=== PATIENT | female | born 1960 | race Caucasian/White ===

== ENCOUNTER → 2017-04-24 | Outpatient (CLI) | payer BC, SELFPAY | PROVIDERS: Family Provider Emergency Medicine; Visit Provider Internal Medicine | DX: I25.10 Atherosclerotic heart disease of native coronary artery without angina pectoris (principal); I11.9 Hypertensive heart disease without heart failure; E78.5 Hyperlipidemia, unspecified | CPT/HCPCS: 93306 ==

== ENCOUNTER 2017-09-17 01:09 | Inpatient (IN) ==
[2017-09-17 01:48] LABS: Basophils % 0.5 % (0.1-2.0); Eosinophils # 0.2 K/mm3 (0.0-0.4); Eosinophils % 2.3 % (0.1-12.0); Hematocrit 37.6 % (37.0-47.0); Hemoglobin 12.6 g/dL (12.2-16.2); Lymphocytes % 22.3 K/mm3 (10-50); Mean Corpuscular HGB Conc 33.5 g/dL (31.8-35.4); Mean Corpuscular Hemoglobin 27.9 pg (27.0-31.2); Mean Corpuscular Volume 83.2 fl (81-99); Mean Platelet Volume 7.9 fl (7.4-10.4); Monocytes # 0.6 K/mm3 (0.1-1.0); Monocytes % 7.4 % (1.7-9.3); Neutrophils # 5.9 K/mm3 (1.8-7.8); Neutrophils % 67.5 % (37.0-80.0); Platelet Count 282 K/mm3 (142-424); Red Blood Count 4.52 M/mm3 (4.20-5.40); Red Cell Distribution Width 13.3 % (11.5-17.5); White Blood Count 8.7 K/mm3 (4.8-10.8)
[2017-09-17 01:59] LABS: Anion Gap 14.2 mEq/L (5-15); Potassium 4.2 mmoL/L (3.5-5.1)
[2017-09-17 02:17] LABS: Microscopic, Urine URINE MICROSCOPIC (MICROSCOPIC)
[2017-09-17 02:18] LABS: Appearance,Urine CLEAR (Clear); Bilirubin,Urine Negative (Negative); Blood, Urine 2+ (Negative); Color,Urine YELLOW (Yellow); Glucose,Urine (UA) Negative (Negative); Ketones,Urine Negative (Negative); Leukocyte Esterase,Urine 2+ (Negative); PH,Urine 5.5 (5.0-8.5); Protein,Urine TRACE (Negative); Specific Gravity, Urine <= 1.005 (1.005-1.030); Urobilinogen,Urine 0.2 EU/dl (0.2)
[2017-09-17 02:24] LABS: Bacteria,Urine 1+ /lpf; Mucus,Urine 1+ /lpf; Squamous Epithelial Cell,Urine TNTC #/hpf (0-5)
--- NOTE | 2017-09-17 02:30 | Emergency Department Note ---
ED Disposition Clinical Impression: Renal insufficiency, Elevated troponin Chest pain Qualifiers: Chest pain type: precordial pain Qualified Code(s): R07.2 - Precordial pain Atrial fibrillation Qualifiers: Atrial fibrillation type: paroxysmal Qualified Code(s): I48.0 - Paroxysmal atrial fibrillation Diabetes mellitus Qualifiers: Diabetes mellitus type: type 1 Diabetes mellitus complication status: with unspecified complications Qualified Code(s): E10.8 - Type 1 diabetes mellitus with unspecified complications Obesity Qualifiers: Obesity type: unspecified obesity type Obesity classification: adult class 2 ( BMI 35 - 39.9) Serious obesity comorbidity presence: unspecified whether serious comorbidity present Body mass index: BMI 36.0-36.9 Qualified Code(s): E66.9 - Obesity, unspecified; Z68.36 - Body mass index (BMI) 36.0-36.9, adult Disposition: Admitted as Observation Condition on Discharge: Good Referrals: Ness Ann APRN [Primary Care Provider] - - Critical Care Critical Care Time: No Attestation: On 09/17/17, the high probability of a clinically significant, sudden or life threatening deterioration of the following system(s) required my full and direct attention, intervention and personal management. The time I documented below is in addition to time spent performing reported procedures but includes the following listed in this critical care notation. Medical Decision Making - Medical Records Medical records reviewed: Yes: I reviewed the patient's medical records. - James Inquiry Pt receiving controlled substance: No Vital Signs: 09/17/17 01:10 09/17/17 01:57 09/17/17 02:09 Temperature 98.2 F Temperature Source Oral Pulse Rate [Orthostatic Lying Right Radial] 66 Pulse Rate [Orthostatic Sitting Right Radial] 67 Pulse Rate [Orthostatic Standing Right Radial] Pulse Rate [Right Brachial] 53 L 60 Respiratory Rate 16 16 Blood Pressure [Orthostatic Lying Right Arm] 144/76 Blood Pressure [Orthostatic Sitting Right Arm] 135/63 Blood Pressure [Orthostatic Standing Right Arm] Blood Pressure [Right Arm] 133/75 144/73 Blood Pressure Mean [Right Arm] 94 96 Blood Pressure Source [Right Arm] Automatic Cuff Automatic Cuff Blood Pressure Position [Right Arm] Sitting Sitting 02 Sat by Pulse Oximetry 97 100 Oxygen Delivery Method Room Air Room Air 09/17/17 02:10 Temperature Temperature Source Pulse Rate [Orthostatic Lying Right Radial] Pulse Rate [Orthostatic Sitting Right Radial] Pulse Rate [Orthostatic Standing Right Radial] 65 Pulse Rate [Right Brachial] Respiratory Rate Blood Pressure [Orthostatic Lying Right Arm] Blood Pressure [Orthostatic Sitting Right Arm] Blood Pressure [Orthostatic Standing Right Arm] 127/81 Blood Pressure [Right Arm] Blood Pressure Mean [Right Arm] Blood Pressure Source [Right Arm] Blood Pressure Position [Right Arm] 02 Sat by Pulse Oximetry Oxygen Delivery Method - Lab Data Lab results reviewed: Yes: I reviewed the patient's lab results. Lab Results 09/17/17 01:30: WBC 8.7, RBC 4.52, Hgb 12.6, Hct 37.6, MCV 83.2, MCH 27.9, MCHC 33.5, RDW 13.3, Plt Count 282, MPV 7.9, Neut % (Auto) 67.5, Lymph % (Auto) 22.3 , [place] % (Auto) 7.4, Eos % (Auto) 2.3, Baso % (Auto) 0.5, Neut # (Auto) 5.9, Lymph # (Auto) 2.0, [place] # (Auto) 0.6, Eos # (Auto) 0.2, Baso # (Auto) 0.0 09/17/17 01:30: Sodium 137, Potassium 4.2, Chloride 102, Carbon Dioxide 25, Anion Gap 14.2, BUN 30 H, Creatinine 1.53 H, Estimated Creat Clear 67, Estimated GFR 35 L, Est GFR ( Amer) 42 L, Glucose 100, Troponin I 0.15 H 09/17/17 01:30: B-Natriuretic Peptide 509 H 09/17/17 02:11: Urine Color Yellow, Urine Appearance Clear, Urine pH 5.5, Ur Specific [place] <= 1.005, Urine Protein Trace, Urine Glucose (UA) Negative, Urine Ketones Negative, Urine Blood 2+, Urine Nitrate Negative, Urine Bilirubin Negative, Urine Urobilinogen 0.2, Ur Leukocyte Esterase 2+ A, Urine RBC 10-20, Urine WBC 10-20, Ur Squamous Epith Cells Tntc, Urine Bacteria 1+, Urine Mucus 1+ Result diagrams: 09/17/17 01:30 09/17/17 01:30 Orders (Tests/Meds): ORDERS Category Date Time Status Chest XR 2 view (NOT portable) [XR chest 2V] Stat Exams 05/22/18 01:23 Taken Urine Culture Stat Micro 09/17/17 02:11 Received - Radiology Data #1 Image(s): Chest Image Reviewed: Yes I reviewed the patient's radiology image Preliminary Findings: Abnormal (cm) - ECG Data Tracing #1 I reviewed this ECG and interpreted as documented below: Arrhythmias present: afib, aflutter Ischemic changes: non-specific ST-T wave changes Dizzy HPI - General Chief Complaint: Arrhythmia/Palpitations Stated Complaint: dizzy, weakness Time Seen by Provider: 09/17/17 01:20 Mode of Arrival: Ambulatory Limitations: No Limitations Description of Symptoms (Recalled from ER Triage Doc. by RN): REPORTS SHE WAS AT WORK, STARTED HER SHIFT AT 2300 AND ABOUT AN HOUR AFTER BEING AT WORK, FELT DIZZY. HAS A HX OF ARRYTHMIA, EKG SHOWS AFLUTTER. REPORTS MILD SOA WITH IT AND A "FULLNESS" FEELING IN HER CHEST. - History of Present Illness HPI Narrative: pt with known cad with stents 2 yrs ago and has a fib /a flutter and she had episode of chest tightness and diaphoresis - MD complaint: dizziness Onset (ago): hour(s) Timing: sudden onset Description: lightheadedness History of similar episodes: Yes History of trauma: No Severity: moderate Relieving factors: remaining still Exacerbating factors: movement Associated symptoms: chest pain, diaphoresis - Related Data Home Medications Medication Instructions Recorded Confirmed insulin NPH isophane U-100 human 30 unit SUB-Q BID ml 05/03/17 09/17/17 100 unit/mL subcutaneous suspension metoprolol succinate ER 100 mg 100 mg PO DAILY 05/03/17 09/17/17 tablet,extended release 24 hr nitroglycerin 0.4 mg sublingual 0.4 mg SUBLINGUAL Q5M PRN 05/03/17 09/17/17 tablet rivaroxaban 20 mg tablet 20 mg PO DAILY 05/03/17 09/17/17 atorvastatin 80 mg tablet 10 mg PO DAILY tab 08/30/17 09/17/17 Clopidogrel Bisulfate [Plavix 75mg 75 mg PO DAILY 09/17/17 09/17/17 Tab] Furosemide [Furosemide 20mg Tab] 20 mg PO DAILY 09/17/17 09/17/17 Lisinopril [Prinivil 10mg Tablet] 10 mg PO DAILY 09/17/17 09/17/17 Omeprazole [Omeprazole 20mg 40 mg PO DAILY 09/17/17 09/17/17 Capsule] dilTIAZem HCl [Diltiazem ER] 240 mg PO DAILY 09/17/17 09/17/17 Allergies Allergy/AdvReac Type Severity Reaction Status Date / Time No Known Allergies Allergy Verified 08/22/17 10:12 [facility] History I have reviewed the patient's past medical history: Yes Medical History: Reports:: Atrial Fibrillation, Coronary Artery Disease, Diabetes Mellitus Type 2, Hyperlipidemia, Hypertension, Seizures Denies:: Cancer, MRSA Other Surgeries: Yes: Cholecystectomy Amputation: No Fractures: No - Social History Educational Level: Completed Grade School Smoking Status: Never smoker Alcohol Intake: never Substance Use Type: denies use Occupational Status: employed Housing: house Household Members: family - Psychiatric History Expresses thoughts of harming self/others: None Suicide Plan Description: No Plan Family Hx:: Diabetes, Heart Attack ROS Obtained: Yes All systems reviewed & no additional complaints - Constitutional Constitutional: Denies fever(s) - Eyes Eyes: Denies change in vision - ENT Ears, Nose, Mouth, and Throat: Denies sore throat - Cardiovascular Cardiovascular: Reports chest pain, Reports palpitations, Denies rapid heart rate, Denies slow heart rate - Respiratory Respiratory: No cough - Gastrointestinal Gastrointestingal: Denies: abdominal pain, black, tarry stools - Genitourinary Female Genitourinary: Denies hematuria - Musculoskeletal Musculoskeletal: Denies joint pain, Denies joint swelling - Integumentary/Breasts Skin/Breast: Denies rash - Neurologic Neurologic: Denies seizure-like activity Physical Exam - General General appearance: in no apparent distress - Head Head exam: normocephalic - Eye Eye exam: Present: PERRL, EOMI - ENT ENT exam: Present: mucous membranes dry - Neck Neck exam: Present: trachea midline - Respiratory Respiratory exam: Present: normal lung sounds bilaterally. Absent: respiratory distress - Cardiovascular Cardiovascular exam: Present: irregular rhythm, systolic murmur, +S4 - Abdominal Exam Abdominal exam: Present: soft - Neurological Exam Neurological exam: Present: oriented X3, CN II-XII intact - Psychiatric Psychiatric exam: Present: normal affect - Skin Skin exam: Absent: rash
[2017-09-17 02:55] LABS: T4 (Thyroxine) 7.7 ug/dl (4.7-13.3); Thyroid Stimulating Hormone 1.08 uIU/ml (0.358-3.740)
[2017-09-17 06:56] LABS: Basophils % 0.6 % (0.1-2.0); Eosinophils # 0.2 K/mm3 (0.0-0.4); Eosinophils % 2.4 % (0.1-12.0); Hematocrit 36.5 % (37.0-47.0); Hemoglobin 11.9 g/dL (12.2-16.2); Lymphocytes # 1.7 K/mm3 (0.7-4.5); Lymphocytes % 23.3 K/mm3 (10-50); Mean Corpuscular HGB Conc 32.7 g/dL (31.8-35.4); Mean Corpuscular Hemoglobin 27.7 pg (27.0-31.2); Mean Corpuscular Volume 84.8 fl (81-99); Mean Platelet Volume 7.5 fl (7.4-10.4); Monocytes # 0.5 K/mm3 (0.1-1.0); Monocytes % 7.1 % (1.7-9.3); Neutrophils # 4.9 K/mm3 (1.8-7.8); Neutrophils % 66.6 % (37.0-80.0); Platelet Count 252 K/mm3 (142-424); Red Cell Distribution Width 13.4 % (11.5-17.5); White Blood Count 7.3 K/mm3 (4.8-10.8)
[2017-09-17 07:01] LABS: INR 1.3 (0.9-1.1); Prothrombin Time 14.1 seconds (9.4-11.8)
[2017-09-17 07:02] LABS: Anion Gap 13.3 mEq/L (5-15); Potassium 4.3 mmoL/L (3.5-5.1)
--- NOTE | 2017-09-17 07:46 | Pharmacy Consult Notes ---
[facility] Pharmacy VTE Monitoring - Patient Demographics Admission date: 09/17/17 Report Date: 09/17/17 Time: 07:45 Allergies/Adverse Reactions: Patient Allergies No Known Allergies Allergy (Verified 08/22/17 10:12) Height: 1.7 m Weight: 101.406 kg Patient Problems: Current Active Problems Chest pain (Acute) Atrial fibrillation (Acute) Renal insufficiency (Acute) Elevated troponin (Acute) Obesity (Acute) Diabetes mellitus (Acute) - VTE Risk Labs: VTE Related Lab Results Hgb 11.9 g/dL (12.2-16.2) L 09/17/17 06:12 Hct 36.5 % (37.0-47.0) L 09/17/17 06:12 Plt Count 252 K/mm3 (142-424) 09/17/17 06:12 BUN 28 mg/dL (7-18) H 09/17/17 06:12 Creatinine 1.29 mg/dL (0.55-1.02) H 09/17/17 06:12 Estimated Creat Clear 77 mL/min (0-300) 09/17/17 06:12 Was VTE Risk Assessment Performed: Yes VTE Risk Level: Low Risk - Prophylaxis VTE Prophylaxis Ordered?: Yes Types of VTE Prophylaxis: TEDS Knee High Location of Applied Device: Bilateral Lower Extremeties - VTE Diagnosis Confirmed Treatment or plan recommended: Continue Current Treatment
--- NOTE | 2017-09-17 08:26 | Consult Report ---
History of Present Illness Consult date: 09/17/17 Requesting physician: Dipak Tai Consult reason: chest pain Chief complaint: Dizziness Additional Medical History:: 1. CAD A. MAXIMILIAN to diagonal, 08/30/2015. On DAPT. B. NSTEMI, 09/06/2015, due to A. Fib/flutter with RVR. C. NSTEMI, 02/2016, with LHC showing LAD FFR of 0.82, mildly elevated LVEDP 2. Chronic A. fib/flutter with history of intracardiac thrombus, 2010, transient coumadin therapy stopped due to hematuria A. Chronic Xarelto therapy B. Failed amiodarone therapy to maintain NSR 3. CKD, stage 3 4. HTN 5. Hyperlipidemia 6. 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 History of seizures 8. Diabetes, treated for 14 yrs. History of present illness: 57-year-old white female with known coronary artery disease presented to the emergency department for episode of dizziness and chest discomfort while at work. 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 Patient states she could rest with resolution of symptoms but with exertion symptoms would quickly return. She did feel as if she might pass out. Due to the symptoms being similar to her previous stent 2 years ago she decided to come to the emergency department for further evaluation. She relates a similar episode about 1 month ago but not as severe. Patient has chronic atrial flutter for which she takes Xarelto therapy. She is on Plavix therapy for history of coronary artery disease. Patient was admitted through the emergency department with mildly elevated troponins. She has had no further episodes of discomfort or dizziness since admission. Cardiology consulted for evaluation recommendations. [facility] History Medical History: Reports:: Atrial Fibrillation, Coronary Artery Disease, Deep Vein Thrombosis, Diabetes Mellitus Type 2, Hyperlipidemia, Hypertension, Seizures Denies:: Cancer, Diabetes Mellitus Type 1, MRSA Other Surgeries: Yes: Cholecystectomy Amputation: No Fractures: No - *Social History Educational Level: Completed Grade School Smoking Status: Never smoker Alcohol Intake: never Substance Use Type: denies use Occupational Status: employed Housing: house Household Members: family - Psychiatric History Expresses thoughts of harming self/others: None Suicide Plan Description: No Plan *Family Hx:: Diabetes, Heart Attack Meds Home Medications Medication Instructions Recorded Confirmed Type insulin NPH isophane U-100 human 30 unit SUB-Q BID ml 05/03/17 09/17/17 History 100 unit/mL subcutaneous suspension metoprolol succinate ER 100 mg 100 mg PO DAILY 05/03/17 09/17/17 History tablet,extended release 24 hr nitroglycerin 0.4 mg sublingual 0.4 mg SUBLINGUAL Q5MINP PRN 05/03/17 09/17/17 History tablet rivaroxaban 20 mg tablet 20 mg PO DAILY 05/03/17 09/17/17 History Atorvastatin Calcium [Atorvastatin 10 mg PO HS 09/17/17 09/17/17 History 10mg Tab] Clopidogrel Bisulfate [Plavix 75mg 75 mg PO DAILY 09/17/17 09/17/17 History Tab] Furosemide [Furosemide 20mg Tab] 20 mg PO DAILY 09/17/17 09/17/17 History Lisinopril [Prinivil 10mg Tablet] 10 mg PO DAILY 09/17/17 09/17/17 History Omeprazole [Omeprazole 20mg 40 mg PO DAILY 09/17/17 09/17/17 History Capsule] dilTIAZem HCl [Diltiazem ER] 240 mg PO DAILY 09/17/17 09/17/17 History Allergies Allergy/AdvReac Type Severity Reaction Status Date / Time No Known Allergies Allergy Verified 08/22/17 10:12 Review of Systems - *Cardiovascular Reports chest pain - *Respiratory Reports shortness of breath with activity, Denies wheezing - *Gastrointestinal Denies abdominal pain - *Musculoskeletal Denies joint pain - *Neurologic Denies seizure-like activity Exam Vital signs and Labs for Last 24 Hours: Temp Pulse Resp BP Pulse Ox 98.0 F 91 H 18 157/74 99 09/17/17 07:32 09/17/17 07:32 09/17/17 07:32 09/17/17 07:32 09/17/17 07:32 Laboratory Results - last 24 hr 09/17/17 01:30: WBC 8.7, RBC 4.52, Hgb 12.6, Hct 37.6, MCV 83.2, MCH 27.9, MCHC 33.5, RDW 13.3, Plt Count 282, MPV 7.9, Neut % (Auto) 67.5, Lymph % (Auto) 22.3 , [place] % (Auto) 7.4, Eos % (Auto) 2.3, Baso % (Auto) 0.5, Neut # (Auto) 5.9, Lymph # (Auto) 2.0, [place] # (Auto) 0.6, Eos # (Auto) 0.2, Baso # (Auto) 0.0 09/17/17 01:30: Sodium 137, Potassium 4.2, Chloride 102, Carbon Dioxide 25, Anion Gap 14.2, BUN 30 H, Creatinine 1.53 H, Estimated Creat Clear 67, Estimated GFR 35 L, Est GFR ( Amer) 42 L, Glucose 100, Troponin I 0.15 H 09/17/17 01:30: B-Natriuretic Peptide 509 H 09/17/17 01:30: TSH 1.08, Thyroxine (T4) 7.7 09/17/17 02:11: Urine Color Yellow, Urine Appearance Clear, Urine pH 5.5, Ur Specific [place] <= 1.005, Urine Protein Trace, Urine Glucose (UA) Negative, Urine Ketones Negative, Urine Blood 2+, Urine Nitrate Negative, Urine Bilirubin Negative, Urine Urobilinogen 0.2, Ur Leukocyte Esterase 2+ A, Urine RBC 10-20, Urine WBC 10-20, Ur Squamous Epith Cells Tntc, Urine Bacteria 1+, Urine Mucus 1+ 09/17/17 04:35: Troponin I 0.14 H 09/17/17 05:55: POC Glucose 130 H 09/17/17 06:10: PT 14.1 H, INR 1.30 H 09/17/17 06:12: WBC 7.3, RBC 4.30, Hgb 11.9 L, Hct 36.5 L, MCV 84.8, MCH 27.7, MCHC 32.7, RDW 13.4, Plt Count 252, MPV 7.5, Neut % (Auto) 66.6, Lymph % (Auto) 23.3, [place] % (Auto) 7.1, Eos % (Auto) 2.4, Baso % (Auto) 0.6, Neut # (Auto) 4.9 , Lymph # (Auto) 1.7, [place] # (Auto) 0.5, Eos # (Auto) 0.2, Baso # (Auto) 0.0 09/17/17 06:12: Sodium 140, Potassium 4.3, Chloride 105, Carbon Dioxide 26, Anion Gap 13.3, BUN 28 H, Creatinine 1.29 H, Estimated Creat Clear 77, Estimated GFR 43 L, Est GFR ( Amer) 52 L D, Glucose 123 H D 09/17/17 06:40: Troponin I 0.14 H I & O for Last 24 hours: Intake & Output 09/14/17 09/15/17 09/16/17 09/17/17 11:59 11:59 11:59 11:59 Intake Total Output Total 800 / 800 Balance -790 / -790 Weight 223 lb 9 oz - *Routine Neck Exam Absent: JVD, carotid bruit - *Routine Respiratory Exam Present: CTA bilaterally - *Routine Cardiovascular Exam Present: irregular rhythm - *Routine Extremities Exam Absent: edema - *Routine Neurological Exam Present: alert, oriented X3, moving all extremities Assessment and Plan (1) NSTEMI (non-ST elevated myocardial infarction) Current visit: Yes Status: Acute Category: Medical Code(s): I21.4 - Non- ST elevation (NSTEMI) myocardial infarction (2) Atrial flutter Current visit: Yes Status: Acute Category: Medical Code(s): I48.92 - Unspecified atrial flutter (3) Atrial fibrillation Current visit: Yes Status: Acute Qualifiers: Atrial fibrillation type: paroxysmal Qualified Code(s): I48.0 - Paroxysmal atrial fibrillation Category: Medical Code(s): I48.91 - Unspecified atrial fibrillation (4) Diabetes mellitus Current visit: Yes Status: Acute Qualifiers: Diabetes mellitus type: type 1 Diabetes mellitus complication status: with unspecified complications Qualified Code(s): E10.8 - Type 1 diabetes mellitus with unspecified complications Category: Medical Code(s): E11.9 - Type 2 diabetes mellitus without complications (5) HHD (hypertensive heart disease) Current visit: No Status: Acute Category: Medical Code(s): I11.9 - Hypertensive heart disease without heart failure (6) HLD (hyperlipidemia) Current visit: No Status: Acute Qualifiers: Hyperlipidemia type: other hyperlipidemia Qualified Code(s): E78.4 - Other hyperlipidemia Category: Medical Code(s): E78.5 - Hyperlipidemia, unspecified - Assessment and plan all Dx Assessment and Plan for all problems:: 1. With history of coronary artery disease and recurrent angina symptoms in a diabetic patient, recommend proceeding with left heart catheterization. Risks, benefits and procedure explained to the patient and she agrees to proceed. We will attempt radial approach due to Xarelto therapy. 2. Will obtain an echocardiogram to evaluate left ventricular ejection fraction in setting of a NSTEMI 3. Further recommendations to follow pending above results.
--- NOTE | 2017-09-17 08:46 | History & Physical Report ---
*Admission Date: 09/17/17 *Chief complaint: chest pain *History of present illness: 57-year-old white female with known coronary artery disease presented to the emergency department for episode of dizziness and chest discomfort while at work. 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 Patient states she could rest with resolution of symptoms but with exertion symptoms would quickly return. She did feel as if she might pass out. Due to the symptoms being similar to her previous stent 2 years ago she decided to come to the emergency department for further evaluation. She relates a similar episode about 1 month ago but not as severe. Patient has chronic atrial flutter for which she takes Xarelto therapy. She is on Plavix therapy for history of coronary artery disease. Patient was admitted through the emergency department with mildly elevated troponins. She has had no further episodes of discomfort or dizziness since admission. Cardiology consulted for evaluation recommendations. [facility] [place] History I have reviewed the patient's past medical history: Yes Medical History: Reports:: Atrial Fibrillation, Coronary Artery Disease, Deep Vein Thrombosis, Diabetes Mellitus Type 2, Hyperlipidemia, Hypertension, Seizures Denies:: Cancer, Diabetes Mellitus Type 1, MRSA Other Surgeries: Yes: Cholecystectomy Amputation: No Fractures: No - *Social History Educational Level: Completed Grade School Smoking Status: Never smoker Alcohol Intake: never Substance Use Type: denies use Occupational Status: employed Housing: house Household Members: family - Psychiatric History Expresses thoughts of harming self/others: None Suicide Plan Description: No Plan *Family Hx:: Diabetes, Heart Attack Review of Systems - Review of Systems Review of systems:: pertinent systems reviewed and negative unless documented below - Constitutional Denies body ache(s), Denies chills, Denies weakness - Eyes Denies change in vision - ENT Denies bleeding gums - *Cardiovascular Reports chest pain, Reports chest pain at rest, Reports chest pain with activity - *Respiratory Denies chest congestion, Denies cough, Denies shortness of breath - *Gastrointestinal Denies bloating - *Genitourinary Denies abnormal vaginal bleeding, Denies difficulty urinating - *Musculoskeletal Denies abnormal walking, Denies joint pain, Denies stiffness - Integumentary/Breasts Denies bleeding lesions - *Neurologic Denies abnormal movements, Denies seizure-like activity - Psychiatric Denies anxiety - Endocrine Denies flushing - Hematologic/Lymphatic Denies enlarged lymph nodes - Allergic/Immunologic Denies lip swelling Meds Home Medications Medication Instructions Recorded Confirmed Type insulin NPH isophane U-100 human 30 unit SUB-Q BID ml 05/03/17 09/17/17 History 100 unit/mL subcutaneous suspension metoprolol succinate ER 100 mg 100 mg PO DAILY 05/03/17 09/17/17 History tablet,extended release 24 hr nitroglycerin 0.4 mg sublingual 0.4 mg SUBLINGUAL Q5MINP PRN 05/03/17 09/17/17 History tablet rivaroxaban 20 mg tablet 20 mg PO DAILY 05/03/17 09/17/17 History Atorvastatin Calcium [Atorvastatin 10 mg PO HS 09/17/17 09/17/17 History 10mg Tab] Clopidogrel Bisulfate [Plavix 75mg 75 mg PO DAILY 09/17/17 09/17/17 History Tab] Furosemide [Furosemide 20mg Tab] 20 mg PO DAILY 09/17/17 09/17/17 History Lisinopril [Prinivil 10mg Tablet] 10 mg PO DAILY 09/17/17 09/17/17 History Omeprazole [Omeprazole 20mg 40 mg PO DAILY 09/17/17 09/17/17 History Capsule] dilTIAZem HCl [Diltiazem ER] 240 mg PO DAILY 09/17/17 09/17/17 History Allergies Allergy/AdvReac Type Severity Reaction Status Date / Time No Known Allergies Allergy Verified 08/22/17 10:12 Exam Vital signs and Labs for Last 24 Hours: Temp Pulse Resp BP Pulse Ox 98.0 F 91 H 18 157/74 99 09/17/17 07:32 09/17/17 07:32 09/17/17 07:32 09/17/17 07:32 09/17/17 07:32 Laboratory Results - last 24 hr 09/17/17 01:30: WBC 8.7, RBC 4.52, Hgb 12.6, Hct 37.6, MCV 83.2, MCH 27.9, MCHC 33.5, RDW 13.3, Plt Count 282, MPV 7.9, Neut % (Auto) 67.5, Lymph % (Auto) 22.3 , [place] % (Auto) 7.4, Eos % (Auto) 2.3, Baso % (Auto) 0.5, Neut # (Auto) 5.9, Lymph # (Auto) 2.0, [place] # (Auto) 0.6, Eos # (Auto) 0.2, Baso # (Auto) 0.0 09/17/17 01:30: Sodium 137, Potassium 4.2, Chloride 102, Carbon Dioxide 25, Anion Gap 14.2, BUN 30 H, Creatinine 1.53 H, Estimated Creat Clear 67, Estimated GFR 35 L, Est GFR ( Amer) 42 L, Glucose 100, Troponin I 0.15 H 09/17/17 01:30: B-Natriuretic Peptide 509 H 09/17/17 01:30: TSH 1.08, Thyroxine (T4) 7.7 09/17/17 02:11: Urine Color Yellow, Urine Appearance Clear, Urine pH 5.5, Ur Specific [place] <= 1.005, Urine Protein Trace, Urine Glucose (UA) Negative, Urine Ketones Negative, Urine Blood 2+, Urine Nitrate Negative, Urine Bilirubin Negative, Urine Urobilinogen 0.2, Ur Leukocyte Esterase 2+ A, Urine RBC 10-20, Urine WBC 10-20, Ur Squamous Epith Cells Tntc, Urine Bacteria 1+, Urine Mucus 1+ 09/17/17 04:35: Troponin I 0.14 H 09/17/17 05:55: POC Glucose 130 H 09/17/17 06:10: PT 14.1 H, INR 1.30 H 09/17/17 06:12: WBC 7.3, RBC 4.30, Hgb 11.9 L, Hct 36.5 L, MCV 84.8, MCH 27.7, MCHC 32.7, RDW 13.4, Plt Count 252, MPV 7.5, Neut % (Auto) 66.6, Lymph % (Auto) 23.3, [place] % (Auto) 7.1, Eos % (Auto) 2.4, Baso % (Auto) 0.6, Neut # (Auto) 4.9 , Lymph # (Auto) 1.7, [place] # (Auto) 0.5, Eos # (Auto) 0.2, Baso # (Auto) 0.0 09/17/17 06:12: Sodium 140, Potassium 4.3, Chloride 105, Carbon Dioxide 26, Anion Gap 13.3, BUN 28 H, Creatinine 1.29 H, Estimated Creat Clear 77, Estimated GFR 43 L, Est GFR ( Amer) 52 L D, Glucose 123 H D 09/17/17 06:40: Troponin I 0.14 H I & O for Last 24 hours: Intake & Output 09/14/17 09/15/17 09/16/17 09/17/17 11:59 11:59 11:59 11:59 Intake Total Output Total 800 / 800 Balance -790 / -790 Weight 223 lb 9 oz - Constitutional no acute distress - *Routine HEENT Exam Head: Present: normocephalic Eye: Present: PERRL ENT: Present: mucous membranes moist - *Routine Neck Exam Present: full ROM - *Routine Respiratory Exam Present: CTA bilaterally - *Routine Cardiovascular Exam Present: irregularly irregular - *Routine Abdominal Exam Present: soft, normoactive bowel sounds - *Routine Extremities Exam Present: full ROM - *Routine Skin Exam Present: intact - *Routine Neurological Exam Present: alert, oriented X3, CN II-XII intact - Routine Psychiatric Exam Present: normal affect, normal thought process H&P: Result - Labs Labs: Short CBC 09/17/17 09/17/17 Range/Units 01:30 06:12 WBC 8.7 7.3 (4.8-10.8) K/mm3 Hgb 12.6 11.9 L (12.2-16.2) g/dL Hct 37.6 36.5 L (37.0-47.0) % Plt Count 282 252 (142-424) K/mm3 BMP 09/17/17 09/17/17 01:30 06:12 Sodium 137 140 Potassium 4.2 4.3 Chloride 102 105 Carbon Dioxide 25 26 BUN 30 H 28 H Creatinine 1.53 H 1.29 H Glucose 100 123 H D Cardiac Enzymes 09/17/17 09/17/17 09/17/17 Range/Units 01:30 04:35 06:40 Troponin I 0.15 H 0.14 H 0.14 H (0.00-0.06) ng/ml Urine 09/17/17 Range/Units 02:11 Urine Color Yellow (Yellow) Urine Appearance Clear (Clear) Urine pH 5.5 (5.0-8.5) Ur Specific [place] <= 1.005 (1.005-1.030) Urine Protein Trace (Negative) Urine Glucose (UA) Negative (Negative) Assessment and Plan (1) NSTEMI (non-ST elevated myocardial infarction) Current visit: Yes Status: Acute Category: Medical Code(s): I21.4 - Non- ST elevation (NSTEMI) myocardial infarction (2) Atrial flutter Current visit: Yes Status: Acute Category: Medical Code(s): I48.92 - Unspecified atrial flutter (3) Atrial fibrillation Current visit: Yes Status: Acute Qualifiers: Atrial fibrillation type: paroxysmal Qualified Code(s): I48.0 - Paroxysmal atrial fibrillation Category: Medical Code(s): I48.91 - Unspecified atrial fibrillation (4) Diabetes mellitus Current visit: Yes Status: Acute Qualifiers: Diabetes mellitus type: type 1 Diabetes mellitus complication status: with unspecified complications Qualified Code(s): E10.8 - Type 1 diabetes mellitus with unspecified complications Category: Medical Code(s): E11.9 - Type 2 diabetes mellitus without complications (5) HHD (hypertensive heart disease) Current visit: No Status: Acute Category: Medical Code(s): I11.9 - Hypertensive heart disease without heart failure (6) HLD (hyperlipidemia) Current visit: No Status: Acute Qualifiers: Hyperlipidemia type: other hyperlipidemia Qualified Code(s): E78.4 - Other hyperlipidemia Category: Medical Code(s): E78.5 - Hyperlipidemia, unspecified - Assessment and plan all Dx Assessment and Plan for all problems:: Rounded with Dr. Tai all orders per Dr. Tai Cardiology consult with heart cath with possible stents today
[2017-09-18 06:00] LABS: Chol/HDL Ratio 6.2 (1-3.5)
--- NOTE | 2017-09-18 09:16 | Progress Note ---
Subjective Date: 09/18/17 Time: 09:13 Principal diagnosis: NSTEMI Interval history: 57-year-old white female sitting in bedside chair in no acute distress. States she is feeling much better. She underwent coronary artery stenting yesterday. Right wrist minimal discomfort. Patient is anxious to go home. Exam Vital signs and Labs for Last 24 Hours: Temp Pulse Resp BP Pulse Ox 98.0 F 74 18 128/88 99 09/17/17 21:15 09/18/17 07:57 09/18/17 07:57 09/18/17 07:57 09/18/17 07:57 Laboratory Results - last 24 hr 09/17/17 02:11: Urine Color Yellow, Urine Appearance Clear, Urine pH 5.5, Ur Specific [place] <= 1.005, Urine Protein Trace, Urine Glucose (UA) Negative, Urine Ketones Negative, Urine Blood 2+, Urine Nitrate Negative, Urine Bilirubin Negative, Urine Urobilinogen 0.2, Ur Leukocyte Esterase 2+ A, Urine RBC 10-20, Urine WBC 10-20, Ur Squamous Epith Cells Tntc, Urine Bacteria 1+, Urine Mucus 1+ 09/17/17 10:24: Troponin I 0.16 H 09/17/17 12:47: POC Glucose 126 H 09/17/17 13:45: Activated Clotting Time 389 H* 09/17/17 16:59: POC Glucose 208 H 09/17/17 20:50: POC Glucose 295 H 09/18/17 05:20: Triglycerides 181, Cholesterol 173, LDL Cholesterol 109, VLDL Cholesterol 36, HDL Cholesterol 28 L, Cholesterol/HDL Ratio 6.2 H 09/18/17 05:38: POC Glucose 210 H I & O for Last 24 hours: Intake & Output 09/15/17 09/16/17 09/17/17 09/18/17 11:59 11:59 11:59 11:59 Intake Total 490 / 490 Output Total 800 / 800 1600 / 1600 Balance -790 / -790 -1110 / -1110 Weight 223 lb 9 oz 221 lb 3 oz Microbiology Reports for the Last 24 Hours: Microbiology 09/17/17 02:11 Urine,Clean Catch Urine Culture - Preliminary Gram Negative Rods - *Routine Respiratory Exam Present: CTA bilaterally - *Routine Cardiovascular Exam Present: RRR, irregularly irregular Progress Note: A&P (1) NSTEMI (non-ST elevated myocardial infarction) Status: Acute Current Visit: Yes (2) Atrial flutter Status: Acute Current Visit: Yes (3) Atrial fibrillation Status: Acute Current Visit: Yes (4) Diabetes mellitus Status: Acute Current Visit: Yes (5) HHD (hypertensive heart disease) Status: Acute Current Visit: No (6) HLD (hyperlipidemia) Status: Acute Current Visit: No Assessment and Plan for All Diagnoses:: Okay from cardiology standpoint to discharge home. Medications: Aspirin 80 mg daily, Plavix 75 mg daily, Xarelto 20 mg daily, diltiazem CD 240 mg daily, metoprolol 100 mg daily, lisinopril 10 mg daily, atorvastatin 10 mg daily, Lasix 20 mg daily and insulin as directed. Continue proton pump inhibitor also. Patient is on triple anticoagulant therapy, would recommend continuing this for 30 days and then discontinue aspirin. We will see her back in 1 week.
--- NOTE | 2017-09-18 13:09 | Discharge Summary ---
General - General Admission date:: 09/17/17 Discharge date: 09/18/17 HPI HPI: 57-year-old white female with known coronary artery disease presented to the emergency department for episode of dizziness and chest discomfort while at work. 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 Patient states she could rest with resolution of symptoms but with exertion symptoms would quickly return. She did feel as if she might pass out. Due to the symptoms being similar to her previous stent 2 years ago she decided to come to the emergency department for further evaluation. She relates a similar episode about 1 month ago but not as severe. Patient has chronic atrial flutter for which she takes Xarelto therapy. She is on Plavix therapy for history of coronary artery disease. Patient was admitted through the emergency department with mildly elevated troponins. She has had no further episodes of discomfort or dizziness since admission. Cardiology consulted for evaluation recommendations. Hospital Course Hospital Course: pt did well in hospital with cath with stents - ANGIOGRAPHIC RESULTS: 1. The left main artery normal 2. The left anterior descending artery has very proximal 20% stenosis proximal to the first septal roofer applicator followed by a hazy 70% concentric stenosis after the first diagonal artery which represents in-stent restenosis. The remaining LAD has mild 10-20% stenoses. The stent in the proximal first diagonal artery is widely patent 3. The circumflex artery is nondominant and has mild 10% luminal irregularities 4. The right coronary artery is a dominant vessel and has mid vessel 20% stenoses 5. The KAMARA ventriculogram reveals normal 65% 6. The left ventricular end-diastolic pressure 20 mmHg IMPRESSION: 1. Severe in-stent restenosis within the proximal to mid LAD which likely accounting for the acute coronary syndrome with elevated troponins 2. Successful stenting of the proximal to mid LAD severe disease reduced to 0% with 1 drug-eluting stent 3. Normal ejection fraction 4. Mildly elevated LVEDP Objective Vital signs: Temp Pulse Resp BP Pulse Ox 98.0 F 130 H 18 128/88 99 09/17/17 21:15 09/18/17 12:00 09/18/17 07:57 09/18/17 07:57 09/18/17 08:00 no acute distress - *Routine HEENT Exam Head: Present: normocephalic Eye: Present: EOMI, PERRL ENT: Present: mucous membranes moist - *Routine Neck Exam Present: supple - *Routine Respiratory Exam Present: CTA bilaterally - *Routine Cardiovascular Exam Present: murmur, S4 - *Routine Abdominal Exam Present: soft - *Routine Extremities Exam Absent: edema - *Routine Skin Exam Present: intact - *Routine Neurological Exam Present: alert, oriented X3, CN II-XII intact - Routine Psychiatric Exam Present: normal affect Results Labs on day of discharge: Labs from last 24 hours 09/18/17 09/18/17 09/17/17 05:38 05:20 20:50 Activated Clotting Time POC Glucose 210 H 295 H Triglycerides 181 Cholesterol 173 LDL Cholesterol 109 VLDL Cholesterol 36 HDL Cholesterol 28 L Cholesterol/HDL Ratio 6.2 H Urine Color Urine Appearance Urine pH Ur Specific [place] Urine Protein Urine Glucose (UA) Urine Ketones Urine Blood Urine Nitrate Urine Bilirubin Urine Urobilinogen Ur Leukocyte Esterase Urine RBC Urine WBC Ur Squamous Epith Cells Urine Bacteria Urine Mucus 09/17/17 09/17/17 09/17/17 16:59 13:45 02:11 Activated Clotting Time 389 H* POC Glucose 208 H Triglycerides Cholesterol LDL Cholesterol VLDL Cholesterol HDL Cholesterol Cholesterol/HDL Ratio Urine Color Yellow Urine Appearance Clear Urine pH 5.5 Ur Specific [place] <= 1.005 Urine Protein Trace Urine Glucose (UA) Negative Urine Ketones Negative Urine Blood 2+ Urine Nitrate Negative Urine Bilirubin Negative Urine Urobilinogen 0.2 Ur Leukocyte Esterase 2+ A Urine RBC 10-20 Urine WBC 10-20 Ur Squamous Epith Cells Tntc Urine Bacteria 1+ Urine Mucus 1+ Preliminary micro results at discharge 09/17/17 02:11 Urine Culture - Preliminary Urine,Clean Catch Gram Negative Rods DS: Diagnosis - Discharge Diagnosis (1) NSTEMI (non-ST elevated myocardial infarction) Status: Acute (2) Atrial flutter Status: Acute (3) Atrial fibrillation Status: Acute (4) Diabetes mellitus Status: Acute (5) HHD (hypertensive heart disease) Status: Acute (6) HLD (hyperlipidemia) Status: Acute Discharge Plan - Patient Discharge Instructions ACTIVITY: Continue current activity DIET: continue same diet Additional Instructions: no heavy lifting followup with marcia monitor site for infection or bleeding monitor heart rate take meds as ordered Patient Instructions: DI for Cardiac Catheterization - Follow up Plan Disposition: Home, Self-Halfway Medications: Home Medications Medication Instructions Recorded Confirmed Type insulin NPH isophane U-100 human 30 unit SUB-Q BID ml 05/03/17 09/17/17 History 100 unit/mL subcutaneous suspension metoprolol succinate ER 100 mg 100 mg PO DAILY 05/03/17 09/17/17 History tablet,extended release 24 hr nitroglycerin 0.4 mg sublingual 0.4 mg SUBLINGUAL Q5MINP PRN 05/03/17 09/17/17 History tablet rivaroxaban 20 mg tablet 20 mg PO DAILY 05/03/17 09/17/17 History Atorvastatin Calcium [Atorvastatin 10 mg PO HS 09/17/17 09/17/17 History 10mg Tab] Clopidogrel Bisulfate [Plavix 75mg 75 mg PO DAILY 09/17/17 09/17/17 History Tab] Furosemide [Furosemide 20mg Tab] 20 mg PO DAILY 09/17/17 09/17/17 History Lisinopril [Prinivil 10mg Tablet] 10 mg PO DAILY 09/17/17 09/17/17 History Omeprazole [Omeprazole 20mg 40 mg PO DAILY 09/17/17 09/17/17 History Capsule] dilTIAZem HCl [Diltiazem ER] 240 mg PO DAILY 09/17/17 09/17/17 History Prescriptions/Medication Reconciliation: New Clopidogrel Bisulfate [Plavix 75mg Tab] 75 mg PO DAILY tablet Aspirin [Aspirin 81mg chewable tab] 81 mg PO DAILY tab.chew Atorvastatin Calcium [Lipitor 10mg Tablet] 10 mg PO HS tablet Continue nitroglycerin 0.4 mg sublingual tablet 0.4 mg SUBLINGUAL Q5MINP PRN PRN Reason: Chest Pain insulin NPH isophane U-100 human 100 unit/mL subcutaneous suspension 30 unit SUB-Q BID ml rivaroxaban 20 mg tablet 20 mg PO DAILY metoprolol succinate ER 100 mg tablet,extended release 24 hr 100 mg PO DAILY Omeprazole [Omeprazole 20mg Capsule] 40 mg PO DAILY Furosemide [Furosemide 20mg Tab] 20 mg PO DAILY dilTIAZem HCl [Diltiazem ER] 240 mg PO DAILY Clopidogrel Bisulfate [Plavix 75mg Tab] 75 mg PO DAILY Atorvastatin Calcium [Atorvastatin 10mg Tab] 10 mg PO HS Lisinopril [Prinivil 10mg Tablet] 10 mg PO DAILY
== END 2017-09-18 13:50 | disposition home or self-care (01) ==
LOC: ER 01:09 → 2ND 01:09 → OBSVTOIN 02:59 → 2ND 03:00
PROVIDERS: ADMIT Emergency Medicine; ATTEND Emergency Medicine

== ENCOUNTER → 2018-08-30 08:28 | Outpatient (CLI) | payer BC, SELFPAY | PROVIDERS: PCP Nurse Practitioner Family; Referring Provider Internal Medicine Cardiovascular Disease; Visit Provider Emergency Medicine | DX: I48.1 Persistent atrial fibrillation (principal) | CPT/HCPCS: 93005 ==

== ENCOUNTER 2018-09-01 16:40 | Observation (INO) ==
[2018-09-01 17:01] LABS: Basophils % 0.6 % (0.1-2.0); Eosinophils # 0.2 K/mm3 (0.0-0.4); Eosinophils % 2.5 % (0.1-12.0); Hematocrit 39.4 % (37.0-47.0); Hemoglobin 13.4 g/dL (12.2-16.2); Lymphocytes # 1.9 K/mm3 (0.7-4.5); Lymphocytes % 25.4 % (10-50); Mean Corpuscular HGB Conc 34.1 g/dL (31.8-35.4); Mean Corpuscular Hemoglobin 28.8 pg (27.0-31.2); Mean Corpuscular Volume 84.3 fl (81-99); Mean Platelet Volume 7.6 fl (7.4-10.4); Monocytes # 0.5 K/mm3 (0.1-1.0); Neutrophils # 4.9 K/mm3 (1.8-7.8); Neutrophils % 64.6 % (37.0-80.0); Platelet Count 279 K/mm3 (142-424); Red Blood Count 4.67 M/mm3 (4.20-5.40); Red Cell Distribution Width 12.8 % (11.5-17.5); White Blood Count 7.5 K/mm3 (4.8-10.8)
--- NOTE | 2018-09-01 17:03 | Emergency Department Note ---
ED Disposition Clinical Impression: Atrial flutter, Chest pain, Stented coronary artery, Hyperglycemia due to type 2 diabetes mellitus Disposition: Admitted as Observation Condition on Discharge: Good Referrals: Provider,Referral, [Referring] - Time of Disposition: 18:20 - Critical Care Critical Care Time: No Attestation: On 09/01/18, the high probability of a clinically significant, sudden or life threatening deterioration of the following system(s) required my full and direct attention, intervention and personal management. The time I documented below is in addition to time spent performing reported procedures but includes the following listed in this critical care notation. Medical Decision Making - Medical Records Medical records reviewed: Yes: I reviewed the patient's medical records. - James Inquiry Pt receiving controlled substance: No James was queried for this patient: No Vital Signs: 09/01/18 16:41 09/01/18 17:40 Temperature 97.9 F Temperature Source Oral Pulse Rate [Right Radial] 63 88 Respiratory Rate 20 18 Blood Pressure [Right Arm] 167/91 H 128/91 H Blood Pressure Mean [Right Arm] 116 103 Blood Pressure Source [Right Arm] Automatic Cuff Automatic Cuff Blood Pressure Position [Right Arm] Sitting Sitting 02 Sat by Pulse Oximetry 99 98 Oxygen Delivery Method Room Air Room Air - Lab Data Lab results reviewed: Yes: I reviewed the patient's lab results. Lab Results 09/01/18 16:48: WBC 7.5, RBC 4.67, Hgb 13.4, Hct 39.4, MCV 84.3, MCH 28.8, MCHC 34.1, RDW 12.8, Plt Count 279, MPV 7.6, Neut % (Auto) 64.6, Lymph % (Auto) 25.4, [place] % (Auto) 7.0, Eos % (Auto) 2.5, Baso % (Auto) 0.6, Neut # (Auto) 4.9, Lymph # (Auto) 1.9, [place] # (Auto) 0.5, Eos # (Auto) 0.2, Baso # (Auto) 0.0 09/01/18 16:48: Sodium 131 L, Potassium 5.0, Chloride 98, Carbon Dioxide 22, Anion Gap 16.0 H, BUN 32 H, Creatinine 1.50 H, Estimated Creat Clear 64, Estimated GFR 36 L, Est GFR ( Amer) 43 L, Glucose 355 H, Calcium 9.1, Troponin I 0.09 H 09/01/18 16:48: Magnesium 1.9 Result diagrams: 09/01/18 16:48 09/01/18 16:48 Orders (Tests/Meds): ED MEDICATIONS Generic Name Dose Route Start Last Admin Trade Name Mehran PRN Reason Stop Dose Admin Lisinopril 10 mg 09/02/18 09:00 09/01/18 18:00 Zestril 10mg Tablet PO 10/02/18 08:59 Not Given DAILY KENN - ECG Data Tracing #1 ECG initial impression date: 09/01/18 ECG initial impression time: 16:40 Arrhythmias present: v flutter - Physician Consults Physician Consulted: marcia Reason -: Pt condition Comment/Response: will see in hospital Additional Consult: xochlit Time: 18:29 Reason -: Admission, Cardiology Eval/Care - MICHAEL Score for Non-Stemi Age of Patient: 50-59 years old Heart Rate: 50-69 bpm Systolic Blood Pressure: 160-199 mmHg Serum Creatinine: 1.20-1.59 mg/dl CHF [place] Class: I-No CHF Other Risk Factors: None Non-Stemi Risk Score: 64 Risk Stratification: 1-108 = Low Risk Chest Pain HPI - General Chief Complaint: Chest Pain Stated Complaint: chest pain Time Seen by Provider: 09/01/18 17:02 Mode of Arrival: Ambulatory Source of Information: Patient Limitations: No Limitations Description of Symptoms (Recalled from ER Triage Doc. by RN): Pt c/o squeezing type chest pain on L side of chest, pt also reports chest tightness. Pt reports she feeling like she is having periods of her heart racing. Pt reports hx of Afib. - History of Present Illness HPI narrative: vague pressure in chest most of day intermittently. NO true pain. Near syncopal on couple of occasions. History of A flutter, cad, intervention on two occasions with stents to LAD or first diagonal. - Related Data Home Medications Medication Instructions Recorded Confirmed nitroglycerin 0.4 mg sublingual 0.4 mg SUBLINGUAL Q5MINP PRN 05/03/17 07/15/18 tablet omeprazole 20 mg capsule,delayed 20 mg PO BID cap 11/19/17 09/01/18 release Atorvastatin Calcium [Lipitor 80mg 80 mg PO DAILY 09/01/18 09/01/18 Tablet] Clopidogrel Bisulfate [Plavix 75mg 75 mg PO DAILY 09/01/18 09/01/18 Tab] Sotalol HCl [Betapace 80mg Tablet] 80 mg PO BID 09/01/18 09/01/18 Previous Rx's Medication Instructions Recorded Aspirin [Aspirin 81mg chewable 81 mg PO DAILY tab.chew 09/18/17 tab] spironolactone 25 mg tablet 25 mg PO DAILY #30 tab 03/18/18 insulin NPH isophane U-100 human 30 unit SUB-Q BID #10 ml 05/16/18 100 unit/mL subcutaneous suspension lisinopril 10 mg tablet 10 mg PO QHS #90 tab 06/17/18 furosemide 20 mg tablet 20 mg PO DAILY #90 tab 07/09/18 diltiazem ER (XR/XT) 240 mg 240 mg PO DAILY #90 cap 07/30/18 capsule,extended release 24 hr, controlled rivaroxaban 20 mg tablet 20 mg PO DAILY #30 tab 07/30/18 Allergies Allergy/AdvReac Type Severity Reaction Status Date / Time No Known Allergies Allergy Verified 07/15/18 12:37 [facility] History - Hepatitis A Screen Drug use history?: No High risk sexual behaviors?: No History of sexually transmitted infection?: No Currently employed?: No Childcare worker?: No Do you have indoor plumbing?: Yes Do you have electricity?: Yes Attestation statement:: This patient has been screened for Hepatitis A risk factors. I have reviewed the patient's past medical history: Yes Medical History: Reports:: Atrial Fibrillation, Coronary Artery Disease, Deep Vein Thrombosis, Diabetes Mellitus Type 2, Hyperlipidemia, Hypertension, Seizures Denies:: Cancer, Diabetes Mellitus Type 1, MRSA Other Surgeries: Yes: Cardiac Catheterization, Cholecystectomy, Coronary Stent Amputation: No Fractures: No - Social History Smoking Status: Never smoker Alcohol Intake: never Alcohol Intake Frequency:: other Substance Use Type: denies use Occupational Status: employed Housing: house Household Members: spouse - Psychiatric History Expresses thoughts of harming self/others: None Suicide Plan Description: No Plan Family Hx:: Diabetes, Heart Attack ROS Obtained: Yes All systems reviewed & no additional complaints - Constitutional Constitutional: Denies chills, Denies fever(s) - Eyes Eyes: Denies change in vision - Cardiovascular Cardiovascular: Reports chest pain, Reports chest pain at rest, Reports dyspnea on exertion - Respiratory Respiratory: No chest congestion, Yes cough, Yes non-productive cough, No pain on inspiration, No pain with cough - Gastrointestinal Gastrointestingal: Denies: abdominal pain - Musculoskeletal Musculoskeletal: Denies joint swelling - Integumentary/Breasts Skin/Breast: Denies rash, Denies skin pain - Neurologic Neurologic: Denies abnormal speech, Denies confusion, Denies syncope, Reports weakness - Hematologic/Lymphatic Henatologic/Lymphatic: Denies easy bleeding, Denies easy bruising Physical Exam - General General appearance: alert, in no apparent distress - Head Head exam: atraumatic, normocephalic, normal inspection - Eye Eye exam: Present: normal appearance, PERRL, EOMI - Respiratory Respiratory exam: Present: normal lung sounds bilaterally. Absent: respiratory distress - Cardiovascular Cardiovascular exam: Present: normal rhythm, irregular rhythm. Absent: JVD - Abdominal Exam Abdominal exam: Present: soft, normal bowel sounds. Absent: distention, tenderness, guarding - Extremities Exam Extremities exam: Present: normal inspection, full ROM, normal capillary refill. Absent: calf tenderness - Neurological Exam Neurological exam: Present: alert, oriented X3, CN II-XII intact. Absent: motor sensory deficit - Psychiatric Psychiatric exam: Present: normal affect - Skin Skin exam: Present: warm, dry, intact, normal color
[2018-09-01 17:13] LABS: Calcium 9.1 mg/dL (8.5-10.1)
[2018-09-02 06:35] LABS: Basophils # 0.1 K/mm3 (0-0.2); Basophils % 0.7 % (0.1-2.0); Eosinophils # 0.2 K/mm3 (0.0-0.4); Eosinophils % 2.4 % (0.1-12.0); Hematocrit 38.5 % (37.0-47.0); Lymphocytes # 1.7 K/mm3 (0.7-4.5); Lymphocytes % 21.4 % (10-50); Mean Corpuscular HGB Conc 33.8 g/dL (31.8-35.4); Mean Corpuscular Hemoglobin 28.7 pg (27.0-31.2); Mean Corpuscular Volume 84.9 fl (81-99); Mean Platelet Volume 7.8 fl (7.4-10.4); Monocytes # 0.6 K/mm3 (0.1-1.0); Monocytes % 7.2 % (1.7-9.3); Neutrophils # 5.5 K/mm3 (1.8-7.8); Neutrophils % 68.4 % (37.0-80.0); Platelet Count 260 K/mm3 (142-424); Red Blood Count 4.53 M/mm3 (4.20-5.40); Red Cell Distribution Width 12.9 % (11.5-17.5); White Blood Count 8.1 K/mm3 (4.8-10.8)
[2018-09-02 06:47] LABS: Anion Gap 12.7 mEq/L (5-15); Calcium 9.1 mg/dL (8.5-10.1); Potassium 4.7 mmoL/L (3.5-5.1)
--- NOTE | 2018-09-02 07:21 | Pharmacy Consult Notes ---
[facility] Pharmacy VTE Monitoring - Patient Demographics Admission date: 09/01/18 Report Date: 09/02/18 Time: 07:21 Allergies/Adverse Reactions: Patient Allergies No Known Allergies Allergy (Verified 07/15/18 12:37) Height: 1.63 m Weight: 100.471 kg Patient Problems: Current Active Problems (Updated 09/01/18 @ 18:20 by Dipak Redding MD) Hyperglycemia due to type 2 diabetes mellitus (Acute) Chest pain (Chronic) Atrial flutter (Chronic) Stented coronary artery (Chronic) - VTE Risk Labs: VTE Related Lab Results Hgb 13.0 g/dL (12.2-16.2) 09/02/18 05:38 Hct 38.5 % (37.0-47.0) 09/02/18 05:38 Plt Count 260 K/mm3 (142-424) 09/02/18 05:38 BUN 27 mg/dL (7-18) H 09/02/18 05:38 Creatinine 1.25 mg/dL (0.55-1.02) H 09/02/18 05:38 Estimated Creat Clear 78 mL/min (50-200) 09/02/18 05:38 Was VTE Risk Assessment Performed: Yes VTE Score: 5 VTE Risk Level: Low Risk Clinical Trial Participant: No - Prophylaxis VTE Prophylaxis Ordered?: Yes Types of VTE Prophylaxis: TEDS Knee High
--- NOTE | 2018-09-02 07:41 | Consult Report ---
History of Present Illness Consult date: 09/02/18 Requesting physician: Dipak Tai Consult reason: chest pain Chief complaint: chest pain, palpitations Additional Medical History:: 1. CAD A. MAXIMILIAN to large diagonal, 08/30/2015. On DAPT. B. NSTEMI, 09/06/2015, due to A. Fib/flutter with RVR. C. NSTEMI, 02/2016, with LHC showing LAD FFR of 0.82, mildly elevated LVEDP D. NSTEMI, type 2, during A. fib/flutter with RVR with subsequent LHC and MAXIMILIAN to LAD, 08/2017 2. Chronic A. fib/flutter with history of intracardiac thrombus, 2010, transient coumadin therapy stopped due to hematuria A. Chronic Xarelto therapy B. Failed amiodarone therapy to maintain NSR C. On Sotalol, 08/2018, per Dr. Nava with plans for ablation therapy in the future if this therapy fails 3. CKD, stage 3 4. HTN 5. Hyperlipidemia 6. 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 History of seizures 8. Diabetes, treated for 14 yrs. History of present illness: 58-year-old white female with history of coronary artery disease and atrial flutter for which she is currently on sotalol therapy presented to the emergency department after 4 hours of chest pain yesterday. Patient had been busy yesterday morning but upon returning home and eating lunch she developed chest discomfort with radiation to the left shoulder. This was preceded by brief episode of lightheadedness dizziness and "blacked out vision" without loss of consciousness or TIA CVA type symptoms. Patient thought that the symptoms might improve but after 4 hours decided to come to the ER for further evaluation. She was noted to be in atrial flutter with a rapid rate and was started on IV Cardizem. She did convert back to sinus rhythm overnight. Cardiac troponins have been mildly elevated with peak of 0.11. Patient states the chest pain has resolved but she has been left with a soreness. She denies any nausea, vomiting or diaphoresis. She relates seeing Dr. Nava in [place], [place] recently for atrial flutter and was placed on sotalol therapy last week at which time her beta mikal was stopped, with plans for ablation therapy if needed in 2 to 3 months. Cardiology consulted for evaluation recommendations. [facility] History Medical History: Reports:: Atrial Fibrillation, Coronary Artery Disease, Deep Vein Thrombosis, Diabetes Mellitus Type 2, Hyperlipidemia, Hypertension, Seizures Denies:: Cancer, Diabetes Mellitus Type 1, MRSA *Have you ever received a pneumonia vaccine?: No *Have you received a flu vaccine this season?: Yes Other Surgeries: Yes: Cardiac Catheterization, Cholecystectomy, Coronary Stent Amputation: No Fractures: No - *Social History Educational Level: Attended College Smoking Status: Never smoker Alcohol Intake: never Alcohol Intake Frequency:: other Substance Use Type: denies use *Occupational Status:: employed Housing: house Household Members: spouse *Travel in the last 8 weeks: None - Psychiatric History Expresses thoughts of harming self/others: None Suicide Plan Description: No Plan Family Hx:: Diabetes, Heart Attack Meds Home Medications Medication Instructions Recorded Confirmed Type nitroglycerin 0.4 mg sublingual 0.4 mg SUBLINGUAL Q5MINP PRN 05/03/17 09/01/18 History tablet omeprazole 20 mg capsule,delayed 20 mg PO BID cap 11/19/17 09/02/18 History release lisinopril 10 mg tablet 10 mg PO QHS #90 tab 06/17/18 09/02/18 Rx furosemide 20 mg tablet 20 mg PO DAILY #90 tab 07/09/18 09/02/18 Rx diltiazem ER (XR/XT) 240 mg 240 mg PO DAILY #90 cap 07/30/18 09/02/18 Rx capsule,extended release 24 hr, controlled Aspirin [Aspirin 81mg chewable 81 mg PO DAILY 09/01/18 09/02/18 History tab] Atorvastatin Calcium [Lipitor 80mg 80 mg PO DAILY 09/01/18 09/02/18 History Tablet] Clopidogrel Bisulfate [Plavix 75mg 75 mg PO DAILY 09/01/18 09/02/18 History Tab] Rivaroxaban [Xarelto 20mg Tablet] 20 mg PO DAILY 09/01/18 09/02/18 History Sotalol HCl [Betapace 80mg Tablet] 80 mg PO BID 09/01/18 09/02/18 History Insulin NPH Hum/Reg Insulin Hm 30 unit SQ BID 09/02/18 09/02/18 History [Novolin 70-30 100 Unit/ml Vial] Metoprolol Succinate 100 mg PO BID 09/02/18 09/02/18 History Spironolactone 25 mg PO DAILY 09/02/18 09/02/18 History Allergies Allergy/AdvReac Type Severity Reaction Status Date / Time No Known Allergies Allergy Verified 07/15/18 12:37 Review of Systems - *Cardiovascular Reports chest pain, Reports shortness of breath with activity - *Respiratory Reports shortness of breath with activity, Denies cough - *Gastrointestinal Denies abdominal pain, Denies loose stools - *Genitourinary Denies difficulty urinating, Denies blood in urine - *Musculoskeletal Reports joint pain, Denies back pain - *Neurologic Reports weakness, Denies abnormal speech, Denies confusion, Denies fainting Exam Vital signs and Labs for Last 24 Hours: Temp Pulse Resp BP Pulse Ox 98.2 F 80 18 119/81 97 09/02/18 04:00 09/02/18 04:00 09/02/18 04:00 09/02/18 04:00 09/02/18 04:00 Laboratory Results - last 24 hr 09/01/18 16:48: WBC 7.5, RBC 4.67, Hgb 13.4, Hct 39.4, MCV 84.3, MCH 28.8, MCHC 34.1, RDW 12.8, Plt Count 279, MPV 7.6, Neut % (Auto) 64.6, Lymph % (Auto) 25.4, [place] % (Auto) 7.0, Eos % (Auto) 2.5, Baso % (Auto) 0.6, Neut # (Auto) 4.9, Lymph # (Auto) 1.9, [place] # (Auto) 0.5, Eos # (Auto) 0.2, Baso # (Auto) 0.0 09/01/18 16:48: Sodium 131 L, Potassium 5.0, Chloride 98, Carbon Dioxide 22, Anion Gap 16.0 H, BUN 32 H, Creatinine 1.50 H, Estimated Creat Clear 64, Estimated GFR 36 L, Est GFR ( Amer) 43 L, Glucose 355 H, Calcium 9.1, Troponin I 0.09 H 09/01/18 16:48: Magnesium 1.9 09/01/18 20:50: Troponin I 0.11 H 09/01/18 21:11: POC Glucose 324 H* 09/02/18 00:35: Troponin I 0.10 H 09/02/18 05:38: WBC 8.1, RBC 4.53, Hgb 13.0, Hct 38.5, MCV 84.9, MCH 28.7, MCHC 33.8, RDW 12.9, Plt Count 260, MPV 7.8, Neut % (Auto) 68.4, Lymph % (Auto) 21.4, [place] % (Auto) 7.2, Eos % (Auto) 2.4, Baso % (Auto) 0.7, Neut # (Auto) 5.5, Lymph # (Auto) 1.7, [place] # (Auto) 0.6, Eos # (Auto) 0.2, Baso # (Auto) 0.1 09/02/18 05:38: Sodium 135 L, Potassium 4.7, Chloride 102, Carbon Dioxide 25, Anion Gap 12.7, BUN 27 H, Creatinine 1.25 H, Estimated Creat Clear 78, Estimated GFR 44 L, Est GFR ( Amer) 53 L D, Glucose 278 H D, Calcium 9.1 09/02/18 05:49: POC Glucose 279 H I & O for Last 24 hours: Intake & Output 08/30/18 08/31/18 09/01/18 09/02/18 11:59 11:59 11:59 11:59 Intake Total 454 / 454 Balance 454 / 454 Weight 221 lb 8.01 oz - *Routine HEENT Exam Head: Present: normocephalic Eye: Present: EOMI, PERRL ENT: Present: mucous membranes moist - *Routine Respiratory Exam Present: CTA bilaterally. Absent: accessory muscle use, rales, rhonchi, wheezes - *Routine Cardiovascular Exam Present: RRR. Absent: murmur, gallop, rubs - *Routine Skin Exam Present: warm. Absent: cyanosis - *Routine Neurological Exam Present: alert, oriented X3, moving all extremities Assessment and Plan (1) Atrial flutter Current visit: Yes Status: Chronic Qualifiers: Category: Medical Code(s): I48.92 - Unspecified atrial flutter (2) Chest pain Current visit: Yes Status: Chronic Category: Medical Code(s): R07.9 - Chest pain, unspecified (3) Stented coronary artery Current visit: Yes Status: Chronic Category: Surgical Code(s): Z95.5 - Presence of coronary angioplasty implant and graft (4) Dizziness Current visit: No Status: Acute Category: Medical Code(s): R42 - Dizziness and giddiness (5) CAD (coronary artery disease) Current visit: No Status: Chronic Qualifiers: Coronary Disease-Associated Artery/Lesion type: [place] artery [place] vs. transplanted heart: [place] heart Associated angina: without angina Qualified Code(s): I25.10 - Atherosclerotic heart disease of [place] coronary artery without angina pectoris Category: Medical Code(s): I25.10 - Atherosclerotic heart disease of [place] coronary artery without angina pectoris (6) Diabetes mellitus Current visit: No Status: Chronic Qualifiers: Diabetes mellitus type: type 1 Diabetes mellitus complication status: with unspecified complications Qualified Code(s): E10.8 - Type 1 diabetes mellitus with unspecified complications Category: Medical Code(s): E11.9 - Type 2 diabetes mellitus without complications (7) HHD (hypertensive heart disease) Current visit: No Status: Chronic Qualifiers: Heart failure presence: unspecified whether heart failure present Qualified Code(s): I11.9 - Hypertensive heart disease without heart failure Category: Medical Code(s): I11.9 - Hypertensive heart disease without heart failure (8) Renal insufficiency Current visit: No Status: Chronic Category: Medical Code(s): N28.9 - Disorder of kidney and ureter, unspecified - Assessment and plan all Dx Assessment and Plan for all problems:: 1. Will obtain echo and lexiscan stress test today to evaluate NSTEMI type 2. 2. Continue sotalol 80 mg BID and diltiazem XR 240 mg daily combo for now for maintenance of NSR. 3. Will hold Xarelto today for possible cath tomorrow pending results of stress test. 4. Continue ASA and plavix for CAD.
--- NOTE | 2018-09-02 20:49 | History & Physical Report ---
*Admission Date: 09/01/18 *Chief complaint: chest pain *History of present illness: this pt ue pressure in chest most of day intermittently. NO true pain. Near syncopal on couple of occasions. History of A flutter, cad, intervention on two occasions with stents to LAD or first diagonal. pt was admitted for eval and treatment and card consult [facility] History I have reviewed the patient's past medical history: Yes Medical History: Reports:: Atrial Fibrillation, Coronary Artery Disease, Deep Vein Thrombosis, Diabetes Mellitus Type 2, Hyperlipidemia, Hypertension, Seizures Denies:: Cancer, Diabetes Mellitus Type 1, MRSA *Have you ever received a pneumonia vaccine?: No *Have you received a flu vaccine this season?: Yes Other Surgeries: Yes: Cardiac Catheterization, Cholecystectomy, Coronary Stent Amputation: No Fractures: No - *Social History Educational Level: Attended College Smoking Status: Never smoker Alcohol Intake: never Alcohol Intake Frequency:: other Substance Use Type: denies use *Occupational Status:: employed Housing: house Household Members: spouse *Travel in the last 8 weeks: None - Psychiatric History Expresses thoughts of harming self/others: None Suicide Plan Description: No Plan Family Hx:: Diabetes, Heart Attack Review of Systems - Review of Systems Review of systems:: pertinent systems reviewed and negative unless documented below - Constitutional Denies fever(s) - Eyes Denies change in vision - ENT Denies sore throat - *Cardiovascular Reports chest pain - *Respiratory Denies cough - *Gastrointestinal Denies abdominal pain - *Genitourinary Denies blood in urine - *Musculoskeletal Denies joint pain - Integumentary/Breasts Denies rash - *Neurologic Reports weakness, Denies abnormal speech, Denies confusion, Denies fainting Meds Home Medications Medication Instructions Recorded Confirmed Type nitroglycerin 0.4 mg sublingual 0.4 mg SUBLINGUAL Q5MINP PRN 05/03/17 09/01/18 History tablet omeprazole 20 mg capsule,delayed 40 mg PO DAILY cap 11/19/17 09/02/18 History release lisinopril 10 mg tablet 10 mg PO QHS #90 tab 06/17/18 09/02/18 Rx furosemide 20 mg tablet 20 mg PO DAILY #90 tab 07/09/18 09/02/18 Rx diltiazem ER (XR/XT) 240 mg 240 mg PO DAILY #90 cap 07/30/18 09/02/18 Rx capsule,extended release 24 hr, controlled Aspirin [Aspirin 81mg chewable 81 mg PO DAILY 09/01/18 09/02/18 History tab] Atorvastatin Calcium [Lipitor 80mg 80 mg PO DAILY 09/01/18 09/02/18 History Tablet] Clopidogrel Bisulfate [Plavix 75mg 75 mg PO DAILY 09/01/18 09/02/18 History Tab] Rivaroxaban [Xarelto 20mg Tablet] 20 mg PO DAILY 09/01/18 09/02/18 History Sotalol HCl [Betapace 80mg Tablet] 80 mg PO BID 09/01/18 09/02/18 History Insulin NPH Hum/Reg Insulin Hm 30 unit SQ BID 09/02/18 09/02/18 History [Novolin 70-30 100 Unit/ml Vial] Metoprolol Succinate 100 mg PO BID 09/02/18 09/02/18 History Spironolactone 25 mg PO DAILY 09/02/18 09/02/18 History Allergies Allergy/AdvReac Type Severity Reaction Status Date / Time No Known Allergies Allergy Verified 07/15/18 12:37 Exam Vital signs and Labs for Last 24 Hours: Temp Pulse Resp BP Pulse Ox 97.9 F 78 18 154/62 H 98 09/02/18 16:00 09/02/18 16:00 09/02/18 16:00 09/02/18 16:00 09/02/18 16:00 Laboratory Results - last 24 hr 09/01/18 20:50: Troponin I 0.11 H 09/01/18 21:11: POC Glucose 324 H* 09/02/18 00:35: Troponin I 0.10 H 09/02/18 05:38: WBC 8.1, RBC 4.53, Hgb 13.0, Hct 38.5, MCV 84.9, MCH 28.7, MCHC 33.8, RDW 12.9, Plt Count 260, MPV 7.8, Neut % (Auto) 68.4, Lymph % (Auto) 21.4, [place] % (Auto) 7.2, Eos % (Auto) 2.4, Baso % (Auto) 0.7, Neut # (Auto) 5.5, Lymph # (Auto) 1.7, [place] # (Auto) 0.6, Eos # (Auto) 0.2, Baso # (Auto) 0.1 09/02/18 05:38: Sodium 135 L, Potassium 4.7, Chloride 102, Carbon Dioxide 25, Anion Gap 12.7, BUN 27 H, Creatinine 1.25 H, Estimated Creat Clear 78, Estimated GFR 44 L, Est GFR ( Amer) 53 L D, Glucose 278 H D, Calcium 9.1 09/02/18 05:49: POC Glucose 279 H 09/02/18 11:30: POC Glucose 202 H 09/02/18 16:58: POC Glucose 396 H* I & O for Last 24 hours: Intake & Output 08/31/18 09/01/18 09/02/18 09/03/18 11:59 11:59 11:59 11:59 Intake Total 454 / 454 Balance 454 / 454 Weight 221 lb 8.01 oz - Constitutional no acute distress, obese - *Routine HEENT Exam Head: Present: normocephalic Eye: Present: EOMI, PERRL ENT: Present: mucous membranes dry - *Routine Neck Exam Present: supple. Absent: JVD - *Routine Respiratory Exam Present: CTA bilaterally - *Routine Cardiovascular Exam Present: RRR, murmur - *Routine Abdominal Exam Present: soft - *Routine Extremities Exam Absent: calf tenderness - *Routine Skin Exam Present: intact - *Routine Neurological Exam Present: alert, CN II-XII intact - Routine Psychiatric Exam Present: normal affect Assessment and Plan (1) Atrial flutter Current visit: Yes Status: Chronic Qualifiers: Category: Medical Code(s): I48.92 - Unspecified atrial flutter (2) Chest pain Current visit: Yes Status: Chronic Category: Medical Code(s): R07.9 - Chest pain, unspecified (3) Stented coronary artery Current visit: Yes Status: Chronic Category: Surgical Code(s): Z95.5 - Presence of coronary angioplasty implant and graft (4) Dizziness Current visit: No Status: Acute Category: Medical Code(s): R42 - Dizziness and giddiness (5) CAD (coronary artery disease) Current visit: No Status: Chronic Qualifiers: Coronary Disease-Associated Artery/Lesion type: [place] artery [place] vs. transplanted heart: [place] heart Associated angina: without angina Qualified Code(s): I25.10 - Atherosclerotic heart disease of [place] coronary artery without angina pectoris Category: Medical Code(s): I25.10 - Atherosclerotic heart disease of [place] coronary artery without angina pectoris (6) Diabetes mellitus Current visit: No Status: Chronic Qualifiers: Diabetes mellitus type: type 1 Diabetes mellitus complication status: with unspecified complications Qualified Code(s): E10.8 - Type 1 diabetes mellitus with unspecified complications Category: Medical Code(s): E11.9 - Type 2 diabetes mellitus without complications (7) HHD (hypertensive heart disease) Current visit: No Status: Chronic Qualifiers: Heart failure presence: unspecified whether heart failure present Qualified Code(s): I11.9 - Hypertensive heart disease without heart failure Category: Medical Code(s): I11.9 - Hypertensive heart disease without heart failure (8) Renal insufficiency Current visit: No Status: Chronic Category: Medical Code(s): N28.9 - Disorder of kidney and ureter, unspecified (9) Obesity Current visit: Yes Status: Acute Qualifiers: Obesity type: due to excess calories Obesity classification: adult class 2 (BMI 35 - 39.9) Serious obesity comorbidity presence: with serious comorbidity Body mass index: BMI 38.0-38.9 Qualified Code(s): E66.01 - Morbid (severe) obesity due to excess calories; Z68.38 - Body mass index (BMI) 38.0-38.9, adult Category: Medical Code(s): E66.9 - Obesity, unspecified (10) Renal insufficiency Current visit: Yes Status: Acute Category: Medical Code(s): N28.9 - Disorder of kidney and ureter, unspecified (11) Elevated troponin Current visit: No Status: Chronic Category: Medical Code(s): R74.8 - Abnormal levels of other serum enzymes
--- NOTE | 2018-09-03 06:02 | Cardiology Report ---
PROCEDURE: 2-D M-mode and color Doppler study INDICATIONS FOR THE TEST: Chest pain+ COPD Heart Murmur Tobacco Smoking Palpitations Fatigue Syncope Edema Hypertension Diabetes Mellitus Rheumatic Fever SOB DELCID Obesity Hyperlipidemia Family History HD Additional History NSTEMI,AFLUTTER,STENTS PATIENT INFORMATION HEIGHT: 64 WEIGHT:221 GENDER: Female B/P:137/80 2-D/M-MODE INTERPRETATION: 2-D MEASUREMENTS OBSERVED VALUES IN CMS Right Ventricular Dimension (RVDd) 2.5 Interventricular Septum (Thickness)(IVsd) 1.1 Left Ventricular Internal Dimensions(LVIDd) 5.3 Left Ventricular Posterior Wall (Thickness)(LVPWd) 1.0 Aortic Root 2.3 Aortic Cusp Separation 1.7 Left Atrial Dimensions (LAD) 4.9 2D 1. Technically difficult study because of the patient's factor and poor acoustic windows 2. The left atrium is moderately enlarged, left ventricle is normal size, mild concentric left ventricular hypertrophy, visually estimated ejection fraction 45%, there is moderate hypokinesis involving the inferior and posterobasal wall. Endocardial surfaces are poorly visualized. 3. The right atrium and right ventricle are normal size and contractility. 4. The aortic valve is thickened and calcified leaflet continue to display mobility. 5. The pulmonic valve is poorly visualized. 6. The mitral and tricuspid valve leaflets are minimally thickened. 7. No significant pericardial effusion noted. DOPPLER INTERROGATION: Doppler interrogation of the aortic, mitral and tricuspid valvular presence of mild mitral and tricuspid regurgitation, tricuspid regurgitation jet velocity is inadequate for calculation of the right ventricular systolic pressure, grade 1 diastolic dysfunction seen with tissue Doppler evidence of raised left atrial pressure. CONCLUSION: 1. Moderately enlarged left atrium, normal left ventricular size, mild concentric left ventricular hypertrophy, visually estimated ejection fraction 45% with segmental wall motion abnormality described above, grade 1 diastolic dysfunction seen with tissue Doppler evidence of raised left atrial pressure. 2. Mild mitral and tricuspid regurgitation 3. No significant pericardial effusion noted.
--- NOTE | 2018-09-03 10:36 | Progress Note ---
Subjective Date: 09/03/18 Time: 10:34 Principal diagnosis: UAP Interval history: 58 yo WF in chair in NAD. No further chest pain overnight. Rested well overnight. Waiting for [facility]. Telemetry shows NSR. Exam Vital signs and Labs for Last 24 Hours: Temp Pulse Resp BP Pulse Ox 98.1 F 70 18 131/71 98 09/03/18 04:00 09/03/18 08:00 09/03/18 04:00 09/03/18 04:00 09/03/18 04:00 Laboratory Results - last 24 hr 09/02/18 11:30: POC Glucose 202 H 09/02/18 16:58: POC Glucose 396 H* 09/02/18 21:16: POC Glucose 262 H 09/03/18 05:54: POC Glucose 303 H* I & O for Last 24 hours: Intake & Output 08/31/18 09/01/18 09/02/18 09/03/18 11:59 11:59 11:59 11:59 Intake Total 454 / 454 694 / 694 Balance 454 / 454 694 / 694 Weight 221 lb 8.01 oz 221 lb 3 oz - *Routine HEENT Exam Head: Present: normocephalic Eye: Present: EOMI, PERRL ENT: Present: mucous membranes moist - *Routine Respiratory Exam Present: CTA bilaterally. Absent: accessory muscle use, rales, rhonchi, wheezes - *Routine Cardiovascular Exam Present: RRR. Absent: murmur, gallop, rubs - *Routine Neurological Exam Present: alert, oriented X3, moving all extremities Progress Note: A&P (1) Atrial flutter Status: Chronic Current Visit: Yes (2) Chest pain Status: Chronic Current Visit: Yes (3) Stented coronary artery Status: Chronic Current Visit: Yes (4) Dizziness Status: Acute Current Visit: No (5) CAD (coronary artery disease) Status: Chronic Current Visit: No (6) Diabetes mellitus Status: Chronic Current Visit: No (7) HHD (hypertensive heart disease) Status: Chronic Current Visit: No (8) Renal insufficiency Status: Chronic Current Visit: No (9) Obesity Status: Acute Current Visit: Yes (10) Renal insufficiency Status: Acute Current Visit: Yes (11) Elevated troponin Status: Chronic Current Visit: No Assessment and Plan for All Diagnoses:: [facility] today. Further recommendations to follow [facility] Resume Xarelto after cath. Continue sotalol for A. fib/flutter
--- NOTE | 2018-09-03 15:22 | Discharge Summary ---
General - General Admission date:: 09/01/18 Discharge date: 09/03/18 HPI HPI: this pt ue pressure in chest most of day intermittently. NO true pain. Near syncopal on couple of occasions. History of A flutter, cad, intervention on two occasions with stents to LAD or first diagonal. pt was admitted for eval and treatment and card consult Hospital Course Hospital Course: stress test IMPRESSION: 1. Normal ejection fraction of 59% 2. Partially reversible defect within the anteroseptal portion of the apex suggesting an area of infarction with celia-infarct ischemia 3. Reversed redistribution in the inferior wall of questionable clinical significance echo:CONCLUSION: 1. Moderately enlarged left atrium, normal left ventricular size, mild concentric left ventricular hypertrophy, visually estimated ejection fraction 45% with segmental wall motion abnormality described above, grade 1 diastolic dysfunction seen with tissue Doppler evidence of raised left atrial pressure. 2. Mild mitral and tricuspid regurgitation 3. No significant pericardial effusion noted. cath:IMPRESSION: 1. Coronary artery disease as described above with widely patent proximal LAD stent which extends into the mid segment 2. Widely patent first diagonal artery bifurcating stent with moderate nonflow limiting in-stent restenosis 3. Normal ejection fraction 4. Mild to moderately elevated LVEDP consistent with diastolic dysfunction 5. Type II demand ischemia myocardial infarction from atrial fibrillation with rapid ventricular response PLAN: 1. Medical management 2. Standard therapy for ischemic heart disease 3. Continue sotalol for atrial fibrillation suppression 4. Continue diltiazem 5. Avoidance of tobacco products 6. Patient is scheduled to see electrophysiology for A. fib a will dc home follow up in 1 week, medication changes per cardiology. cardiology work up see charts Objective Vital signs: Temp Pulse Resp BP Pulse Ox 98.1 F 71 18 145/81 H 95 09/03/18 04:00 09/03/18 12:20 09/03/18 12:20 09/03/18 12:20 09/03/18 12:20 no acute distress - *Routine HEENT Exam Head: Present: normocephalic Eye: Present: PERRL ENT: Present: mucous membranes moist - *Routine Respiratory Exam Present: CTA bilaterally - *Routine Cardiovascular Exam Present: RRR - *Routine Abdominal Exam Present: soft, normoactive bowel sounds - *Routine Extremities Exam Present: full ROM - *Routine Skin Exam Present: intact - *Routine Neurological Exam Present: alert, oriented X3 - Routine Psychiatric Exam Present: normal affect, normal thought process Results Labs on day of discharge: Labs from last 24 hours 09/03/18 09/03/18 09/02/18 13:05 05:54 21:16 POC Glucose 325 H* 303 H* 262 H 09/02/18 16:58 POC Glucose 396 H* DS: Diagnosis - Discharge Diagnosis (1) Atrial flutter Status: Chronic (2) Chest pain Status: Chronic (3) Stented coronary artery Status: Chronic (4) Dizziness Status: Acute (5) CAD (coronary artery disease) Status: Chronic (6) Diabetes mellitus Status: Chronic (7) HHD (hypertensive heart disease) Status: Chronic (8) Renal insufficiency Status: Chronic (9) Obesity Status: Acute (10) Renal insufficiency Status: Acute (11) Elevated troponin Status: Chronic Discharge Plan - Patient Discharge Instructions ACTIVITY: Continue current activity DIET: continue same diet Patient Instructions: DI for Atrial Flutter, DI for Hyperglycemia -- Adult, DI for Chest Pain - Follow up Plan Follow up with: Alex Engel MD [Staff Physician] - 1 week Dipak Tai MD [Staff Physician] - 09/09/18 Disposition: Home, Self-Snf Medications: Home Medications Medication Instructions Recorded Confirmed Type nitroglycerin 0.4 mg sublingual 0.4 mg SUBLINGUAL Q5MINP PRN 05/03/17 09/01/18 History tablet omeprazole 20 mg capsule,delayed 40 mg PO DAILY cap 11/19/17 09/02/18 History release lisinopril 10 mg tablet 10 mg PO QHS #90 tab 06/17/18 09/02/18 Rx furosemide 20 mg tablet 20 mg PO DAILY #90 tab 07/09/18 09/02/18 Rx Aspirin [Aspirin 81mg chewable 81 mg PO DAILY 09/01/18 09/02/18 History tab] Atorvastatin Calcium [Lipitor 80mg 80 mg PO DAILY 09/01/18 09/02/18 History Tablet] Clopidogrel Bisulfate [Plavix 75mg 75 mg PO DAILY 09/01/18 09/02/18 History Tab] Rivaroxaban [Xarelto 20mg Tablet] 20 mg PO DAILY 09/01/18 09/02/18 History Sotalol HCl [Betapace 80mg Tablet] 80 mg PO BID 09/01/18 09/02/18 History Insulin NPH Hum/Reg Insulin Hm 30 unit SQ BID 09/02/18 09/02/18 History [Novolin 70-30 100 Unit/ml Vial] Metoprolol Succinate 100 mg PO BID 09/02/18 09/02/18 History Spironolactone 25 mg PO DAILY 09/02/18 09/02/18 History Atorvastatin Calcium [Lipitor 40mg 40 mg PO HS 30 Days #30 tab 09/03/18 Rx Tablet] Rivaroxaban [Xarelto 10mg tablet] 20 mg PO QPMWM 30 Days #30 tab 09/03/18 Rx Sotalol HCl [Betapace 80mg Tablet] 80 mg PO BID 30 Days #60 tab 09/03/18 Rx dilTIAZem HCl [Diltiazem 24Hr ER 240 mg PO DAILY #90 cap 09/03/18 Rx (Xr)] Prescriptions/Medication Reconciliation: New Insulin NPH Human [place] [Humulin N] 30 unit SUB-Q BID Rivaroxaban [Xarelto 10mg tablet] 20 mg PO QPMWM 30 Days #30 tab Aspirin [Aspirin 81mg chewable tab] 81 mg PO DAILY tab.chew Sotalol HCl [Betapace 80mg Tablet] 80 mg PO BID 30 Days #60 tab Atorvastatin Calcium [Lipitor 40mg Tablet] 40 mg PO HS 30 Days #30 tab Continued nitroglycerin 0.4 mg sublingual tablet 0.4 mg SUBLINGUAL Q5MINP PRN PRN Reason: Chest Pain omeprazole 20 mg capsule,delayed release 40 mg PO DAILY cap lisinopril 10 mg tablet 10 mg PO QHS #90 tab Sotalol HCl [Betapace 80mg Tablet] 80 mg PO BID Clopidogrel Bisulfate [Plavix 75mg Tab] 75 mg PO DAILY Aspirin [Aspirin 81mg chewable tab] 81 mg PO DAILY Insulin NPH Hum/Reg Insulin Hm [Novolin 70-30 100 Unit/ml Vial] 30 unit SQ BID dilTIAZem HCl [Diltiazem 24Hr ER (Xr)] 240 mg PO DAILY #90 cap Rivaroxaban [Xarelto 20mg Tablet] 20 mg PO DAILY Spironolactone 25 mg PO DAILY Discontinued furosemide 20 mg tablet 20 mg PO DAILY #90 tab Atorvastatin Calcium [Lipitor 80mg Tablet] 80 mg PO DAILY Metoprolol Succinate 100 mg PO BID
== END 2018-09-03 16:45 | disposition home or self-care (01) ==
LOC: 2ND 16:40 → ER 16:40 → 2ND 20:07
PROVIDERS: ADMIT Internal Medicine Adolescent Medicine; ATTEND Emergency Medicine
CPT/HCPCS: 36415; 71020; 71046; 78452; 80048; 82962; 83735; 84484; 85025; 93005; 93017; 93306; 93458; 99152; 99284; A9502; C1725; C1769; G0378; J1644; J2785; Q9967

== ENCOUNTER → 2018-09-09 13:53 | Outpatient (CLI) | payer BC, SELFPAY | PROVIDERS: Visit Provider Emergency Medicine | DX: E11.9 Type 2 diabetes mellitus without complications (principal); Z79.4 Long term (current) use of insulin | CPT/HCPCS: 84681 ==

== ENCOUNTER → 2018-11-17 15:15 | Outpatient (CLI) | payer BC, SELFPAY ==
--- NOTE | 2018-11-17 15:19 | XR_ITS ---
XR knee RT 2V HISTORY: ITS.REASON: knee pain ORDERING PHYSICIAN: Dipak Tai MD PATIENT AGE: 58 years COMPARISON: None FINDINGS: There is a small medial tibial plateau spur and small posterior patellar spurs. Joint spaces are otherwise maintained. There is a small suprapatellar joint effusion. No definite acute fracture. There are posterior arterial calcified plaques. Impression: Mild arthritis. Small joint effusion. No acute fracture.
== END ==
PROVIDERS: PCP Emergency Medicine; Visit Provider Emergency Medicine
DX: M25.561 Pain in right knee (principal)
CPT/HCPCS: 73560

== ENCOUNTER 2018-12-05 10:19 | Observation (INO) ==
[2018-12-05 11:01] LABS: Basophils # 0.1 K/mm3 (0-0.2); Basophils % 0.5 % (0.1-2.0); Eosinophils # 0.2 K/mm3 (0.0-0.4); Eosinophils % 1.8 % (0.1-12.0); Hematocrit 35.5 % (37.0-47.0); Hemoglobin 11.6 g/dL (12.2-16.2); Lymphocytes # 0.9 K/mm3 (0.7-4.5); Lymphocytes % 7.6 % (10-50); Mean Corpuscular HGB Conc 32.7 g/dL (31.8-35.4); Mean Corpuscular Volume 86.1 fl (81-99); Monocytes # 0.8 K/mm3 (0.1-1.0); Monocytes % 6.6 % (1.7-9.3); Neutrophils # 9.5 K/mm3 (1.8-7.8); Neutrophils % 83.4 % (37.0-80.0); Platelet Count 330 K/mm3 (142-424); Red Blood Count 4.13 M/mm3 (4.20-5.40); Red Cell Distribution Width 13.5 % (11.5-17.5); White Blood Count 11.4 K/mm3 (4.8-10.8)
[2018-12-05 11:15] LABS: Albumin Level 3.1 gm/dL (3.4-5.0); Albumin/Globulin Ratio 0.7 (1.1-1.8); Anion Gap 14.4 mEq/L (5-15); Bilirubin,Total 0.4 mg/dL (0.2-1.0); Calcium 9.1 mg/dL (8.5-10.1); Globulin 4.6 gm/dl (1.3-3.2); Total Protein,Serum 7.7 gm/dL (6.4-8.2)
--- NOTE | 2018-12-05 11:15 | Emergency Department Note ---
ED Disposition Clinical Impression: Intractable nausea and vomiting, Obesity, Renal insufficiency, CAD (coronary artery disease) Disposition: Admitted as Observation Condition on Discharge: Fair Referrals: Dipak Tai MD [Primary Care Provider] - Time of Disposition: 14:59 - Critical Care Critical Care Time: No Attestation: On 12/05/18, the high probability of a clinically significant, sudden or life threatening deterioration of the following system(s) required my full and direct attention, intervention and personal management. The time I documented below is in addition to time spent performing reported procedures but includes the following listed in this critical care notation. Medical Decision Making - Medical Records Medical records reviewed: Yes: I reviewed the patient's medical records. - James Inquiry Pt receiving controlled substance: No James was queried for this patient: No Vital Signs: 12/05/18 10:19 12/05/18 10:36 12/05/18 11:19 Temperature 98.5 F 98.0 F Temperature Source Oral Temporal Artery Scan Pulse Rate [Left Brachial] 72 75 70 Respiratory Rate 20 18 22 Blood Pressure [Left Arm] 120/66 163/81 H 124/62 Blood Pressure Mean [Left Arm] 84 108 82 Blood Pressure Source [Left Arm] Automatic Cuff Automatic Cuff Automatic Cuff Blood Pressure Position [Left Arm] Sitting Supine 02 Sat by Pulse Oximetry 98 99 98 Oxygen Delivery Method Room Air Room Air Room Air 12/05/18 12:30 12/05/18 13:00 12/05/18 14:30 Temperature Temperature Source Pulse Rate [Left Brachial] 77 77 84 Respiratory Rate 22 20 22 Blood Pressure [Left Arm] 140/78 134/78 140/72 Blood Pressure Mean [Left Arm] 98 96 94 Blood Pressure Source [Left Arm] Automatic Cuff Automatic Cuff Automatic Cuff Blood Pressure Position [Left Arm] Supine Supine Supine 02 Sat by Pulse Oximetry 97 97 97 Oxygen Delivery Method Room Air Room Air Room Air - Lab Data Lab results reviewed: Yes: I reviewed the patient's lab results. Lab Results 12/05/18 10:45: WBC 11.4 H, RBC 4.13 L, Hgb 11.6 L, Hct 35.5 L, MCV 86.1, MCH 28.2, MCHC 32.7, RDW 13.5, Plt Count 330, MPV 7.0 L, Neut % (Auto) 83.4 H, Lymph % (Auto) 7.6 L, [place] % (Auto) 6.6, Eos % (Auto) 1.8, Baso % (Auto) 0.5, Neut # (Auto) 9.5 H, Lymph # (Auto) 0.9, [place] # (Auto) 0.8, Eos # (Auto) 0.2, Baso # (Auto) 0.1 12/05/18 10:45: Sodium 137, Potassium 4.4, Chloride 104, Carbon Dioxide 23, Anion Gap 14.4, BUN 24 H, Creatinine 1.38 H, Estimated Creat Clear 72, Estimated GFR 39 L, Est GFR ( Amer) 48 L, Glucose 155 H, Calcium 9.1, Total Bilirubin 0.4, AST 12 L, ALT 63, Alkaline Phosphatase 159 H, Total Protein 7.7, Albumin 3.1 L, Globulin 4.6 H, Albumin/Globulin Ratio 0.7 L, Lipase 87 12/05/18 13:31: Urine Color Yellow, Urine Appearance Cloudy, Urine pH 5.5, Ur Specific [place] 1.020, Urine Protein 2+, Urine Glucose (UA) Negative, Urine Ketones Negative, Urine Blood 3+, Urine Nitrate Negative, Urine Bilirubin Negative, Urine Urobilinogen 0.2, Ur Leukocyte Esterase Trace, Urine RBC 3-5, Urine WBC 5-10, Urine Bacteria 1+ Result diagrams: 12/05/18 10:45 12/05/18 10:45 Orders (Tests/Meds): ED MEDICATIONS Generic Name Dose Route Start Last Admin Trade Name Freq PRN Reason Stop Dose Admin Sodium Chloride 10 ml 12/05/18 13:26 Saline Flush 10ml Syringe IV 01/04/19 13:25 NEEDED PRN Maintain IV Site Discontinued Medications Generic Name Dose Route Start Last Admin Trade Name Freq PRN Reason Stop Dose Admin Ioversol 50 ml 12/05/18 12:12 12/05/18 12:13 Rad-Optiray 350 100ml Vial IV 12/05/18 12:13 50 ml ONCE ONE Administration Protocol Metoclopramide HCl 10 mg 12/05/18 13:23 12/05/18 13:32 Reglan 10mg/2ml Vial IVP 12/05/18 13:24 10 mg ONCE ONE Administration Ondansetron HCl 4 mg 12/05/18 13:23 12/05/18 13:32 Zofran 4mg/2ml Vial IV 12/05/18 13:24 4 mg ONCE ONE Administration Pantoprazole Sodium 40 mg 12/05/18 13:26 12/05/18 13:32 Protonix 40mg Vial IV 12/05/18 13:27 40 mg ONCE ONE Administration Promethazine HCl 25 mg 12/05/18 11:05 12/05/18 11:09 Phenergan 25mg/Ml 1ml Vial IV 12/05/18 11:06 25 mg ONCE ONE Administration Sodium Chloride 25 ml 12/05/18 11:05 12/05/18 11:09 Sod Chlor 0.9% 25ml Bag IV 12/05/18 11:06 25 ml ONCE ONE Administration Sodium Chloride 10 ml 12/05/18 12:12 12/05/18 12:13 Rad-Saline Flush 10ml Syringe IV 12/05/18 12:13 10 ml ONCE ONE Administration Sodium Chloride 8 ml 12/05/18 13:26 12/05/18 13:32 Saline Flush 10ml Syringe IV 12/05/18 13:27 8 ml ONCE ONE Administration - Physician Consults Physician Consulted: jim Reason -: Admission Nausea/Vomiting/Diarrhea HPI - General Chief complaint: Nausea/Vomiting/Diarrhea Stated complaint: low sugar, vomiting,nausea Time Seen by Provider: 12/05/18 11:07 Mode of Arrival: Family Vehicle Source of Information: Patient, Spouse Limitations: No Limitations Description of Symptoms (Recalled from ER Triage Doc. by RN): onset of left side abd cramping, nausea and vomiting this morning - History of Present Illness HPI Narrative: 13 hours of left sided abdominal pain, n/v. Remote kendall, no other surgical history GI ramirez. No history pancreatitis - Related Data Home Medications Medication Instructions Recorded Confirmed nitroglycerin 0.4 mg sublingual 0.4 mg SUBLINGUAL Q5MINP PRN 05/03/17 11/17/18 tablet Aspirin [Aspirin 81mg chewable 81 mg PO DAILY 09/01/18 11/17/18 tab] Rivaroxaban [Xarelto 20mg Tablet] 20 mg PO DAILY 09/01/18 11/17/18 Sotalol HCl [Betapace 80mg Tablet] 80 mg PO BID 09/01/18 11/17/18 Spironolactone [Spironolactone 25 mg PO DAILY 09/02/18 11/17/18 25mg Tablet] Previous Rx's Medication Instructions Recorded dilTIAZem HCl [Diltiazem 24Hr ER 240 mg PO DAILY #90 cap 09/03/18 (Xr)] lisinopril 10 mg tablet See Rx Instructions .ROUTE 09/09/18 .COMPLEX #90 tab atorvastatin 40 mg tablet See Rx Instructions .ROUTE 09/25/18 .COMPLEX #90 tab omeprazole 20 mg capsule,delayed 40 mg PO DAILY #60 cap 09/29/18 release insulin human U-100 NPH-regulr 30 unit SQ BID #20 ml 11/04/18 70-30 mix 100 unit/mL subcutaneous susp meloxicam 7.5 mg tablet 7.5 mg PO DAILY #10 tab 11/17/18 clopidogrel 75 mg tablet See Rx Instructions .ROUTE 11/28/18 .COMPLEX #90 tablet Allergies Allergy/AdvReac Type Severity Reaction Status Date / Time latex Allergy Verified 11/17/18 14:54 [facility] History - Hepatitis A Screen Drug use history?: No High risk sexual behaviors?: No History of sexually transmitted infection?: No Currently employed?: No Childcare worker?: No Do you have indoor plumbing?: Yes Do you have electricity?: Yes Attestation statement:: This patient has been screened for Hepatitis A risk factors. I have reviewed the patient's past medical history: Yes Medical History: Reports:: Atrial Fibrillation, Coronary Artery Disease, Deep Vein Thrombosis, Diabetes Mellitus Type 2, Hyperlipidemia, Hypertension, Seizures Denies:: Cancer, Diabetes Mellitus Type 1, MRSA Comment: Needs Mammogram and colonoscopy Other Surgeries: Yes: Cardiac Catheterization, Cholecystectomy, Coronary Stent. No: Colonoscopy Amputation: No Fractures: No - Social History Smoking Status: Never smoker Alcohol Intake: never Alcohol Intake Frequency:: other Substance Use Type: denies use Occupational Status: employed Housing: house Household Members: spouse Family Hx:: Diabetes, Heart Attack ROS Obtained: Yes All systems reviewed & no additional complaints - Constitutional Constitutional: Denies chills - Eyes Eyes: Denies blurry vision - Cardiovascular Cardiovascular: Denies chest pain, Denies chest pain at rest, Denies dyspnea - Respiratory Respiratory: No chest congestion, No cough, No dyspnea, No dyspnea on exertion - Gastrointestinal Gastrointestingal: Reports: abdominal pain, vomiting. Denies: diarrhea - Musculoskeletal Musculoskeletal: Denies back pain, Denies neck pain - Integumentary/Breasts Skin/Breast: Denies rash, Denies skin pain - Neurologic Neurologic: Denies abnormal gait, Denies abnormal movements, Denies abnormal speech, Denies seizure-like activity, Denies syncope, Denies vertigo - Hematologic/Lymphatic Henatologic/Lymphatic: Denies easy bleeding, Denies easy bruising Physical Exam - General General appearance: alert - Head Head exam: atraumatic, normocephalic, normal inspection - Eye Eye exam: Present: normal appearance, PERRL, EOMI - ENT ENT exam: Present: normal exam, normal oropharynx, mucous membranes moist, TM's normal bilaterally, normal external ear exam - Neck Neck exam: Present: normal inspection, full ROM, trachea midline. Absent: meningismus, lymphadenopathy - Respiratory Respiratory exam: Present: normal lung sounds bilaterally. Absent: respiratory distress - Cardiovascular Cardiovascular exam: Present: regular rate, normal rhythm. Absent: JVD - Abdominal Exam Abdominal exam: Present: soft, tenderness, hernia, other (nontender). Absent: distention, guarding, rebound, organomegaly Abdominal tenderness: Absent: LUQ, LLQ - Extremities Exam Extremities exam: Present: normal inspection, full ROM, normal capillary refill. Absent: calf tenderness - Back Exam Back exam: Present: normal inspection. Absent: tenderness - Neurological Exam Neurological exam: Present: alert, oriented X3, CN II-XII intact - Psychiatric Psychiatric exam: Present: normal affect, normal mood - Skin Skin exam: Present: warm, dry, intact, normal color
[2018-12-05 13:34] LABS: Microscopic, Urine URINE MICROSCOPIC (MICROSCOPIC)
[2018-12-05 13:37] LABS: Appearance,Urine CLOUDY (Clear); Bilirubin,Urine Negative (Negative); Blood, Urine 3+ (Negative); Color,Urine YELLOW (Yellow); Glucose,Urine (UA) Negative (Negative); Ketones,Urine Negative (Negative); Leukocyte Esterase,Urine TRACE (Negative); PH,Urine 5.5 (5.0-8.5); Protein,Urine 2+ (Negative); Urobilinogen,Urine 0.2 EU/dl (0.2)
[2018-12-05 13:49] LABS: Bacteria,Urine 1+ /lpf
[2018-12-05 22:21] LABS: Amphetamine/Metha Screen,Urine Negative ng/mL (<1000); Barbiturates Screen,Urine Negative ng/mL (<200); Benzodiazepines Screen,Urine Negative ng/mL (<200); Cannabinoid Screen,Urine Negative ng/mL (<50); Cocaine Screen,Urine Negative ng/mL (<300); Methadone Screen,Urine Negative ng/mL (<300); Opiate Screen,Urine Negative ng/mL (<300); Phencyclidine Screen,Urine Negative ng/mL (<25)
[2018-12-06 06:08] LABS: Basophils % 0.2 % (0.1-2.0); Eosinophils % 0.1 % (0.1-12.0); Hematocrit 32.4 % (37.0-47.0); Hemoglobin 10.6 g/dL (12.2-16.2); Lymphocytes # 0.7 K/mm3 (0.7-4.5); Lymphocytes % 6.5 % (10-50); Mean Corpuscular HGB Conc 32.5 g/dL (31.8-35.4); Mean Platelet Volume 7.2 fl (7.4-10.4); Monocytes # 0.7 K/mm3 (0.1-1.0); Monocytes % 7.2 % (1.7-9.3); Neutrophils # 8.6 K/mm3 (1.8-7.8); Neutrophils % 85.9 % (37.0-80.0); Platelet Count 283 K/mm3 (142-424); Red Blood Count 3.69 M/mm3 (4.20-5.40); Red Cell Distribution Width 13.4 % (11.5-17.5)
[2018-12-06 06:25] LABS: Anion Gap 17.3 mEq/L (5-15)
[2018-12-06 06:49] LABS: Lymphocytes % 6 % (10-50); Monocytes % 4 % (2-9); Neutrophils % 90 % (42-76); RBC Morphology Normal; Total Cells Counted 100
--- NOTE | 2018-12-06 09:24 | H&P/Discharge Summary ---
General - General Admission date:: 12/05/18 Discharge date: 12/06/18 *Admission Date: 12/05/18 *Chief complaint: vomiting *History of present illness: this wf presented to the ed with persistant vomiting set of left side abd cramping, nausea and vomiting this morning 13 hours of left sided abdominal pain, n/v. Remote kendall, no other surgical history GI ramirez. No history pancreatitis pt was given meds in the ed but failed to respond and was admitted for ivf and meds - she has known abd hematoma and ventral hernia [facility] History I have reviewed the patient's past medical history: Yes Medical History: Reports:: Atrial Fibrillation, Coronary Artery Disease, Deep Vein Thrombosis, Diabetes Mellitus Type 2, Hyperlipidemia, Hypertension, Seizures Denies:: Cancer, Diabetes Mellitus Type 1, MRSA *Have you ever received a pneumonia vaccine?: Yes *Have you received a flu vaccine this season?: Yes Other Surgeries: Yes: Cardiac Catheterization, Cholecystectomy, Coronary Stent. No: Colonoscopy Amputation: No Fractures: No - *Social History Educational Level: Completed High School Smoking Status: Never smoker Alcohol Intake: never Alcohol Intake Frequency:: other Substance Use Type: denies use *Occupational Status:: employed Housing: house Household Members: spouse *Travel in the last 8 weeks: None - Psychiatric History Expresses thoughts of harming self/others: None Suicide Plan Description: No Plan Family Hx:: Diabetes, Heart Attack Review of Systems - Review of Systems Review of systems:: pertinent systems reviewed and negative unless documented below - Constitutional Denies fever(s) - Eyes Denies change in vision - ENT Denies sore throat - *Cardiovascular Denies chest pain - *Respiratory Denies cough - *Gastrointestinal Reports abdominal pain, Reports nausea, Reports vomiting, Denies vomiting blood, Denies bright, red blood in stools, Denies black, tarry stools - *Genitourinary Denies blood in urine - *Musculoskeletal Denies joint pain - Integumentary/Breasts Denies rash - *Neurologic Denies abnormal walking, Denies abnormal movements, Denies abnormal speech, Denies seizure-like activity, Denies fainting, Denies dizziness - Psychiatric Denies anxiety Exam Vital signs and Labs for Last 24 Hours: Temp Pulse Resp BP Pulse Ox 99.2 F 107 H 18 150/79 H 97 12/06/18 04:00 12/06/18 04:00 12/06/18 04:00 12/06/18 04:00 12/06/18 04:00 Laboratory Results - last 24 hr 12/05/18 10:45: WBC 11.4 H, RBC 4.13 L, Hgb 11.6 L, Hct 35.5 L, MCV 86.1, MCH 28.2, MCHC 32.7, RDW 13.5, Plt Count 330, MPV 7.0 L, Neut % (Auto) 83.4 H, Lymph % (Auto) 7.6 L, [place] % (Auto) 6.6, Eos % (Auto) 1.8, Baso % (Auto) 0.5, Neut # (Auto) 9.5 H, Lymph # (Auto) 0.9, [place] # (Auto) 0.8, Eos # (Auto) 0.2, Baso # (Auto) 0.1 12/05/18 10:45: Sodium 137, Potassium 4.4, Chloride 104, Carbon Dioxide 23, Anion Gap 14.4, BUN 24 H, Creatinine 1.38 H, Estimated Creat Clear 72, Estimated GFR 39 L, Est GFR ( Amer) 48 L, Glucose 155 H, Calcium 9.1, Total Bilirubin 0.4, AST 12 L, ALT 63, Alkaline Phosphatase 159 H, Total Protein 7.7, Albumin 3.1 L, Globulin 4.6 H, Albumin/Globulin Ratio 0.7 L, Lipase 87 12/05/18 13:31: Urine Color Yellow, Urine Appearance Cloudy, Urine pH 5.5, Ur Specific [place] 1.020, Urine Protein 2+, Urine Glucose (UA) Negative, Urine Ketones Negative, Urine Blood 3+, Urine Nitrate Negative, Urine Bilirubin Negative, Urine Urobilinogen 0.2, Ur Leukocyte Esterase Trace, Urine RBC 3-5, Urine WBC 5-10, Urine Bacteria 1+ 12/05/18 13:31: Urine Opiates Screen Negative, Urine Methadone Screen Negative, Ur Barbituates Screen Negative, Ur Phencyclidine Scrn Negative, Ur Amphetamines Screen Negative, U Benzodiazepines Scrn Negative, Urine Cocaine Screen Negative, U Marijuana (THC) Screen Negative 12/05/18 17:25: POC Glucose 203 H 12/05/18 23:12: POC Glucose 255 H 12/06/18 04:49: POC Glucose 265 H 12/06/18 05:35: WBC 10.0, RBC 3.69 L, Hgb 10.6 L, Hct 32.4 L, MCV 88.0, MCH 28.6, MCHC 32.5, RDW 13.4, Plt Count 283, MPV 7.2 L, Neut % (Auto) 85.9 H, Lymph % (Auto) 6.5 L, [place] % (Auto) 7.2, Eos % (Auto) 0.1, Baso % (Auto) 0.2, Neut # (Auto) 8.6 H, Lymph # (Auto) 0.7, [place] # (Auto) 0.7, Eos # (Auto) 0.0, Baso # ( Auto) 0.0, Total Counted 100, Neutrophils % (Manual) 90 H, Lymphocytes % (Manual) 6 L, Monocytes % (Manual) 4, Platelet Estimate Normal, RBC Morphology Normal 12/06/18 05:35: Sodium 138, Potassium 4.3, Chloride 106, Carbon Dioxide 19 L, Anion Gap 17.3 H, BUN 19 H, Creatinine 1.10 H D, Estimated Creat Clear 90, Estimated GFR 51 L, Est GFR ( Amer) 62 D, Glucose 242 H D, Calcium 8.0 L D I & O for Last 24 hours: Intake & Output 12/03/18 12/04/18 12/05/18 12/06/18 11:59 11:59 11:59 11:59 Intake Total 3550 / 3550 Balance 3550 / 3550 Weight 225 lb 224 lb 9 oz - Constitutional no acute distress, obese - *Routine HEENT Exam Head: Present: normocephalic Eye: Present: EOMI, PERRL. Absent: conjunctival icterus ENT: Present: mucous membranes dry - *Routine Neck Exam Present: supple. Absent: JVD - *Routine Respiratory Exam Absent: respiratory distress - *Routine Cardiovascular Exam Present: RRR - *Routine Abdominal Exam Present: soft, hernia Comments: ventral hernia reducible - *Routine Extremities Exam Present: full ROM. Absent: calf tenderness - Routine Back/Spine/Pelvis Exam Back/Spine: Absent: CVA tenderness - *Routine Skin Exam Present: intact - *Routine Neurological Exam Present: alert, oriented X3, CN II-XII intact - Routine Psychiatric Exam Present: normal affect Hospital Course Hospital Course: pt has responded well to meds and is ambulatory and jane diet this am and labs are stable - pt will be d/c and will need gi and surg eval as op and will be followed in office next week - Results Labs on day of discharge: Labs from last 24 hours 12/06/18 12/06/18 12/06/18 05:35 05:35 04:49 WBC 10.0 RBC 3.69 L Hgb 10.6 L Hct 32.4 L MCV 88.0 MCH 28.6 MCHC 32.5 RDW 13.4 Plt Count 283 MPV 7.2 L Neut % (Auto) 85.9 H Lymph % (Auto) 6.5 L [place] % (Auto) 7.2 Eos % (Auto) 0.1 Baso % (Auto) 0.2 Neut # (Auto) 8.6 H Lymph # (Auto) 0.7 [place] # (Auto) 0.7 Eos # (Auto) 0.0 Baso # (Auto) 0.0 Total Counted 100 Neutrophils % (Manual) 90 H Lymphocytes % (Manual) 6 L Monocytes % (Manual) 4 Platelet Estimate Normal RBC Morphology Normal Sodium 138 Potassium 4.3 Chloride 106 Carbon Dioxide 19 L Anion Gap 17.3 H BUN 19 H Creatinine 1.10 H D Estimated Creat Clear 90 Estimated GFR 51 L Est GFR ( Amer) 62 D Glucose 242 H D POC Glucose 265 H Calcium 8.0 L D Total Bilirubin AST ALT Alkaline Phosphatase Total Protein Albumin Globulin Albumin/Globulin Ratio Lipase Urine Color Urine Appearance Urine pH Ur Specific [place] Urine Protein Urine Glucose (UA) Urine Ketones Urine Blood Urine Nitrate Urine Bilirubin Urine Urobilinogen Ur Leukocyte Esterase Urine RBC Urine WBC Urine Bacteria Urine Opiates Screen Urine Methadone Screen Ur Barbituates Screen Ur Phencyclidine Scrn Ur Amphetamines Screen U Benzodiazepines Scrn Urine Cocaine Screen U Marijuana (THC) Screen 12/05/18 12/05/18 12/05/18 23:12 17:25 13:31 WBC RBC Hgb Hct MCV MCH MCHC RDW Plt Count MPV Neut % (Auto) Lymph % (Auto) [place] % (Auto) Eos % (Auto) Baso % (Auto) Neut # (Auto) Lymph # (Auto) [place] # (Auto) Eos # (Auto) Baso # (Auto) Total Counted Neutrophils % (Manual) Lymphocytes % (Manual) Monocytes % (Manual) Platelet Estimate RBC Morphology Sodium Potassium Chloride Carbon Dioxide Anion Gap BUN Creatinine Estimated Creat Clear Estimated GFR Est GFR ( Amer) Glucose POC Glucose 255 H 203 H Calcium Total Bilirubin AST ALT Alkaline Phosphatase Total Protein Albumin Globulin Albumin/Globulin Ratio Lipase Urine Color Urine Appearance Urine pH Ur Specific [place] Urine Protein Urine Glucose (UA) Urine Ketones Urine Blood Urine Nitrate Urine Bilirubin Urine Urobilinogen Ur Leukocyte Esterase Urine RBC Urine WBC Urine Bacteria Urine Opiates Screen Negative Urine Methadone Screen Negative Ur Barbituates Screen Negative Ur Phencyclidine Scrn Negative Ur Amphetamines Screen Negative U Benzodiazepines Scrn Negative Urine Cocaine Screen Negative U Marijuana (THC) Screen Negative 12/05/18 12/05/18 12/05/18 13:31 10:45 10:45 WBC 11.4 H RBC 4.13 L Hgb 11.6 L Hct 35.5 L MCV 86.1 MCH 28.2 MCHC 32.7 RDW 13.5 Plt Count 330 MPV 7.0 L Neut % (Auto) 83.4 H Lymph % (Auto) 7.6 L [place] % (Auto) 6.6 Eos % (Auto) 1.8 Baso % (Auto) 0.5 Neut # (Auto) 9.5 H Lymph # (Auto) 0.9 [place] # (Auto) 0.8 Eos # (Auto) 0.2 Baso # (Auto) 0.1 Total Counted Neutrophils % (Manual) Lymphocytes % (Manual) Monocytes % (Manual) Platelet Estimate RBC Morphology Sodium 137 Potassium 4.4 Chloride 104 Carbon Dioxide 23 Anion Gap 14.4 BUN 24 H Creatinine 1.38 H Estimated Creat Clear 72 Estimated GFR 39 L Est GFR ( Amer) 48 L Glucose 155 H POC Glucose Calcium 9.1 Total Bilirubin 0.4 AST 12 L ALT 63 Alkaline Phosphatase 159 H Total Protein 7.7 Albumin 3.1 L Globulin 4.6 H Albumin/Globulin Ratio 0.7 L Lipase 87 Urine Color Yellow Urine Appearance Cloudy Urine pH 5.5 Ur Specific [place] 1.020 Urine Protein 2+ Urine Glucose (UA) Negative Urine Ketones Negative Urine Blood 3+ Urine Nitrate Negative Urine Bilirubin Negative Urine Urobilinogen 0.2 Ur Leukocyte Esterase Trace Urine RBC 3-5 Urine WBC 5-10 Urine Bacteria 1+ Urine Opiates Screen Urine Methadone Screen Ur Barbituates Screen Ur Phencyclidine Scrn Ur Amphetamines Screen U Benzodiazepines Scrn Urine Cocaine Screen U Marijuana (THC) Screen DS: Diagnosis - Discharge Diagnosis (1) Intractable nausea and vomiting Status: Acute (2) Obesity Status: Acute (3) Renal insufficiency Status: Acute (4) Anemia Status: Acute (5) Diabetes mellitus, insulin dependent (IDDM), controlled Status: Acute (6) UTI (urinary tract infection) Status: Acute (7) Hiatal hernia Status: Acute (8) Ventral hernia Status: Acute (9) Hematoma, non-traumatic Status: Acute Discharge Plan - Patient Discharge Instructions ACTIVITY: Continue current activity DIET: continue same diet Forms: Transfer Record - ED - Follow up Plan Disposition: Home, Self-Senior Care Medications: Home Medications Medication Instructions Recorded Confirmed Type nitroglycerin 0.4 mg sublingual 0.4 mg SUBLINGUAL Q5MINP PRN 05/03/17 12/05/18 History tablet Aspirin [Aspirin 81mg chewable 81 mg PO DAILY 09/01/18 12/05/18 History tab] Rivaroxaban [Xarelto 20mg Tablet] 20 mg PO DAILY 09/01/18 12/05/18 History Sotalol HCl [Betapace 80mg Tablet] 80 mg PO BID 09/01/18 12/05/18 History Spironolactone [Spironolactone 25 mg PO DAILY 09/02/18 12/05/18 History 25mg Tablet] dilTIAZem HCl [Diltiazem 24Hr ER 240 mg PO DAILY #90 cap 09/03/18 12/05/18 Rx (Xr)] omeprazole 20 mg capsule,delayed 40 mg PO DAILY #60 cap 09/29/18 12/05/18 Rx release insulin human U-100 NPH-regulr 30 unit SQ BID #20 ml 11/04/18 12/05/18 Rx 70-30 mix 100 unit/mL subcutaneous susp Atorvastatin Calcium [Lipitor 40mg 40 mg PO DAILY 12/05/18 12/05/18 History Tablet] Clopidogrel Bisulfate [Plavix 75mg 75 mg PO DAILY 12/05/18 12/05/18 History Tab] Lisinopril [Prinivil 10mg Tablet] 10 mg PO DAILY 12/05/18 12/05/18 History Meloxicam 7.5 mg PO DAILY 12/05/18 12/05/18 History cephALEXin [Keflex 500mg Cap] 500 mg PO TID #30 cap 12/06/18 Rx Prescriptions/Medication Reconciliation: New cephALEXin [Keflex 500mg Cap] 500 mg PO TID #30 cap Continued nitroglycerin 0.4 mg sublingual tablet 0.4 mg SUBLINGUAL Q5MINP PRN PRN Reason: Chest Pain insulin human U-100 NPH-regulr 70-30 mix 100 unit/mL subcutaneous susp 30 unit SQ BID #20 ml omeprazole 20 mg capsule,delayed release 40 mg PO DAILY #60 cap Sotalol HCl [Betapace 80mg Tablet] 80 mg PO BID Aspirin [Aspirin 81mg chewable tab] 81 mg PO DAILY dilTIAZem HCl [Diltiazem 24Hr ER (Xr)] 240 mg PO DAILY #90 cap Lisinopril [Prinivil 10mg Tablet] 10 mg PO DAILY Clopidogrel Bisulfate [Plavix 75mg Tab] 75 mg PO DAILY Atorvastatin Calcium [Lipitor 40mg Tablet] 40 mg PO DAILY Rivaroxaban [Xarelto 20mg Tablet] 20 mg PO DAILY Spironolactone [Spironolactone 25mg Tablet] 25 mg PO DAILY Discontinued Meloxicam 7.5 mg PO DAILY - Problem Reconciliation Problems Reviewed?: Yes
== END 2018-12-06 11:00 | disposition home or self-care (01) ==
LOC: 2ND 10:19 → ER 10:19 → 2ND 17:32
PROVIDERS: ADMIT Emergency Medicine; ATTEND Emergency Medicine
DX: I10 Essential (primary) hypertension; Z79.899 Other long term (current) drug therapy; N39.0 Urinary tract infection, site not specified; R56.9 Unspecified convulsions; Z86.718 Personal history of other venous thrombosis and embolism; R19.7 Diarrhea, unspecified; E78.5 Hyperlipidemia, unspecified; K43.9 Ventral hernia without obstruction or gangrene; K44.9 Diaphragmatic hernia without obstruction or gangrene; E11.9 Type 2 diabetes mellitus without complications; I25.10 Atherosclerotic heart disease of native coronary artery without angina pectoris; Z79.01 Long term (current) use of anticoagulants; Z79.4 Long term (current) use of insulin; I48.91 Unspecified atrial fibrillation; R11.2 Nausea with vomiting, unspecified; Z79.02 Long term (current) use of antithrombotics/antiplatelets; E66.9 Obesity, unspecified; N28.9 Disorder of kidney and ureter, unspecified; D64.9 Anemia, unspecified
CPT/HCPCS: 36415; 74177; 80048; 80053; 80305; 81001; 82962; 83690; 85007; 85025; 93005; 96365; 96375; 99284; G0378; J2405; Q9967

== ENCOUNTER 2018-12-07 09:07 | Observation (INO) ==
[2018-12-07 09:48] LABS: Albumin/Globulin Ratio 0.7 (1.1-1.8); Anion Gap 15.8 mEq/L (5-15); Basophils # 0.1 K/mm3 (0-0.2); Basophils % 0.6 % (0.1-2.0); Bilirubin,Total 0.5 mg/dL (0.2-1.0); Calcium 8.6 mg/dL (8.5-10.1); Eosinophils # 0.1 K/mm3 (0.0-0.4); Eosinophils % 1.1 % (0.1-12.0); Globulin 4.5 gm/dl (1.3-3.2); Hemoglobin 11.3 g/dL (12.2-16.2); Lymphocytes # 0.9 K/mm3 (0.7-4.5); Lymphocytes % 7.7 % (10-50); Mean Corpuscular HGB Conc 32.2 g/dL (31.8-35.4); Mean Platelet Volume 7.2 fl (7.4-10.4); Monocytes # 0.7 K/mm3 (0.1-1.0); Neutrophils % 84.7 % (37.0-80.0); Platelet Count 325 K/mm3 (142-424); Red Blood Count 4.02 M/mm3 (4.20-5.40); Red Cell Distribution Width 13.3 % (11.5-17.5); Total Protein,Serum 7.5 gm/dL (6.4-8.2); White Blood Count 11.8 K/mm3 (4.8-10.8)
--- NOTE | 2018-12-07 10:41 | Emergency Department Note ---
ED Disposition Clinical Impression: Intractable nausea and vomiting, Diabetes mellitus, insulin dependent (IDDM), controlled, CAD (coronary artery disease), Gastritis Disposition: Admitted As Inpatient Condition on Discharge: Good - Critical Care Critical Care Time: No Attestation: On 12/07/18, the high probability of a clinically significant, sudden or life threatening deterioration of the following system(s) required my full and direct attention, intervention and personal management. The time I documented below is in addition to time spent performing reported procedures but includes the following listed in this critical care notation. Medical Decision Making - Medical Records Medical records reviewed: Yes: I reviewed the patient's medical records. - James Inquiry Pt receiving controlled substance: No James was queried for this patient: No Reason not queried -: Emergent pt cond-no time Risks and benefits of using a controlled substance: were discussed with pt by me Vital Signs: 12/07/18 09:10 12/07/18 09:38 12/07/18 10:08 Temperature 98.1 F Temperature Source Temporal Artery Scan Pulse Rate Pulse Rate [Right Brachial] 114 H 94 H 109 H Respiratory Rate 16 21 Blood Pressure Blood Pressure [Right Arm] 149/67 H 162/98 H 166/84 H Blood Pressure Mean [Right Arm] 94 119 111 Blood Pressure Source Blood Pressure Source [Right Arm] Automatic Cuff Automatic Cuff Automatic Cuff Blood Pressure Position Blood Pressure Position [Right Arm] Sitting Sitting Sitting 02 Sat by Pulse Oximetry 100 100 98 Oxygen Delivery Method Room Air Room Air Room Air 12/07/18 10:32 12/07/18 11:28 12/07/18 12:00 Temperature Temperature Source Pulse Rate Pulse Rate [Right Brachial] 104 H 100 H 83 Respiratory Rate 20 18 Blood Pressure Blood Pressure [Right Arm] 147/88 H 167/103 H 153/100 H Blood Pressure Mean [Right Arm] 107 124 117 Blood Pressure Source Blood Pressure Source [Right Arm] Automatic Cuff Automatic Cuff Automatic Cuff Blood Pressure Position Blood Pressure Position [Right Arm] Sitting Sitting Sitting 02 Sat by Pulse Oximetry 97 97 95 Oxygen Delivery Method Room Air Room Air Room Air 12/07/18 12:30 12/07/18 13:30 12/07/18 14:00 Temperature Temperature Source Pulse Rate Pulse Rate [Right Brachial] 107 H Respiratory Rate 19 Blood Pressure Blood Pressure [Right Arm] 165/93 H 175/103 H 163/111 H Blood Pressure Mean [Right Arm] 117 127 128 Blood Pressure Source Blood Pressure Source [Right Arm] Automatic Cuff Automatic Cuff Automatic Cuff Blood Pressure Position Blood Pressure Position [Right Arm] Sitting Sitting Sitting 02 Sat by Pulse Oximetry 94 L 98 100 Oxygen Delivery Method Room Air Room Air Room Air 12/07/18 14:25 Temperature 98.1 F Temperature Source Oral Pulse Rate 80 Pulse Rate [Right Brachial] 79 Respiratory Rate 18 Blood Pressure 122/74 Blood Pressure [Right Arm] 143/104 H Blood Pressure Mean [Right Arm] 117 Blood Pressure Source Automatic Cuff Blood Pressure Source [Right Arm] Automatic Cuff Blood Pressure Position Sitting Blood Pressure Position [Right Arm] Sitting 02 Sat by Pulse Oximetry 98 Oxygen Delivery Method Room Air - Lab Data Lab Results 12/07/18 09:26: WBC 11.8 H, RBC 4.02 L, Hgb 11.3 L, Hct 35.0 L, MCV 87.0, MCH 28.0, MCHC 32.2, RDW 13.3, Plt Count 325, MPV 7.2 L, Neut % (Auto) 84.7 H, Lymph % (Auto) 7.7 L, [place] % (Auto) 6.0, Eos % (Auto) 1.1, Baso % (Auto) 0.6, Neut # (Auto) 10.0 H, Lymph # (Auto) 0.9, [place] # (Auto) 0.7, Eos # (Auto) 0.1, Baso # (Auto) 0.1 12/07/18 09:26: Sodium 132 L, Potassium 4.8, Chloride 100, Carbon Dioxide 21, Anion Gap 15.8 H, BUN 24 H D, Creatinine 1.28 H, Estimated Creat Clear 69, Estimated GFR 43 L, Est GFR ( Amer) 52 L, Glucose 283 H, Calcium 8.6, Total Bilirubin 0.5, AST 34 D, ALT 48, Alkaline Phosphatase 129 H, Total Protein 7.5, Albumin 3.0 L, Globulin 4.5 H, Albumin/Globulin Ratio 0.7 L, Amylase 77, Lipase 81 Result diagrams: 12/10/18 05:45 12/10/18 05:45 Orders (Tests/Meds): ED MEDICATIONS Discontinued Medications Generic Name Dose Route Start Last Admin Trade Name Freq PRN Reason Stop Dose Admin Acetaminophen 500 mg 12/08/18 14:14 12/08/18 14:41 Tylenol 500mg Tablet PO 01/07/19 14:13 500 mg Q6HP PRN Administration Mild to Moderate Pain Aspirin 81 mg 12/08/18 09:00 Aspirin 81mg Chewable Tablet PO 01/07/19 08:59 DAILY KENN Aspirin 81 mg 12/08/18 09:00 12/09/18 08:53 Aspirin 81mg Chewable Tablet PO 01/07/19 08:59 81 mg DAILY KENN Administration Atorvastatin Calcium 40 mg 12/08/18 09:00 Lipitor 40mg Tablet PO 01/07/19 08:59 DAILY KENN Atorvastatin Calcium 40 mg 12/07/18 21:00 12/10/18 21:05 Lipitor 40mg Tablet PO 01/06/19 20:59 40 mg HS KENN Administration Barium Sulfate 355 ml 12/09/18 10:10 12/09/18 10:11 Rad-Barium Sulf(Liquid E-Z-Paque);355ml Bot PO 12/09/18 10:11 355 ml ONCE ONE Administration Barium Sulfate 135 ml 12/09/18 10:10 12/09/18 10:11 Rad-Barium Sulfate(E-Z-Hd 340gm);135ml PO 12/09/18 10:11 135 ml ONCE ONE Administration Clopidogrel Bisulfate 75 mg 12/08/18 09:00 Plavix 75mg Tablet PO 01/07/19 08:59 DAILY KENN Clopidogrel Bisulfate 75 mg 12/08/18 09:00 12/09/18 11:32 Plavix 75mg Tablet PO 01/07/19 08:59 Not Given DAILY KENN Diltiazem HCl 240 mg 12/08/18 09:00 12/11/18 08:05 Cardizem Er 240mg Capsule PO 01/07/19 08:59 240 mg DAILY KENN Administration Enoxaparin Sodium 100 mg 12/10/18 09:00 12/11/18 08:06 Lovenox 100mg/Ml Syringe SQ 01/09/19 08:59 100 mg Q12H KENN Administration Famotidine 20 mg 12/07/18 11:10 12/07/18 11:13 Pepcid 20mg/2ml Vial IV 12/07/18 11:11 20 mg ONCE ONE Administration Sodium Chloride 1,000 mls @ 999 mls/hr 12/07/18 09:30 12/07/18 09:43 Sod Chlor 0.9% 1000ml Bag IV 12/07/18 10:30 999 mls/hr .Q1H1M KENN Administration Sodium Chloride 1,000 mls @ 125 mls/hr 12/07/18 13:50 12/07/18 22:23 Sod Chlor 0.9% 1000ml Bag IV 01/06/19 13:49 Not Given .Q8H KENN Sodium Chloride 1,000 mls @ 125 mls/hr 12/07/18 13:58 12/08/18 06:20 Sod Chlor 0.9% 1000ml Bag IV 01/06/19 13:49 125 mls/hr .Q8H KENN Administration Sodium Chloride 1,000 mls @ 75 mls/hr 12/08/18 08:45 12/11/18 01:09 Sod Chlor 0.9% 1000ml Bag IV 01/07/19 08:44 75 mls/hr .[id number] KENN Administration Insulin Human Lispro 0 unit 12/07/18 16:30 Humalog 100 Units/Ml 3ml Vial (Ssi) SQ 01/06/19 16:29 [facility] Protocol Insulin Human Lispro 0 unit 12/07/18 16:30 12/11/18 11:54 Humalog 100 Units/Ml 3ml Vial (Ssi) SQ 01/06/19 16:29 Not Given [facility] Protocol Insulin Lispro Protam/Lispro Human 30 unit 12/07/18 21:00 12/11/18 08:06 Humalog Mix 75/25 3ml Flexpen SQ 01/06/19 20:59 30 units BID KENN Administration Lisinopril 10 mg 12/08/18 09:00 Zestril 10mg Tablet PO 01/07/19 08:59 DAILY KENN Lisinopril 10 mg 12/08/18 09:00 12/08/18 08:29 Zestril 10mg Tablet PO 01/07/19 08:59 10 mg DAILY KENN Administration Lisinopril 10 mg 12/09/18 21:00 12/10/18 21:08 Zestril 10mg Tablet PO 01/08/19 20:59 10 mg HS KENN Administration Metoclopramide HCl 10 mg 12/07/18 11:10 12/07/18 11:14 Reglan 10mg/2ml Vial IVP 12/07/18 11:11 10 mg ONCE ONE Administration Metoclopramide HCl 10 mg 12/08/18 11:00 12/11/18 11:56 Reglan 10mg/2ml Vial IVP 01/07/19 10:59 Not Given ACHS KENN Morphine Sulfate 2 mg 12/07/18 13:50 Morphine 2mg/Ml Syringe IV 01/06/19 13:49 Q2HP PRN Severe Pain Morphine Sulfate 2 mg 12/07/18 13:58 Morphine 2mg/Ml Syringe IV 01/06/19 13:49 Q2HP PRN Severe Pain Nitroglycerin 0.4 mg 12/07/18 13:50 Nitrostat 0.4mg Sl Tablet SL 01/06/19 13:49 Q5MINP PRN Chest Pain Nitroglycerin 0.4 mg 12/07/18 13:58 Nitrostat 0.4mg Sl Tablet SL 01/06/19 13:49 Q5MINP PRN Chest Pain Non-Formulary Medication 240 mg 12/08/18 09:00 Diltiazem Hcl [Diltiazem 24hr Er (Xr)] PO 01/07/19 08:59 DAILY KENN Non-Formulary Medication 30 unit 12/07/18 21:00 Insulin Nph Hum/Reg Insulin Hm [Novolin 70-30 100 Unit/Ml Vial] SQ 01/06/19 20:59 BID KENN Non-Formulary Medication 40 mg 12/08/18 09:00 Omeprazole [Omeprazole 20mg Capsule] PO 01/07/19 08:59 DAILY KENN Non-Formulary Medication 20 mg 12/08/18 09:00 Rivaroxaban [Xarelto 20mg Tablet] PO 01/07/19 08:59 DAILY [facility] Ondansetron HCl 4 mg 12/07/18 09:43 12/07/18 09:44 Zofran 4mg/2ml Vial IV 12/07/18 09:44 4 mg ONCE ONE Administration Ondansetron HCl 4 mg 12/07/18 13:50 Zofran 4mg/2ml Vial IV 01/06/19 13:49 Q8HP PRN Nausea Ondansetron HCl 4 mg 12/07/18 13:58 12/10/18 06:27 Zofran 4mg/2ml Vial IV 01/06/19 13:49 4 mg Q8HP PRN Administration Nausea Pantoprazole Sodium 40 mg 12/07/18 21:00 12/10/18 21:08 Protonix 40mg Tablet PO 01/06/19 20:59 40 mg HS KENN Administration Potassium Chloride 20 meq 12/11/18 09:00 12/11/18 08:10 Klor-Con 20meq Tablet PO 12/11/18 21:01 20 meq TID KENN Administration Promethazine HCl 12.5 mg 12/07/18 11:08 12/07/18 11:12 Phenergan 25mg/Ml 1ml Vial IV 12/07/18 11:09 12.5 mg ONCE ONE Administration Rivaroxaban 20 mg 12/07/18 17:30 12/08/18 16:43 Xarelto 10mg Tablet PO 01/06/19 17:29 Not Given QPMWM KENN Simethicone/Sodium Bicarb/Citric Ac 1 each 12/09/18 10:10 12/09/18 10:11 Rad-E-Z-Gas Ii Effervescent Granules;1pk PO 12/09/18 10:11 1 each ONCE ONE Administration Sodium Chloride 25 ml 12/07/18 11:08 12/07/18 11:13 Sod Chlor 0.9% 25ml Bag IV 12/07/18 11:09 25 ml ONCE ONE Administration Sodium Chloride 8 ml 12/07/18 11:10 12/07/18 11:13 Saline Flush 10ml Syringe IV 12/07/18 11:11 8 ml ONCE ONE Administration Sodium Chloride 10 ml 12/07/18 11:10 Saline Flush 10ml Syringe IV 01/06/19 11:09 NEEDED PRN Maintain IV Site Sodium Chloride 10 ml 12/07/18 13:50 Saline Flush 10ml Syringe IV 01/06/19 11:09 NEEDED PRN Maintain IV Site Sodium Chloride 10 ml 12/07/18 13:58 Saline Flush 10ml Syringe IV 01/06/19 11:09 NEEDED PRN Maintain IV Site Sodium Chloride 10 ml 12/08/18 08:40 12/11/18 06:13 Saline Flush 10ml Syringe IV 01/07/19 08:39 10 ml NEEDED PRN Administration Maintain IV Site Sotalol HCl 80 mg 12/07/18 21:00 Betapace 80mg Tablet PO 01/06/19 20:59 BID KENN Sotalol HCl 80 mg 12/07/18 21:00 12/11/18 08:07 Betapace 80mg Tablet PO 01/06/19 20:59 80 mg BID KENN Administration Spironolactone 25 mg 12/08/18 09:00 Aldactone 25mg Tablet PO 01/07/19 08:59 DAILY KENN Spironolactone 25 mg 12/08/18 09:00 12/11/18 08:07 Aldactone 25mg Tablet PO 01/07/19 08:59 25 mg DAILY KENN Administration General Adult HPI - General Chief complaint: Nausea/Vomiting/Diarrhea Stated complaint: vomiting, possible dehydration Time Seen by Provider: 12/07/18 09:30 Mode of Arrival: Wheelchair Limitations: No Limitations Description of Symptoms (Recalled from ER Triage Doc. by RN): nausea and vomiting continued - History of Present Illness HPI narrative: The patient is a 58-year-old female slightly obese who began Saturday with abdominal pain the patient has never vomited but has had no vomiting. the pt has had c/f today Onset (ago): day(s) Location: abdomen Radiation: non-radiation Severity: severe Severity scale (1-10): 10 Quality: aching Consistency: constant, colicky Relieving factors: none Exacerbating factors: eating Associated symptoms: fever/chills, nausea/vomiting, weakness Treatments prior to arrival: none - Related Data Home Medications Medication Instructions Recorded Confirmed nitroglycerin 0.4 mg sublingual 0.4 mg SUBLINGUAL Q5MINP PRN 05/03/17 12/07/18 tablet Rivaroxaban [Xarelto 20mg Tablet] 20 mg PO DAILY 09/01/18 12/07/18 Sotalol HCl [Betapace 80mg Tablet] 80 mg PO BID 09/01/18 12/07/18 Spironolactone [Spironolactone 25 mg PO DAILY 09/02/18 12/07/18 25mg Tablet] Atorvastatin Calcium [Lipitor 40mg 40 mg PO DAILY 12/05/18 12/07/18 Tablet] Clopidogrel Bisulfate [Plavix 75mg 75 mg PO DAILY 12/05/18 12/07/18 Tab] Lisinopril [Prinivil 10mg Tablet] 10 mg PO DAILY 12/05/18 12/07/18 Amoxicillin [Amoxicillin 500mg 500 mg PO Q8H 08/12/19 08/12/19 Cap] Previous Rx's Medication Instructions Recorded dilTIAZem HCl [Diltiazem 24Hr ER 240 mg PO DAILY #90 cap 09/03/18 (Xr)] omeprazole 20 mg capsule,delayed 40 mg PO DAILY #60 cap 09/29/18 release insulin human U-100 NPH-regulr 30 unit SQ BID #20 ml 11/04/18 70-30 mix 100 unit/mL subcutaneous susp Metoclopramide HCl [Metoclopramide 10 mg PO ACHS 30 Days #120 tab 12/11/18 10mg Tablet] Allergies Allergy/AdvReac Type Severity Reaction Status Date / Time latex Allergy Verified 11/17/18 14:54 [facility] History - Hepatitis A Screen Drug use history?: No High risk sexual behaviors?: No History of sexually transmitted infection?: No Currently employed?: No Childcare worker?: No Do you have indoor plumbing?: Yes Do you have electricity?: Yes Attestation statement:: This patient has been screened for Hepatitis A risk factors. I have reviewed the patient's past medical history: Yes Medical History: Reports:: Atrial Fibrillation, Coronary Artery Disease, Deep Vein Thrombosis, Diabetes Mellitus Type 2, Hyperlipidemia, Hypertension, Seizures Denies:: Cancer, Diabetes Mellitus Type 1, MRSA Comment: Needs Mammogram and colonoscopy Other Surgeries: Yes: Cardiac Catheterization, Cholecystectomy, Coronary Stent. No: Colonoscopy Amputation: No Fractures: No - Social History Smoking Status: Never smoker Alcohol Intake: never Alcohol Intake Frequency:: other Substance Use Type: denies use Occupational Status: employed Housing: house Household Members: spouse Family Hx:: Diabetes, Heart Attack ROS Obtained: Yes All systems reviewed & no additional complaints - Constitutional Constitutional: Reports chills - Eyes Eyes: Reports system reviewed and no additional complaints, except as docu - ENT Ears, Nose, Mouth, and Throat: Reports system reviewed and no additional complaints, except as docu - Cardiovascular Cardiovascular: Reports system reviewed and no additional complaints, except as docu - Respiratory Respiratory: Yes system reviewed and no additional complaints, except as docu - Gastrointestinal Gastrointestingal: Reports: abdominal pain, belching, bloating - Genitourinary Female Genitourinary: Reports system reviewed and no additional complaints, except as docu - Musculoskeletal Musculoskeletal: Reports system reviewed and no additional complaints, except as docu - Integumentary/Breasts Skin/Breast: Reports system reviewed and no additional complaints, except as docu - Neurologic Neurologic: Reports system reviewed and no additional complaints, except as docu - Endocrine Endocrine: Reports system reviewed and no additional complaints, except as docu - Hematologic/Lymphatic Henatologic/Lymphatic: Reports system reviewed and no additional complaints, except as docu - Allergic/Immunologic Allergic/Immunologic: Reports system reviewed and no additional complaints, except as docu Physical Exam - General General appearance: alert, anxious, in distress Comment: n/v - Head Head exam: normocephalic, normal inspection - Eye Eye exam: Present: normal appearance, PERRL, EOMI - ENT ENT exam: Present: normal exam, normal oropharynx, mucous membranes moist, TM's normal bilaterally, normal external ear exam - Neck Neck exam: Present: normal inspection, full ROM, trachea midline. Absent: meningismus, lymphadenopathy - Chest Chest inspection: Present: normal inspection, symmetric chest wall rise. Absent: tenderness - Respiratory Respiratory exam: Present: normal lung sounds bilaterally. Absent: respiratory distress - Cardiovascular Cardiovascular exam: Present: regular rate, normal rhythm. Absent: JVD - Abdominal Exam Abdominal exam: Present: distention, tenderness, diminished bowel sounds, hernia Abdominal tenderness: Present: LUQ, LLQ, epigastrium - External exam: Present: normal external exam - Extremities Exam Extremities exam: Present: normal inspection - Back Exam Back exam: Present: normal inspection - Neurological Exam Neurological exam: Present: alert, oriented X3, CN II-XII intact - Psychiatric Psychiatric exam: Present: normal affect, normal mood - Skin Skin exam: Present: warm, dry, intact, normal color - Lymphatic Lymphatic Findings: no adenopathy Procedures - Risk/Benefits of Procedure(s) Were Explained: Yes
--- NOTE | 2018-12-08 07:27 | Pharmacy Consult Notes ---
[facility] Pharmacy VTE Monitoring - Patient Demographics Admission date: 12/07/18 Report Date: 12/08/18 Time: 07:26 Allergies/Adverse Reactions: Patient Allergies latex Allergy (Verified 11/17/18 14:54) Height: 1.63 m Weight: 103.022 kg Patient Problems: Current Active Problems Intractable nausea and vomiting (Acute) Diabetes mellitus, insulin dependent (IDDM), controlled (Acute) CAD (coronary artery disease) (Chronic) - VTE Risk Labs: VTE Related Lab Results Hgb 11.3 g/dL (12.2-16.2) L 12/07/18 09:26 Hct 35.0 % (37.0-47.0) L 12/07/18 09:26 Plt Count 325 K/mm3 (142-424) 12/07/18 09:26 BUN 24 mg/dL (7-18) H D 12/07/18 09:26 Creatinine 1.28 mg/dL (0.55-1.02) H 12/07/18 09:26 Estimated Creat Clear 69 mL/min (50-200) 12/07/18 09:26 VTE Risk Level: Low Risk - Prophylaxis VTE Prophylaxis Ordered?: Yes Types of VTE Prophylaxis: Pharmacological Pharmacologic Type: Other (XARELTO) - VTE Diagnosis Confirmed Treatment or plan recommended: Continue Current Treatment
--- NOTE | 2018-12-08 08:34 | History & Physical Report ---
*Admission Date: 12/07/18 *Chief complaint: vomiting *History of present illness: this wf who was recently admitted for vomiting and improved after ivf and meds returned to the ed with upper abd pain and vomiting w/o melena -pt was seen in the ed and failed treatment and was readmitted for ivf and meds [facility] History I have reviewed the patient's past medical history: Yes Medical History: Reports:: Atrial Fibrillation, Coronary Artery Disease, Deep Vein Thrombosis, Diabetes Mellitus Type 2, Hyperlipidemia, Hypertension, Seizures Denies:: Cancer, Diabetes Mellitus Type 1, MRSA *Have you ever received a pneumonia vaccine?: No *Have you received a flu vaccine this season?: No Other Surgeries: Yes: Cardiac Catheterization, Cholecystectomy, Coronary Stent. No: Colonoscopy Amputation: No Fractures: No - *Social History Educational Level: Attended High School Smoking Status: Never smoker Alcohol Intake: never Alcohol Intake Frequency:: other Substance Use Type: denies use *Occupational Status:: employed Housing: house Household Members: spouse *Travel in the last 8 weeks: None - Psychiatric History Expresses thoughts of harming self/others: None Suicide Plan Description: No Plan Family Hx:: Diabetes, Heart Attack Review of Systems - Review of Systems Review of systems:: pertinent systems reviewed and negative unless documented below - Constitutional Denies fever(s) - Eyes Denies change in vision - ENT Denies sore throat - *Cardiovascular Denies chest pain at rest - *Respiratory Denies cough - *Gastrointestinal Reports abdominal pain, Reports heartburn, Reports nausea, Reports vomiting, Denies black, tarry stools - *Genitourinary Denies pelvic pain - *Musculoskeletal Denies joint pain - Integumentary/Breasts Denies rash - *Neurologic Denies seizure-like activity - Psychiatric Denies anxiety Meds Home Medications Medication Instructions Recorded Confirmed Type nitroglycerin 0.4 mg sublingual 0.4 mg SUBLINGUAL Q5MINP PRN 05/03/17 12/07/18 History tablet Aspirin [Aspirin 81mg chewable 81 mg PO DAILY 09/01/18 12/07/18 History tab] Rivaroxaban [Xarelto 20mg Tablet] 20 mg PO DAILY 09/01/18 12/07/18 History Sotalol HCl [Betapace 80mg Tablet] 80 mg PO BID 09/01/18 12/07/18 History Spironolactone [Spironolactone 25 mg PO DAILY 09/02/18 12/07/18 History 25mg Tablet] dilTIAZem HCl [Diltiazem 24Hr ER 240 mg PO DAILY #90 cap 09/03/18 12/07/18 Rx (Xr)] omeprazole 20 mg capsule,delayed 40 mg PO DAILY #60 cap 09/29/18 12/07/18 Rx release insulin human U-100 NPH-regulr 30 unit SQ BID #20 ml 11/04/18 12/07/18 Rx 70-30 mix 100 unit/mL subcutaneous susp Atorvastatin Calcium [Lipitor 40mg 40 mg PO DAILY 12/05/18 12/07/18 History Tablet] Clopidogrel Bisulfate [Plavix 75mg 75 mg PO DAILY 12/05/18 12/07/18 History Tab] Lisinopril [Prinivil 10mg Tablet] 10 mg PO DAILY 12/05/18 12/07/18 History cephALEXin [Keflex 500mg Cap] 500 mg PO TID 12/07/18 12/07/18 History Allergies Allergy/AdvReac Type Severity Reaction Status Date / Time latex Allergy Verified 11/17/18 14:54 Exam Vital signs and Labs for Last 24 Hours: Temp Pulse Resp BP Pulse Ox 98.9 F 89 18 151/87 H 98 12/08/18 07:48 12/08/18 07:48 12/08/18 07:48 12/08/18 07:48 12/08/18 07:48 Laboratory Results - last 24 hr 12/07/18 09:26: WBC 11.8 H, RBC 4.02 L, Hgb 11.3 L, Hct 35.0 L, MCV 87.0, MCH 28.0, MCHC 32.2, RDW 13.3, Plt Count 325, MPV 7.2 L, Neut % (Auto) 84.7 H, Lymph % (Auto) 7.7 L, [place] % (Auto) 6.0, Eos % (Auto) 1.1, Baso % (Auto) 0.6, Neut # (Auto) 10.0 H, Lymph # (Auto) 0.9, [place] # (Auto) 0.7, Eos # (Auto) 0.1, Baso # (Auto) 0.1 12/07/18 09:26: Sodium 132 L, Potassium 4.8, Chloride 100, Carbon Dioxide 21, Anion Gap 15.8 H, BUN 24 H D, Creatinine 1.28 H, Estimated Creat Clear 69, Estimated GFR 43 L, Est GFR ( Amer) 52 L, Glucose 283 H, Calcium 8.6, Total Bilirubin 0.5, AST 34 D, ALT 48, Alkaline Phosphatase 129 H, Total Protein 7.5, Albumin 3.0 L, Globulin 4.5 H, Albumin/Globulin Ratio 0.7 L, Margaret lase 77, Lipase 81 12/07/18 16:13: POC Glucose 276 H 12/07/18 22:11: POC Glucose 228 H 12/08/18 07:15: POC Glucose 229 H I & O for Last 24 hours: Intake & Output 12/05/18 12/06/18 12/07/18 12/08/18 11:59 11:59 11:59 11:59 Intake Total 3726 / 3726 Balance 3726 / 3726 Weight 200 lb 227 lb 2 oz - Constitutional no acute distress, obese - *Routine HEENT Exam Head: Present: normocephalic Eye: Present: EOMI, PERRL. Absent: conjunctival icterus ENT: Present: mucous membranes dry - *Routine Neck Exam Present: supple - *Routine Respiratory Exam Absent: respiratory distress - *Routine Cardiovascular Exam Present: RRR, murmur - *Routine Abdominal Exam Present: soft, tenderness - *Routine Extremities Exam Present: full ROM - *Routine Skin Exam Present: intact - *Routine Neurological Exam Present: alert, oriented X3, CN II-XII intact - Routine Psychiatric Exam Present: normal affect Assessment and Plan (1) Obesity (BMI 30-39.9) Current visit: Yes Status: Acute Category: Medical Code(s): E66.9 - Obesity, unspecified (2) Diabetes mellitus, insulin dependent (IDDM), controlled Current visit: Yes Status: Acute Category: Medical Code(s): E11.9 - Type 2 diabetes mellitus without complications; Z79.4 - terminal carman (current) use of insulin (3) Intractable nausea and vomiting Current visit: Yes Status: Acute Category: Medical Code(s): R11.2 - Nausea with vomiting, unspecified (4) Renal insufficiency Current visit: Yes Status: Acute Category: Medical Code(s): N28.9 - Disorder of kidney and ureter, unspecified
[2018-12-08 09:39] LABS: Anion Gap 12.1 mEq/L (5-15); Calcium 8.4 mg/dL (8.5-10.1)
[2018-12-08 10:06] LABS: Basophils % 0.3 % (0.1-2.0); Eosinophils % 0.4 % (0.1-12.0); Hemoglobin 10.7 g/dL (12.2-16.2); Mean Corpuscular HGB Conc 33.4 g/dL (31.8-35.4); Mean Corpuscular Volume 86.2 fl (81-99); Monocytes # 0.9 K/mm3 (0.1-1.0); Monocytes % 8.7 % (1.7-9.3); Neutrophils # 8.1 K/mm3 (1.8-7.8); Neutrophils % 80.7 % (37.0-80.0); Platelet Count 305 K/mm3 (142-424); Red Blood Count 3.71 M/mm3 (4.20-5.40); Red Cell Distribution Width 13.3 % (11.5-17.5); White Blood Count 10.1 K/mm3 (4.8-10.8)
--- NOTE | 2018-12-08 14:41 | Consult Report ---
*Admission Date: 12/07/18 *Reason for consult:: Vomiting *History of present illness: Patient is a 58-year-old female whom I am asked to see in surgical consultation for upper endoscopy for intractable vomiting. Patient is on Xarelto and Plavix for history of atrial fibrillation and coronary artery disease with stenting. She had presented on Saturday with vomiting. At that time she underwent CT scan without oral contrast. There revealed some possible thickening of the distal esophagus. Apparently the patient had improvement in her symptoms and was tolerating a diet was discharged home. However, she then developed recurrent symptoms and presented back to the emergency department where she was admitted for inpatient management. Surgical consultation was obtained for upper endoscopy. Patient states that she has dry heaves and nausea even without eating. Review of Systems - Review of Systems Review of systems:: pertinent systems reviewed and negative unless documented below - *Neurologic Denies seizure-like activity [facility] History Medical History: Reports:: Atrial Fibrillation, Coronary Artery Disease, Deep Vein Thrombosis, Diabetes Mellitus Type 2, Hyperlipidemia, Hypertension, Seizures Denies:: Cancer, Diabetes Mellitus Type 1, MRSA *Have you ever received a pneumonia vaccine?: No *Have you received a flu vaccine this season?: No Other Surgeries: Yes: Cardiac Catheterization, Cholecystectomy, Coronary Stent. No: Colonoscopy Amputation: No Fractures: No - *Social History Educational Level: Attended High School Smoking Status: Never smoker Alcohol Intake: never Alcohol Intake Frequency:: other Substance Use Type: denies use *Occupational Status:: employed Housing: house Household Members: spouse *Travel in the last 8 weeks: None - Psychiatric History Expresses thoughts of harming self/others: None Suicide Plan Description: No Plan Family Hx:: Diabetes, Heart Attack Meds Home Medications Medication Instructions Recorded Confirmed Type nitroglycerin 0.4 mg sublingual 0.4 mg SUBLINGUAL Q5MINP PRN 05/03/17 12/07/18 History tablet Aspirin [Aspirin 81mg chewable 81 mg PO DAILY 09/01/18 12/07/18 History tab] Rivaroxaban [Xarelto 20mg Tablet] 20 mg PO DAILY 09/01/18 12/07/18 History Sotalol HCl [Betapace 80mg Tablet] 80 mg PO BID 09/01/18 12/07/18 History Spironolactone [Spironolactone 25 mg PO DAILY 09/02/18 12/07/18 History 25mg Tablet] dilTIAZem HCl [Diltiazem 24Hr ER 240 mg PO DAILY #90 cap 09/03/18 12/07/18 Rx (Xr)] omeprazole 20 mg capsule,delayed 40 mg PO DAILY #60 cap 09/29/18 12/07/18 Rx release insulin human U-100 NPH-regulr 30 unit SQ BID #20 ml 11/04/18 12/07/18 Rx 70-30 mix 100 unit/mL subcutaneous susp Atorvastatin Calcium [Lipitor 40mg 40 mg PO DAILY 12/05/18 12/07/18 History Tablet] Clopidogrel Bisulfate [Plavix 75mg 75 mg PO DAILY 12/05/18 12/07/18 History Tab] Lisinopril [Prinivil 10mg Tablet] 10 mg PO DAILY 12/05/18 12/07/18 History cephALEXin [Keflex 500mg Cap] 500 mg PO TID 12/07/18 12/07/18 History Amoxicillin [Amoxicillin 500mg 500 mg PO Q8H 12/08/18 12/08/18 History Cap] Allergies Allergy/AdvReac Type Severity Reaction Status Date / Time latex Allergy Verified 11/17/18 14:54 Exam Vital signs and Labs for Last 24 Hours: Temp Pulse Resp BP Pulse Ox 98.9 F 89 18 151/87 H 98 12/08/18 07:48 12/08/18 07:48 12/08/18 07:48 12/08/18 07:48 12/08/18 07:48 Laboratory Results - last 24 hr 12/07/18 16:13: POC Glucose 276 H 12/07/18 22:11: POC Glucose 228 H 12/08/18 07:15: POC Glucose 229 H 12/08/18 09:25: WBC 10.1, RBC 3.71 L, Hgb 10.7 L, Hct 32.0 L, MCV 86.2, MCH 28.8, MCHC 33.4, RDW 13.3, Plt Count 305, MPV 7.0 L, Neut % (Auto) 80.7 H, Lymph % (Auto) 10.0, [place] % (Auto) 8.7, Eos % (Auto) 0.4, Baso % (Auto) 0.3, Neut # (Auto) 8.1 H, Lymph # (Auto) 1.0, [place] # (Auto) 0.9, Eos # (Auto) 0.0, Baso # (Auto) 0.0 12/08/18 09:25: Sodium 132 L, Potassium 4.1, Chloride 99, Carbon Dioxide 25, Anion Gap 12.1, BUN 17 D, Creatinine 1.11 H, Estimated Creat Clear 90, Estimated GFR 50 L, Est GFR ( Amer) 61, Glucose 252 H, Calcium 8.4 L 12/08/18 11:44: POC Glucose 194 H I & O for Last 24 hours: Intake & Output 12/06/18 12/07/18 12/08/18 12/09/18 11:59 11:59 11:59 11:59 Intake Total 3726 / 3726 Balance 3726 / 3726 Weight 200 lb 227 lb 2 oz - *Routine HEENT Exam Head: Present: normocephalic Eye: Present: EOMI, PERRL ENT: Present: mucous membranes moist - *Routine Neck Exam Present: supple. Absent: lymphadenopathy - *Routine Respiratory Exam Present: CTA bilaterally - *Routine Abdominal Exam Present: soft, normoactive bowel sounds. Absent: tenderness Comments: She has a large upper abdominal incisional hernia. - *Routine Extremities Exam Absent: cyanosis, clubbing, edema - *Routine Skin Exam Present: warm. Absent: rash - *Routine Neurological Exam Present: alert, oriented X3 - Detailed Eye Exam Eyelids: Left normal inspection Results - Labs 12/08/18 09:25 12/08/18 09:25 Laboratory Results - last 24 hr 12/07/18 16:13: POC Glucose 276 H 12/07/18 22:11: POC Glucose 228 H 12/08/18 07:15: POC Glucose 229 H 12/08/18 09:25: WBC 10.1, RBC 3.71 L, Hgb 10.7 L, Hct 32.0 L, MCV 86.2, MCH 28.8, MCHC 33.4, RDW 13.3, Plt Count 305, MPV 7.0 L, Neut % (Auto) 80.7 H, Lymph % (Auto) 10.0, [place] % (Auto) 8.7, Eos % (Auto) 0.4, Baso % (Auto) 0.3, Neut # (Auto) 8.1 H, Lymph # (Auto) 1.0, [place] # (Auto) 0.9, Eos # (Auto) 0.0, Baso # (Auto) 0.0 12/08/18 09:25: Sodium 132 L, Potassium 4.1, Chloride 99, Carbon Dioxide 25, Anion Gap 12.1, BUN 17 D, Creatinine 1.11 H, Estimated Creat Clear 90, Sherry mated GFR 50 L, Est GFR ( Amer) 61, Glucose 252 H, Calcium 8.4 L 12/08/18 11:44: POC Glucose 194 H Assessment and Plan (1) Obesity (BMI 30-39.9) Current visit: Yes Status: Acute Category: Medical Code(s): E66.9 - Obesity, unspecified (2) Diabetes mellitus, insulin dependent (IDDM), controlled Current visit: Yes Status: Acute Category: Medical Code(s): E11.9 - Type 2 diabetes mellitus without complications; Z79.4 - penitentiary (current) use of insulin (3) Intractable nausea and vomiting Current visit: Yes Status: Acute Category: Medical Code(s): R11.2 - Nausea with vomiting, unspecified (4) Renal insufficiency Current visit: Yes Status: Acute Category: Medical Code(s): N28.9 - Disorder of kidney and ureter, unspecified - Assessment and plan all Dx Assessment and Plan for all problems:: Unclear as to the etiology of the patient's dry heaves and vomiting. I informed the patient that upper endoscopy would not be a therapeutic procedure but more diagnostic. Given this fact and due to the fact that she is on Xarelto and Plavix I would not proceed with this immediately. Plan for upper GI contrast study tomorrow to evaluate the overall anatomy and to rule out possible gastric outlet obstruction. May consider upper endoscopy later this week if she is able to hold her anticoagulation.
[2018-12-09 08:47] LABS: Basophils % 0.2 % (0.1-2.0); Eosinophils # 0.1 K/mm3 (0.0-0.4); Eosinophils % 0.8 % (0.1-12.0); Hematocrit 35.9 % (37.0-47.0); Lymphocytes # 1.3 K/mm3 (0.7-4.5); Lymphocytes % 11.8 % (10-50); Mean Corpuscular HGB Conc 32.8 g/dL (31.8-35.4); Mean Corpuscular Volume 84.8 fl (81-99); Mean Platelet Volume 6.9 fl (7.4-10.4); Monocytes % 9.2 % (1.7-9.3); Neutrophils # 8.7 K/mm3 (1.8-7.8); Platelet Count 381 K/mm3 (142-424); Red Blood Count 4.24 M/mm3 (4.20-5.40); Red Cell Distribution Width 13.4 % (11.5-17.5); White Blood Count 11.1 K/mm3 (4.8-10.8)
--- NOTE | 2018-12-09 08:50 | Progress Note ---
Internal Medicine - PN: Subj *Date: 12/09/18 *Time: 08:47 Interval history: Today patient states she feels very nauseous, still having trouble eating and drinking and just weak all over. Exam Vital signs and Labs for Last 24 Hours: Temp Pulse Resp BP Pulse Ox 98.1 F 105 H 18 154/79 H 95 12/09/18 08:00 12/09/18 08:00 12/09/18 08:00 12/09/18 08:00 12/09/18 08:00 Laboratory Results - last 24 hr 12/08/18 09:25: WBC 10.1, RBC 3.71 L, Hgb 10.7 L, Hct 32.0 L, MCV 86.2, MCH 28.8, MCHC 33.4, RDW 13.3, Plt Count 305, MPV 7.0 L, Neut % (Auto) 80.7 H, Lymph % (Auto) 10.0, [place] % (Auto) 8.7, Eos % (Auto) 0.4, Baso % (Auto) 0.3, Neut # (Auto) 8.1 H, Lymph # (Auto) 1.0, [place] # (Auto) 0.9, Eos # (Auto) 0.0, Baso # (Auto) 0.0 12/08/18 09:25: Sodium 132 L, Potassium 4.1, Chloride 99, Carbon Dioxide 25, Anion Gap 12.1, BUN 17 D, Creatinine 1.11 H, Estimated Creat Clear 90, Estimated GFR 50 L, Est GFR ( Amer) 61, Glucose 252 H, Calcium 8.4 L 12/08/18 11:44: POC Glucose 194 H 12/08/18 16:12: POC Glucose 163 H 12/08/18 20:27: POC Glucose 149 H 12/09/18 06:27: POC Glucose 173 H I & O for Last 24 hours: Intake & Output 12/06/18 12/07/18 12/08/18 12/09/18 11:59 11:59 11:59 11:59 Intake Total 3526 / 7076 2538 / 2538 Balance 3726 / 3726 2538 / 2538 Weight 200 lb 227 lb 2 oz 225 lb 9 oz - Constitutional no acute distress - *Routine HEENT Exam Head: Present: normocephalic Eye: Present: PERRL ENT: Present: mucous membranes moist - *Routine Neck Exam Present: supple. Absent: lymphadenopathy - *Routine Respiratory Exam Present: CTA bilaterally - *Routine Cardiovascular Exam Present: tachycardia, irregular rhythm - *Routine Abdominal Exam Present: soft, normoactive bowel sounds. Absent: tenderness - *Routine Extremities Exam Present: full ROM. Absent: cyanosis, clubbing, edema - *Routine Skin Exam Present: warm. Absent: rash - *Routine Neurological Exam Present: alert, oriented X3 - Routine Psychiatric Exam Present: normal affect Assessment and Plan (1) Obesity (BMI 30-39.9) Current visit: Yes Status: Acute Category: Medical Code(s): E66.9 - Obesity, unspecified (2) Diabetes mellitus, insulin dependent (IDDM), controlled Current visit: Yes Status: Acute Category: Medical Code(s): E11.9 - Type 2 diabetes mellitus without complications; Z79.4 - solution engineer (current) use of insulin (3) Intractable nausea and vomiting Current visit: Yes Status: Acute Category: Medical Code(s): R11.2 - Nausea with vomiting, unspecified (4) Renal insufficiency Current visit: Yes Status: Acute Category: Medical Code(s): N28.9 - Disorder of kidney and ureter, unspecified - Assessment and plan all Dx Assessment and Plan for all problems:: Rounded with Dr. Tai all orders per Abida We will have cardiology consult for A. fib fast rate and possibly stopping coagulation for procedure
[2018-12-09 09:02] LABS: Anion Gap 10.4 mEq/L (5-15); Calcium 8.5 mg/dL (8.5-10.1)
[2018-12-09 09:03] LABS: Hemoglobin 11.8 g/dL (12.2-16.2)
--- NOTE | 2018-12-09 09:21 | Consult Report ---
History of Present Illness Consult date: 12/09/18 Requesting physician: Dipak Tai Consult reason: pre-op evaluation Chief complaint: Nausea, vomiting Additional Medical History:: 1. CAD A. MAXIMILIAN to large diagonal, 08/30/2015. On DAPT. B. NSTEMI, 09/06/2015, due to A. Fib/flutter with RVR. C. NSTEMI, 02/2016, with LHC showing LAD FFR of 0.82, mildly elevated LVEDP D. NSTEMI, type 2, during A. fib/flutter with RVR with subsequent LHC and MAXIMILIAN to LAD, 08/2017 E. NSTEMI, type 2, during A. fib/flutter with RVR, 08/2018. LHC results: ANGIOGRAPHIC RESULTS: 1. The left main artery normal 2. The left anterior descending artery has proximal smooth 30% stenosis immediately proximal to a widely patent stent which extends in the proximal segment into the mid segment. The very proximal portion of the stent has mild concentric 30% in-stent restenosis while distally the stent has excellent transitioning into the LAD which then has an additional eccentric 30% stenosis. The first diagonal artery has a stent which originates off the proximal LAD stent and is widely patent with 30-40% in-stent restenosis 3. The circumflex artery is a nondominant vessel with mild 10-20% luminal irregularities 4. The right coronary artery is a dominant vessel and has mid vessel 20-30% stenoses distal tendon 20% stenoses 5. The KAMARA ventriculogram reveals normal 65% 6. The left ventricular end-diastolic pressure elevated at 20 25 mmHg IMPRESSION: 1. Coronary artery disease as described above with widely patent proximal LAD stent which extends into the mid segment 2. Widely patent first diagonal artery bifurcating stent with moderate nonflow limiting in-stent restenosis 3. Normal ejection fraction 4. Mild to moderately elevated LVEDP consistent with diastolic dysfunction 5. Type II demand ischemia myocardial infarction from atrial fibrillation with rapid ventricular response 2. Chronic A. fib/flutter with history of intracardiac thrombus, 2010, transient coumadin therapy stopped due to hematuria A. Chronic Xarelto therapy B. Failed amiodarone therapy to maintain NSR C. On Sotalol, 08/2018, per Dr. Nava with plans for ablation therapy in the future if this therapy fails 3. CKD, stage 3 4. HTN A. Echo, 08/2018, 1. Moderately enlarged left atrium, normal left ventricular size, mild concentric left ventricular hypertrophy, visually estimated ejection fraction 45% with segmental wall motion abnormality of moderate hypokinesis involving the inferior and posterobasal wall. Endocardial surfaces are poorly visualized, grade 1 diastolic dysfunction seen with tissue Doppler evidence of raised left atrial pressure. 2. Mild mitral and tricuspid regurgitation 3. No significant pericardial effusion noted. 5. Hyperlipidemia 6. 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 History of seizures 8. Diabetes, treated for 14 yrs. 9. Nausea and vomiting, 11/2018 History of present illness: 58-year-old white female with known history of coronary artery disease and atrial fibrillation admitted to the hospital for intractable nausea and vomiting. Patient is undergoing work-up with plans for possible diagnostic endoscopy in the near future with further recommendations thereafter. Cardiology consulted for evaluation and for recommendations on holding anticoagulation in preparation for procedures. Patient recently underwent cardiac catheterization 3 months ago for type II non- ST elevation MS related to atrial fibrillation with a rapid ventricular response. She is seeing Dr. Nava in [place] and is on sotalol therapy. She denies any cardiac symptoms recently. The only symptoms of shortness of breath began after the nausea and vomiting started several days ago. [facility] History Medical History: Reports:: Atrial Fibrillation, Coronary Artery Disease, Deep Vein Thrombosis, Diabetes Mellitus Type 2, Hyperlipidemia, Hypertension, Seizures Denies:: Cancer, Diabetes Mellitus Type 1, MRSA *Have you ever received a pneumonia vaccine?: No *Have you received a flu vaccine this season?: No Other Surgeries: Yes: Cardiac Catheterization, Cholecystectomy, Coronary Stent. No: Colonoscopy Amputation: No Fractures: No - *Social History Educational Level: Attended High School Smoking Status: Never smoker Alcohol Intake: never Alcohol Intake Frequency:: other Substance Use Type: denies use *Occupational Status:: employed Housing: house Household Members: spouse *Travel in the last 8 weeks: None - Psychiatric History Expresses thoughts of harming self/others: None Suicide Plan Description: No Plan Family Hx:: Diabetes, Heart Attack Meds Home Medications Medication Instructions Recorded Confirmed Type nitroglycerin 0.4 mg sublingual 0.4 mg SUBLINGUAL Q5MINP PRN 05/03/17 12/07/18 History tablet Aspirin [Aspirin 81mg chewable 81 mg PO DAILY 09/01/18 12/07/18 History tab] Rivaroxaban [Xarelto 20mg Tablet] 20 mg PO DAILY 09/01/18 12/07/18 History Sotalol HCl [Betapace 80mg Tablet] 80 mg PO BID 09/01/18 12/07/18 History Spironolactone [Spironolactone 25 mg PO DAILY 09/02/18 12/07/18 History 25mg Tablet] dilTIAZem HCl [Diltiazem 24Hr ER 240 mg PO DAILY #90 cap 09/03/18 12/07/18 Rx (Xr)] omeprazole 20 mg capsule,delayed 40 mg PO DAILY #60 cap 09/29/18 12/07/18 Rx release insulin human U-100 NPH-regulr 30 unit SQ BID #20 ml 11/04/18 12/07/18 Rx 70-30 mix 100 unit/mL subcutaneous susp Atorvastatin Calcium [Lipitor 40mg 40 mg PO DAILY 12/05/18 12/07/18 History Tablet] Clopidogrel Bisulfate [Plavix 75mg 75 mg PO DAILY 12/05/18 12/07/18 History Tab] Lisinopril [Prinivil 10mg Tablet] 10 mg PO DAILY 12/05/18 12/07/18 History cephALEXin [Keflex 500mg Cap] 500 mg PO TID 12/07/18 12/07/18 History Amoxicillin [Amoxicillin 500mg 500 mg PO Q8H 12/08/18 12/08/18 History Cap] Allergies Allergy/AdvReac Type Severity Reaction Status Date / Time latex Allergy Verified 11/17/18 14:54 Review of Systems - Constitutional Reports weakness - *Cardiovascular Reports shortness of breath, Denies chest pain - *Respiratory Reports shortness of breath - *Gastrointestinal Reports abdominal pain, Reports nausea, Reports vomiting - *Genitourinary Denies blood in urine - *Musculoskeletal Reports joint pain, Reports back pain - *Neurologic Reports weakness, Denies seizure-like activity, Denies fainting Exam Vital signs and Labs for Last 24 Hours: Temp Pulse Resp BP Pulse Ox 98.1 F 105 H 18 154/79 H 95 12/09/18 08:00 12/09/18 08:00 12/09/18 08:00 12/09/18 08:00 12/09/18 08:00 Laboratory Results - last 24 hr 12/08/18 09:25: WBC 10.1, RBC 3.71 L, Hgb 10.7 L, Hct 32.0 L, MCV 86.2, MCH 28.8, MCHC 33.4, RDW 13.3, Plt Count 305, MPV 7.0 L, Neut % (Auto) 80.7 H, Lymph % (Auto) 10.0, [place] % (Auto) 8.7, Eos % (Auto) 0.4, Baso % (Auto) 0.3, Neut # (Auto) 8.1 H, Lymph # (Auto) 1.0, [place] # (Auto) 0.9, Eos # (Auto) 0.0, Baso # (Auto) 0.0 12/08/18 09:25: Sodium 132 L, Potassium 4.1, Chloride 99, Carbon Dioxide 25, Anion Gap 12.1, BUN 17 D, Creatinine 1.11 H, Estimated Creat Clear 90, Estimated GFR 50 L, Est GFR ( Amer) 61, Glucose 252 H, Calcium 8.4 L 12/08/18 11:44: POC Glucose 194 H 12/08/18 16:12: POC Glucose 163 H 12/08/18 20:27: POC Glucose 149 H 12/09/18 06:27: POC Glucose 173 H 12/09/18 08:39: WBC 11.1 H, RBC 4.24, Hgb 11.8 L D, Hct 35.9 L, MCV 84.8, MCH 27.8, MCHC 32.8, RDW 13.4, Plt Count 381, MPV 6.9 L, Neut % (Auto) 78.0, Lymph % (Auto) 11.8, [place] % (Auto) 9.2, Eos % (Auto) 0.8, Baso % (Auto) 0.2, Neut # (Auto) 8.7 H, Lymph # (Auto) 1.3, [place] # (Auto) 1.0, Eos # (Auto) 0.1, Baso # (Auto) 0.0 I & O for Last 24 hours: Intake & Output 12/06/18 12/07/18 12/08/18 12/09/18 11:59 11:59 11:59 11:59 Intake Total 9454 / 3726 8528 / 2538 Balance 3726 / 3726 2538 / 2538 Weight 200 lb 227 lb 2 oz 225 lb 9 oz - *Routine HEENT Exam Head: Present: normocephalic Eye: Present: EOMI, PERRL ENT: Present: mucous membranes moist - *Routine Neck Exam Present: supple. Absent: JVD, carotid bruit - *Routine Respiratory Exam Present: CTA bilaterally. Absent: accessory muscle use, rales, rhonchi, wheezes - *Routine Cardiovascular Exam Present: irregularly irregular. Absent: murmur, gallop, rubs - *Routine Abdominal Exam Present: soft. Absent: tenderness, distended, guarding - *Routine Extremities Exam Present: edema. Absent: calf tenderness - *Routine Neurological Exam Present: alert, oriented X3, moving all extremities Assessment and Plan (1) Obesity (BMI 30-39.9) Current visit: Yes Status: Acute Category: Medical Code(s): E66.9 - Obesity, unspecified (2) Diabetes mellitus, insulin dependent (IDDM), controlled Current visit: Yes Status: Acute Category: Medical Code(s): E11.9 - Type 2 diabetes mellitus without complications; Z79.4 - manager long term care (current) use of insulin (3) Intractable nausea and vomiting Current visit: Yes Status: Acute Category: Medical Code(s): R11.2 - Nausea with vomiting, unspecified (4) Renal insufficiency Current visit: Yes Status: Acute Category: Medical Code(s): N28.9 - Disorder of kidney and ureter, unspecified (5) CAD (coronary artery disease) Current visit: Yes Status: Chronic Qualifiers: Category: Medical Code(s): I25.10 - Atherosclerotic heart disease of [place] coronary artery without angina pectoris (6) Atrial fibrillation Current visit: No Status: Chronic Qualifiers: Atrial fibrillation type: paroxysmal Qualified Code(s): I48.0 - Paroxysmal atrial fibrillation Category: Medical Code(s): I48.91 - Unspecified atrial fibrillation (7) Diabetes mellitus Current visit: No Status: Chronic Qualifiers: Diabetes mellitus type: type 1 Diabetes mellitus complication status: with unspecified complications Category: Medical Code(s): E11.9 - Type 2 diabetes mellitus without complications (8) HHD (hypertensive heart disease) Current visit: No Status: Chronic Qualifiers: Heart failure presence: without heart failure Qualified Code(s): I11.9 - Hypertensive heart disease without heart failure Category: Medical Code(s): I11.9 - Hypertensive heart disease without heart failure (9) PAF (paroxysmal atrial fibrillation) Current visit: No Status: Chronic Category: Medical Code(s): I48.0 - Paroxysmal atrial fibrillation (10) Stented coronary artery Current visit: No Status: Chronic Category: Surgical Code(s): Z95.5 - Presence of coronary angioplasty implant and graft - Assessment and plan all Dx Assessment and Plan for all problems:: 1. Okay to hold Xarelto therapy with Lovenox bridge in preparation for endoscopy and/or surgery if needed. Will start lovenox in AM. 2. Coronary artery disease, stable by cardiac cath 08/2018 and clinically now. Okay to hold aspirin and Plavix if needed for diagnostic and/or therapeutic procedure. Patient's sotalol and diltiazem should be continued for rate control. 3. Pt is a low and acceptable risk from a cardiac standpoint to proceed with endoscopy or surgery if needed.
--- NOTE | 2018-12-09 13:08 | Progress Note ---
Subjective Narrative: Patient states that she feels a bit better. She does state that she has developed some diarrhea since drinking the contrast for the upper GI. Results are still pending on this. She has seen cardiology who recommends continuation of Lovenox as a bridge. Exam Vital signs and Labs for Last 24 Hours: Temp Pulse Resp BP Pulse Ox 98.1 F 105 H 18 154/79 H 95 12/09/18 08:00 12/09/18 08:00 12/09/18 08:00 12/09/18 08:00 12/09/18 08:00 Laboratory Results - last 24 hr 12/08/18 16:12: POC Glucose 163 H 12/08/18 20:27: POC Glucose 149 H 12/09/18 06:27: POC Glucose 173 H 12/09/18 08:39: WBC 11.1 H, RBC 4.24, Hgb 11.8 L D, Hct 35.9 L, MCV 84.8, MCH 27.8, MCHC 32.8, RDW 13.4, Plt Count 381, MPV 6.9 L, Neut % (Auto) 78.0, Lymph % (Auto) 11.8, [place] % (Auto) 9.2, Eos % (Auto) 0.8, Baso % (Auto) 0.2, Neut # (Auto) 8.7 H, Lymph # (Auto) 1.3, [place] # (Auto) 1.0, Eos # (Auto) 0.1, Baso # (Auto) 0.0 12/09/18 08:39: Sodium 130 L, Potassium 3.4 L, Chloride 100, Carbon Dioxide 23, Anion Gap 10.4, BUN 14, Creatinine 1.02, Estimated Creat Clear 97, Estimated GFR 56 L, Est GFR ( Amer) 67, Glucose 167 H D, Calcium 8.5 12/09/18 11:32: POC Glucose 131 H I & O for Last 24 hours: Intake & Output 12/07/18 12/08/18 12/09/18 12/10/18 11:59 11:59 11:59 11:59 Intake Total 7466 / 3726 2538 / 2538 Balance 3726 / 3726 2538 / 2538 Weight 200 lb 227 lb 2 oz 225 lb 9 oz - *Routine Abdominal Exam Present: soft Progress Note: A&P (1) Obesity (BMI 30-39.9) Status: Acute Current Visit: Yes (2) Diabetes mellitus, insulin dependent (IDDM), controlled Status: Acute Current Visit: Yes (3) Intractable nausea and vomiting Status: Acute Current Visit: Yes (4) Renal insufficiency Status: Acute Current Visit: Yes (5) CAD (coronary artery disease) Status: Chronic Current Visit: Yes (6) Atrial fibrillation Status: Chronic Current Visit: No (7) Diabetes mellitus Status: Chronic Current Visit: No (8) HHD (hypertensive heart disease) Status: Chronic Current Visit: No (9) PAF (paroxysmal atrial fibrillation) Status: Chronic Current Visit: No (10) Stented coronary artery Status: Chronic Current Visit: No Assessment and Plan for All Diagnoses:: Follow-up on upper GI series. Tentatively plan for upper endoscopy tomorrow morning.
[2018-12-10 06:35] LABS: Basophils % 0.4 % (0.1-2.0); Eosinophils # 0.2 K/mm3 (0.0-0.4); Eosinophils % 2.2 % (0.1-12.0); Hematocrit 33.5 % (37.0-47.0); Lymphocytes # 1.7 K/mm3 (0.7-4.5); Lymphocytes % 15.8 % (10-50); Mean Corpuscular HGB Conc 32.7 g/dL (31.8-35.4); Mean Corpuscular Volume 85.6 fl (81-99); Mean Platelet Volume 6.9 fl (7.4-10.4); Monocytes % 9.5 % (1.7-9.3); Neutrophils # 7.6 K/mm3 (1.8-7.8); Neutrophils % 72.1 % (37.0-80.0); Platelet Count 357 K/mm3 (142-424); Red Blood Count 3.91 M/mm3 (4.20-5.40); Red Cell Distribution Width 13.8 % (11.5-17.5); White Blood Count 10.5 K/mm3 (4.8-10.8)
[2018-12-10 06:39] LABS: Anion Gap 10.3 mEq/L (5-15); Calcium 8.2 mg/dL (8.5-10.1)
--- NOTE | 2018-12-10 08:24 | Progress Note ---
[facility] Anesthesia Checklist - Patient Identification Patient Identification: Arm Band, Verbal (Name & ) - Structural Data Admitted From: Home Planned Operative Procedure/s: EGD Consent for Planned Operative Procedure(s) Verified: Yes Verified Documents: Surgical Consent, History and Physical - NPO Status Verified Time NPO: 00:00 - Chart Verification Results Verified: CBC, BMP - Additional verifications Anesthesia Reactions: No - Airway Assessment C-Spine Mobility Assessed: Yes TMJ Mobility Assessed: Yes Dentition: Good Dentition - Neurological Assessment Level of Consciousness: Awake, Alert, Appropriate, Follows Commands Hx Seizures: Yes (as a child) Numbness or tingling in extremities: No - Anesthesia Plan Anesthesia Risk discussed: Yes Anesthesia Plan: Verified ASA Class: III Anesthesia Type: MAC [facility] History I have reviewed the patient's past medical history: Yes Medical History: Reports:: Arrhythmia, Coronary Artery Disease, Deep Vein Thrombosis, Diabetes Mellitus Type 2, Gastroesophageal Reflux Disease(GERD), Hyperlipidemia, Hypertension, Seizures Denies:: Cancer, Diabetes Mellitus Type 1, MRSA *Have you ever received a pneumonia vaccine?: No *Have you received a flu vaccine this season?: No Comment:: morbid obesity Other Surgeries: Yes: Cardiac Catheterization (x2), Cholecystectomy, Coronary Stent. No: Colonoscopy Amputation: No Fractures: No - *Social History Educational Level: Attended High School Smoking Status: Never smoker Alcohol Intake: never Alcohol Intake Frequency:: other Substance Use Type: denies use *Occupational Status:: employed Housing: house Household Members: spouse *Travel in the last 8 weeks: None - Psychiatric History Expresses thoughts of harming self/others: None Suicide Plan Description: No Plan Family Hx:: Diabetes, Heart Attack
--- NOTE | 2018-12-10 09:02 | Procedure Note ---
- Procedure: Date: 12/10/18 Procedure Performed:: Esophagogastroduodenoscopy with biopsy Indications:: Patient is a 58-year-old female whom I am asked to see in surgical consultation for upper endoscopy for intractable vomiting. Patient is on Xarelto and Plavix for history of atrial fibrillation and coronary artery disease with stenting. She has had numerous non-STEMI's over the past 3 years. She had presented on Saturday with vomiting. At that time she underwent CT scan without oral contrast. This revealed some possible thickening of the distal esophagus. Apparently the patient had improvement in her symptoms and was tolerating a diet was discharged home. However, she then developed recurrent symptoms and presented back to the emergency department where she was admitted again for inpatient management. Surgical consultation was obtained for upper endoscopy. Patient states that she has dry heaves and nausea even without eating. I have ordered an upper GI with small bowel follow-through which was done yesterday. This was normal. Plan was made to proceed with upper endoscopy. Performing Provider:: Aditya Elizabeth MD Referring Provider:: Lai Tai MD Sedation:: Propofol Procedure:: Patient was taken to endoscopy procedure room. She was positioned in a lateral decubitus position. Adequate intravenous sedation was achieved with anesthesia titration of propofol. Olympus endoscope was inserted via the oropharynx and advanced through the esophagus. Overall esophagus appeared grossly normal. Stomach was cannulated and insufflated. Retroflexion revealed no evidence of any significant hiatal hernia. There were a couple of very small polyps consistent with fundic gland polyps. Pylorus was widely patent. Endoscope was advanced postpyloric in the duodenal bulb and duodenal sweep appeared unremarkable. Endoscope was withdrawn into the gastric lumen once again. Gastric antral mucosal biopsy was obtained to evaluate H. pylori status. Endoscope was withdrawn as the stomach was desufflated. Findings:: Normal-appearing upper endoscopy Recommendations:: No findings on upper endoscopy or upper GI with small bowel follow-through which would reveal an mechanical etiology for her intractable vomiting Complications:: None Estimated blood obtained (mL): 1
--- NOTE | 2018-12-10 09:45 | Progress Note ---
Internal Medicine - PN: Subj *Date: 12/11/18 *Time: 07:47 Interval history: pt with egd today with persistant vomiting and nausea - neg ugi and possible egd Exam Vital signs and Labs for Last 24 Hours: Temp Pulse Resp BP Pulse Ox 98.7 F 105 H 18 168/86 H 98 12/10/18 08:00 12/10/18 08:00 12/10/18 08:00 12/10/18 08:00 12/10/18 08:00 Laboratory Results - last 24 hr 12/09/18 08:39: Sodium 130 L, Potassium 3.4 L, Chloride 100, Carbon Dioxide 23, Anion Gap 10.4, BUN 14, Creatinine 1.02, Estimated Creat Clear 97, Estimated GFR 56 L, Est GFR ( Amer) 67, Glucose 167 H D, Calcium 8.5 12/09/18 11:32: POC Glucose 131 H 12/09/18 16:43: POC Glucose 92 12/09/18 21:29: POC Glucose 112 H 12/10/18 05:33: POC Glucose 154 H 12/10/18 05:45: WBC 10.5, RBC 3.91 L, Hgb 11.0 L, Hct 33.5 L, MCV 85.6, MCH 28.0 , MCHC 32.7, RDW 13.8, Plt Count 357, MPV 6.9 L, Neut % (Auto) 72.1, Lymph % (Auto) 15.8, [place] % (Auto) 9.5 H, Eos % (Auto) 2.2, Baso % (Auto) 0.4, Neut # (Auto) 7.6, Lymph # (Auto) 1.7, [place] # (Auto) 1.0, Eos # (Auto) 0.2, Baso # (Auto) 0.0 12/10/18 05:45: Sodium 136, Potassium 3.3 L, Chloride 103, Carbon Dioxide 26, Anion Gap 10.3, BUN 13, Creatinine 1.13 H, Estimated Creat Clear 87, Estimated GFR 49 L, Est GFR ( Amer) 60, Glucose 154 H, Calcium 8.2 L I & O for Last 24 hours: Intake & Output 12/07/18 12/08/18 12/09/18 12/10/18 11:59 11:59 11:59 11:59 Intake Total 3726 / 3726 2538 / 2538 2546 / 2546 Balance 3726 / 3726 2538 / 2538 2546 / 2546 Weight 200 lb 227 lb 2 oz 225 lb 9 oz 224 lb 1 oz - Constitutional no acute distress - *Routine HEENT Exam Head: Present: normocephalic Eye: Present: EOMI, PERRL ENT: Present: mucous membranes dry - *Routine Neck Exam Absent: JVD - *Routine Respiratory Exam Absent: respiratory distress - *Routine Cardiovascular Exam Present: RRR, murmur - *Routine Extremities Exam Absent: calf tenderness - *Routine Skin Exam Present: intact - *Routine Neurological Exam Present: alert, CN II-XII intact - Routine Psychiatric Exam Present: normal affect Assessment and Plan (1) Obesity (BMI 30-39.9) Current visit: Yes Status: Acute Category: Medical Code(s): E66.9 - Obesity, unspecified (2) Diabetes mellitus, insulin dependent (IDDM), controlled Current visit: Yes Status: Acute Category: Medical Code(s): E11.9 - Type 2 diabetes mellitus without complications; Z79.4 - detention (current) use of insulin (3) Intractable nausea and vomiting Current visit: Yes Status: Acute Category: Medical Code(s): R11.2 - Nausea with vomiting, unspecified (4) Renal insufficiency Current visit: Yes Status: Acute Category: Medical Code(s): N28.9 - Disorder of kidney and ureter, unspecified (5) CAD (coronary artery disease) Current visit: Yes Status: Chronic Qualifiers: Category: Medical Code(s): I25.10 - Atherosclerotic heart disease of [place] coronary artery without angina pectoris (6) Atrial fibrillation Current visit: No Status: Chronic Qualifiers: Atrial fibrillation type: paroxysmal Qualified Code(s): I48.0 - Paroxysmal atrial fibrillation Category: Medical Code(s): I48.91 - Unspecified atrial fibrillation (7) Diabetes mellitus Current visit: No Status: Chronic Qualifiers: Diabetes mellitus type: type 1 Diabetes mellitus complication status: with unspecified complications Category: Medical Code(s): E11.9 - Type 2 diabetes mellitus without complications (8) HHD (hypertensive heart disease) Current visit: No Status: Chronic Qualifiers: Heart failure presence: without heart failure Qualified Code(s): I11.9 - Hypertensive heart disease without heart failure Category: Medical Code(s): I11.9 - Hypertensive heart disease without heart failure (9) PAF (paroxysmal atrial fibrillation) Current visit: No Status: Chronic Category: Medical Code(s): I48.0 - Paroxysmal atrial fibrillation (10) Stented coronary artery Current visit: No Status: Chronic Category: Surgical Code(s): Z95.5 - Presence of coronary angioplasty implant and graft
--- NOTE | 2018-12-10 10:16 | Progress Note ---
Subjective Date: 12/10/18 Time: 10:11 Principal diagnosis: nausea and vomiting Interval history: This is a 58-year-old white female who presented to the emergency department with nausea and vomiting. The patient states that this began several days ago and was just relentless. She states that she felt terrible because of the profuse nausea and vomiting. The patient was cleared from a cardiac standpoint to undergo EGD this morning which was normal. She does have a history of coronary artery disease and atrial fibrillation. She does had a heart cath 3 months ago which showed no percutaneous intervention. The patient Xarelto and dual antiplatelet therapy has been stopped for the EGD. She is currently on a Lovenox bridge while off of her Xarelto. This morning she states that the nausea and vomiting is still persistent. She states the Reglan is helping to improve her symptoms. She denies any chest pain or pressure. She denies any shortness of breath or edema. She denies any fever, chills, diarrhea, PND or orthopnea. Exam Vital signs and Labs for Last 24 Hours: Temp Pulse Resp BP Pulse Ox 98.7 F 105 H 18 168/86 H 98 12/10/18 08:00 12/10/18 08:00 12/10/18 08:00 12/10/18 08:00 12/10/18 08:00 Laboratory Results - last 24 hr 12/09/18 11:32: POC Glucose 131 H 12/09/18 16:43: POC Glucose 92 12/09/18 21:29: POC Glucose 112 H 12/10/18 05:33: POC Glucose 154 H 12/10/18 05:45: WBC 10.5, RBC 3.91 L, Hgb 11.0 L, Hct 33.5 L, MCV 85.6, MCH 28.0, MCHC 32.7, RDW 13.8, Plt Count 357, MPV 6.9 L, Neut % (Auto) 72.1, Lymph % (Auto) 15.8, [place] % (Auto) 9.5 H, Eos % (Auto) 2.2, Baso % (Auto) 0.4, Neut # (Auto) 7.6, Lymph # (Auto) 1.7, [place] # (Auto) 1.0, Eos # (Auto) 0.2, Baso # (Auto) 0.0 12/10/18 05:45: Sodium 136, Potassium 3.3 L, Chloride 103, Carbon Dioxide 26, Anion Gap 10.3, BUN 13, Creatinine 1.13 H, Estimated Creat Clear 87, Estimated GFR 49 L, Est GFR ( Amer) 60, Glucose 154 H, Calcium 8.2 L I & O for Last 24 hours: Intake & Output 12/07/18 12/08/18 12/09/18 12/10/18 23:59 23:59 23:59 23:59 Intake Total 1644 / 1644 3701 / 3701 2451 / 2691 1014 / 1014 Balance 1644 / 1644 3701 / 3701 2451 / 2691 1014 / 1014 Weight 227 lb 2 oz 225 lb 9 oz 225 lb 9 oz 224 lb 1 oz Narrative: Telemetry strip is atrial fibrillation. - *Routine HEENT Exam Head: Present: normocephalic, atraumatic Eye: Present: EOMI, PERRL ENT: Present: mucous membranes moist - *Routine Neck Exam Present: supple, full ROM, normal carotid upstroke. Absent: JVD, carotid bruit, lymphadenopathy - *Routine Respiratory Exam Present: CTA bilaterally - *Routine Cardiovascular Exam Present: Normal S1, Normal S2, irregularly irregular. Absent: murmur - *Routine Abdominal Exam Present: soft, normoactive bowel sounds. Absent: tenderness, distended - *Routine Extremities Exam Present: full ROM, pulses intact, normal capillary refill. Absent: cyanosis, clubbing, edema - *Routine Skin Exam Present: intact, warm. Absent: erythema, rash - *Routine Neurological Exam Present: alert, oriented X3, CN II-XII intact. Absent: sensory deficit, motor deficit - Detailed Eye Exam Eyelids: Left normal inspection Progress Note: A&P (1) Intractable nausea and vomiting Status: Acute Current Visit: Yes (2) CAD (coronary artery disease) Status: Chronic Current Visit: Yes (3) Atrial fibrillation Status: Chronic Current Visit: No (4) Diabetes mellitus Status: Chronic Current Visit: No (5) HHD (hypertensive heart disease) Status: Chronic Current Visit: No (6) Stented coronary artery Status: Chronic Current Visit: No (7) Renal insufficiency Status: Acute Current Visit: Yes (8) Obesity (BMI 30-39.9) Status: Acute Current Visit: Yes Assessment and Plan for All Diagnoses:: Plan: 1. The patient was admitted for persistent nausea and vomiting. She did undergo upper GI this morning which was normal. The patient states that Reglan is helping to improve her symptoms. Will defer management of her nausea and vomiting to her primary care provider. 2. Patient does have history of coronary artery disease. She did have a cath in August which showed no percutaneous intervention. Her coronary artery disease is likely stable. 3. The patient EGD has been completed. We would recommend she restart dual antiplatelet therapy and Xarelto as soon as reasonably safe. She is currently on a Lovenox bridge. 4. Her blood pressure is elevated at this time. She had none of her medications this morning due to being n.p.o. for her upper GI. She has received all of her blood pressure medicines at this time. We will recheck her blood pressure and make changes if needed. 5. Her LDL goal is less than 55. 6. The patient is diabetic and needs aggressive control of her diabetes. 7. No further recommendations at this time from a cardiac standpoint. As mentioned before we do recommend that she restart her Xarelto and dual antiplatelet therapy as soon as reasonably safe following her upper GI. Thank you for the opportunity to help participate in the care of this patient.
--- NOTE | 2018-12-11 08:05 | Progress Note ---
Subjective Date: 12/11/18 Time: 08:02 Principal diagnosis: nausea and vomiting Interval history: 58-year-old white female sitting in bedside chair eating breakfast in no acute distress. She denies chest pain, pressure or tightness. Her nausea is resolved and she states "I am hungry". Patient is asking about going home today. Exam Vital signs and Labs for Last 24 Hours: Temp Pulse Resp BP Pulse Ox 97.8 F 69 17 117/57 L 96 12/11/18 03:52 12/11/18 03:52 12/11/18 03:52 12/11/18 03:52 12/11/18 03:52 Laboratory Results - last 24 hr 12/10/18 10:14: POC Glucose 223 H 12/10/18 11:36: POC Glucose 223 H 12/10/18 16:31: POC Glucose 110 12/10/18 19:53: POC Glucose 123 H 12/11/18 06:02: POC Glucose 89 I & O for Last 24 hours: Intake & Output 12/08/18 12/09/18 12/10/18 12/11/18 11:59 11:59 11:59 11:59 Intake Total 3726 / 3726 2538 / 2538 2546 / 2546 1299 / 1299 Balance 3726 / 3726 2538 / 2538 2546 / 2546 1299 / 1299 Weight 227 lb 2 oz 225 lb 9 oz 224 lb 1 oz 224 lb 3 oz - *Routine HEENT Exam Head: Present: normocephalic Eye: Present: EOMI, PERRL ENT: Present: mucous membranes moist - *Routine Respiratory Exam Present: CTA bilaterally. Absent: accessory muscle use, rales, rhonchi, wheezes - *Routine Cardiovascular Exam Present: irregularly irregular. Absent: murmur, gallop, rubs - *Routine Abdominal Exam Present: soft. Absent: tenderness, distended, guarding - *Routine Extremities Exam Present: edema. Absent: calf tenderness - *Routine Neurological Exam Present: alert, oriented X3, moving all extremities Progress Note: A&P (1) Obesity (BMI 30-39.9) Status: Acute Current Visit: Yes (2) Diabetes mellitus, insulin dependent (IDDM), controlled Status: Acute Current Visit: Yes (3) Intractable nausea and vomiting Status: Acute Current Visit: Yes (4) Renal insufficiency Status: Acute Current Visit: Yes (5) CAD (coronary artery disease) Status: Chronic Current Visit: Yes (6) Atrial fibrillation Status: Chronic Current Visit: No (7) Diabetes mellitus Status: Chronic Current Visit: No (8) HHD (hypertensive heart disease) Status: Chronic Current Visit: No (9) PAF (paroxysmal atrial fibrillation) Status: Chronic Current Visit: No (10) Stented coronary artery Status: Chronic Current Visit: No Assessment and Plan for All Diagnoses:: 1. If no further plans for endoscopy and/or surgery, then would restart Xarelto 20 mg daily and Plavix 75 mg daily for her combination of atrial fibrillation and coronary artery disease. Will not restart aspirin due to possible exacerbation of nausea and GI irritation. 2. Patient could be discharged home from a cardiac standpoint with follow-up in 3 months. 3. Continue diltiazem extended release 240 mg daily, sotalol 80 mg twice daily, lisinopril 10 mg daily and Lipitor 40 mg daily.
--- NOTE | 2018-12-11 09:44 | Discharge Summary ---
General - General Admission date:: 12/07/18 Discharge date: 12/11/18 HPI HPI: 58-year-old female patient sitting up in bed resting quietly. Reports she is feeling better, reports that she tolerated a solid breakfast this morning with no nausea or vomiting afterwards. Discussed discharge today, she is agreeable to that. this wf who was recently admitted for vomiting and improved after ivf and meds returned to the ed with upper abd pain and vomiting w/o melena -pt was seen in the ed and failed treatment and was readmitted for ivf and meds Hospital Course Hospital Course: 58-year-old female admitted for intractable vomiting. Patient is on Xarelto and Plavix for history of atrial fibrillation and coronary artery disease with stenting. She had presented on Saturday with vomiting. At that time she un derwent CT scan without oral contrast. There revealed some possible thickening of the distal esophagus. Apparently the patient had improvement in her symptoms and was tolerating a diet was discharged home. However, she then developed recurrent symptoms and presented back to the emergency department where she was admitted for inpatient management. Surgical consultation was obtained for upper endoscopy. Patient states that she has dry heaves and nausea even without eating. Upper GI and Smaqll Bowel 12/09/2018: IMPRESSION: Negative upper GI with unremarkable small-bowel follow-through. Dictated by: Major Seymour MD 12/10/2018 07:03 EGD on 12/10/2018 revealed Retroflexion revealed no evidence of any significant hiatal hernia. There were a couple of very small polyps consistent with fundic gland polyps. Pylorus was widely patent. Endoscope was advanced postpyloric in the duodenal bulb and duodenal sweep appeared unremarkable. Endoscope was withdrawn into the gastric lumen once again. Gastric antral mucosal biopsy was obtained to evaluate H. pylori status. Endoscope was withdrawn as the stomach was desufflated. Findings:: Normal-appearing upper endoscopy (per Dr. Elizabeth) Objective Vital signs: Temp Pulse Resp BP Pulse Ox 98.3 F 97 H 21 152/88 H 100 12/11/18 08:00 12/11/18 08:00 12/11/18 08:00 12/11/18 08:00 12/11/18 08:00 no acute distress, morbidly obese - *Routine HEENT Exam Head: Present: normocephalic, atraumatic. Absent: tenderness of temporal artery Eye: Present: EOMI, normal accommodation. Absent: periorbital swelling ENT: Present: mucous membranes moist - *Routine Neck Exam Present: supple, full ROM. Absent: JVD - *Routine Respiratory Exam Present: CTA bilaterally. Absent: accessory muscle use - *Routine Cardiovascular Exam Present: RRR - *Routine Abdominal Exam Present: soft, normoactive bowel sounds - *Routine Extremities Exam Present: edema, full ROM. Absent: calf tenderness - Routine Back/Spine/Pelvis Exam Back/Spine: Present: full ROM. Absent: CVA tenderness - *Routine Skin Exam Present: intact. Absent: cyanosis, wounds - *Routine Neurological Exam Present: alert, oriented X3, CN II-XII intact. Absent: altered mental status - Routine Psychiatric Exam Present: normal affect, normal thought process. Absent: homicidal ideation, auditory hallucinations Results Labs on day of discharge: Labs from last 24 hours 12/11/18 12/10/18 12/10/18 06:02 19:53 16:31 POC Glucose 89 123 H 110 12/10/18 12/10/18 11:36 10:14 POC Glucose 223 H 223 H - Additional Comments Rounded with Dr. Tai, all orders per Dr. Tai Will discharge home today with follow-up in primary care office 1 week 1. We will start Reglan 10 mg p.o. AC/HS 2 Gastric emptying test as outpatient Cardiology has seen and recommends: 1. If no further plans for endoscopy and/or surgery, then would restart Xarelto 20 mg daily and Plavix 75 mg daily for her combination of atrial fibrillation and coronary artery disease. Will not restart aspirin due to possible exacerbation of nausea and GI irritation. 2. Patient could be discharged home from a cardiac standpoint with follow-up in 3 months. 3. Continue diltiazem extended release 240 mg daily, sotalol 80 mg twice daily, lisinopril 10 mg daily and Lipitor 40 mg daily. DS: Diagnosis - Discharge Diagnosis (1) Obesity (BMI 30-39.9) Status: Acute (2) Diabetes mellitus, insulin dependent (IDDM), controlled Status: Acute (3) Intractable nausea and vomiting Status: Acute (4) Renal insufficiency Status: Acute (5) CAD (coronary artery disease) Status: Chronic (6) Atrial fibrillation Status: Chronic (7) Diabetes mellitus Status: Chronic (8) HHD (hypertensive heart disease) Status: Chronic (9) PAF (paroxysmal atrial fibrillation) Status: Chronic (10) Stented coronary artery Status: Chronic Discharge Plan - Patient Discharge Instructions ACTIVITY: Continue current activity DIET: continue same diet Patient Instructions: DI for Nausea -- Adult, DI for Vomiting -- Adult - Follow up Plan Follow up with: Ness Ann APRN [Advanced Practice Nurse] - 1 week Disposition: Home, Self-[facility] Medications: Home Medications Medication Instructions Recorded Confirmed Type nitroglycerin 0.4 mg sublingual 0.4 mg SUBLINGUAL Q5MINP PRN 05/03/17 12/07/18 History tablet Aspirin [Aspirin 81mg chewable 81 mg PO DAILY 09/01/18 12/07/18 History tab] Rivaroxaban [Xarelto 20mg Tablet] 20 mg PO DAILY 09/01/18 12/07/18 History Sotalol HCl [Betapace 80mg Tablet] 80 mg PO BID 09/01/18 12/07/18 History Spironolactone [Spironolactone 25 mg PO DAILY 09/02/18 12/07/18 History 25mg Tablet] dilTIAZem HCl [Diltiazem 24Hr ER 240 mg PO DAILY #90 cap 09/03/18 12/07/18 Rx (Xr)] omeprazole 20 mg capsule,delayed 40 mg PO DAILY #60 cap 09/29/18 12/07/18 Rx release insulin human U-100 NPH-regulr 30 unit SQ BID #20 ml 11/04/18 12/07/18 Rx 70-30 mix 100 unit/mL subcutaneous susp Atorvastatin Calcium [Lipitor 40mg 40 mg PO DAILY 12/05/18 12/07/18 History Tablet] Clopidogrel Bisulfate [Plavix 75mg 75 mg PO DAILY 12/05/18 12/07/18 History Tab] Lisinopril [Prinivil 10mg Tablet] 10 mg PO DAILY 12/05/18 12/07/18 History cephALEXin [Keflex 500mg Cap] 500 mg PO TID 12/07/18 12/07/18 History Amoxicillin [Amoxicillin 500mg 500 mg PO Q8H 12/08/18 12/08/18 History Cap] Metoclopramide HCl [Reglan 10mg 10 mg PO AC 30 Days #90 tab 12/11/18 Rx Tab] Metoclopramide HCl [Reglan 10mg 10 mg PO HS 30 Days #30 tab 12/11/18 Rx Tab] Prescriptions/Medication Reconciliation: New Metoclopramide HCl [Reglan 10mg Tab] 10 mg PO AC 30 Days #90 tab Metoclopramide HCl [Reglan 10mg Tab] 10 mg PO HS 30 Days #30 tab Continued nitroglycerin 0.4 mg sublingual tablet 0.4 mg SUBLINGUAL Q5MINP PRN PRN Reason: Chest Pain insulin human U-100 NPH-regulr 70-30 mix 100 unit/mL subcutaneous susp 30 u nit SQ BID #20 ml omeprazole 20 mg capsule,delayed release 40 mg PO DAILY #60 cap Sotalol HCl [Betapace 80mg Tablet] 80 mg PO BID dilTIAZem HCl [Diltiazem 24Hr ER (Xr)] 240 mg PO DAILY #90 cap Lisinopril [Prinivil 10mg Tablet] 10 mg PO DAILY Clopidogrel Bisulfate [Plavix 75mg Tab] 75 mg PO DAILY Atorvastatin Calcium [Lipitor 40mg Tablet] 40 mg PO DAILY Amoxicillin [Amoxicillin 500mg Cap] 500 mg PO Q8H Rivaroxaban [Xarelto 20mg Tablet] 20 mg PO DAILY Spironolactone [Spironolactone 25mg Tablet] 25 mg PO DAILY Discontinued Aspirin [Aspirin 81mg chewable tab] 81 mg PO DAILY cephALEXin [Keflex 500mg Cap] 500 mg PO TID - Problem Reconciliation Problems Reviewed?: Yes
== END 2018-12-11 13:05 | disposition home or self-care (01) ==
LOC: ER 09:07 → 2ND 09:07
PROVIDERS: ADMIT Internal Medicine Adolescent Medicine; ATTEND Emergency Medicine
CPT/HCPCS: 36415; 74245; 80048; 80053; 82150; 82962; 83690; 85025; 88305; 96365; 96375; 96376; 99284; G0378; J2405

== ENCOUNTER → 2018-12-23 08:37 | Outpatient (CLI) | payer BC, SELFPAY ==
--- NOTE | 2018-12-23 08:40 | MM_ITS ---
PROCEDURE: MM DIG SCREENING MAMM BI W/CAD CLINICAL INDICATION: screening There is no personal or family history of breast cancer COMPARISON: DMSB DIG MAMM-SCREEN ALEC from 07/19/2014 TECHNIQUE: Standard CC and MLO images were obtained. R2 CAD reviewed. FINDINGS: Moderate diffuse fibroglandular densities seen throughout both breasts. The findings are bilateral symmetrical. There is moderate arterial calcification in each breast. There is no suspicious lesion and no suspicious microcalcifications. IMPRESSION: Moderate breast density with no suspicious lesion seen BI-RAD Category: 2 Benign Finding(s) FOLLOW-UP: 1YR 1 Year Follow-up (A letter has been sent to the patient regarding results of the study.) Dictated by: Dr. Myles Gil MD 12/23/2018 14:27 Signed by: <Electronically signed by Dr. Myles Gil MD in [place]> 12/23/2018 14:27
== END ==
PROVIDERS: PCP Emergency Medicine; Visit Provider Emergency Medicine
DX: Z12.31 Encounter for screening mammogram for malignant neoplasm of breast (principal)
CPT/HCPCS: 77067

== ENCOUNTER → 2019-06-01 10:31 | Outpatient (CLI) | payer BC, SELFPAY ==
[2019-06-01 11:22] LABS: Basophils # 0.1 K/mm3 (0-0.2); Basophils % 0.7 % (0.1-2.0); Eosinophils # 0.3 K/mm3 (0.0-0.4); Hematocrit 38.5 % (37.0-47.0); Hemoglobin 12.3 g/dL (12.2-16.2); Lymphocytes # 1.3 K/mm3 (0.7-4.5); Lymphocytes % 15.2 % (10-50); Mean Corpuscular HGB Conc 31.9 g/dL (31.8-35.4); Mean Corpuscular Volume 84.7 fl (81-99); Mean Platelet Volume 7.8 fl (7.4-10.4); Monocytes # 0.5 K/mm3 (0.1-1.0); Monocytes % 5.4 % (1.7-9.3); Neutrophils # 6.5 K/mm3 (1.8-7.8); Neutrophils % 75.8 % (37.0-80.0); Platelet Count 292 K/mm3 (142-424); Red Blood Count 4.54 M/mm3 (4.20-5.40); Red Cell Distribution Width 14.3 % (11.5-17.5); White Blood Count 8.6 K/mm3 (4.8-10.8)
[2019-06-01 11:53] LABS: Alanine Aminotransferase 35 U/L (12-78); Albumin Level 3.3 gm/dL (3.4-5.0); Albumin/Globulin Ratio 0.9 (1.1-1.8); Alkaline Phosphatase 114 U/L (46-116); Anion Gap 13.1 mEq/L (5-15); Aspartate Amino Transferase 15 U/L (15-37); Bilirubin,Total 0.3 mg/dL (0.2-1.0); Blood Urea Nitrogen 21 mg/dL (7-18); Calcium 8.9 mg/dL (8.5-10.1); Carbon Dioxide 26 mmol/L (21.0-32.0); Chloride 101 mmol/L (98-107); Chol/HDL Ratio 4.6 (1-3.5); Cholesterol 167 mg/dL (140-200); Creatinine,Serum 1.26 mg/dL (0.55-1.02); Estimated Glomerular Filt Rate 44 ml/min (>60); GFR (African American) 53 ML/MIN (>60); Globulin 3.7 gm/dl (1.3-3.2); Glucose 265 mg/dL (74-106); HDL Cholesterol 36 mg/dL (29-89); LDL Cholesterol 111 mg/dL (0-130); Potassium 4.1 mmoL/L (3.5-5.1); Sodium 136 mmol/L (136-145); Thyroid Stimulating Hormone 0.81 uIU/ml (0.358-3.740); Triglycerides 101 mg/dL (30-200); VLDL Cholesterol 20 mg/dL (0-40)
[2019-06-01 12:53] LABS: Hemoglobin A1C 10.4 % (0.0-7.0)
[2019-06-02 14:01] LABS: Vitamin D 25 Hydroxy 19.8 ng/mL (30.0-100.0)
== END ==
PROVIDERS: Visit Provider Nurse Practitioner Family
DX: E11.9 Type 2 diabetes mellitus without complications (principal); I25.10 Atherosclerotic heart disease of native coronary artery without angina pectoris; I11.9 Hypertensive heart disease without heart failure; E78.2 Mixed hyperlipidemia; Z95.5 Presence of coronary angioplasty implant and graft; Z79.4 Long term (current) use of insulin
CPT/HCPCS: 36415; 80053; 80061; 82652; 83036; 84436; 84443; 85025

== ENCOUNTER → 2019-06-12 17:14 | Outpatient (CLI) | payer BC, SELFPAY ==
[2019-06-14 07:25] LABS: Creatinine, Urine 46.4 mg/dL (Not Estab.); Microalbumin, Urine 217.5 ug/mL (Not Estab.)
== END ==
PROVIDERS: Visit Provider Nurse Practitioner Family
DX: E11.65 Type 2 diabetes mellitus with hyperglycemia (principal); Z79.4 Long term (current) use of insulin
CPT/HCPCS: 82043; 82570

== ENCOUNTER 2020-04-13 19:21 | Observation (INO) | payer BC, SELFPAY ==
--- NOTE | 2020-04-13 19:13 | ECG_ITS ---
APPROVED REPORT Exam: Resting ECG HR:98 bpm ECG Measurements Heart Rate 98 AXES NJ 180 P 24 QRSd 78 QRS 24 QT 358 T 43 QTc 457 Conclusion Normal sinus rhythm Normal ECG Electronically signed by : Faisal Coleman, 04/15/2020 07:12:08
[2020-04-13 19:22] VITALS: BP 176/86; PULSE 99; RESP 18; TEMP 36.8; O2SAT 97; BMI 39.4
--- NOTE | 2020-04-13 19:23 | XR_ITS ---
PROCEDURE: XR CHEST PORTABLE CLINICAL HISTORY: soa Shortness of air COMPARISON: CR CXR2V XR chest 2V from 09/01/2018 CR CXR1VP XR chest portable from 11/15/2018 CR XR CHEST 2V from 12/26/2018 FINDINGS: The cardiomediastinal silhouette and pulmonary vascularity are within normal limits. The lungs are clear without infiltrates, suspicious nodules, or pleural effusions. No acute bony abnormalities. IMPRESSION: No acute findings. Dictated by: Major Seymour MD 04/14/2020 05:29 Major Seymour MD in [place] 04/14/2020 05:29
--- NOTE | 2020-04-13 19:24 | HMH.EDCP ---
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 The time I documented below is in addition to time spent performing reported procedures but includes the following listed in this critical care notation. Medical Decision Making - Medical Records Medical records reviewed: Yes: I reviewed the patient's medical records. - James Inquiry Pt receiving controlled substance: No <Kwaku Mcgovern - Last Filed: 04/13/20 19:31> - Lab Data Lab results reviewed: Yes: I reviewed the patient's lab results. Result diagrams: 04/13/20 19:20 04/13/20 19:20 - Radiology Data #1 Image(s): Chest Image Reviewed: Yes I reviewed the patient's radiology image Preliminary Findings: Abnormal (cm) - ECG Data Tracing #1 Normal Sinus Rhythm: Yes Ischemic changes: non-specific ST-T wave changes <Dipak Tai - Last Filed: 04/13/20 20:54> Vital Signs: 04/13/20 19:22 04/13/20 20:00 Temperature 98.3 F Temperature Source Oral Pulse Rate [Right Radial] 99 H 89 Respiratory Rate 18 16 Blood Pressure [Right Arm] 176/86 H 166/86 H Blood Pressure Mean [Right Arm] 116 112 Blood Pressure Source [Right Arm] Automatic Cuff Automatic Cuff Blood Pressure Position [Right Arm] Supine Supine 02 Sat by Pulse Oximetry 97 98 Oxygen Delivery Method Room Air Room Air - Lab Data Lab Results 04/13/20 19:20: WBC 8.6, RBC 4.54, Hgb 13.2, Hct 39.8, MCV 87.6, MCH 29.1, MCHC 33.2, RDW 13.1, Plt Count 288, MPV 8.0, Neut % (Auto) 65.9, Lymph % (Auto) 23.9, [place] % (Auto) 6.4, Eos % (Auto) 3.1, Baso % (Auto) 0.8, Neut # (Auto) 5.7, Lymph # (Auto) 2.0, [place] # (Auto) 0.6, Eos # (Auto) 0.3, Baso # (Auto) 0.1 04/13/20 19:20: D-Dimer 0.68 04/13/20 19:20: Sodium 134 L, Potassium 4.3, Chloride 101, Carbon Dioxide 22, Anion Gap 15.3 H, BUN 33 H, Creatinine 1.40 H, Estimated Creat Clear 71, Estimated GFR 38 L, Est GFR ( Amer) 47 L, Glucose 408 H*, Calcium 10.0, Troponin I < 0.01 Orders (Tests/Meds): ED MEDICATIONS Generic Name Dose Route Start Last Admin Trade Name Freq PRN Reason Stop Dose Admin Sodium Chloride 1,000 mls @ 999 mls/hr 04/13/20 20:45 04/13/20 20:46 Sod Chlor 0.9% 1000ml Bag IV 04/13/20 21:45 999 mls/hr .Q1H1M KENN Administration Discontinued Medications Generic Name Dose Route Start Last Admin Trade Name Freq PRN Reason Stop Dose Admin Ondansetron HCl 4 mg 04/13/20 20:43 04/13/20 20:45 Ondansetron 4mg/2ml Vial IV 04/13/20 20:44 4 mg ONCE ONE Administration ORDERS Category Date Time Status XR chest portable Stat Exams 04/13/20 19:23 Taken Covid-19 IgG/IgM ([facility]) Stat Lab 04/13/20 20:43 Ordered Hemoglobin A1C Stat Lab 04/13/20 19:20 Received Liver Panel Stat Lab 04/13/20 20:45 Ordered T4 (Thyroxine) Stat Lab 04/13/20 20:45 Ordered TSH [Thyroid Stimulating Hormone] Stat Lab 04/13/20 20:45 Ordered Troponin I Q3H Lab 04/13/20 22:30 Ordered Troponin I Q3H Lab 04/14/20 01:30 Ordered Medical Decision Narrative: 59-year-old female with history of cardiac disease presents with chest pain. She is in no acute distress nontoxic-appearing co
[2020-04-13 19:31] LABS: Basophils # 0.1 K/mm3 (0-0.2); Basophils % 0.8 % (0.1-2.0); Eosinophils # 0.3 K/mm3 (0.0-0.4); Eosinophils % 3.1 % (0.1-12.0); Hematocrit 39.8 % (37.0-47.0); Hemoglobin 13.2 g/dL (12.2-16.2); Lymphocytes % 23.9 % (10-50); Mean Corpuscular HGB Conc 33.2 g/dL (31.8-35.4); Mean Corpuscular Hemoglobin 29.1 pg (27.0-31.2); Mean Corpuscular Volume 87.6 fl (81-99); Monocytes # 0.6 K/mm3 (0.1-1.0); Monocytes % 6.4 % (1.7-9.3); Neutrophils # 5.7 K/mm3 (1.8-7.8); Neutrophils % 65.9 % (37.0-80.0); Platelet Count 288 K/mm3 (142-424); Red Blood Count 4.54 M/mm3 (4.20-5.40); Red Cell Distribution Width 13.1 % (11.5-17.5); White Blood Count 8.6 K/mm3 (4.8-10.8)
[2020-04-13 19:35] LABS: Chloride 101 mmol/L (98-107); Potassium 4.3 mmoL/L (3.5-5.1); Sodium 134 mmol/L (136-145)
[2020-04-13 19:38] LABS: Anion Gap 15.3 mEq/L (5-15); Blood Urea Nitrogen 33 mg/dl (7-17); Carbon Dioxide 22 mmol/L (22.0-30.0); Creatinine Clearance Estimated 71 mL/min (50-200); Estimated Glomerular Filt Rate 38 ml/min (>60); GFR (African American) 47 ML/MIN (>60)
[2020-04-13 19:44] LABS: D-Dimer 0.68 ug/mL (0.15-8.0)
[2020-04-13 20:00] VITALS: BP 166/86; PULSE 89; RESP 16; O2SAT 98
[2020-04-13 20:14] LABS: Troponin I < 0.01 ng/ml (0.00-0.034)
[2020-04-13 20:15] LABS: Glucose 408 mg/dl (74-100)
[2020-04-13 20:57] LABS: Alanine Aminotransferase 39 U/L (12-78); Albumin Level 4.5 g/dl (3.5-5.0); Alkaline Phosphatase 151 U/L (38-126); Aspartate Amino Transferase 42 U/L (14-36); Bilirubin,Direct 0.2 mg/dl (0.0-0.4); Bilirubin,Indirect 0.3 mg/dL (0.0-0.9); Bilirubin,Total 0.5 mg/dl (0.2-1.3); Bilirubin,Unconjugated 0.3 mg/dL (0.0-1.1); Total Protein,Serum 8.8 g/dl (6.3-8.2)
[2020-04-13 21:11] LABS: Coronavirus 19 IgG Antibody Negative (Negative)
[2020-04-13 21:12] LABS: Coronavirus 19 IgM Antibody Negative (Negative)
[2020-04-13 21:15] LABS: T4 (Thyroxine) 7.7 ug/dl (5.53-11.0)
[2020-04-13 21:27] VITALS: BP 164/79; PULSE 84; RESP 16; TEMP 36.8; O2SAT 97
[2020-04-13 21:43] LABS: Hemoglobin A1C 11.9 % (4.0-6.0)
[2020-04-13 21:50] VITALS: BP 142/78; PULSE 97; RESP 18; TEMP 36.6; O2SAT 99; BMI 35.6
--- NOTE | 2020-04-13 21:50 | PC.NURSE ---
patient up to floor via wheelchair @ 21:37.
[2020-04-13 22:10] VITALS: PULSE 90
[2020-04-13 23:52] LABS: Troponin I < 0.01 ng/ml (0.00-0.034)
[2020-04-13 23:53] VITALS: BP 149/77; PULSE 92; RESP 18; TEMP 36.6; O2SAT 98
[2020-04-14] VITALS: PULSE 90
--- NOTE | 2020-04-14 | CA_ITS ---
APPROVED REPORT Exam: Pharmacologic Technologist: Ladi José, Ht: 5 ft 4 in Wt: 210 lbs BSA: 2.00 m2 HR: 90 bpm BP: 154/81 mmHg Rhythm: NSR,LOW VOLTAGE QRS Medical History Medical History: Hyperlipidemia, Diabetic ??? Insulin Medications: Lisinopril,,,,, Atorvastatin,,,,, XaRELTO,,,,, INSULIN,,,,, SpirOLACTONE,,,,, Protonix,,,,, Albuterol MDI,,,,, Cardiac Risk Factors: Hyperlipidemia, Diabetes (insulin) Stress Test Details Test: LEXISCAN HR Resting HR: 92 bpm Max Heart Rate (APMHR): 161 bpm Max HR Achieved: 108 bpm Target HR (85% APMHR): 136 bpm % of APMHR: 67 Recovery HR: 103 bpm BP Resting BP: 154/81 mmHg Max BP: 154/81 mmHg ECG Resting ECG: NSR,LOW VOLTAGE QRS Clinical Exercise duration: 04:02 min Highest Stage Achieved: Stress ECG Conclusion DURING INFUSION PATIENT HAD MALAISE,STOMACH CRAMPS. NO CP. NO ARRHYTHMIAS/ECTOPY. NO SIGNIFICANT ST-T CHANGES. UNREMARKABLE LEXISCAN STRESS. MYOVIEW IMAGES REPORTED SEPARATELY Electronically signed by : Virgilio Paula, 04/14/2020 14:01:36
[2020-04-14 02:23] LABS: Troponin I < 0.01 ng/ml (0.00-0.034)
[2020-04-14 03:35] VITALS: BP 152/83; PULSE 90; RESP 16; TEMP 36.8; O2SAT 99
[2020-04-14 04:00] VITALS: PULSE 90
--- NOTE | 2020-04-14 04:20 | PC.NURSE ---
Pt. has not c/o cp, diarrhea or soa. While receiving report from ED, pt. became nauseous and was vomiting, phenergan administered and effectiveness noted. Pt. has not had any n/v since.
[2020-04-14 05:04] VITALS: BMI 35.9
[2020-04-14 06:14] LABS: POC Glucose,Bedside 243 (70-110)
[2020-04-14 07:21] LABS: Basophils % 0.4 % (0.1-2.0); Eosinophils # 0.2 K/mm3 (0.0-0.4); Eosinophils % 2.1 % (0.1-12.0); Lymphocytes # 1.7 K/mm3 (0.7-4.5); Lymphocytes % 18.3 % (10-50); Mean Corpuscular HGB Conc 32.8 g/dL (31.8-35.4); Mean Corpuscular Hemoglobin 28.8 pg (27.0-31.2); Mean Corpuscular Volume 87.8 fl (81-99); Mean Platelet Volume 7.8 fl (7.4-10.4); Monocytes # 0.5 K/mm3 (0.1-1.0); Monocytes % 5.4 % (1.7-9.3); Neutrophils # 6.9 K/mm3 (1.8-7.8); Neutrophils % 73.8 % (37.0-80.0); Platelet Count 278 K/mm3 (142-424); Red Cell Distribution Width 13.2 % (11.5-17.5); White Blood Count 9.3 K/mm3 (4.8-10.8)
[2020-04-14 07:26] LABS: Chloride 107 mmol/L (98-107); Potassium 4.5 mmoL/L (3.5-5.1); Sodium 138 mmol/L (136-145)
--- NOTE | 2020-04-14 07:27 | NM_ITS ---
APPROVED REPORT Exam: Nuclear Stress Test Indication: chest pain..soa..palpitations..syncope Stress Tech: Cecilia ALBERTS Tech:RUPA Wade RT(R)(N) Ht: 5 ft 4 in Wt: 209 lbs Bra Size: d HR: 90 bpm BP: 154/81 mmHg BSA: 1.99 m2 BMI: 35.8 History: chest pain..soa..palpitations..syncope Procedure: Patient received a 0.4 mg of intravenous Lexiscan, resting heart rate 90 bpm, resting blood pressure 154/81 mmHg, with Lexiscan maximum heart rate achived was 103 bpm which is Less than 85 % of the maximum predicted heart rate and blood pressure was 133/68 mmHg. With Lexiscan, patient denied any complaint of chest pain. Electrocardiogram Resting electrocardiogram showed sinus rhythm, with Lexiscan there is less than 1.[address] segment depression noted from the baseline EKG. The EKG portion of the Lexiscan is nondiagnostic. Cardiac Stress and Resting SPECT Images: Cardiac Stress and Resting SPECT images were obtained using technetium 99m Myoview 32.1 mCi stress and 10.87 mCi at rest. Gated SPECT for analysis of segmental wall motion and calculation of the ejection fraction also done. Prone images were also obtained. Cardiac stress and resting SPECT images show uniform myocardial activity without segmental perfusion abnormality, computer derived ejection fraction is 61% with no regional wall motion abnormality, right ventricle is normal size and contractility. Conclusion: 1. The EKG portion of the Lexiscan is nondiagnostic. 2. No scintigraphic evidence of reversible ischemia seen, computer derived ejection fraction is 61% with no regional wall motion abnormality, right ventricle is normal size and contractility. 3. Normal Lexiscan Myoview study. Electronically signed by : Virgilio Paula, 04/14/2020 14:11:58
[2020-04-14 07:28] LABS: Hemoglobin 11.8 g/dL (12.2-16.2)
--- NOTE | 2020-04-14 07:28 | HMH.CNCARD ---
History of Present Illness Consult date: 04/14/20 Requesting physician: Dipak Tai Consult reason: chest pain Chief complaint: Chest pain Additional Medical History:: 1. CAD A. MAXIMILIAN to large diagonal, 08/30/2015. On DAPT. B. NSTEMI, 09/06/2015, due to A. Fib/flutter with RVR. C. NSTEMI, 02/2016, with LHC showing LAD FFR of 0.82, mildly elevated LVEDP D. NSTEMI, type 2, during A. fib/flutter with RVR with subsequent LHC and MAXIMILIAN to LAD, 08/2017 E. NSTEMI, type 2, during A. fib/flutter with RVR, 08/2018. LHC results:ANGIOGRAPHIC RESULTS: 1. The left main artery normal 2. The left anterior descending artery has proximal smooth 30% stenosis immediately proximal to a widely patent stent which extends in the proximal segment into the mid segment. The very proximal portion of the stent has mild concentric 30% in-stent restenosis while distally the stent has excellent transitioning into the LAD which then has an additional eccentric 30% stenosis. The first diagonal artery has a stent which originates off the proximal LAD stent and is widely patent with 30-40% in-stent restenosis 3. The circumflex artery is a nondominant vessel with mild 10-20% luminal irregularities 4. The right coronary artery is a dominant vessel and has mid vessel 20-30% stenoses distal tendon 20% stenoses 5. The KAMARA ventriculogram reveals normal 65% 6. The left ventricular end-diastolic pressure elevated at 20-25 mmHg IMPRESSION: 1. Coronary artery disease as described above with widely patent proximal LAD stent which extends into the mid segment 2. Widely patent first diagonal artery bifurcating stent with moderate nonflow limiting in-stent restenosis 3. Normal ejection fraction 4. Mild to moderately elevated LVEDP consistent with diastolic dysfunction 5. Type II demand ischemia myocardial infarction from atrial fibrillation with rapid ventricular response 2. Chronic A. fib/flutter with history of intracardiac thrombus, 2010, transient coumadin therapy stopped due to hematuria A. Chronic Xarelto therapy B. Failed amiodarone therapy to maintain NSR C. Ablation therapy, Dr. Nava, 04/2019. 3. CKD, stage 3 4. HTN A. Echo, 08/2018, 1. Moderately enlarged left atrium, normal left ventricular size, mild concentric left ventricular hypertrophy, visually estimated ejection fraction 45% with segmental wall motion abnormality of moderate hypokinesis involving the inferior and posterobasal wall. Endocardial surfaces are poorly visualized, grade 1 diastolic dysfunction seen with tissue Doppler evidence of raised left atrial pressure. 2. Mild mitral and tricuspid regurgitation 3. No significant pericardial effusion noted. 5. Hyperlipidemia 6. 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 History of seizures 8. Diabetes, treated for 14 yrs. A. Hgb A1C 11.9, 03/2020 9. History of Cholecystectomy History of present illness: 59-year-old white female with history of coronary artery disease and prior ablation therapy for atrial fibrillation was admitted through the ER yesterday for onset of right upper abdominal discomfort and left-sided chest discomfort preceded by an episode of diarrhea and then followed by nausea, vomiting and near fainting feeling. Symptoms last for about 30 minutes. After the patient came to the hospital she did have an episode of vomiting and states symptoms resolved thereafter. Due to the patient's cardiac history she was kept overnight for observation. Troponins were normal x2. EKG is sinus rhythm with no acute ST segment changes. Echocardiogram is being performed this morning with preliminary results showing ejection fraction about 45% consistent with prior echocardiogram from last year. Patient had a cardiac catheterization last year showing widely patent stents with mild coronary artery disease noted. She states she has been doing well until this episode yesterday. Cardiology consulted for further ness
[2020-04-14 07:29] LABS: Anion Gap 10.5 mEq/L (5-15); Blood Urea Nitrogen 26 mg/dl (7-17); Calcium 9.4 mg/dl (8.4-10.2); Carbon Dioxide 25 mmol/L (22.0-30.0); Creatinine Clearance Estimated 76 mL/min (50-200); Estimated Glomerular Filt Rate 46 ml/min (>60); GFR (African American) 56 ML/MIN (>60); Glucose 250 mg/dl (74-100)
[2020-04-14 07:30] LABS: Magnesium 1.9 mg/dl (1.6-2.3)
--- NOTE | 2020-04-14 07:47 | HMH.PHAVTE ---
[facility] Pharmacy VTE Monitoring - Patient Demographics Admission date: 04/13/20 Report Date: 04/14/20 Time: 07:47 Allergies/Adverse Reactions: Patient Allergies latex Allergy (Verified 09/01/19 11:11) Height: 1.63 m Weight: 95.368 kg Patient Problems: Current Active Problems Near syncope (Acute) BERNABE (acute kidney injury) (Acute) Hyperglycemia due to type 2 diabetes mellitus (Acute) Obesity (Acute) Diabetes mellitus, insulin dependent (IDDM), controlled (Acute) Obesity (BMI 30-39.9) (Acute) Chest pain (Chronic) Stented coronary artery (Chronic) HLD (hyperlipidemia) (Chronic) HHD (hypertensive heart disease) (Chronic) CAD (coronary artery disease) (Chronic) PAF (paroxysmal atrial fibrillation) (Chronic) - VTE Risk Labs: VTE Related Lab Results Hgb 11.8 g/dL (12.2-16.2) L D 04/14/20 06:50 Hct 36.0 % (37.0-47.0) L 04/14/20 06:50 Plt Count 278 K/mm3 (142-424) 04/14/20 06:50 BUN 26 mg/dl (7-17) H 04/14/20 06:50 Creatinine 1.20 mg/dl (0.52-1.04) H 04/14/20 06:50 Estimated Creat Clear 76 mL/min (50-200) 04/14/20 06:50 Was VTE Risk Assessment Performed: Yes VTE Score: 4 VTE Risk Level: Low Risk - Prophylaxis VTE Prophylaxis Ordered?: Yes Types of VTE Prophylaxis: TEDS Knee High Location of Applied Device: Bilateral Lower Extremeties Pharmacologic Type: Other
--- NOTE | 2020-04-14 07:56 | HMH.PHAINT ---
Medication reconciliation completed using pharmacy claims data and patient interview.
[2020-04-14 08:00] VITALS: BP 143/75; PULSE 90; PULSE 91; RESP 19; TEMP 36.8; O2SAT 98
--- NOTE | 2020-04-14 08:00 | CA_ITS ---
APPROVED REPORT EXAM: Comprehensive 2D, Doppler, and color-flow Echocardiogram Client Liaison: Leeann Mcadams CRT Ht: 5 ft 4 in Wt: 230lbs BSA: 2.08 BP: 166/86 mmHg Indications: CP,NER SYNCOPE,HTN,DM,HLD,A-FIB,STENTS,GERD,HX ABLATION,NSTEMI 2D Dimensions LVOT 1.22 cm (M/F) 1.5-2.5 M-Mode Dimensions RVDd 2.45 cm (0.9-2.6) LA Diam 4.20 cm (1.9-4.0) LVDd 5.49 cm (3.5-5.7) Ao Diam 2.19 cm (2.0-3.7) LVDs 4.26 cm (3.5-5.7) IVSd 0.89 cm (0.6-1.1) PWd 0.45 cm (0.6-1.1) EF (Teich) 44.60% FS 22.40% EDV (Teich) 146.80 mL ESV (Teich) 81.30 mL LV Diastology E Decel Time 183.00 (160-240 msec) E/A Ratio 1.1 MED E' 7.00 (< 7 cm/sec) E'/MED E' Ratio 15.84 (>14) LAT E' 8.00 (<10 cm/sec) E/LAT E' Ratio 13.86 (>14) Mitral Valve MV E Max Duong. 111.00 (40-130 cm/s) MV A Velocity 104.00 (40-130 cm/s) E/A Ratio 1.06 MV Decel. Time 183.00 (160-240 ms) MV PHT 54.00 ms Pulmonary Valve PV Peak Velocity 102.00 (50-150 cm/s) Left Ventricle Technically difficult study because of the patient fact in poor acoustic windows. Left atrium is mildly enlarged, left ventricle is normal size, mild concentric left ventricular hypertrophy, visually estimated ejection fraction 45%, there is moderate hypokinesis involving the inferior basal and inferior wall. Diastolic parameters are inconclusive. Right Ventricle Right atrium and right ventricle are normal size and contractility. Aortic Valve Aortic valve is minimally thickened and fibrosed, there is no aortic stenosis or aortic insufficiency. Mitral Valve Mitral valve leaflets are minimally thickened and calcified, there is no mitral stenosis, there is mild mitral regurgitation. Tricuspid Valve Tricuspid valve is grossly normal, there is mild tricuspid regurgitation, tricuspid regurgitation jet velocity is inadequate for calculation of the right ventricular systolic pressure. Pulmonic Valve Pulmonic valve is poorly visualized. Great Vessels Aortic root is normal size. Pericardium No significant pericardial effusion noted. Conclusion 1. Technically difficult study because of the patient factors and poor acoustic windows 2. Mildly enlarged left atrium, normal left ventricular size, mild concentric left ventricular hypertrophy visually estimated ejection fraction 45% with segmental wall motion abnormality described above, diastolic parameters are inconclusive. 3. Mild mitral and tricuspid regurgitation. 4. No significant pericardial effusion noted. Electronically signed by : Virgilio Paula, 04/14/2020 13:09:22
--- NOTE | 2020-04-14 15:10 | HMH.HPDC ---
General - General Admission date:: 04/13/20 Discharge date: 04/14/20 *Admission Date: 04/13/20 *Chief complaint: Chest Pain *History of present illness: 59-year-old female patient mid to the emergency department after reports of left-sided chest discomfort radiating over into right upper quadrant. She reports she had an episode of diarrhea which was followed by nausea and vomiting and becoming dizzy lightheaded and nearly fainting. After this episode approximately 30 minutes later she had another episode of nausea and vomiting came to the hospital and symptoms resolved she does have a extensive cardiac history with coronary artery disease, multiple stents, and cardiac ablation for atrial fibrillation troponins were negative x2 EKG was normal sinus rhythm with no acute ST changes. She was admitted to the hospital and cardiology department was consulted Cardiology reports she had a cardiac catheterization last year showing widely patent stents with mild coronary artery disease noted. Chest x-ray revealed no acute findings CBC unremarkable. Sodium 134, potassium 4.3, BUN 33, creatinine 1.4 and GFR 38 [facility] History Medical History: Reports:: Arrhythmia, Atrial Fibrillation, Coronary Artery Disease, Deep Vein Thrombosis, Diabetes Mellitus Type 2, Gastroesophageal Reflux Disease(GERD), Hyperlipidemia, Hypertension, Seizures Denies:: Cancer, Diabetes Mellitus Type 1, Internal Pacemaker, MRSA *Have you ever received a pneumonia vaccine?: Yes *Have you received a flu vaccine this season?: No Other Surgeries: Yes: Cardiac Catheterization, Cardiac Surgery, Cholecystectomy, Coronary Stent, . No: Colonoscopy, Pacemaker Amputation: No Fractures: No - *Social History Smoking Status: Never smoker Alcohol Intake: current Alcohol Intake Frequency:: holidays/special occasions only Substance Use Type: denies use *Occupational Status:: employed Housing: house Household Members: spouse, family *Travel in the last 8 weeks: None Family Hx:: Diabetes, Heart Attack Review of Systems - Constitutional Denies anorexia, Denies chills - Eyes Denies blind spots, Denies blurry vision - ENT Denies abnormal hearing, Denies pain with swallowing - *Cardiovascular Reports chest pain, Reports shortness of breath - *Respiratory Reports shortness of breath - *Gastrointestinal Reports loose stools, Reports nausea, Reports vomiting, Denies abdominal pain, Denies bright, red blood in stools - *Musculoskeletal Denies joint pain, Denies joint swelling - Integumentary/Breasts Denies change in hair, Denies new lesions - *Neurologic Denies abnormal walking, Denies abnormal speech, Denies numbness - Psychiatric Denies lack of enjoyment, Denies anxiety, Denies depression - Endocrine Denies cold intolerance, Denies heat intolerance - Hematologic/Lymphatic Denies easy bleeding, Denies easy bruising - Allergic/Immunologic Denies GI upset with certain foods, Denies tongue swelling Exam Vital signs and Labs for Last 24 Hours: Temp Pulse Resp BP Pulse Ox 98.3 F 91 H 19 143/75 H 98 04/14/20 08:00 04/14/20 08:00 04/14/20 08:00 04/14/20 08:00 04/14/20 08:00 Laboratory Results - last 24 hr 04/13/20 19:20: WBC 8.6, RBC 4.54, Hgb 13.2, Hct 39.8, MCV 87.6, MCH 29.1, MCHC 33.2, RDW 13.1, Plt Count 288, MPV 8.0, Neut % (Auto) 65.9, Lymph % (Auto) 23.9, [place] % (Auto) 6.4, Eos % (Auto) 3.1, Baso % (Auto) 0.8, Neut # (Auto) 5.7, Lymph # (Auto) 2.0, [place] # (Auto) 0.6, Eos # (Auto) 0.3, Baso # (Auto) 0.1 04/13/20 19:20: D-Dimer 0.68 04/13/20 19:20: Sodium 134 L, Potassium 4.3, Chloride 101, Carbon Dioxide 22, Anion Gap 15.3 H, BUN 33 H, Creatinine 1.40 H, Estimated Creat Clear 71, Estimated GFR 38 L, Est GFR ( Amer) 47 L, Glucose 408 H*, Calcium 10.0, Troponin I < 0.01 04/13/20 19:20: Hemoglobin A1c 11.9 H 04/13/20 19:20: SARS-CoV-2 IgG Ab (Rapid) Negative, SARS-CoV-2 IgM Ab (Rapid) Negative 04/13/20 19:20: TSH 1.70, Thyroxine (T
[2020-04-14 16:26] LABS: POC Glucose,Bedside 211 (70-110)
== END 2020-04-14 16:47 | disposition home or self-care (01) ==
LOC: ER 19:50 → 2ND 20:54
PROVIDERS: Admitting Provider Emergency Medicine; Emergency Provider Emergency Medicine; PCP Emergency Medicine; Visit Provider Emergency Medicine
DX: R07.9 Chest pain, unspecified (principal); R55 Syncope and collapse; I25.10 Atherosclerotic heart disease of native coronary artery without angina pectoris; Z95.5 Presence of coronary angioplasty implant and graft; I48.0 Paroxysmal atrial fibrillation; E78.5 Hyperlipidemia, unspecified; I10 Essential (primary) hypertension; Z79.4 Long term (current) use of insulin; Z79.01 Long term (current) use of anticoagulants; Z79.02 Long term (current) use of antithrombotics/antiplatelets; Z86.718 Personal history of other venous thrombosis and embolism; Z79.899 Other long term (current) drug therapy
CPT/HCPCS: 36415; 71045; 78452; 80048; 80076; 82962; 83036; 83735; 84436; 84443; 84484; 85025; 85378; 86328; 93005; 93017; 93306; 96365; 96375; 99284; A9502; G0378; J2405; J2785

== ENCOUNTER → 2020-06-02 12:35 | Outpatient (CLI) | payer BC, SELFPAY ==
--- NOTE | 2020-06-02 12:42 | MM_ITS ---
PROCEDURE: MM DIG SCREENING MAMM BI W/CAD Referring Doctor: Ness Ann Patient Age:59Y CLINICAL INDICATION: screening for breast cancer COMPARISON: MG DMSB DIG MAMM-SCREEN ALEC from 07/19/[address] Abdomen Pelvis WO from 11/01/2014 CT ABDPELW/O CT ABD PELVIS W/O CONTRAST from 12/06/2014 CT ABDPELW/O CT ABD PELVIS W/O CONTRAST from 12/08/[address] ABDOMEN PELVIS W CON from 12/05/2018 MG MM DIG SCREENING MAMM BI W/CAD from 12/23/2018 TECHNIQUE: Standard CC and MLO images were obtained. R2 CAD reviewed. Bilateral digital breast tomosynthesis included. additional right breast axillary view CC, nipple profile view, and MLO view right breast FINDINGS: . [id number] residual fibroglandular elements most evident central breast towards upper-outer quadrant. Mild fatty replacement bilaterally. Vascular calcifications again noted bilaterally; similar overall architecture Right breast Minimal nodularity towards the lateral right breast is slightly more evident than previous studies this is likely due to technique and overlapping shadows but does warrant additional spot views and ultrasound right breast; as I question subtle stellate margin at the area labeled B at the deeper right breast on tomosynthesis MLO image 29. The area labeled A is most likely a stable asymmetric area of minor nodularity and has been has been seen previously and I believe stable, but but will benefit ultrasound and spot views as well. Recommend MLO and cc spot views a and B along with ultrasound entire right breast On further reviews of the patient's file either small density likely stable labeled A Can also be seen on prior CT abdomen exams November 2018 and October 2014 Left breast-no new areas of significant concern The a follow-up 1 year on the left recommended IMPRESSION: Right breast-2 small areas of nodularity at the lateral right breast labeled A and B noted. Most likely stable areas of nodularity, but since they are slightly more evident today and with question of slight irregular margins at B, would suggest additional spot views and ultrasound to right breast further evaluate. Left breast is stable. Follow-up mammogram 1 year on left BI-RAD Category: 0 Need Additional Imaging Evaluation FOLLOW-UP: IMM Immediate Follow-up Recommended (A letter has been sent to the patient regarding results of the study.) Dictated by: Cheo Patino MD 06/09/2020 10:31 Cheo Patino MD in [place] 06/09/2020 10:31
== END ==
PROVIDERS: PCP Nurse Practitioner Family; Visit Provider Nurse Practitioner Family
DX: Z12.31 Encounter for screening mammogram for malignant neoplasm of breast (principal)
CPT/HCPCS: 77063; 77067

== ENCOUNTER → 2020-11-10 18:25 | Outpatient (CLI) | payer BC, SELFPAY ==
[2020-11-10 19:29] LABS: Basophils # 0.1 K/mm3 (0-0.2); Basophils % 0.8 % (0.1-2.0); Eosinophils # 0.2 K/mm3 (0.0-0.4); Eosinophils % 2.3 % (0.1-12.0); Hematocrit 33.1 % (37.0-47.0); Hemoglobin 11.3 g/dL (12.2-16.2); Lymphocytes # 1.6 K/mm3 (0.7-4.5); Lymphocytes % 19.5 % (10-50); Mean Corpuscular HGB Conc 34.2 g/dL (31.8-35.4); Mean Corpuscular Hemoglobin 28.5 pg (27.0-31.2); Mean Corpuscular Volume 83.2 fl (81-99); Mean Platelet Volume 8.2 fl (7.4-10.4); Monocytes # 0.5 K/mm3 (0.1-1.0); Monocytes % 5.7 % (1.7-9.3); Neutrophils % 71.8 % (37.0-80.0); Platelet Count 282 K/mm3 (142-424); Red Blood Count 3.98 M/mm3 (4.20-5.40); Red Cell Distribution Width 13.3 % (11.5-17.5); White Blood Count 8.3 K/mm3 (4.8-10.8)
[2020-11-10 19:49] LABS: Alanine Aminotransferase 31 U/L (12-78); Albumin Level 3.9 g/dl (3.5-5.0); Albumin/Globulin Ratio 1.3 (1.1-1.8); Alkaline Phosphatase 100 U/L (38-126); Anion Gap 14.5 mEq/L (5-15); Aspartate Amino Transferase 28 U/L (14-36); Bilirubin,Total 0.5 mg/dl (0.2-1.3); Blood Urea Nitrogen 35 mg/dl (7-17); Calcium 9.1 mg/dl (8.4-10.2); Carbon Dioxide 21 mmol/L (22.0-30.0); Chloride 102 mmol/L (98-107); Chol/HDL Ratio 5.7 (1-3.5); Cholesterol 176 mg/dl (140-200); Estimated Glomerular Filt Rate 42 ml/min (>60); GFR (African American) 51 ML/MIN (>60); Globulin 3.1 g/dL (1.3-3.2); Glucose 248 mg/dl (74-100); HDL Cholesterol 31 mg/dl (40-60); Potassium 5.5 mmoL/L (3.5-5.1); Sodium 132 mmol/L (136-145); Triglycerides 153 mg/dl (30-150); VLDL Cholesterol 31 mg/dL (0-40)
[2020-11-10 20:00] LABS: Direct LDL Cholesterol 102.05 mg/dL (100-129)
[2020-11-10 20:02] LABS: 25-OH Vitamin D, Total 28.3 ng/mL (30-100)
[2020-11-10 20:03] LABS: Hemoglobin A1C 9.3 % (4.0-6.0)
[2020-11-10 20:06] LABS: T4 (Thyroxine) 8.2 ug/dl (5.53-11.0)
[2020-11-10 20:19] LABS: Thyroid Stimulating Hormone 0.72 uIU/mL (0.465-4.68)
== END ==
PROVIDERS: Visit Provider Nurse Practitioner Family
DX: E11.65 Type 2 diabetes mellitus with hyperglycemia (principal); E55.9 Vitamin D deficiency, unspecified; E66.9 Obesity, unspecified; E78.5 Hyperlipidemia, unspecified; I11.9 Hypertensive heart disease without heart failure; Z79.4 Long term (current) use of insulin
CPT/HCPCS: 80053; 80061; 82306; 83036; 84436; 84443; 85025

== ENCOUNTER → 2020-11-14 17:30 | Outpatient (CLI) | payer BC, SELFPAY ==
[2020-11-14 18:38] LABS: Anion Gap 15.1 mEq/L (5-15); Blood Urea Nitrogen 31 mg/dl (7-17); Calcium 9.4 mg/dl (8.4-10.2); Carbon Dioxide 23 mmol/L (22.0-30.0); Chloride 100 mmol/L (98-107); Estimated Glomerular Filt Rate 46 ml/min (>60); GFR (African American) 55 ML/MIN (>60); Glucose 226 mg/dl (74-100); Potassium 5.1 mmoL/L (3.5-5.1); Sodium 133 mmol/L (136-145)
[2020-11-14 18:43] LABS: Creatinine,Urine Random 55 mg/dL (Not Estab.)
[2020-11-14 18:56] LABS: Microalbumin/Creatinine Ratio 475.8
== END ==
PROVIDERS: Visit Provider Nurse Practitioner Family
DX: E11.65 Type 2 diabetes mellitus with hyperglycemia (principal); E55.9 Vitamin D deficiency, unspecified; E66.9 Obesity, unspecified; E78.5 Hyperlipidemia, unspecified; I11.9 Hypertensive heart disease without heart failure; R74.8 Abnormal levels of other serum enzymes; Z79.4 Long term (current) use of insulin; Z68.35 Body mass index [BMI] 35.0-35.9, adult
CPT/HCPCS: 80048; 82043; 82570

== ENCOUNTER → 2020-11-23 09:41 | Outpatient (CLI) | payer BC, SELFPAY ==
[2020-11-23 11:31] LABS: Anion Gap 13.4 mEq/L (5-15); Blood Urea Nitrogen 29 mg/dl (7-17); Calcium 9.7 mg/dl (8.4-10.2); Carbon Dioxide 26 mmol/L (22.0-30.0); Chloride 101 mmol/L (98-107); Estimated Glomerular Filt Rate 46 ml/min (>60); GFR (African American) 55 ML/MIN (>60); Glucose 240 mg/dl (74-100); Potassium 5.4 mmoL/L (3.5-5.1); Sodium 135 mmol/L (136-145)
== END ==
PROVIDERS: Visit Provider Physician Assistant
DX: I25.10 Atherosclerotic heart disease of native coronary artery without angina pectoris (principal); I11.9 Hypertensive heart disease without heart failure; E78.5 Hyperlipidemia, unspecified; E11.65 Type 2 diabetes mellitus with hyperglycemia; E66.9 Obesity, unspecified; Z68.35 Body mass index [BMI] 35.0-35.9, adult; Z79.4 Long term (current) use of insulin
CPT/HCPCS: 36415; 80048

== ENCOUNTER → 2020-12-20 20:21 | Outpatient (CLI) | payer BC, SELFPAY | PROVIDERS: Visit Provider Nurse Practitioner Family | DX: Z20.822 Contact with and (suspected) exposure to COVID-19 (principal) | CPT/HCPCS: U0003 ==

== ENCOUNTER → 2020-12-27 21:49 | Outpatient (CLI) | payer BC, SELFPAY | PROVIDERS: Visit Provider Nurse Practitioner Family | DX: Z11.52 Encounter for screening for COVID-19 (principal) | CPT/HCPCS: U0003 ==

== ENCOUNTER → 2021-05-24 10:32 | Outpatient (CLI) | payer BC, SELFPAY ==
[2021-05-24 11:57] LABS: Chloride 103 mmol/L (98-107)
[2021-05-24 11:58] LABS: Potassium 4.7 mmoL/L (3.5-5.1); Sodium 137 mmol/L (136-145)
[2021-05-24 12:00] LABS: Alanine Aminotransferase 27 U/L (12-78); Aspartate Amino Transferase 29 U/L (14-36); Bilirubin,Unconjugated 0.2 mg/dL (0.0-1.1); Blood Urea Nitrogen 19 mg/dl (7-17); Estimated Glomerular Filt Rate 57 ml/min (>60); GFR (African American) 68 ML/MIN (>60)
[2021-05-24 12:01] LABS: Albumin Level 4.1 g/dl (3.5-5.0); Alkaline Phosphatase 106 U/L (38-126); Anion Gap 12.7 mEq/L (5-15); Bilirubin,Direct 0.3 mg/dl (0.0-0.4); Bilirubin,Indirect 0.1 mg/dL (0.0-0.9); Bilirubin,Total 0.4 mg/dl (0.2-1.3); Calcium 9.7 mg/dl (8.4-10.2); Carbon Dioxide 26 mmol/L (22.0-30.0); Chol/HDL Ratio 5.1 (1-3.5); Cholesterol 188 mg/dl (140-200); Glucose 192 mg/dl (74-100); HDL Cholesterol 37 mg/dl (40-60); Total Protein,Serum 7.4 g/dl (6.3-8.2); Triglycerides 107 mg/dl (30-150); VLDL Cholesterol 21 mg/dL (0-40)
[2021-05-24 12:12] LABS: Direct LDL Cholesterol 115.62 mg/dL (100-129)
== END ==
PROVIDERS: PCP Nurse Practitioner Family; Visit Provider Urology
DX: I25.118 Atherosclerotic heart disease of native coronary artery with other forms of angina pectoris (principal); I11.9 Hypertensive heart disease without heart failure; I48.0 Paroxysmal atrial fibrillation; E78.2 Mixed hyperlipidemia; R06.83 Snoring; R40.0 Somnolence; R53.83 Other fatigue; Z95.5 Presence of coronary angioplasty implant and graft
CPT/HCPCS: 36415; 80048; 80061; 80076

== ENCOUNTER 2021-08-22 10:41 | Emergency (ER) | payer BC, SELFPAY ==
[2021-08-22 11:08] VITALS: BP 131/62; PULSE 86; RESP 20; TEMP 37.2; O2SAT 99; BMI 34.0
[2021-08-22 11:57] LABS: UTC Influenza A Antigen Negative (Negative); UTC Influenza B Antigen Negative (Negative)
--- NOTE | 2021-08-22 11:57 | HMH.EDUTC ---
[facility] [place] Disposition Clinical Impression: Viral syndrome Disposition: Home, Self-Care Condition on Discharge: Good Instructions: DI for Viral Syndrome, DI for Nausea -- Adult, Nausea and Vomiting-Adult Additional Instructions: *Monitor Temp, Over the counter Motrin or Tylenol as directed/as needed Tylenol every 4 hours and Motrin every 6 hours (as long as your family doctor has told you that you can take it) for fever or pain. and straight to ER if unable to lower temp less than 101.0 after medication given *Warm salt water gargles may help to soothe the throat *Throat Lozenges *Warm fluids like tea with honey may help to soothe the throat *Sleep elevated Drink extra fluids with and between meals. If you have difficulty drinking, try very small amounts of water or suck on ice chips. ? Avoid fruit juices, as these do not replace minerals and can actually increase diarrhea. ? Children and adults can use sports drinks to replenish electrolytes. Younger children and infants should use products formulated for children, like oral rehydration solutions. ? Eat food in small amounts and let your stomach recover. ? Get lots of rest. You may feel tired or weak. ? No greasy or fried foods for the next 24-48 hours BRAT diet Bananas Rice Apples and [place] ? Make sure to drink plenty of liquids ? Return if needed ? Straight to ER if any life threatening symptoms ? Zofran as prescribed ? Follow up with family doctor in the next 48-72 hours if no improvement or any worsening of symptoms Follow up IMMEDIATELY for new or worsening symptoms or no Noticeable improvement over the next 48-72 hours. 911 for difficulty breathing or swallowing Prescriptions: Ondansetron [Zofran 4mg ODT] 4 mg PO TIDP PRN #10 tab PRN Reason: Vomiting Transmission Status: Pending to [facility] Referrals: Ness Ann APRN [Primary Care Provider] - As needed Forms: Work/School Release Time of Disposition: 12:16 Medical Decision Making - James Inquiry Pt receiving controlled substance: No James was queried for this patient: No Vital Signs: 08/22/21 11:08 Temperature 99.0 F Temperature Source Oral Pulse Rate [Left] 86 Respiratory Rate 20 Blood Pressure [Right Arm] 131/62 Blood Pressure Mean [Right Arm] 85 02 Sat by Pulse Oximetry 99 - Lab Data Lab results reviewed: Yes: I reviewed the patient's lab results. [facility] [place] HPI - General Stated complaint: nausea, dizziness Time Seen by Provider: 08/22/21 11:57 Mode of Arrival: Ambulatory Limitations: No Limitations Description of Symptoms (Recalled from Triage Doc. by RN): pt c/o vomitting, last time was last night. pt states her dizziness yesterday morning. HEENT Symptoms (Recalled from RN notes): Yes Resp Symptoms (Recalled from RN notes): Yes Skin Symptoms (Recalled from RN notes): No MS Symptoms (Recalled from RN notes): No Functional Status (Recalled from RN notes): wnl - History of Present Illness Provider Complaint: Patient state that she feels like she may have the flu State that last night she had some vomiting and had some dizziness yesterday morning States that today she is feeling achy all over and feels like she may have the flu or eat something bad - Related Data Home Medications Medication Instructions Recorded Confirmed Nitroglycerin 0.4 mg SL Q5MINP PRN 04/14/20 05/24/21 Previous Rx's Medication Instructions Recorded Albuterol Sulfate [Ventolin HFA 1 - 2 puffs IH Q4-6H PRN #1 inh 12/26/18 Inhaler] blood-glucose meter,continuous See Rx Instructions .MEDSUPPLY #1 05/12/20 each pantoprazole 40 mg tablet,delayed See Rx Instructions .ROUTE 11/30/20 release .COMPLEX #90 tablet spironolactone 25 mg tablet See Rx Instructions .ROUTE 03/01/21 .COMPLEX #90 tab blood-glucose sensor See Rx Instructions .ROUTE 03/25/21 .COMPLEX #3 each insulin human U-100 NPH-regulr See Rx Instructions .ROUTE 03/25/21 70-30 mix 100 unit/mL subcutaneous .COMPLEX #20 ml s
[2021-08-22 12:11] LABS: Adenovirus,PCR Not Detected (NotDetected); Bordetella Pertussis Not Detected (NotDetected); Chlamydophila Pneumoniae, PCR Not Detected (NotDetected); Coronavirus 19, PCR Not Detected (NotDetected); Coronavirus 229E Not Detected (NotDetected); Coronavirus NL63 Not Detected (NotDetected); Coronavirus OC43 Not Detected (NotDetected); Coronovirus HKU1,PCR Not Detected (NotDetected); Human Metapneumovirus Not Detected (NotDetected); Influenza A, PCR Not Detected (NotDetected); Influenza AH1, 2009 Not Detected (NotDetected); Influenza AH1, PCR Not Detected (NotDetected); Influenza AH3,PCR Not Detected (NotDetected); Influenza B, PCR Not Detected (NotDetected); Mycoplasma Pneumoniae, PCR Not Detected (NotDetected); Parainfluenza 1, PCR Not Detected (NotDetected); Parainfluenza 2, PCR Not Detected (NotDetected); Parainfluenza 3, PCR Not Detected (NotDetected); Parainfluenza 4, PCR Not Detected (NotDetected); Respiratory Syncytial Virus Not Detected (NotDetected); Rhinovirus/Enterovirus Not Detected (NotDetected)
[2021-08-22 12:22] VITALS: BP 131/62; PULSE 86; RESP 20; TEMP 37.2
== END 2021-08-22 12:24 | disposition home or self-care (01) ==
PROVIDERS: Emergency Provider Nurse Practitioner; PCP Nurse Practitioner Family
DX: B34.9 Viral infection, unspecified (principal); R53.82 Chronic fatigue, unspecified; Z20.822 Contact with and (suspected) exposure to COVID-19; I10 Essential (primary) hypertension; I25.10 Atherosclerotic heart disease of native coronary artery without angina pectoris; I48.91 Unspecified atrial fibrillation; K21.9 Gastro-esophageal reflux disease without esophagitis; E78.5 Hyperlipidemia, unspecified; G40.909 Epilepsy, unspecified, not intractable, without status epilepticus; Z79.02 Long term (current) use of antithrombotics/antiplatelets; Z79.4 Long term (current) use of insulin; Z79.51 Long term (current) use of inhaled steroids; Z79.899 Other long term (current) drug therapy; Z82.49 Family history of ischemic heart disease and other diseases of the circulatory system; Z83.3 Family history of diabetes mellitus
CPT/HCPCS: 87581; 87632; 87798; 87804; 99213; C9803; G0463; U0003; U0005

== ENCOUNTER → 2021-11-22 10:16 | Outpatient (CLI) | payer BC, SELFPAY ==
[2021-11-22 13:45] LABS: Alanine Aminotransferase 41 U/L (12-78); Albumin Level 3.7 g/dl (3.5-5.0); Alkaline Phosphatase 164 U/L (38-126); Aspartate Amino Transferase 33 U/L (14-36); Chol/HDL Ratio 5.9 (1-3.5); Cholesterol 189 mg/dl (140-200); HDL Cholesterol 32 mg/dl (40-60); Total Protein,Serum 6.9 g/dl (6.3-8.2); Triglycerides 197 mg/dl (30-150); VLDL Cholesterol 39 mg/dL (0-40)
[2021-11-22 13:47] LABS: Bilirubin,Total < 0.1 mg/dl (0.2-1.3)
[2021-11-22 13:56] LABS: Direct LDL Cholesterol 96.12 mg/dL (100-129)
[2021-11-22 14:31] LABS: Bilirubin,Direct 0.4 mg/dl (0.0-0.4)
== END ==
PROVIDERS: PCP Physician Assistant; Visit Provider Nurse Practitioner
DX: R06.00 Dyspnea, unspecified (principal); I25.10 Atherosclerotic heart disease of native coronary artery without angina pectoris; I48.0 Paroxysmal atrial fibrillation; I11.9 Hypertensive heart disease without heart failure; E78.5 Hyperlipidemia, unspecified; E11.9 Type 2 diabetes mellitus without complications; Z95.5 Presence of coronary angioplasty implant and graft
CPT/HCPCS: 36415; 80061; 80076

== ENCOUNTER → 2021-11-28 14:38 | Outpatient (CLI) | payer BC, SELFPAY ==
--- NOTE | 2021-11-28 14:44 | CA_ITS ---
APPROVED REPORT EXAM: Comprehensive 2D, Doppler, and color-flow Echocardiogram Workforce Manager: Leeann Mcadams CRT Ht: 5 ft 4 in Wt: 207lbs BSA: 1.99 BP: 140/68 mmHg Indications: Shortness of Breath, Diabetes, Obesity, Peripheral Edema, CAD, Hyperlipidemia, Hypertension/HDD, hx nstemi 2D Dimensions LVOT 1.94 cm (M/F) 1.5-2.5 LA Volume 72.50 mL LA Volume Index 36.60 mL/m2 (M/F) 16-34 M-Mode Dimensions RVDd 2.74 cm (0.9-2.6) LA Diam 4.59 cm (1.9-4.0) LVDd 5.14 cm (3.5-5.7) Ao Diam 3.25 cm (2.0-3.7) LVDs 4.05 cm (3.5-5.7) IVSd 1.38 cm (0.6-1.1) PWd 0.81 cm (0.6-1.1) EF (Teich) 42.80% FS 21.20% EDV (Teich) 126.10 mL TAPSE 2.04 (<1.7) ESV (Teich) 72.10 mL LV Diastology E Decel Time 183.00 (160-240 msec) E/A Ratio 2.21 MED E' 4.10 (< 7 cm/sec) MED A' 5.70 cm/s E'/MED E' Ratio 30.00 (>14) LAT E' 8.10 (<10 cm/sec) LAT A' 3.30 cm/s E/LAT E' Ratio 15.19 (>14) Aortic Valve LVOT Max 133.00 (70-110 cm/s) LVOT VTI 32.39 cm AoV Peak Dunog. 172.00 (50-130 cm/s) AO Peak GR. 11.80 mmHg AO Mean GR. 6.90 (<5 mmHg) AO VTI 35.57 (18-25 cm) MINNA (VTI) 2.69 (2.5-4.5 cm2) Mitral Valve MV A Velocity 56.00 (40-130 cm/s) E/A Ratio 2.21 MV Decel. Time 183.00 (160-240 ms) Pulmonary Valve PV Peak Velocity 132.00 (50-150 cm/s) Tricuspid Valve TR P. Velocity 182.00 cm/s RAP Estimate 10.00 mmHg RVSP 23.20 mmHg Left Ventricle Left atrium is moderately enlarged, left ventricle is normal size, estimated ejection fraction 55% with no regional wall motion abnormality, diastolic parameters are inconclusive. Right Ventricle Right atrium and right ventricle are normal size and contractility. Aortic Valve Aortic valve is thickened and calcified without aortic stenosis or aortic insufficiency. Mitral Valve Mitral valve has mitral annular calcification, leaflets are minimally thickened, there is no mitral stenosis, there is mild mitral regurgitation. Tricuspid Valve Tricuspid valve is grossly normal, there is mild tricuspid regurgitation, tricuspid regurgitation jet velocity is inadequate for calculation of the right ventricular systolic pressure. Pulmonic Valve Pulmonic valve is poorly visualized. Great Vessels Aortic root is normal size. Inferior vena cava normal with normal inspiratory collapse. Pericardium No significant pericardial effusion noted. Conclusion 1. Moderately enlarged left atrium, normal left ventricular size, estimated ejection fraction 55% with no regional wall motion abnormality, diastolic parameters are inconclusive. 2. Thickened and calcified aortic valve without aortic stenosis aortic insufficiency. 3. Mild mitral and tricuspid regurgitation. 4. No significant pericardial effusion 5. Inferior vena cava normal size with normal inspiratory collapse. Electronically signed by : Virgilio Paual MD 11/28/2021 19:29:52
== END ==
PROVIDERS: PCP Physician Assistant; Visit Provider Nurse Practitioner
DX: R06.00 Dyspnea, unspecified (principal); I48.0 Paroxysmal atrial fibrillation; I25.10 Atherosclerotic heart disease of native coronary artery without angina pectoris; I11.9 Hypertensive heart disease without heart failure; E78.5 Hyperlipidemia, unspecified; R06.83 Snoring; R40.0 Somnolence; R53.83 Other fatigue; Z95.5 Presence of coronary angioplasty implant and graft
CPT/HCPCS: 93306

== ENCOUNTER 2022-09-25 11:14 | Emergency (ER) | payer BC, SELFPAY ==
[2022-09-25 11:14] VITALS: BP 176/97; PULSE 103; RESP 18; TEMP 36.8; O2SAT 97; BMI 39.4
--- NOTE | 2022-09-25 11:25 | EXP.UTC ---
Discharge Plan Disposition Patient Disposition: Home, Self-Care Condition: Good Prescriptions Prescriptions: New sulfamethoxazole-trimethoprim [Bactrim DS] 800-160 mg Tablet 1 tab PO BID Qty: 20 0RF cephalexin 500 mg capsule 500 mg PO QID Qty: 40 0RF mupirocin 2 % ointment 1 applic topical TID 7 Days Qty: 15 0RF No Action (DME) Dexcom Network Analyst Misc See Rx Instructions .MEDSUPPLY Qty: 1 0RF Rx Instructions: As directed cholecalciferol (vitamin D3) 25 mcg (1,000 unit) tablet See Rx Instructions .ROUTE .COMPLEX Qty: 30 1RF Dose Instruction: TAKE ONE TABLET BY MOUTH EVERY DAY Rx Instructions: TAKE ONE TABLET BY MOUTH EVERY DAY spironolactone 25 mg tablet See Rx Instructions .ROUTE .COMPLEX Qty: 90 5RF Dose Instruction: TAKE ONE TABLET BY MOUTH EVERY DAY Rx Instructions: TAKE ONE TABLET BY MOUTH EVERY DAY pantoprazole 40 mg tablet,delayed release (DR/EC) See Rx Instructions .ROUTE .COMPLEX Qty: 90 5RF Dose Instruction: TAKE ONE TABLET BY MOUTH EVERY DAY Rx Instructions: TAKE ONE TABLET BY MOUTH EVERY DAY atorvastatin 80 mg tablet 80 mg PO DAILY Qty: 90 3RF clopidogrel 75 mg tablet See Rx Instructions .ROUTE .COMPLEX Qty: 90 1RF Dose Instruction: TAKE ONE TABLET BY MOUTH EVERY DAY Rx Instructions: TAKE ONE TABLET BY MOUTH EVERY DAY Xarelto 20 mg tablet See Rx Instructions .ROUTE .COMPLEX Qty: 90 1RF Dose Instruction: TAKE ONE TABLET BY MOUTH EVERY DAY FOR blood thinner Rx Instructions: TAKE ONE TABLET BY MOUTH EVERY DAY FOR blood thinner (DME) Dexcom G6 Transmitter Device See Rx Instructions .ROUTE .COMPLEX Qty: 1 1RF Dose Instruction: USE DIRECTED TO TEST BLOOD GLUCOSE LEVEL Rx Instructions: USE DIRECTED TO TEST BLOOD GLUCOSE LEVEL diltiazem HCl 240 mg capsule,extended release 24hr See Rx Instructions .ROUTE .COMPLEX Qty: 90 1RF Dose Instruction: TAKE ONE CAPSULE BY MOUTH EVERY DAY Rx Instructions: TAKE ONE CAPSULE BY MOUTH EVERY DAY (DME) Dexcom G6 Sensor Device See Rx Instructions .ROUTE .COMPLEX Qty: 3 5RF Dose Instruction: USE DIRECTED TO TEST BLOOD GLUCOSE LEVEL Rx Instructions: USE DIRECTED TO TEST BLOOD GLUCOSE LEVEL (DME) insulin syringe-needle U-100 [BD Insulin Syringe Ultra-Fine] 1 mL 31 gauge x 5/16 syringe See Rx Instructions .ROUTE .COMPLEX Qty: 100 1RF Dose Instruction: USE DIRECTED with insulin injections TWICE DAILY Rx Instructions: USE DIRECTED with insulin injections TWICE DAILY Humulin 70/30 U-100 Insulin 100 unit/mL (70-30) suspension See Rx Instructions .ROUTE .COMPLEX Qty: 20 0RF Dose Instruction: INJECT 30 UNITS SUBCUTANEOUSLY TWICE DAILY FOR DIABETES Rx Instructions: INJECT 30 UNITS SUBCUTANEOUSLY TWICE DAILY FOR DIABETES NEEDS APPT. FOR NEXT REFILL nitroglycerin 0.4 MG tablet, sublingual 0.4 mg SL Q5MINP PRN (Reason: Chest Pain) ondansetron 4 MG tablet,disintegrating 4 mg PO TIDP PRN (Reason: Vomiting) Qty: 10 0RF albuterol sulfate 18 GM HFA aerosol inhaler 1 - 2 puffs IH Q4-6H PRN (Reason: Shortness Of Breath Or Wheezing) Qty: 1 0RF Referrals Follow up/Referrals: Anyi Raymundo PA [Primary Care Provider] - See instructions Activity Restrictions/Add. Instructions Additional Instructions/Restrictions: Keep the affected area clean and dry. Follow up with your regular doctor. Take the antibiotics as directed and apply the topical antibiotics as directed. Apply warm wet compresses to the affected area three or four times per day. GO TO THE ER FOR ANY WORSENING SYMPTOMS Clinical Impressions Clinical Impression: Cutaneous abscess of right lower limb Discharge ED Provider: Govind Barker [facility] [place] HPI General Stated complaint: Possible boil inside of RT leg Time Seen by Provider: 09/25/22 11:25 History of
[2022-09-25 11:47] VITALS: BP 134/82; PULSE 95; RESP 18; TEMP 36.8; O2SAT 95
== END 2022-09-25 11:48 | disposition home or self-care (01) ==
PROVIDERS: Emergency Provider Nurse Practitioner Family; PCP Physician Assistant
DX: L02.415 Cutaneous abscess of right lower limb (principal); E11.9 Type 2 diabetes mellitus without complications; Z79.4 Long term (current) use of insulin
CPT/HCPCS: 99212; 99214; G0463

== ENCOUNTER 2022-09-29 10:46 | Observation (INO) | payer BC, SELFPAY ==
[2022-09-29] VITALS (13 sets, daily range): BP systolic 155–194; BP diastolic 80–103; PULSE 108–117; RESP 18–22; TEMP 36.1–36.8; O2SAT 94–99; BMI 36.0; BMI 35.8
--- NOTE | 2022-09-29 10:48 | ECG_ITS ---
APPROVED REPORT Exam: Resting ECG HR:113 bpm ECG Measurements Heart Rate 113 AXES CO 174 P 75 QRSd 85 QRS 77 QT 339 T 42 QTc 406 Conclusion SINUS TACHYCARDIA Angelie first degree AV block INTERPRETATION BASED ON A DEFAULT AGE OF 40 YEARS UNCONFIRMED REPORT Electronically signed by : Faisal Coleman MD 09/30/2022 11:35:31
--- NOTE | 2022-09-29 10:59 | XR_ITS ---
PROCEDURE INFORMATION: Exam: XR Chest Exam date and time: 09/29/2022 11:15 AM Age: 62 years old Clinical indication: Pain; Right-sided; Additional info: Chest pain TECHNIQUE: Imaging protocol: Radiologic exam of the chest. Views: 1 view. COMPARISON: CR XR CHEST PORTABLE 04/13/2020 7:48 PM FINDINGS: Lungs: No focal airspace disease. Pleural spaces: Unremarkable. No pleural effusion. No pneumothorax. Heart/Mediastinum: Cardiomediastinal silhouette is within normal limits. Bones/joints: Unremarkable. IMPRESSION: No acute cardiopulmonary abnormality.
[2022-09-29 11:05] LABS: Basophils # 0.1 K/mm3 (0-0.2); Basophils % 0.5 % (0.1-2.0); Eosinophils # 0.1 K/mm3 (0.0-0.4); Eosinophils % 0.4 % (0.1-12.0); Hematocrit 41.2 % (37.0-47.0); Hemoglobin 13.3 g/dL (12.2-16.2); Lymphocytes # 0.8 K/mm3 (0.7-4.5); Lymphocytes % 6.7 % (10-50); Mean Corpuscular HGB Conc 32.4 g/dL (31.8-35.4); Mean Corpuscular Hemoglobin 27.5 pg (27.0-31.2); Mean Corpuscular Volume 84.9 fl (81-99); Mean Platelet Volume 7.9 fl (7.4-10.4); Monocytes # 0.3 K/mm3 (0.1-1.0); Monocytes % 2.3 % (1.7-9.3); Neutrophils # 10.5 K/mm3 (1.8-7.8); Platelet Count 348 K/mm3 (142-424); Red Blood Count 4.85 M/mm3 (4.20-5.40); Red Cell Distribution Width 13.4 % (11.5-17.5); White Blood Count 11.6 K/mm3 (4.8-10.8)
[2022-09-29 11:06] LABS: Chloride 97 mmol/L (98-107); Sodium 133 mmol/L (136-145)
[2022-09-29 11:07] LABS: Potassium 4.4 mmoL/L (3.5-5.1)
[2022-09-29 11:08] LABS: MANUAL DIFFERENTIAL MANUAL DIFFERENTIAL (MANUAL DIFF)
[2022-09-29 11:09] LABS: Alanine Aminotransferase 39 U/L (12-78); Albumin Level 3.8 g/dl (3.5-5.0); Albumin/Globulin Ratio 0.9 (1.1-1.8); Alkaline Phosphatase 147 U/L (38-126); Anion Gap 19.4 mEq/L (5-15); Aspartate Amino Transferase 43 U/L (14-36); Bilirubin,Total 0.5 mg/dl (0.2-1.3); Blood Urea Nitrogen 22 mg/dl (7-17); Carbon Dioxide 21 mmol/L (22.0-30.0); Creatinine Clearance Estimated 55 mL/min (50-200); Estimated Glomerular Filt Rate 33 ml/min (>60); GFR (African American) 40 ML/MIN (>60); Globulin 4.2 g/dL (1.3-3.2)
[2022-09-29 11:10] LABS: Calcium 9.5 mg/dl (8.4-10.2)
[2022-09-29 11:13] LABS: Glucose 406 mg/dl (74-100)
--- NOTE | 2022-09-29 11:13 | PC.NURSE ---
Critical lab glucose of 406; notified
--- NOTE | 2022-09-29 11:19 | PC.NURSE ---
XR AT BEDSIDE
[2022-09-29 11:20] LABS: Lymphocytes % 9 % (10-50); Monocytes % 2 % (2-9); Neutrophils % 89 % (42-76); Platelet Estimate Normal; RBC Morphology Normal; Total Cells Counted 100
[2022-09-29 11:22] LABS: Troponin I 0.02 ng/ml (0.00-0.034)
--- NOTE | 2022-09-29 11:22 | HMH.EDGENADL ---
Discharge Plan Disposition Patient Disposition: Admitted Prescriptions Prescriptions: No Action (DME) Dexcom Compacting Machine Operator/Tender Misc See Rx Instructions .MEDSUPPLY Qty: 1 0RF Rx Instructions: As directed cholecalciferol (vitamin D3) 25 mcg (1,000 unit) tablet See Rx Instructions .ROUTE .COMPLEX Qty: 30 1RF Dose Instruction: TAKE ONE TABLET BY MOUTH EVERY DAY Rx Instructions: TAKE ONE TABLET BY MOUTH EVERY DAY spironolactone 25 mg tablet See Rx Instructions .ROUTE .COMPLEX Qty: 90 5RF Dose Instruction: TAKE ONE TABLET BY MOUTH EVERY DAY Rx Instructions: TAKE ONE TABLET BY MOUTH EVERY DAY pantoprazole 40 mg tablet,delayed release (DR/EC) See Rx Instructions .ROUTE .COMPLEX Qty: 90 5RF Dose Instruction: TAKE ONE TABLET BY MOUTH EVERY DAY Rx Instructions: TAKE ONE TABLET BY MOUTH EVERY DAY atorvastatin 80 mg tablet 80 mg PO DAILY Qty: 90 3RF clopidogrel 75 mg tablet See Rx Instructions .ROUTE .COMPLEX Qty: 90 1RF Dose Instruction: TAKE ONE TABLET BY MOUTH EVERY DAY Rx Instructions: TAKE ONE TABLET BY MOUTH EVERY DAY Xarelto 20 mg tablet See Rx Instructions .ROUTE .COMPLEX Qty: 90 1RF Dose Instruction: TAKE ONE TABLET BY MOUTH EVERY DAY FOR blood thinner Rx Instructions: TAKE ONE TABLET BY MOUTH EVERY DAY FOR blood thinner (DME) Dexcom G6 Transmitter Device See Rx Instructions .ROUTE .COMPLEX Qty: 1 1RF Dose Instruction: USE DIRECTED TO TEST BLOOD GLUCOSE LEVEL Rx Instructions: USE DIRECTED TO TEST BLOOD GLUCOSE LEVEL diltiazem HCl 240 mg capsule,extended release 24hr See Rx Instructions .ROUTE .COMPLEX Qty: 90 1RF Dose Instruction: TAKE ONE CAPSULE BY MOUTH EVERY DAY Rx Instructions: TAKE ONE CAPSULE BY MOUTH EVERY DAY (DME) Dexcom G6 Sensor Device See Rx Instructions .ROUTE .COMPLEX Qty: 3 5RF Dose Instruction: USE DIRECTED TO TEST BLOOD GLUCOSE LEVEL Rx Instructions: USE DIRECTED TO TEST BLOOD GLUCOSE LEVEL (DME) insulin syringe-needle U-100 [BD Insulin Syringe Ultra-Fine] 1 mL 31 gauge x 5/16 syringe See Rx Instructions .ROUTE .COMPLEX Qty: 100 1RF Dose Instruction: USE DIRECTED with insulin injections TWICE DAILY Rx Instructions: USE DIRECTED with insulin injections TWICE DAILY Humulin 70/30 U-100 Insulin 100 unit/mL (70-30) suspension See Rx Instructions .ROUTE .COMPLEX Qty: 20 0RF Dose Instruction: INJECT 30 UNITS SUBCUTANEOUSLY TWICE DAILY FOR DIABETES Rx Instructions: INJECT 30 UNITS SUBCUTANEOUSLY TWICE DAILY FOR DIABETES NEEDS APPT. FOR NEXT REFILL nitroglycerin 0.4 MG tablet, sublingual 0.4 mg SL Q5MINP PRN (Reason: Chest Pain) ondansetron 4 MG tablet,disintegrating 4 mg PO TIDP PRN (Reason: Vomiting) Qty: 10 0RF albuterol sulfate 18 GM HFA aerosol inhaler 1 - 2 puffs IH Q4-6H PRN (Reason: Shortness Of Breath Or Wheezing) Qty: 1 0RF sulfamethoxazole-trimethoprim [Bactrim DS] 800-160 mg Tablet 1 tab PO BID Qty: 20 0RF cephalexin 500 mg capsule 500 mg PO QID Qty: 40 0RF mupirocin 2 % ointment 1 applic topical TID 7 Days Qty: 15 0RF Referrals Follow up/Referrals: Anyi Raymundo PA [Primary Care Provider] - See instructions Clinical Impressions Clinical Impression: Intractable nausea and vomiting, Nausea vomiting and diarrhea, Acute dehydration, Poorly controlled diabetes mellitus, BERNABE (acute kidney injury) Instructions Patient Instructions: DI for Diarrhea and Traveler's Diarrhea -- Adult, DI for Diarrhea and Traveler's Diarrhea -- Child, DI for Nausea -- Adult, DI for Nausea -- Child Discharge ED Provider: Estrada Moore General Adult HPI General Chief complaint: Nausea/Vomiting/Diarrhea Stated complaint: vomiting Time Seen by Provider: 09/29/22 11:22 Mode of Arrival: Ambulatory Limitations: No Limitations Description of Symptoms (Recalled
--- NOTE | 2022-09-29 11:23 | PC.NURSE ---
DR MURO AT BEDSIDE
[2022-09-29 11:36] LABS: Lipase 60 U/L (23-300)
--- NOTE | 2022-09-29 11:41 | PC.NURSE ---
[facility] DRAWN, RESPIRATORY NOTIFIED
[2022-09-29 11:54] LABS: VBG Base Excess -6.1 mmol/L (-2.4-2.3); VBG HCO3 18.7 mmol/L (23-30); VBG Oxygen Saturation 90.3 % (50-70); VBG PCO2 31.1 mmol/L (35-51); VBG PO2 57.5 mmol/L (28-40); VBG Total CO2 19.7 mmol/L (23-27)
[2022-09-29 13:08] LABS: Coronavirus 19, PCR Not Detected (NotDetected); Influenza A, PCR Not Detected (NotDetected); Influenza B, PCR Not Detected (NotDetected)
--- NOTE | 2022-09-29 13:22 | PC.NURSE ---
PT SLEEPING SOUNDLY, SNORING. AWAKENS EASILY. NO NEEDS AT THIS TIME
--- NOTE | 2022-09-29 13:52 | PC.NURSE ---
pt trying to eat ice chips, per ER MD request for PO challenge. Pt began vomitting again soon after eating ice chips
--- NOTE | 2022-09-29 13:54 | PC.NURSE ---
DR MURO AT BEDSIDE TO REEVALUATE PT
--- NOTE | 2022-09-29 13:58 | PC.NURSE ---
waiting pharmacy innovation assistant back from hospitalist
--- NOTE | 2022-09-29 14:08 | PC.NURSE ---
notified house calls nurse of admission
--- NOTE | 2022-09-29 14:08 | EXP.HP ---
History of Present Illness *Admission Date: 09/29/22 *Reason for visit:: nausea and vomiting *History of present illness: Ms. Williamson is a 62-year-old female with uncontrolled diabetes, paroxysmal A-fib, hypertension, CAD, and obesity who presented to the ER with complaint of vomiting for the past 24 hours. No jada fever. No blood in vomit or stool. Of note she was started on antibiotics earlier this week by the [facility] for an infection on her leg. States the lesion is gotten a little bit better but she began vomiting after starting medication. Has not taken her diabetes medication in the past 36 hours. Complaining of abdominal cramping and pain. No shortness of breath. On evaluation in the ER, patient found to have an BERNABE and hyperglycemia. Treated with multiple antiemetics and IV fluids. No significant improvement unable to tolerate p.o. intake. Medicine consulted for admission and further management. On arrival to the floor, patient is fatigued but will wake to answer questions. Has had another episode of emesis after arriving to the floor. Reviewed patient's previous cardiac notes and history. Problems as follows: Cardiac history: from note 10/2021 NO RAYMOND-I due to Hyperkalemia. HLD-LDL goal is < 55. LDL 115 in 04/2021, on statin. Managed by PCP. Afib is SR.s/p ablation. a/c on xarelto. Denies bleeding issues. DM is well controlled. Managed by PCP. EKG is NSR, rightward axis, rate is 90 bpm. ECHO to look at LV function due to dyspnea. Liver and Lipid needed. Of note, has not seen her primary care in almost a year or had an A1c checked in about a year. Did not follow-up with cardiology at 6-month oli as instructed. [facility] Disclaimer: The information contained in this section may have been updated after the patient was seen, as this information can be updated by other users. Medical History Diabetes mellitus, insulin dependent (IDDM), controlled Dyspnea Fatigue Social History Smoking Status: Never smoker second hand exposure: No alcohol intake: never substance use type: denies use current occupational status: employed Travel in the last 8 weeks: Inside the [place] household members: spouse and family housing: house current occupational exposures/hazards: No caffeine: Yes Review of Systems Review of Systems Review of systems (narrative): 14 point review of systems performed, pertinent positives and negatives as per HPI Meds Home Medications and Allergies Home Medications Medication Instructions Recorded Confirmed Type albuterol sulfate 90 mcg/actuation 1 - 2 puffs inhalation Q4-6H PRN 12/26/18 11/22/21 Rx aerosol inhaler Shortness Of Breath Or Wheezing #1 inh nitroglycerin 0.4 mg sublingual 0.4 mg sublingual Q5MINP PRN Chest 04/14/20 11/22/21 History tablet Pain blood-glucose meter,continuous #1 ea 05/12/20 11/22/21 Rx (Dexcom Hand Router Operator) cholecalciferol (vitamin D3) 25 See Rx Instructions .Route 08/04/21 11/22/21 Rx mcg (1,000 unit) tablet .COMPLEX #30 tabs ondansetron 4 mg disintegrating 4 mg PO TIDP PRN Vomiting #10 tabs 08/22/21 11/22/21 Rx tablet atorvastatin 80 mg tablet 80 mg PO DAILY #90 tabs 05/03/22 Rx clopidogrel 75 mg tablet See Rx Instructions .Route 05/30/22 Rx .COMPLEX #90 tabs blood-glucose transmitter (Dexcom #1 ea 07/16/22 Rx G6 Transmitter device) blood-glucose sensor (Dexcom G6 #3 ea 08/20/22 Rx Sensor device) insulin syringe-needle U-100 1 mL #100 ea 08/27/22 Rx 31 gauge x 5/16 (BD Insulin Syringe Ultra-Fine) insulin human U-100 NPH-regulr See Rx Instructions .Route 09/21/22 Rx 70-30 mix 100 unit/mL subcutaneous .COMPLEX #20 mL susp (Humulin 70/30 U-100 Insulin) cephalexin 500 mg capsule 500 mg PO QID #40 caps 09/25/22 Rx mupirocin 2 % topical ointment 1 applic topical TID 7 days #15 09/25/22 Rx grams
--- NOTE | 2022-09-29 14:09 | PC.NURSE ---
PT UNABLE TO PROVIDE MEDICATION LIST AT THIS TIME
--- NOTE | 2022-09-29 14:34 | PC.NURSE ---
REPORT GIVEN TO Stevie ESPINO RN
[2022-09-29 14:38] LABS: Hemoglobin A1C 12.7 % (4.0-6.0)
[2022-09-29 15:07] LABS: Thyroid Stimulating Hormone 0.49 uIU/mL (0.465-4.68)
[2022-09-29 15:36] LABS: POC Glucose,Bedside 379 (70-110)
[2022-09-29 17:01] LABS: POC Glucose,Bedside 405 (70-110)
--- NOTE | 2022-09-29 17:07 | PC.NURSE ---
[address] PATIENT SLEEPING AT THIS TIME WITH CALL LIGHT WITHIN REACH . TRASH EMPTIED AND ICE WATER REFILLED .
--- NOTE | 2022-09-29 17:25 | PC.NURSE ---
Dr. Guillaume notified of glucose 405. Sliding scale insulin given.
[2022-09-29 19:11] LABS: Chloride 97 mmol/L (98-107); Potassium 4.3 mmoL/L (3.5-5.1); Sodium 134 mmol/L (136-145)
[2022-09-29 19:14] LABS: Blood Urea Nitrogen 21 mg/dl (7-17); Creatinine Clearance Estimated 62 mL/min (50-200); Estimated Glomerular Filt Rate 38 ml/min (>60); GFR (African American) 46 ML/MIN (>60)
[2022-09-29 19:15] LABS: Anion Gap 19.3 mEq/L (5-15); Calcium 9.2 mg/dl (8.4-10.2); Carbon Dioxide 22 mmol/L (22.0-30.0); Glucose 375 mg/dl (74-100)
[2022-09-29 20:22] LABS: POC Glucose,Bedside 284 (70-110)
[2022-09-30 04:00] VITALS: BP 135/86; PULSE 97; RESP 18; TEMP 36.7; O2SAT 92; BMI 35.5
[2022-09-30 06:39] LABS: POC Glucose,Bedside 230 (70-110)
[2022-09-30 07:22] VITALS: BP 136/89; PULSE 94; RESP 18; TEMP 37.2; O2SAT 96
[2022-09-30 07:42] LABS: Eosinophils # 0.1 K/mm3 (0.0-0.4); Lymphocytes # 1.5 K/mm3 (0.7-4.5); Mean Corpuscular Volume 84.6 fl (81-99); Red Cell Distribution Width 13.5 % (11.5-17.5)
[2022-09-30 07:51] LABS: Basophils # 0.1 K/mm3 (0-0.2); Basophils % 0.4 % (0.1-2.0); Eosinophils % 0.7 % (0.1-12.0); Hematocrit 33.3 % (37.0-47.0); Lymphocytes % 11.4 % (10-50); Mean Corpuscular HGB Conc 32.8 g/dL (31.8-35.4); Mean Corpuscular Hemoglobin 27.8 pg (27.0-31.2); Monocytes # 0.7 K/mm3 (0.1-1.0); Monocytes % 5.8 % (1.7-9.3); Neutrophils # 10.6 K/mm3 (1.8-7.8); Neutrophils % 81.8 % (37.0-80.0); Platelet Count 306 K/mm3 (142-424); Red Blood Count 3.94 M/mm3 (4.20-5.40); White Blood Count 12.9 K/mm3 (4.8-10.8)
[2022-09-30 07:52] LABS: Hemoglobin 10.9 g/dL (12.2-16.2)
[2022-09-30 07:56] LABS: Chloride 101 mmol/L (98-107)
[2022-09-30 07:57] LABS: Potassium 3.7 mmoL/L (3.5-5.1); Sodium 135 mmol/L (136-145)
[2022-09-30 07:59] LABS: Alanine Aminotransferase 34 U/L (12-78); Aspartate Amino Transferase 50 U/L (14-36); Blood Urea Nitrogen 26 mg/dl (7-17); Creatinine Clearance Estimated 62 mL/min (50-200); Estimated Glomerular Filt Rate 38 ml/min (>60); GFR (African American) 46 ML/MIN (>60)
[2022-09-30 08:00] LABS: Albumin Level 2.7 g/dl (3.5-5.0); Albumin/Globulin Ratio 0.8 (1.1-1.8); Alkaline Phosphatase 85 U/L (38-126); Anion Gap 11.7 mEq/L (5-15); Bilirubin,Total 0.2 mg/dl (0.2-1.3); Calcium 8.4 mg/dl (8.4-10.2); Carbon Dioxide 26 mmol/L (22.0-30.0); Globulin 3.2 g/dL (1.3-3.2); Glucose 204 mg/dl (74-100); Magnesium 1.8 mg/dl (1.6-2.3); Total Protein,Serum 5.9 g/dl (6.3-8.2)
--- NOTE | 2022-09-30 08:37 | EXP.PHA.CONS ---
Pharmacy Consult Date: 09/30/22 Time: 08:38 Referring provider: DR BOSE Reason for Consult:: VANCOMYCIN DOSING CONSULT Allergies Allergy/AdvReac Type Severity Reaction Status Date / Time latex Allergy Verified 11/22/21 09:51 Home Medications Medication Instructions Recorded Confirmed Type albuterol sulfate 90 mcg/actuation 1 - 2 puffs inhalation Q4-6H PRN 12/26/18 11/22/21 Rx aerosol inhaler Shortness Of Breath Or Wheezing #1 inh nitroglycerin 0.4 mg sublingual 0.4 mg sublingual Q5MINP PRN Chest 04/14/20 11/22/21 History tablet Pain blood-glucose meter,continuous #1 ea 05/12/20 11/22/21 Rx (Dexcom Tube Inspector) cholecalciferol (vitamin D3) 25 See Rx Instructions .Route 08/04/21 11/22/21 Rx mcg (1,000 unit) tablet .COMPLEX #30 tabs ondansetron 4 mg disintegrating 4 mg PO TIDP PRN Vomiting #10 tabs 08/22/21 11/22/21 Rx tablet atorvastatin 80 mg tablet 80 mg PO DAILY #90 tabs 05/03/22 Rx clopidogrel 75 mg tablet See Rx Instructions .Route 05/30/22 Rx .COMPLEX #90 tabs blood-glucose transmitter (Dexcom #1 ea 07/16/22 Rx G6 Transmitter device) blood-glucose sensor (Dexcom G6 #3 ea 08/20/22 Rx Sensor device) insulin syringe-needle U-100 1 mL #100 ea 08/27/22 Rx 31 gauge x 5/16 (BD Insulin Syringe Ultra-Fine) insulin human U-100 NPH-regulr See Rx Instructions .Route 09/21/22 Rx 70-30 mix 100 unit/mL subcutaneous .COMPLEX #20 mL susp (Humulin 70/30 U-100 Insulin) cephalexin 500 mg capsule 500 mg PO QID #40 caps 09/25/22 Rx mupirocin 2 % topical ointment 1 applic topical TID 7 days #15 09/25/22 Rx grams sulfamethoxazole 800 1 tab PO BID #20 tabs 09/25/22 Rx mg-trimethoprim 160 mg tablet (Bactrim DS) diltiazem HCl 240 mg See Rx Instructions .Route 09/29/22 09/29/22 History capsule,extended release 24 hr .COMPLEX Heart rhythm pantoprazole 40 mg tablet,delayed See Rx Instructions .Route 09/29/22 09/29/22 History release .COMPLEX Acid reflux spironolactone 25 mg tablet See Rx Instructions .Route 09/29/22 09/29/22 History .COMPLEX Fluid rivaroxaban 20 mg tablet (Xarelto) 20 mg PO QPMWITHMEAL Blood thinner 09/30/22 09/30/22 History New Prescriptions to Start Prescriptions: Height: 1.63 m Weight: 94.404 kg Laboratory Results:: Laboratory Results - last 24 hr 09/29/22 10:53: WBC 11.6 H, RBC 4.85, Hgb 13.3, Hct 41.2, MCV 84.9, MCH 27.5, MCHC 32.4, RDW 13.4, Plt Count 348, MPV 7.9, Neut % (Auto) 90.0 H, Lymph % (Auto) 6.7 L, [place] % (Auto) 2.3, Eos % (Auto) 0.4, Baso % (Auto) 0.5, Neut # (Auto) 10.5 H, Lymph # (Auto) 0.8, [place] # (Auto) 0.3, Eos # (Auto) 0.1, Baso # (Auto) 0.1, Total Counted 100, Neutrophils % (Manual) 89 H, Lymphocytes % (Manual) 9 L, Monocytes % (Manual) 2, Platelet Estimate Normal, RBC Morphology Normal 09/29/22 10:53: Sodium 133 L, Potassium 4.4, Chloride 97 L, Carbon Dioxide 21 L, Anion Gap 19.4 H, BUN 22 H, Creatinine 1.60 H, Estimated Creat Clear 55, Estimated GFR 33 L, Est GFR ( Amer) 40 L, Glucose 406 H*, Calcium 9.5, Total Bilirubin 0.5, AST 43 H, ALT 39, Alkaline Phosphatase 147 H, Troponin I 0.02, Total Protein 8.0, Albumin 3.8, Globulin 4.2 H, Albumin/Globulin Ratio 0.9 L 09/29/22 10:53: Lipase 60 09/29/22 10:53: Hemoglobin A1c 12.7 H 09/29/22 10:53: TSH 0.49 09/29/22 11:35: VBG pH 7.40, VBG pCO2 31.1 L, VBG pO2 57.5 H, VBG HCO3 18.7 L, VBG Total CO2 19.7 L, VBG O2 Saturation 90.3 H, VBG Base Excess -6.1 L 09/29/22 13:00: SARS-CoV-2 (PCR) Not detected, Influenza A Untype (PCR) Not detected, Influenza Type B (PCR) Not detected 09/29/22 15:28: POC Glucose 379 H* 09/29/22 16:54: POC Glucose 405 H* 09/29/22 18:05: Sodium 134 L, Potassium 4.3, Chloride 97 L, Carbon Dioxide 22, Anion Gap 19.3 H, BUN 21 H, Creatinine 1.40 H, Estimated Creat Clear 62, Estimated GFR 38 L, Est GFR ( Amer) 46 L, Glucose 375 H, Calcium 9.2 09/29/22 20:15: POC Glucose 284 H 09/30/22 06:02: POC Glucose 230 H 09/30/22 07:05: WBC 12.9 H, RBC 3.94 L, Hgb 10.9 L D
--- NOTE | 2022-09-30 09:02 | PC.NURSE ---
COURTESY ROUND PATIENT ASLEEP. TRASH AND LINENS EMPTIED . ICE WATER REFILLED . CALL LIGHT WITH IN REACH.
--- NOTE | 2022-09-30 10:16 | HMH.PHAINT1 ---
Pharmacy Intervention Comments: MEDICATION RECONCILIATION COMPLETE USING EXTERNAL PHARMACY FILL HISTORY.
[2022-09-30 10:56] LABS: POC Glucose,Bedside 164 (70-110)
--- NOTE | 2022-09-30 14:01 | EXP.ACUTE.PN ---
Subjective *Date: 09/30/22 *Time: 14:01 Interval history: Patient states she is feeling better this morning. Denies significant nausea. Tolerating p.o. intake. No chest pain or shortness of breath. Blood sugar better controlled. Glucose 204 on morning labs. Tolerating change in regimen. We will stop IV fluids as she is tolerating p.o. fluid intake Medical Exam Vital signs and Labs for Last 24 Hours: Vital Signs Temp Pulse Pulse Resp BP BP Pulse Ox 09/30/22 07:22 98.9 F 94 H 18 136/89 96 09/30/22 04:00 98.1 F 97 H 18 135/86 92 L 09/29/22 23:52 97.0 F L 117 H 18 161/84 H 97 09/29/22 19:43 98.2 F 114 H 18 155/80 H 96 09/29/22 17:30 156/82 H 09/29/22 14:50 97.8 F 114 H 18 162/91 H 09/29/22 14:52 97.8 F 114 H 18 162/91 H 95 09/29/22 14:30 110 H 18 191/96 H 94 L Intake and Output 09/29/22 09/30/22 09/30/22 23:59 07:59 15:59 Intake Total 50 / 50 1901 Output Total 300 / 300 0 / 0 0 / 0 Balance -250 / -250 1901 Intake: Intake, Oral Amount 240 / 360 120 / 360 Intake, Total IV Amount 50 / 50 1662 / 1662 Ceftriaxone Sodium 1 gm In 0.9 50 / 50 % Sodium Chloride 50 ml @ 100 mls/hr IV Q24H [facility] Rx#:[id number] Lactated Ringers 1000ML 1,000 1662 / 1662 ml @ 150 mls/hr IV .Q6H40M [facility] Rx#:[id number] Output: Output, Urine Amount 300 / 300 0 / 0 0 / 0 Other: Number of Unmeasured Voids 1 1 1 Weight 94.404 kg 94.404 kg Patient Weight 09/30/22 23:59 Weight 94.404 kg Laboratory Results - last 24 hr 09/29/22 10:53: Hemoglobin A1c 12.7 H 09/29/22 10:53: TSH 0.49 09/29/22 15:28: POC Glucose 379 H* 09/29/22 16:54: POC Glucose 405 H* 09/29/22 18:05: Sodium 134 L, Potassium 4.3, Chloride 97 L, Carbon Dioxide 22, Anion Gap 19.3 H, BUN 21 H, Creatinine 1.40 H, Estimated Creat Clear 62, Estimated GFR 38 L, Est GFR ( Amer) 46 L, Glucose 375 H, Calcium 9.2 09/29/22 20:15: POC Glucose 284 H 09/30/22 06:02: POC Glucose 230 H 09/30/22 07:05: WBC 12.9 H, RBC 3.94 L, Hgb 10.9 L D, Hct 33.3 L, MCV 84.6, MCH 27.8, MCHC 32.8, RDW 13.5, Plt Count 306, MPV 8.0, Neut % (Auto) 81.8 H, Lymph % (Auto) 11.4, [place] % (Auto) 5.8, Eos % (Auto) 0.7, Baso % (Auto) 0.4, Neut # (Auto) 10.6 H, Lymph # (Auto) 1.5, [place] # (Auto) 0.7, Eos # (Auto) 0.1, Baso # (Auto) 0.1 09/30/22 07:05: Sodium 135 L, Potassium 3.7, Chloride 101, Carbon Dioxide 26, Anion Gap 11.7, BUN 26 H, Creatinine 1.40 H, Estimated Creat Clear 62, Estimated GFR 38 L, Est GFR ( Amer) 46 L, Glucose 204 H D, Calcium 8.4, Magnesium 1.8, Total Bilirubin 0.2, AST 50 H, ALT 34, Alkaline Phosphatase 85, Total Protein 5.9 L D, Albumin 2.7 L D, Globulin 3.2, Albumin/Globulin Ratio 0.8 L 09/30/22 10:44: POC Glucose 164 H I & O for Labs for Last 24 Hours: Intake & Output 09/27/22 09/28/22 09/29/22 09/30/22 23:59 23:59 23:59 23:59 Intake Total 50 / 50 2021 Output Total 300 / 300 0 / 0 Balance -250 / -250 2021 Weight 94.574 kg 94.404 kg Constitutional: Present no acute distress, obese and chronically ill appearing Head: Present atraumatic and normocephalic ENT: Present normal exam Neck: Present normal inspection Respiratory: Present normal respiratory effort; Absent rhonchi, stridor, wheezes or crackles Cardiac: Present Reg Rate and Rhythm GI: Present soft and normal bowel sounds; Absent distention or tenderness Rectal (female): Present deferred Extremities: Present normal inspection and full ROM Skin: Present intact; Absent erythema Neuro: Present Grossly Intact, alert, awake, oriented x 3 and moves all extremities Assessment and Plan *Assessment and plan (1) BERNABE (acute kidney injury): Status: Acute Category: Medical Code(s): N17.9 - Acute kidney failure, unspecified (2) Boil, thigh: Status: Acute Category: Medical Code(s): L02.429 - Furuncle of limb, unspecified (3) Hyper
[2022-09-30 15:09] VITALS: BP 126/62; PULSE 85; RESP 18; TEMP 36.9; O2SAT 98
[2022-09-30 15:53] LABS: POC Glucose,Bedside 183 (70-110)
--- NOTE | 2022-09-30 17:35 | PC.NURSE ---
no ACUTE CHANGES THIS SHIFT. PT HAS BEEN AMBULATING IN ROOM. HAS DENIED N/V AND ABD PAIN THIS SHIFT.
[2022-09-30 20:00] VITALS: BP 129/59; PULSE 85; RESP 18; TEMP 36.7
[2022-09-30 20:14] LABS: POC Glucose,Bedside 234 (70-110)
[2022-10-01 04:00] VITALS: BP 124/63; PULSE 86; RESP 18; TEMP 36.5; O2SAT 98; BMI 35.4
[2022-10-01 05:44] LABS: POC Glucose,Bedside 175 (70-110)
[2022-10-01 06:23] LABS: MANUAL DIFFERENTIAL MANUAL DIFFERENTIAL (MANUAL DIFF)
[2022-10-01 06:29] LABS: Basophils # 0.1 K/mm3 (0-0.2); Basophils % 0.7 % (0.1-2.0); Eosinophils # 0.3 K/mm3 (0.0-0.4); Eosinophils % 2.9 % (0.1-12.0); Hematocrit 35.3 % (37.0-47.0); Hemoglobin 11.4 g/dL (12.2-16.2); Lymphocytes # 1.5 K/mm3 (0.7-4.5); Lymphocytes % 16.6 % (10-50); Mean Corpuscular HGB Conc 32.3 g/dL (31.8-35.4); Mean Corpuscular Hemoglobin 27.6 pg (27.0-31.2); Mean Corpuscular Volume 85.4 fl (81-99); Mean Platelet Volume 8.1 fl (7.4-10.4); Monocytes # 0.6 K/mm3 (0.1-1.0); Neutrophils # 6.4 K/mm3 (1.8-7.8); Neutrophils % 72.8 % (37.0-80.0); Platelet Count 305 K/mm3 (142-424); Red Blood Count 4.14 M/mm3 (4.20-5.40); Red Cell Distribution Width 13.5 % (11.5-17.5); White Blood Count 8.8 K/mm3 (4.8-10.8)
[2022-10-01 06:34] LABS: Chloride 102 mmol/L (98-107)
[2022-10-01 06:35] LABS: Potassium 4.1 mmoL/L (3.5-5.1); Sodium 134 mmol/L (136-145)
[2022-10-01 06:37] LABS: Blood Urea Nitrogen 26 mg/dl (7-17); Creatinine Clearance Estimated 67 mL/min (50-200); Estimated Glomerular Filt Rate 42 ml/min (>60); GFR (African American) 50 ML/MIN (>60)
[2022-10-01 06:38] LABS: Anion Gap 12.1 mEq/L (5-15); Calcium 8.6 mg/dl (8.4-10.2); Carbon Dioxide 24 mmol/L (22.0-30.0); Glucose 180 mg/dl (74-100)
[2022-10-01 07:26] VITALS: BP 143/60; PULSE 74; RESP 18; TEMP 36.6; O2SAT 96
[2022-10-01 07:32] LABS: Lymphocytes % 13 % (10-50); Monocytes % 6 % (2-9); Neutrophils % 81 % (42-76); Platelet Estimate Normal; RBC Morphology Normal; Total Cells Counted 100
--- NOTE | 2022-10-01 11:14 | EXP.DC.SUM ---
General Admission date:: 09/29/22 Discharge date: 10/01/22 HPI HPI HPI: Ms. Williamson is a 62-year-old female with uncontrolled diabetes, paroxysmal A-fib, hypertension, CAD, and obesity who presented to the ER with complaint of vomiting for the past 24 hours. No jada fever. No blood in vomit or stool. Of note she was started on antibiotics earlier this week by [facility] for an infection on her leg. States the lesion is gotten a little bit better but she began vomiting after starting medication. Has not taken her diabetes medication in the past 36 hours. Complaining of abdominal cramping and pain. No shortness of breath. On evaluation in the ER, patient found to have an BERNABE and hyperglycemia. Treated with multiple antiemetic and IV fluids. No significant improvement unable to tolerate p.o. intake. Medicine consulted for admission and further management. On arrival to the floor, patient is fatigued but will wake to answer questions. Has had another episode of emesis after arriving to the floor. Has not seen her primary care in almost a year or had an A1c checked in about a year. Did not follow-up with cardiology at 6-month oli as instructed. Will continue oral Bactrim at home for treatment of boil on right leg. Will follow up with her PCP in one week. Will be sent home with oral Reglan for nausea treatment. Instructed to keep close monitoring of blood glucose. Hospital Course Hospital Course Hospital Course: Ms. Williamson is a 62-year-old female with uncontrolled diabetes, paroxysmal A-fib, hypertension, CAD, and obesity who presented to the ER with complaint of vomiting for the past 24 hours. No jada fever. No blood in vomit or stool. Of note she was started on antibiotics earlier this week by the [facility] for an infection on her leg. States the lesion is gotten a little bit better but she began vomiting after starting medication. Has not taken her diabetes medication 36 hrs prior to admission. Treated with multiple antiemetic and IV fluids. No significant improvement unable to tolerate p.o. intake. Medicine consulted for admission and further management of BERNABE, Hyperglycemia, intractable N/V. On arrival to the floor, patient is fatigued but will wake to answer questions. Nausea improved after initiating Reglan and addressing her hyperglycemia. Adjusted her diabetes regimen with a transition to basal bolus including Lantus nightly and mealtime 3 times a day. See med rec for full details of dosing. Patient will need further adjustment by her PCP in the outpatient setting with close follow-up. Of note she states she has not seen her PCP or had monitoring of her diabetes in over a year. Stressed the importance of medical compliance and adjustments for improved glucose control. Patient states understanding. She was previously on Bactrim and Keflex prior to admission, will continue oral Bactrim for three days at home for treatment of boil on right leg. Will follow up with her PCP in one week. Will be sent home with oral Reglan for nausea treatment. Instructed to keep close monitoring of blood glucose. Rounded on patient with nurse practitioner. Personally examined and interviewed patient. Agree with exam findings and care plan as documented. Exam Data for Last 24 hours Vital signs and Labs for Last 24 Hours: Temp Pulse Resp BP Pulse Ox 97.8 F 74 18 143/60 H 96 10/01/22 07:26 10/01/22 07:26 10/01/22 07:26 10/01/22 07:26 10/01/22 07:26 Laboratory Results - last 24 hr 09/30/22 15:41: POC Glucose 183 H 09/30/22 20:08: POC Glucose 234 H 10/01/22 05:16: POC Glucose 175 H 10/01/22 05:56: WBC 8.8 D, RBC 4.14 L, Hgb 11.4 L, Hct 35.3 L, MCV 85.4, MCH 27.6, MCHC 32.3, RDW 13.5, Plt Count 305, MPV 8.1, Neut % (Auto) 72.8, Lymph % (Auto) 16.6, [place] % (Auto) 7.0, Eos % (Auto) 2.9, Baso % (Auto) 0.7, Neut # (Auto) 6.4, Lymph # (Auto) 1.5, [place] # (Auto) 0.6, Eos # (Auto) 0.3, Baso # (Auto) 0.1, Total Counted 100, Neutrophils % (Manual
[2022-10-01 11:21] LABS: POC Glucose,Bedside 263 (70-110)
[2022-10-01 11:59] VITALS: BMI 35.4
--- NOTE | 2022-10-01 12:30 | HMH.PHAINT1 ---
Pharmacy Intervention Comments: Discharge medication counseling completed. Patient was starting the following meds: -insulin glargine: 40 units at bedtime -insulin lispro: 8 units TID. Told patient it was best to inject around 15 minutes before eating -metoclopramide: 5 mg TID. Said to take ~30 minutes before eating to help with nausea and that the most likely side effect was drowsiness. Atorvastatin, pantoprazole, and clopidogrel were listed under new meds for the patient, but she was already taking those at home. Only difference was atorvastatin 40 mg tabs with the instructions to take 2 tabs daily were sent in rather than the 80mg tabs the patient had been getting and the pantoprazole said to take before bedtime rather than simply once daily. The patient was told to stop the following meds: -cephalexin: clarified that she was to stop this, but to continue taking the Bactrim -humulin insulin Patient verbalized understanding and had no further questions.
--- NOTE | 2022-10-03 14:57 | CARE MANAGER ---
Attempted post-discharge phone interview, no answer and no voicemail available.
--- NOTE | 2022-10-04 13:37 | CARE MANAGER ---
Unable to reach patient via telephone to discuss recent discharge.
== END 2022-10-01 12:55 | disposition home or self-care (01) ==
LOC: ER 13:58 → 2ND 14:21
PROVIDERS: Admitting Provider Internal Medicine Adolescent Medicine; Emergency Provider Student in an Organized Health Care Education/Training Program; PCP Physician Assistant; Visit Provider Internal Medicine Adolescent Medicine
DX: N17.9 Acute kidney failure, unspecified (principal); I25.118 Atherosclerotic heart disease of native coronary artery with other forms of angina pectoris; I48.0 Paroxysmal atrial fibrillation; Z79.899 Other long term (current) drug therapy; Z79.01 Long term (current) use of anticoagulants; I11.9 Hypertensive heart disease without heart failure; E11.65 Type 2 diabetes mellitus with hyperglycemia; E86.0 Dehydration; L02.425 Furuncle of right lower limb
CPT/HCPCS: 36415; 71045; 80048; 80053; 82803; 82962; 83036; 83690; 83735; 84443; 84484; 85007; 85014; 85018; 85025; 85048; 85049; 87636; 93005; 99285; C9803; G0378; J0696; J2405; U0003; U0005

== ENCOUNTER → 2023-02-19 16:54 | Outpatient (CLI) | payer BC, SELFPAY ==
[2023-02-19 18:56] LABS: Thyroid Stimulating Hormone 0.83 uIU/mL (0.465-4.68)
== END ==
PROVIDERS: PCP Emergency Medicine; Visit Provider Internal Medicine
DX: E11.65 Type 2 diabetes mellitus with hyperglycemia (principal); Z79.4 Long term (current) use of insulin
CPT/HCPCS: 84443

== ENCOUNTER → 2023-03-25 10:12 | Outpatient (CLI) | payer BC, SELFPAY ==
[2023-03-25 18:04] LABS: Influenza A, PCR Not Detected (NotDetected); Influenza B, PCR Not Detected (NotDetected)
[2023-03-25 19:31] LABS: Coronavirus 19, PCR Detected (NotDetected)
== END ==
PROVIDERS: PCP Internal Medicine; Visit Provider Internal Medicine
DX: U07.1 COVID-19 (principal); R05.9 Cough, unspecified
CPT/HCPCS: 87636

== ENCOUNTER 2023-03-30 12:28 | Observation (INO) | payer BC, SELFPAY ==
[2023-03-30] VITALS (9 sets, daily range): BP systolic 105–182; BP diastolic 78–148; PULSE 91–110; RESP 17–18; TEMP 36.8–37.2; O2SAT 85–97; BMI 32.9
--- NOTE | 2023-03-30 12:36 | XR_ITS ---
PROCEDURE INFORMATION: Exam: XR Chest Exam date and time: 03/30/2023 12:39 PM Age: 62 years old Clinical indication: Shortness of breath; Additional info: SOA, productive cough TECHNIQUE: Imaging protocol: Radiologic exam of the chest. Views: 1 view. Total images: 1 COMPARISON: CR XR CHEST PORTABLE 09/29/2022 11:15 AM FINDINGS: Lungs: Atelectatic and/or early infiltrative changes noted within both lung bases. Patchy airspace opacity noted within the right upper lobe. Pleural spaces: Small left pleural effusion. Heart/Mediastinum: Heart demonstrates mild diffuse enlargement. Bones/joints: Unremarkable. IMPRESSION: 1. Atelectatic and/or early infiltrative changes noted within both lung bases. 2. Mild cardiomegaly. 3. Patchy airspace opacity noted within the right upper lobe. 4. Small left pleural effusion.
--- NOTE | 2023-03-30 12:37 | HMH.EDGENADL ---
Discharge Plan Disposition Patient Disposition: Admitted Prescriptions Prescriptions: No Action spironolactone 25 mg tablet 25 mg PO DAILY Qty: 90 1RF diltiazem HCl 240 mg capsule,extended release 24hr 240 mg PO DAILY Qty: 90 0RF (DME) Dexcom G6 Sensor Device See Rx Instructions .ROUTE .COMPLEX Qty: 3 5RF Dose Instruction: USE DIRECTED TO TEST BLOOD GLUCOSE LEVEL Rx Instructions: USE DIRECTED TO TEST BLOOD GLUCOSE LEVEL atorvastatin 80 mg tablet 80 mg PO DAILY clopidogrel 75 mg tablet 75 mg PO DAILY pantoprazole 40 mg tablet,delayed release (DR/EC) 40 mg PO DAILY insulin lispro [Humalog KwikPen Insulin] 100 unit/mL insulin pen 8 unit SQ TID insulin glargine 100 unit/mL (3 mL) insulin pen 40 unit SQ HS Xarelto 20 mg tablet 20 mg PO QPMWITHMEAL Referrals Follow up/Referrals: Osmin Zepeda DO [Primary Care Provider] - See instructions Clinical Impressions Clinical Impression: Pneumonia, Pleural effusion, bilateral Respiratory failure Qualifiers: Chronicity: acute Respiratory failure complication: hypoxia Qualified Code(s): J96.01 - Acute respiratory failure with hypoxia Discharge ED Provider: Satnam Salvador General Adult HPI General Chief complaint: Shortness of Breath/Dyspnea Stated complaint: SOA, weakness, covid X3 weeks Time Seen by Provider: 03/30/23 12:32 History of Present Illness HPI narrative: 62-year-old female, history of coronary artery disease, paroxysmal A-fib, diabetes, chronic kidney disease presents with worsening shortness of breath. She reports that it is intermittent in nature, but has been persistent daily for the last 3 weeks or so. She reports she was diagnosed with COVID about 3 weeks ago and initially felt little better but is now feeling worse. She denies fever but does report productive cough. She reports history of prior blood clots. She is on a blood thinner. Related Data Home Medications Medication Instructions Recorded Confirmed atorvastatin 80 mg tablet 80 mg PO DAILY Cholesterol 09/30/22 03/30/23 clopidogrel 75 mg tablet 75 mg PO DAILY Platelet Inhibitor 03/30/23 03/30/23 insulin glargine 100 unit/mL (3 40 unit SQ HS Diabetes 03/30/23 03/30/23 mL) subcutaneous pen insulin lispro 100 unit/mL 8 unit SQ TID Diabetes 03/30/23 03/30/23 subcutaneous pen (Humalog KwikPen (U-100) Insulin) pantoprazole 40 mg tablet,delayed 40 mg PO DAILY Acid Reflux 03/30/23 03/30/23 release rivaroxaban 20 mg tablet (Xarelto) 20 mg PO QPMWITHMEAL Blood 03/30/23 03/30/23 thinner/Afib Previous Rx's Medication Instructions Recorded spironolactone 25 mg tablet 25 mg PO DAILY Fluid #90 tabs 11/27/22 diltiazem HCl 240 mg 240 mg PO DAILY Heart rhythm #90 02/11/23 capsule,extended release 24 hr caps blood-glucose sensor (Dexcom G6 #3 ea 02/15/23 Sensor device) Allergies Allergy/AdvReac Type Severity Reaction Status Date / Time latex Allergy Verified 03/30/23 12:51 [facility] Disclaimer: The information contained in this section may have been updated after the patient was seen, as this information can be updated by other users. Medical History Atrial fibrillation Atrial flutter Bronchitis Chest pain Diabetes mellitus Diabetes mellitus, insulin dependent (IDDM), controlled Dizziness Dyspnea Elevated troponin Fatigue Gastritis Hematoma, non-traumatic Hiatal hernia Left against medical advice NSTEMI (non-ST elevated myocardial infarction) Obesity Obesity (BMI 30-39.9) Renal insufficiency Renal insufficiency Tachycardia Ventral hernia Surgical History Stented coronary artery Social History Smoking Status: Never smoker second hand exposure: No alcohol intake: never substance use type: denies use currluke
--- NOTE | 2023-03-30 12:42 | ECG_ITS ---
APPROVED REPORT Exam: Resting ECG HR:97 bpm ECG Measurements Heart Rate 97 AXES WI 182 P 65 QRSd 89 QRS 106 QT 382 T 43 QTc 437 Conclusion SINUS RHYTHM WITH OCCASIONAL SUPRAVENTRICULAR PREMATURE COMPLEXES RIGHT AXIS DEVIATION [QRS AXIS > 100] NONSPECIFIC T-WAVE ABNORMALITY ABNORMAL ECG UNCONFIRMED REPORT Electronically signed by : Faisal Coleman MD 04/01/2023 17:42:04
--- NOTE | 2023-03-30 12:42 | PC.NURSE ---
PORTABLE XRAY AT BEDSIDE
[2023-03-30 13:06] LABS: Coronavirus 19, PCR Not Detected (NotDetected); Influenza A, PCR Not Detected (NotDetected); Influenza B, PCR Not Detected (NotDetected)
[2023-03-30 13:13] LABS: Basophils % 0.4 % (0.1-2.0); Eosinophils # 0.2 K/mm3 (0.0-0.4); Eosinophils % 1.8 % (0.1-12.0); Hematocrit 35.9 % (37.0-47.0); Hemoglobin 11.8 g/dL (12.2-16.2); Lymphocytes # 1.1 K/mm3 (0.7-4.5); Lymphocytes % 11.8 % (10-50); Mean Corpuscular HGB Conc 32.9 g/dL (31.8-35.4); Mean Corpuscular Hemoglobin 28.2 pg (27.0-31.2); Mean Corpuscular Volume 85.5 fl (81-99); Monocytes # 0.6 K/mm3 (0.1-1.0); Monocytes % 6.6 % (1.7-9.3); Neutrophils # 7.1 K/mm3 (1.8-7.8); Neutrophils % 79.3 % (37.0-80.0); Platelet Count 403 K/mm3 (142-424); Red Cell Distribution Width 14.4 % (11.5-17.5); White Blood Count 8.9 K/mm3 (4.8-10.8)
--- NOTE | 2023-03-30 13:15 | PC.NURSE ---
Second set of cultures drawn and sent to LAB. No needs voiced at this time. Call light within reach.
[2023-03-30 13:21] LABS: Alanine Aminotransferase 23 U/L (12-78); Aspartate Amino Transferase 26 U/L (14-36); Blood Urea Nitrogen 15 mg/dl (7-17); Calcium 8.4 mg/dl (8.4-10.2); Carbon Dioxide 28 mmol/L (22.0-30.0); Chloride 98 mmol/L (98-107); Creatinine Clearance Estimated 77 mL/min (50-200); Estimated Glomerular Filt Rate 50 ml/min (>60); GFR (African American) 61 ML/MIN (>60); Glucose 277 mg/dl (74-100)
[2023-03-30 13:22] LABS: Albumin Level 3.4 g/dl (3.5-5.0); Albumin/Globulin Ratio 0.9 (1.1-1.8); Alkaline Phosphatase 145 U/L (38-126); Anion Gap 11.7 mEq/L (5-15); Bilirubin,Total 0.4 mg/dl (0.2-1.3); Globulin 3.9 g/dL (1.3-3.2); Potassium 3.7 mmoL/L (3.5-5.1); Sodium 134 mmol/L (136-145); Total Protein,Serum 7.3 g/dl (6.3-8.2)
[2023-03-30 13:27] LABS: D-Dimer 1.11 ug/mL (0.0-0.5)
[2023-03-30 13:33] LABS: NT Pro Brain Natriuretic Pep. 1750 pg/mL (0-125)
--- NOTE | 2023-03-30 13:34 | HMH.PHAINT1 ---
Pharmacy Intervention Comments: MEDICATION RECONCILIATION COMPLETED ON PATIENT USING EXTERNAL FILL HISTORY FROM PHARMACY. -LIZBETH BALLARD, CELESTINOD
[2023-03-30 13:38] LABS: Troponin I 0.01 ng/ml (0.00-0.034)
--- NOTE | 2023-03-30 13:41 | CT_ITS ---
PROCEDURE INFORMATION: Exam: CTA Chest With Contrast Exam date and time: 03/30/2023 1:52 PM Age: 62 years old Clinical indication: Shortness of breath; Additional info: SOA, hemoptysis, positive dimer TECHNIQUE: Imaging protocol: Computed tomographic angiography of the chest with contrast. Exam focused on the arteries. 3D rendering (Not supervised by radiologist): MIP and/or 3D reconstructed images were created by the technologist. Total images: 449 Radiation optimization: All CT scans at this facility use at least one of these dose optimization techniques: automated exposure control; mA and/or kV adjustment per patient size (includes targeted exams where dose is matched to clinical indication); or iterative reconstruction. Contrast material: ISOVUE; Contrast volume: 70 ml; Contrast route: INTRAVENOUS (IV); REPORTING DATA: Count of CT and Cardiac NM exams in prior 12 months: This patient has received 0 known CTs and 0 known cardiac nuclear medicine studies in the 12 months prior to the current study. COMPARISON: CR XR CHEST PORTABLE 03/30/2023 12:39 PM FINDINGS: Pulmonary arteries: No evidence of pulmonary embolism. Aorta: No evidence of aortic dissection. Lungs: Diffuse patchy airspace opacities noted throughout both lungs. Pleural spaces: Large bilateral pleural effusions. Heart: Heart demonstrates mild diffuse enlargement. Lymph nodes: Mediastinal lymphadenopathy is present measuring up to 1.6 cm. Bones/joints: The thoracic spine demonstrates mild degenerative changes at multiple levels. Soft tissues: Unremarkable. IMPRESSION: 1. No evidence of pulmonary embolism. 2. No evidence of aortic dissection. 3. Large bilateral pleural effusions. 4. Mediastinal lymphadenopathy is present measuring up to 1.6 cm. 5. Mild cardiomegaly. 6. Diffuse patchy airspace opacities noted throughout both lungs.
--- NOTE | 2023-03-30 13:43 | PC.NURSE ---
Dr. Salvador at BS to update pt on POC
--- NOTE | 2023-03-30 13:47 | PC.NURSE ---
PT TO CT
--- NOTE | 2023-03-30 13:47 | PC.NURSE ---
PT TRANSPORTED TO RADIOLOGY VIA .
--- NOTE | 2023-03-30 14:00 | PC.NURSE ---
Pt returned from RAD
--- NOTE | 2023-03-30 14:34 | PC.NURSE ---
Attempted to contact hospitalist multiple times. Spoke with clubhouse attendant. Had hospitalist paged overhead.
--- NOTE | 2023-03-30 14:38 | PC.NURSE ---
Spoke with Christal on second floor. She advised she just spoke with Gus and advised him to call us
--- NOTE | 2023-03-30 14:39 | PC.NURSE ---
Dr. Salvador speaking with Dr. Weber
--- NOTE | 2023-03-30 14:42 | PC.NURSE ---
HOUSE AWARE OF ADMISSION
--- NOTE | 2023-03-30 14:51 | PC.NURSE ---
CALLED REPORT TO MILKA CHAVEZ
--- NOTE | 2023-03-30 15:34 | PC.NURSE ---
pt has redness and edema to BLE. states it has been going on for a week.
[2023-03-30 17:09] LABS: Troponin I 0.01 ng/ml (0.00-0.034)
--- NOTE | 2023-03-30 17:22 | EXP.HP ---
History of Present Illness *Admission Date: 03/30/23 *Reason for visit:: SOB *History of present illness: Patient is a 63-year-old female with past medical history of CKD stage III diabetes mellitus, COVID-19 infection who presented to hospital due to shortness of breath. According the patient she has been having cough productive of phlegm, he also has been feeling sick for past 1 week, denied chest pain nausea vomiting diarrhea constipation dysuria fevers chills. Patient mentions she has history of blood clots and takes Xarelto at home. [facility] Disclaimer: The information contained in this section may have been updated after the patient was seen, as this information can be updated by other users. Medical History Atrial fibrillation Atrial flutter Bronchitis Chest pain Diabetes mellitus Diabetes mellitus, insulin dependent (IDDM), controlled Dizziness Dyspnea Elevated troponin Fatigue Gastritis Hematoma, non-traumatic Hiatal hernia Left against medical advice NSTEMI (non-ST elevated myocardial infarction) Obesity Obesity (BMI 30-39.9) Renal insufficiency Renal insufficiency Tachycardia Ventral hernia Surgical History Stented coronary artery Family History (Updated 03/30/23 @ 15:10 by Bia Gonzalez, KATHY) Other No significant family history Social History (Updated 03/30/23 @ 15:10 by Bia Gonzalez, KATHY) Smoking Status: Never smoker second hand exposure: No alcohol intake: never substance use type: denies use current occupational status: employed Travel in the last 8 weeks: None household members: spouse and family housing: house current occupational exposures/hazards: No caffeine: Yes Review of Systems Review of Systems Review of systems (narrative): as per HPI Meds Home Medications and Allergies Home Medications Medication Instructions Recorded Confirmed Type atorvastatin 80 mg tablet 80 mg PO DAILY Cholesterol 09/30/22 03/30/23 History spironolactone 25 mg tablet 25 mg PO DAILY Fluid #90 tabs 11/27/22 03/30/23 Rx diltiazem HCl 240 mg 240 mg PO DAILY Heart rhythm #90 02/11/23 03/30/23 Rx capsule,extended release 24 hr caps blood-glucose sensor (Dexcom G6 #3 ea 02/15/23 03/30/23 Rx Sensor device) clopidogrel 75 mg tablet 75 mg PO DAILY Platelet Inhibitor 03/30/23 03/30/23 History insulin glargine 100 unit/mL (3 40 unit SQ HS Diabetes 03/30/23 03/30/23 History mL) subcutaneous pen insulin lispro 100 unit/mL 8 unit SQ TID Diabetes 03/30/23 03/30/23 History subcutaneous pen (Humalog KwikPen (U-100) Insulin) pantoprazole 40 mg tablet,delayed 40 mg PO DAILY Acid Reflux 03/30/23 03/30/23 History release rivaroxaban 20 mg tablet (Xarelto) 20 mg PO QPMWITHMEAL Blood 03/30/23 03/30/23 History thinner/Afib New Prescriptions to Start Prescriptions: Allergies Allergy/AdvReac Type Severity Reaction Status Date / Time latex Allergy Verified 03/30/23 12:51 Exam Data for Last 24 hours Vital signs and Labs for Last 24 Hours: Temp Pulse Resp BP Pulse Ox O2 Del Method O2 Flow Rate 98.5 F 96 H 18 156/88 H 95 Nasal Cannula 2 03/30/23 15:30 03/30/23 15:30 03/30/23 15:30 03/30/23 15:30 03/30/23 15:30 03/30/23 15:30 03/30/23 15:29 Laboratory Results - last 24 hr 03/30/23 12:56: WBC 8.9, RBC 4.20, Hgb 11.8 L, Hct 35.9 L, MCV 85.5, MCH 28.2, MCHC 32.9, RDW 14.4, Plt Count 403, MPV 8.0, Neut % (Auto) 79.3, Lymph % (Auto) 11.8, Person % (Auto) 6.6, Eos % (Auto) 1.8, Baso % (Auto) 0.4, Neut # (Auto) 7.1, Lymph # (Auto) 1.1, Person # (Auto) 0.6, Eos # (Auto) 0.2, Baso # (Auto) 0.0, D-Dimer 1.11 H, Sodium 134 L, Potassium 3.7, Chloride 98, Carbon Dioxide 28, Anion Gap 11.7, BUN 15, Creatinine 1.10 H, Estimated Creat Clear 77, Estimated GFR 50 L, Est GFR ( Amer) 61, Glucose 277 H, Calcium 8.4, Total Bilirubin
[2023-03-30 18:08] LABS: Procalcitonin 0.082 ng/mL (0.0-2.0)
--- NOTE | 2023-03-30 18:08 | PC.NURSE ---
called nightwatch to switch iv antibiotics since pt received those in ED
[2023-03-30 22:12] LABS: POC Glucose,Bedside 287 (70-110)
[2023-03-30 22:41] LABS: POC Glucose,Bedside 248 (70-110)
[2023-03-31 01:21] LABS: POC Glucose,Bedside 126 (70-110)
[2023-03-31 04:00] VITALS: BP 134/58; PULSE 95; RESP 17; TEMP 36.9; O2SAT 91; BMI 32.3
[2023-03-31 05:07] LABS: POC Glucose,Bedside 166 (70-110)
--- NOTE | 2023-03-31 06:10 | PC.NURSE ---
Pt is alert and oriented x4 currently on 2L of O2. Pt has not complained of pain or had any trouble breathing. Pt insulin given as ordered. Pt stated that her glucose was 166 that it was low and needed to have a snack. Pt given education on normal glucose levels. Pt denies needs at this time.
[2023-03-31 07:30] VITALS: BP 149/87; PULSE 87; RESP 18; TEMP 36.7; O2SAT 95
[2023-03-31 08:10] LABS: Basophils # 0.1 K/mm3 (0-0.2); Basophils % 0.6 % (0.1-2.0); Eosinophils # 0.2 K/mm3 (0.0-0.4); Hematocrit 34.7 % (37.0-47.0); Hemoglobin 11.4 g/dL (12.2-16.2); Lymphocytes # 1.2 K/mm3 (0.7-4.5); Lymphocytes % 11.8 % (10-50); Mean Corpuscular HGB Conc 32.9 g/dL (31.8-35.4); Mean Corpuscular Hemoglobin 28.1 pg (27.0-31.2); Mean Corpuscular Volume 85.5 fl (81-99); Mean Platelet Volume 7.9 fl (7.4-10.4); Monocytes # 0.7 K/mm3 (0.1-1.0); Monocytes % 7.3 % (1.7-9.3); Neutrophils # 7.7 K/mm3 (1.8-7.8); Neutrophils % 78.3 % (37.0-80.0); Platelet Count 356 K/mm3 (142-424); Red Blood Count 4.05 M/mm3 (4.20-5.40); Red Cell Distribution Width 14.4 % (11.5-17.5); White Blood Count 9.8 K/mm3 (4.8-10.8)
[2023-03-31 08:13] LABS: Anion Gap 9.5 mEq/L (5-15); Blood Urea Nitrogen 13 mg/dl (7-17); Carbon Dioxide 29 mmol/L (22.0-30.0); Chloride 97 mmol/L (98-107); Creatinine Clearance Estimated 76 mL/min (50-200); Estimated Glomerular Filt Rate 50 ml/min (>60); GFR (African American) 61 ML/MIN (>60); Glucose 161 mg/dl (74-100); Potassium 3.5 mmoL/L (3.5-5.1); Sodium 132 mmol/L (136-145)
[2023-03-31 11:52] LABS: POC Glucose,Bedside 201 (70-110)
[2023-03-31 11:58] VITALS: BP 154/92; PULSE 91; RESP 20; TEMP 37; O2SAT 94
--- NOTE | 2023-03-31 12:33 | PC.NURSE ---
spoke with pt regarding her ordered insulin regimen. She states the additional 8 units make her feel like her glucose is dropping too fast and she does not want it. I educated her on how it may take time for her body to adjust. She does not want the additional insulin
--- NOTE | 2023-03-31 15:19 | EXP.PN ---
Subjective *Date: 03/31/23 *Time: 15:19 Interval history: seen and evaluated at the bedside. she is feeling much better, denies chest pain, shortness of breath, nausea, vomiting, abdominal pain. Exam Data for Last 24 hours Vital signs and Labs for Last 24 Hours: Temp Pulse Resp BP Pulse Ox O2 Del Method O2 Flow Rate 98.6 F 91 H 20 154/92 H 94 L Nasal Cannula 1 03/31/23 11:58 03/31/23 11:58 03/31/23 11:58 03/31/23 11:58 03/31/23 11:58 03/31/23 13:00 03/31/23 11:58 Laboratory Results - last 24 hr 03/30/23 16:15: Troponin I 0.01, Procalcitonin 0.082 03/30/23 20:38: POC Glucose 287 H 03/30/23 22:32: POC Glucose 248 H 03/31/23 01:13: POC Glucose 126 H 03/31/23 04:55: POC Glucose 166 H 03/31/23 07:52: WBC 9.8, RBC 4.05 L, Hgb 11.4 L, Hct 34.7 L, MCV 85.5, MCH 28.1, MCHC 32.9, RDW 14.4, Plt Count 356, MPV 7.9, Neut % (Auto) 78.3, Lymph % (Auto) 11.8, [place] % (Auto) 7.3, Eos % (Auto) 2.0, Baso % (Auto) 0.6, Neut # (Auto) 7.7, Lymph # (Auto) 1.2, [place] # (Auto) 0.7, Eos # (Auto) 0.2, Baso # (Auto) 0.1, Sodium 132 L, Potassium 3.5, Chloride 97 L, Carbon Dioxide 29, Anion Gap 9.5, BUN 13, Creatinine 1.10 H, Estimated Creat Clear 76, Estimated GFR 50 L, Est GFR ( Amer) 61, Glucose 161 H D, Calcium 8.0 L 03/31/23 11:40: POC Glucose 201 H I & O for Last 24 hours: Intake & Output 03/28/23 03/29/23 03/30/23 03/31/23 23:59 23:59 23:59 23:59 Intake Total 0 / 240 880 / 880 Output Total 0 / 0 0 / 0 Balance 0 / 240 880 / 880 Weight 92.533 kg 91.127 kg Constitutional Constitutional: no acute distress *Routine HEENT Exam Head: Present normocephalic Eye: Present EOMI and PERRL ENT: Present mucous membranes moist *Routine Neck Exam Neck: Present supple; Absent lymphadenopathy *Routine Respiratory Exam Respiratory: Present CTA bilaterally *Routine Cardiovascular Exam Cardiovascular: Present RRR *Routine Abdominal Exam Abdominal: Present soft and normoactive bowel sounds; Absent tenderness *Routine Extremities Exam Extremities: Absent cyanosis, clubbing or edema *Routine Skin Exam Skin: Present warm; Absent rash *Routine Neurological Exam Neurological: Present alert and oriented X3 Assessment and Plan *Assessment and plan (1) Respiratory failure: Status: Acute Qualifiers: Chronicity: acute Respiratory failure complication: hypoxia Qualified Code(s): J96.01 - Acute respiratory failure with hypoxia Category: Medical Code(s): J96.90 - Respiratory failure, unspecified, unspecified whether with hypoxia or hypercapnia (2) Pneumonia: Status: Acute Category: Medical Code(s): J18.9 - Pneumonia, unspecified organism (3) Pleural effusion, bilateral: Status: Acute Category: Medical Code(s): J90 - Pleural effusion, not elsewhere classified (4) COVID-19: Problem Comment: Although Christiane has a home test that she states was negative we will test her here just to be sure. I also asked the front office to give her a release so she can go back to work. Will follow-up with Christiane in about 4 weeks for some of her other medical issues. Status: Acute Category: Medical Code(s): U07.1 - COVID-19 (5) Stage 3 chronic kidney disease due to type 2 diabetes mellitus: Problem Comment: Christiane has a stage III chronic kidney disease. She has had GFR is anywhere from 65 down to the low 30s over the last 2 years. I am going to put her on a empagliflozin at 10 mg/day and metformin at 500 mg twice a day. She is to decrease her glargine to 20 international units at bedtime. The goal here would be to reduce her insulin into and trying to take benefit of the empagliflozin for its renal protective benefits. Status: Acute Category: Medical Code(s): E11.22 - Type 2 diabetes mellitus with diabetic chronic kidney disease; N18.30 - Chronic kidney disease, stage 3 unspecified (6) Diabetic peripheral neuropathy: Problem
[2023-03-31 16:00] VITALS: BP 155/74; PULSE 86; RESP 16; TEMP 36.9; O2SAT 92
--- NOTE | 2023-03-31 17:49 | PC.NURSE ---
pt was 88% on RA at rest
[2023-03-31 18:23] LABS: POC Glucose,Bedside 327 (70-110)
[2023-03-31 20:00] VITALS: BP 149/76; PULSE 86; RESP 18; TEMP 37.3; O2SAT 94
[2023-03-31 22:19] LABS: POC Glucose,Bedside 214 (70-110)
[2023-04-01] VITALS: BP 148/73; PULSE 93; RESP 17; TEMP 37.1; O2SAT 95
--- NOTE | 2023-04-01 02:55 | PC.NURSE ---
Pt is alert and oriented x4. Pt remains on 2L of O2 and is tolerating it well. Pt glucose level was 214 at HS and pt received insulin for coverage. Pt denies pain and states that she is feeling much better. Pt denies needs at this time
[2023-04-01 04:00] VITALS: BP 138/70; PULSE 89; RESP 17; TEMP 37.2; O2SAT 97; BMI 32.3
[2023-04-01 05:07] LABS: POC Glucose,Bedside 115 (70-110)
[2023-04-01 07:17] LABS: Basophils % 0.3 % (0.1-2.0); Eosinophils # 0.3 K/mm3 (0.0-0.4); Eosinophils % 3.3 % (0.1-12.0); Hematocrit 34.9 % (37.0-47.0); Hemoglobin 11.4 g/dL (12.2-16.2); Lymphocytes # 1.3 K/mm3 (0.7-4.5); Mean Corpuscular HGB Conc 32.6 g/dL (31.8-35.4); Mean Corpuscular Hemoglobin 28.3 pg (27.0-31.2); Mean Corpuscular Volume 86.8 fl (81-99); Mean Platelet Volume 7.9 fl (7.4-10.4); Monocytes # 0.7 K/mm3 (0.1-1.0); Monocytes % 8.5 % (1.7-9.3); Neutrophils # 5.6 K/mm3 (1.8-7.8); Neutrophils % 70.9 % (37.0-80.0); Platelet Count 349 K/mm3 (142-424); Red Blood Count 4.02 M/mm3 (4.20-5.40); Red Cell Distribution Width 14.5 % (11.5-17.5); White Blood Count 7.9 K/mm3 (4.8-10.8)
[2023-04-01 07:44] LABS: Chloride 101 mmol/L (98-107); Potassium 3.6 mmoL/L (3.5-5.1); Sodium 135 mmol/L (136-145)
[2023-04-01 07:47] LABS: Blood Urea Nitrogen 17 mg/dl (7-17); Creatinine Clearance Estimated 65 mL/min (50-200); Estimated Glomerular Filt Rate 42 ml/min (>60); GFR (African American) 50 ML/MIN (>60)
[2023-04-01 07:48] LABS: Anion Gap 7.6 mEq/L (5-15); Calcium 8.3 mg/dl (8.4-10.2); Carbon Dioxide 30 mmol/L (22.0-30.0); Glucose 119 mg/dl (74-100)
[2023-04-01 08:00] VITALS: BP 151/74; PULSE 92; RESP 17; TEMP 37; O2SAT 95
[2023-04-01 10:57] LABS: POC Glucose,Bedside 227 (70-110)
[2023-04-01 11:24] VITALS: BP 160/77; PULSE 86; RESP 18; TEMP 36.8; O2SAT 97
--- NOTE | 2023-04-01 13:54 | EXP.DC.SUM ---
General Admission date:: 03/30/23 Discharge date: 04/01/23 HPI HPI HPI: Patient is a 63-year-old female with past medical history of CKD stage III diabetes mellitus, COVID-19 infection who presented to hospital due to shortness of breath. According the patient she has been having cough productive of phlegm, he also has been feeling sick for past 1 week, denied chest pain nausea vomiting diarrhea constipation dysuria fevers chills. Patient mentions she has history of blood clots and takes Xarelto at home. Hospital Course Hospital Course Hospital Course: Patient is a 63-year-old female with past medical history of CKD stage III diabetes mellitus, COVID-19 infection who presented to hospital due to shortness of breath. According the patient she has been having cough productive of phlegm, he also has been feeling sick for past 1 week, denied chest pain nausea vomiting diarrhea constipation dysuria fevers chills. Patient mentions she has history of blood clots and takes Xarelto at home. Patient on room air and afebrile. Tolerating good p.o. intake. Given improvement clinically, meeting criteria for discharge home. Problems addressed as follows: Diffuse patchy airspace opacities, multifocal pneumonia likely due to COVID-19 Large bilateral pleural effusions CKD stage III Hyperglycemia due to uncontrolled diabetes mellitus COVID-19 infection Patient initiated on ceftriaxone and azithromycin for respiratory infection. Clinically showed improvement and is able to wean oxygen. Stable on room air on day of discharge. Will transition antibiotics to cefdinir and azithromycin to complete 7-day course. Continued home regimen with insulin for diabetes. Diuresed during admission for her pleural effusions. Continued home Protonix, Aldactone, Cardizem, Plavix, statin and Xarelto. No indication for thoracentesis during admission. Recommend close follow-up with PCP for further management after discharge. Exam Data for Last 24 hours Vital signs and Labs for Last 24 Hours: Temp Pulse Resp BP Pulse Ox O2 Del Method O2 Flow Rate 98.2 F 86 18 160/77 H 97 Room Air 2 04/01/23 11:24 04/01/23 11:24 04/01/23 11:24 04/01/23 11:24 04/01/23 11:24 04/01/23 11:24 04/01/23 08:00 Laboratory Results - last 24 hr 03/31/23 16:41: POC Glucose 327 H* 12/03/23 20:45: POC Glucose 214 H 04/01/23 04:59: POC Glucose 115 H 04/01/23 06:48: WBC 7.9, RBC 4.02 L, Hgb 11.4 L, Hct 34.9 L, MCV 86.8, MCH 28.3, MCHC 32.6, RDW 14.5, Plt Count 349, MPV 7.9, Neut % (Auto) 70.9, Lymph % (Auto) 17.0, [place] % (Auto) 8.5, Eos % (Auto) 3.3, Baso % (Auto) 0.3, Neut # (Auto) 5.6, Lymph # (Auto) 1.3, [place] # (Auto) 0.7, Eos # (Auto) 0.3, Baso # (Auto) 0.0, Sodium 135 L, Potassium 3.6, Chloride 101, Carbon Dioxide 30, Anion Gap 7.6, BUN 17 D, Creatinine 1.30 H, Estimated Creat Clear 65, Estimated GFR 42 L, Est GFR ( Amer) 50 L, Glucose 119 H D, Calcium 8.3 L 04/01/23 10:50: POC Glucose 227 H I & O for Last 24 hours: Intake & Output 03/29/23 03/30/23 03/31/23 04/01/23 23:59 23:59 23:59 23:59 Intake Total 0 / 240 1150 / 1390 950 / 950 Output Total 0 / 0 0 / 0 0 / 0 Balance 0 / 240 1150 / 1390 950 / 950 Weight 92.533 kg 91.127 kg 91.354 kg Constitutional Constitutional: no acute distress, obese and chronically ill appearing *Routine HEENT Exam Head: Present normocephalic Eye: Present EOMI and PERRL ENT: Present mucous membranes moist *Routine Neck Exam Neck: Present supple; Absent lymphadenopathy *Routine Respiratory Exam Respiratory: Present prolonged expiratory phase, rhonchi and normal respiratory effort; Absent wheezes or crackles *Routine Cardiovascular Exam Cardiovascular: Present RRR *Routine Abdominal Exam Abdominal: Present soft and normoactive bowel sounds; Absent tenderness *Routine Extremities Exam Extremities: Absent cyanosis, clubbing or edema *Routine Skin Exam Skin: Present warm; Absent rash *Routine Neurological Exam Neur
--- NOTE | 2023-04-02 09:39 | PC.NURSE ---
Blood culture results show gram - rods. PT was admitted to 2nd floor, given rocephin, cefdinir and azithromycin, pt was DC with cefdinir and azithromycin with a fu with pcp in 4 weeks. Per no further action
--- NOTE | 2023-04-02 13:47 | CARE MANAGER ---
Contacted patient related to hospital discharge. She received her meds through meds to bed and denies questions or concerns. She is aware of follow up appointment. KATHY Hawkins
== END 2023-04-01 15:38 | disposition home or self-care (01) ==
LOC: ER 13:50 → 2ND 14:46
PROVIDERS: Admitting Provider Internal Medicine; Emergency Provider Emergency Medicine; PCP Internal Medicine; Visit Provider Internal Medicine
DX: J96.01 Acute respiratory failure with hypoxia (principal); Z79.4 Long term (current) use of insulin; Z79.02 Long term (current) use of antithrombotics/antiplatelets; Z79.899 Other long term (current) drug therapy; E11.22 Type 2 diabetes mellitus with diabetic chronic kidney disease; N18.30 Chronic kidney disease, stage 3 unspecified; Z86.16 Personal history of COVID-19; I48.0 Paroxysmal atrial fibrillation; I25.2 Old myocardial infarction; E11.42 Type 2 diabetes mellitus with diabetic polyneuropathy; Z86.718 Personal history of other venous thrombosis and embolism
CPT/HCPCS: 36415; 71045; 71275; 80048; 80053; 82962; 83880; 84145; 84484; 85025; 85378; 87040; 87070; 87205; 87636; 93005; 99285; G0378; J0456; J0696; Q9967

== ENCOUNTER → 2023-04-10 09:55 | Outpatient (CLI) | payer BC, SELFPAY ==
[2023-04-10 19:46] LABS: Hemoglobin A1C 11.1 % (4.0-6.0)
[2023-04-10 21:13] LABS: Iron 61 ug/dL (37-170)
[2023-04-10 21:24] LABS: Total Iron Binding Capacity 305 ug/dL (265-497)
== END ==
PROVIDERS: PCP Internal Medicine; Visit Provider Internal Medicine
DX: E11.42 Type 2 diabetes mellitus with diabetic polyneuropathy (principal); E78.5 Hyperlipidemia, unspecified; Z79.4 Long term (current) use of insulin
CPT/HCPCS: 83036; 83540; 83550

== ENCOUNTER 2023-10-07 01:08 | Emergency (ER) | payer BC, SELFPAY ==
[2023-10-07] VITALS (13 sets, daily range): BP systolic 97–196; BP diastolic 60–124; PULSE 80–90; RESP 10–20; TEMP 36.5–36.9; O2SAT 96–100; BMI 32.8
--- NOTE | 2023-10-07 01:14 | ECG_ITS ---
APPROVED REPORT Exam: Resting ECG HR:90 bpm ECG Measurements Heart Rate 90 AXES NV 192 P 63 QRSd 89 QRS 82 QT 389 T 77 QTc 437 Conclusion SINUS RHYTHM NORMAL ECG Electronically signed by : ABRAHAM RODRIGUEZ, 10/07/2023 06:37:07
--- NOTE | 2023-10-07 01:14 | HMH.EDGENADL ---
Discharge Plan Disposition Patient Disposition: Home, Self-Care Condition: Good Prescriptions Prescriptions: No Action (DME) pen needle, diabetic [BD Ultra-Fine Lesa Pen Needle] 32 gauge x 5/32 needle See Rx Instructions .ROUTE .COMPLEX Qty: 100 2RF Dose Instruction: USE DIRECTED with insulin injections FOUR TIMES DAILY Rx Instructions: USE DIRECTED with insulin injections FOUR TIMES DAILY (DME) Dexcom G6 Sensor Device See Rx Instructions .ROUTE .COMPLEX Qty: 3 5RF Dose Instruction: USE DIRECTED TO TEST BLOOD GLUCOSE LEVEL Rx Instructions: USE DIRECTED TO TEST BLOOD GLUCOSE LEVEL spironolactone 25 mg Tablet 25 mg PO DAILY 30 Days Qty: 30 0RF Entresto 24-26 mg Tablet 1 tab PO BID 30 Days Qty: 60 0RF Xarelto 15 mg Tablet 15 mg PO QPMWITHMEAL 30 Days Qty: 30 0RF furosemide 40 mg Tablet 40 mg PO DAILY 30 Days Qty: 30 0RF pantoprazole 40 mg Tablet,Delayed Release (Dr/Ec) 40 mg PO HS 30 Days Qty: 30 0RF Jardiance 10 mg Tablet 10 mg PO DAILY 30 Days Qty: 30 0RF carvedilol 12.5 mg Tablet 12.5 mg PO BID 30 Days Qty: 60 0RF clopidogrel 75 mg Tablet 75 mg PO DAILY 30 Days Qty: 30 0RF atorvastatin 80 mg tablet 80 mg PO DAILY 30 Days Qty: 30 0RF aspirin 81 mg Tablet,Delayed Release (Dr/Ec) 81 mg PO DAILY 30 Days Qty: 30 0RF insulin glargine [Lantus Solostar U-100 Insulin] 100 unit/mL (3 mL) insulin pen 30 unit SQ HS 30 Days Qty: 9 0RF (DME) pen needle, diabetic 31 gauge x 1/4 needle See Rx Instructions .ROUTE .MEDSUPPLY Qty: 100 0RF Rx Instructions: As directed Referrals Follow up/Referrals: Provider,Referral, MD [Primary Care Provider] - See instructions Activity Restrictions/Add. Instructions Additional Instructions/Restrictions: As we discussed, it was likely combination of your high blood pressure, high blood sugar, lifting the trash bag, and your high blood sugar in diuretic use perhaps in commendation causing some degree of dehydration that caused some of your acute symptoms today. Given that you are feeling better, blood pressure is improved, and your kidney function, heart enzymes are in reassuring and stable range, you are okay to be discharged from the hospital at this time. Please follow-up with your primary care doctor and the computer aided design designer as discussed. Additionally, as we discussed, I recommend that you get a blood pressure cuff and measure that 1-2 times a day up until your primary care doctor appointment to help provide some information in order to guide any further blood pressure medication management. Please return with any new or worsening symptoms. Clinical Impressions Clinical Impression: Hypertensive urgency Stand Alone Forms Stand Alone Forms: Work/School Release Discharge ED Provider: Jorge Shaver Adult HPI General Chief complaint: Dizziness Stated complaint: SOa Time Seen by Provider: 10/07/23 01:14 History of Present Illness HPI narrative: The patient presents to the emergency department with chief complaints of shortness of breath, dizziness, and feeling like she was going to pass out. This occurred while the patient was moving trash back while at work. The patient had two stents placed on afternoon and was released to work on Saturday night. The patient reports feeling fine all day until a couple of hours ago when the symptoms began. The patient denies any pain during this episode. Denies any syncope, palpitations, pain elsewhere. The patient is currently feeling anxious and still a little dizzy, with some improvement in shortness of breath. She took her evening medications as prescribed and did not receive any medications from EMS. The patient is on blood thinners and furosemide (Lasix) for fluid management. Please note that above description of symptoms, in this electronic medical record under categorization of recalled from ER triage doctor by RN are reflective of an initial nursing assessment, however, is not reflective of my full history and physical exam that was personally taken and clarified. Consequentially, this preceding description of symptoms, which may include the patient's categorized chief complaint in the EMR, do not reflect my personal clinical impression, and the ultimate description of history of present illness and patient stated complaints should be deferred to this section of the note. Unless stated otherwise or congruent with this section of the note, additional signs, symptoms, or incongruence should be interpreted as inaccurate with my clinical impression. Related Data Previous Rx's Medication Instructions Recorded pen needle, diabetic 32 gauge x #100 ea 05/31/23 (BD Ultra-Fine Lesa Pen Needle) blood-glucose sensor (Dexcom G6 #3 ea 08/15/23 Sensor device) aspirin 81 mg tablet,delayed 81 mg PO DAILY 30 days #30 tabs 10/03/23 release atorvastatin 80 mg tablet 80 mg PO DAILY 30 days #30 tabs 10/03/23 carvedilol 12.5 mg tablet 12.5 mg PO BID 30 days #60 tabs 10/03/23 clopidogrel 75 mg tablet 75 mg PO DAILY 30 days #30 tabs 10/03/23 empagliflozin 10 mg tablet 10 mg PO DAILY 30 days #30 tabs 10/03/23 (Jardiance) furosemide 40 mg tablet 40 mg PO DAILY 30 days #30 tabs 10/03/23 insulin glargine 100 unit/mL (3 30 unit (0.3 mL) SQ HS 30 days #9 10/03/23 mL) subcutaneous pen (Lantus mL Solostar U-100 Insulin) pantoprazole 40 mg tablet,delayed 40 mg PO HS 30 days #30 tabs 10/03/23 release pen needle, diabetic 31 gauge x #100 ea 10/03/2305/02 rivaroxaban 15 mg tablet (Xarelto) 15 mg PO QPMWITHMEAL 30 days #30 10/03/23 tabs sacubitril 24 mg-valsartan 26 mg 1 tab PO BID 30 days #60 tabs 10/03/23 tablet (Entresto) spironolactone 25 mg tablet 25 mg PO DAILY 30 days #30 tabs 10/03/23 Allergies Allergy/AdvReac Type Severity Reaction Status Date / Time latex Allergy Rash Verified 10/01/23 19:39 [facility] Disclaimer: The information contained in this section may have been updated after the patient was seen, as this information can be updated by other users. Medical History (Updated 10/07/23 @ 04:44 by Jorge Shaver MD) Dyspnea Bronchitis Gastritis Renal insufficiency Obesity (BMI 30-39.9) Hematoma, non-traumatic Ventral hernia Hiatal hernia Diabetes mellitus, insulin dependent (IDDM), controlled Left against medical advice Fatigue Tachycardia Dizziness Atrial flutter NSTEMI (non-ST elevated myocardial infarction) Elevated troponin Renal insufficiency Atrial fibrillation Chest pain Obesity Diabetes mellitus Surgical History (Updated 10/01/23 @ 19:50 by Phil Bennett RN) H/O cardiac radiofrequency ablation Stented coronary artery Family History Other No significant family history Social History Smoking Status: Former smoker second hand exposure: No alcohol intake: never substance use type: denies use current occupational status: employed Travel in the last 8 weeks: None household members: spouse and family housing: house current occupational exposures/hazards: No caffeine: Yes ROS Obtained: Yes other As per HPI Physical Exam General General appearance: alert and in no apparent distress Head Head exam: atraumatic and normocephalic Eye Eye exam: Present normal appearance Neck Neck exam: Present normal inspection Chest Chest inspection: Present normal inspection and symmetric chest wall rise Respiratory Respiratory exam: Present normal lung sounds bilaterally; Absent respiratory distress Cardiovascular Cardiovascular exam: Present regular rate and normal rhythm Abdominal Exam Abdominal exam: Present soft Neurological Exam Neurological exam: Present alert and oriented X3 Psychiatric Psychiatric exam: Present normal affect and normal mood Skin Skin exam: Present warm and dry Medical Decision Making Medical Records Medical records reviewed: Yes I reviewed the patient's medical records. James Inquiry Pt receiving controlled substance: No Vital Signs: 10/07/23 01:08 10/07/23 01:29 10/07/23 01:39 Temperature 98.4 F Temperature Source Oral Pulse Rate 90 84 Pulse Rate [Right Radial] 88 Respiratory Rate 20 20 20 Blood Pressure 196/117 H 182/103 H Blood Pressure [Right Arm] 180/124 H Blood Pressure Mean [Right Arm] 142 Blood Pressure Source Blood Pressure Source [Right Arm] Automatic Cuff Blood Pressure Position Blood Pressure Position [Right Arm] Sitting 02 Sat by Pulse Oximetry 100 100 99 Oxygen Delivery Method Room Air Room Air 10/07/23 01:45 10/07/23 01:48 10/07/23 02:00 Temperature Temperature Source Pulse Rate 82 85 84 Pulse Rate [Right Radial] Respiratory Rate 12 20 10 L Blood Pressure 122/77 122/77 140/83 Blood Pressure [Right Arm] Blood Pressure Mean [Right Arm] Blood Pressure Source Blood Pressure Source [Right Arm] Blood Pressure Position Blood Pressure Position [Right Arm] 02 Sat by Pulse Oximetry 99 99 100 Oxygen Delivery Method Room Air Room Air Room Air 10/07/23 02:03 10/07/23 02:30 10/07/23 02:36 Temperature Temperature Source Pulse Rate 80 84 81 Pulse Rate [Right Radial] Respiratory Rate 20 16 20 Blood Pressure 140/83 127/82 127/82 Blood Pressure [Right Arm] Blood Pressure Mean [Right Arm] Blood Pressure Source Blood Pressure Source [Right Arm] Blood Pressure Position Blood Pressure Position [Right Arm] 02 Sat by Pulse Oximetry 99 99 99 Oxygen Delivery Method Room Air Room Air Room Air 10/07/23 03:00 10/07/23 03:30 10/07/23 04:00 Temperature Temperature Source Pulse Rate 83 84 83 Pulse Rate [Right Radial] Respiratory Rate 16 14 16 Blood Pressure 98/60 L 97/65 L 118/60 Blood Pressure [Right Arm] Blood Pressure Mean [Right Arm] Blood Pressure Source Blood Pressure Source [Right Arm] Blood Pressure Position Blood Pressure Position [Right Arm] 02 Sat by Pulse Oximetry 96 96 96 Oxygen Delivery Method Room Air Room Air Room Air 10/07/23 05:07 Temperature 97.7 F Temperature Source Oral Pulse Rate 89 Pulse Rate [Right Radial] Respiratory Rate 18 Blood Pressure 118/68 Blood Pressure [Right Arm] Blood Pressure Mean [Right Arm] Blood Pressure Source Automatic Cuff Blood Pressure Source [Right Arm] Blood Pressure Position Sitting Blood Pressure Position [Right Arm] 02 Sat by Pulse Oximetry Oxygen Delivery Method Room Air Lab Data Lab Results 10/07/23 01:15: WBC 9.7, RBC 4.68, Hgb 13.1, Hct 39.3, MCV 84.0, MCH 28.1, MCHC 33.4, RDW 14.3, Plt Count 289, MPV 8.4, Neut % (Auto) 69.3, Lymph % (Auto) 19.3, Sierra % (Auto) 8.0, Eos % (Auto) 2.4, Baso % (Auto) 1.1, Neut # (Auto) 6.8, Lymph # (Auto) 1.9, Sierra # (Auto) 0.8, Eos # (Auto) 0.2, Baso # (Auto) 0.1, Sodium 132 L, Potassium 4.3, Chloride 101, Carbon Dioxide 21 L, Anion Gap 14.3, BUN 41 H, Creatinine 1.60 H, Estimated Creat Clear 49, Estimated GFR 33 L, Est GFR ( Amer) 39 L, Glucose 322 H, Calcium 9.3, Magnesium 2.4 H, Total Bilirubin 0.4, AST 48 H, ALT 53, Alkaline Phosphatase 134 H, Troponin I 0.08 H, NT-Pro-B Natriuret Pep 331 H, Total Protein 7.2, Albumin 3.6, Globulin 3.6 H, Albumin/Globulin Ratio 1.0 L 10/07/23 04:05: Troponin I 0.07 H 10/07/23 01:15 10/07/23 01:15 Orders (Tests/Meds): ED MEDICATIONS Discontinued Medications Generic Name Dose Route Start Last Admin Trade Name Freq PRN Reason Stop Dose Admin Aspirin 325 mg 10/07/23 01:28 10/07/23 01:36 Aspirin 325mg Tablet PO 10/07/23 01:29 325 mg ONCE ONE Administration Insulin Human Regular 5 unit 10/07/23 02:13 10/07/23 02:26 Insulin Human Regular 100 Units/Ml 10ml Vial IVP 10/07/23 02:14 5 unit ONCE ONE Administration Nitroglycerin 0.4 mg 10/07/23 01:28 10/07/23 01:36 Nitroglycerin 0.4mg Sl Tablet SL 11/06/23 01:27 0.4 mg Q5MINP PRN Administration Chest Pain ORDERS Category Date Time Status XR chest 2V Stat Exams 10/07/23 01:29 Completed BNP [NT Pro Brain Natriuretic Pep.] Stat Lab 10/07/23 01:15 Completed CBC w/Auto Diff [Complete Blood Count Auto Diff] Stat Lab 10/07/23 01:15 Completed CMP [Comprehensive Metabolic Panel] Stat Lab 10/07/23 01:15 Completed MAG [Magnesium] Stat Lab 10/07/23 01:15 Completed Troponin I Q3H Lab 10/07/23 01:15 Completed Troponin I Q3H Lab 10/07/23 04:05 Completed Medical Decision Narrative: Patient with history and exam per above presenting for evaluation of exertional presyncope Diagnoses considered include ACS, electrolyte abnormality, hypertensive urgency, hypertensive emergency, hypovolemia, among others ED workup and treatment included: ED MEDICATIONS Discontinued Medications Generic Name Dose Route Start Last Admin Trade Name Freq PRN Reason Stop Dose Admin Aspirin 325 mg 10/07/23 01:28 10/07/23 01:36 Aspirin 325mg Tablet PO 10/07/23 01:29 325 mg ONCE ONE Administration Insulin Human Regular 5 unit 10/07/23 02:13 10/07/23 02:26 Insulin Human Regular 100 Units/Ml 10ml Vial IVP 10/07/23 02:14 5 unit ONCE ONE Administration Nitroglycerin 0.4 mg 10/07/23 01:28 10/07/23 01:36 Nitroglycerin 0.4mg Sl Tablet SL 11/06/23 01:27 0.4 mg Q5MINP PRN Administration Chest Pain ORDERS Category Date Time Status XR chest 2V Stat Exams 10/07/23 01:29 Completed BNP [NT Pro Brain Natriuretic Pep.] Stat Lab 10/07/23 01:15 Completed CBC w/Auto Diff [Complete Blood Count Auto Diff] Stat Lab 10/07/23 01:15 Completed CMP [Comprehensive Metabolic Panel] Stat Lab 10/07/23 01:15 Completed MAG [Magnesium] Stat Lab 10/07/23 01:15 Completed Troponin I Q3H Lab 10/07/23 01:15 Completed Troponin I Q3H Lab 10/07/23 04:05 Completed Labs were independently interpreted by me, significant for creatinine 1.6, consistent with baseline, hyperglycemia without positive anion gap, troponins, post cardiac catheterization, elevated, however no significant delta. Imaging was independently visualized and interpreted by me, significant for no acute findings. Please refer to radiology report for full details. Patient had improvement of symptoms upon repeat evaluation My clinical impression at this time is most consistent with hypertensive urgency, in the setting of exertional presyncope, as well as hyperglycemia. Patient will follow-up with PCP as well as cardiology and expresses comfort with her symptoms, my clinical impression, and ability to follow-up and be discharged at this time. I discussed my clinical impression with patient and answered all questions. At this time, the evidence for any other entities in the differential is insufficient to warrant any further testing or ED observation. This was explained to the patient. The patient was advised that persistent or worsening symptoms require further evaluation. I confirmed the patient's understanding of this discussion. Critical Care Critical Care Time Critical Care Time: No
--- NOTE | 2023-10-07 01:29 | XR_ITS ---
PROCEDURE INFORMATION: Exam: XR Chest Exam date and time: 10/07/2023 1:29 AM Age: 63 years old Clinical indication: Shortness of breath; Additional info: SOA, presyncope, HX chf TECHNIQUE: Imaging protocol: Radiologic exam of the chest. Views: 2 views. COMPARISON: CT ANGIO CHEST PE PROTOCOL 10/01/2023 6:19 PM FINDINGS: Lungs: No evidence of acute pulmonary disease or infiltrates Pleural spaces: No large effusion or pneumothorax. Heart/Mediastinum: No evidence of mediastinal widening or cardiac silhouette enlargement; the mediastinum and heart appear within normal limits for contour and size. Bones/joints: No evidence of acute osseous abnormalities within the visualized portions of the thoracic spine and ribs. Osseous structures appear appropriate for patient age. IMPRESSION: No dense parenchymal consolidation, pleural effusion, or pneumothorax.
[2023-10-07] MEDS: ASPIRIN 325MG TABLET 325 MG PO (01:36)
[2023-10-07] MEDS: NITROGLYCERIN 0.4MG SL TABLET 0.400000000000000022 MG SL (01:36)
[2023-10-07 01:37] LABS: Basophils # 0.1 K/mm3 (0-0.2); Basophils % 1.1 % (0.1-2.0); Eosinophils # 0.2 K/mm3 (0.0-0.4); Eosinophils % 2.4 % (0.1-12.0); Hematocrit 39.3 % (37.0-47.0); Hemoglobin 13.1 g/dL (12.2-16.2); Lymphocytes # 1.9 K/mm3 (0.7-4.5); Lymphocytes % 19.3 % (10-50); Mean Corpuscular HGB Conc 33.4 g/dL (31.8-35.4); Mean Corpuscular Hemoglobin 28.1 pg (27.0-31.2); Mean Platelet Volume 8.4 fl (7.4-10.4); Monocytes # 0.8 K/mm3 (0.1-1.0); Neutrophils # 6.8 K/mm3 (1.8-7.8); Neutrophils % 69.3 % (37.0-80.0); Platelet Count 289 K/mm3 (142-424); Red Blood Count 4.68 M/mm3 (4.20-5.40); Red Cell Distribution Width 14.3 % (11.5-17.5); White Blood Count 9.7 K/mm3 (4.8-10.8)
[2023-10-07 01:44] LABS: Chloride 101 mmol/L (98-107); Potassium 4.3 mmoL/L (3.5-5.1); Sodium 132 mmol/L (136-145)
[2023-10-07 01:47] LABS: Alanine Aminotransferase 53 U/L (12-78); Albumin Level 3.6 g/dl (3.5-5.0); Alkaline Phosphatase 134 U/L (38-126); Anion Gap 14.3 mEq/L (5-15); Aspartate Amino Transferase 48 U/L (14-36); Bilirubin,Total 0.4 mg/dl (0.2-1.3); Blood Urea Nitrogen 41 mg/dl (7-17); Carbon Dioxide 21 mmol/L (22.0-30.0); Creatinine Clearance Estimated 49 mL/min (50-200); Estimated Glomerular Filt Rate 33 ml/min (>60); GFR (African American) 39 ML/MIN (>60); Globulin 3.6 g/dL (1.3-3.2); Total Protein,Serum 7.2 g/dl (6.3-8.2)
[2023-10-07 01:48] LABS: Calcium 9.3 mg/dl (8.4-10.2); Glucose 322 mg/dl (74-100); Magnesium 2.4 mg/dl (1.6-2.3)
[2023-10-07 01:57] LABS: NT Pro Brain Natriuretic Pep. 331 pg/mL (0-125)
[2023-10-07 02:00] LABS: Troponin I 0.08 ng/ml (0.00-0.034)
[2023-10-07] MEDS: INSULIN HUMAN REGULAR 100 UNITS/ML 10ML VIAL 5 UNIT IVP (02:26)
--- NOTE | 2023-10-07 03:06 | PC.NURSE ---
POC glucose 174
[2023-10-07 04:32] LABS: Troponin I 0.07 ng/ml (0.00-0.034)
== END 2023-10-07 05:10 | disposition home or self-care (01) ==
PROVIDERS: Emergency Provider Emergency Medicine
DX: I16.0 Hypertensive urgency (principal); E87.1 Hypo-osmolality and hyponatremia; E11.65 Type 2 diabetes mellitus with hyperglycemia; R55 Syncope and collapse; Z79.4 Long term (current) use of insulin; Z79.84 Long term (current) use of oral hypoglycemic drugs; R06.02 Shortness of breath; R42 Dizziness and giddiness; I10 Essential (primary) hypertension; Z87.891 Personal history of nicotine dependence
CPT/HCPCS: 71046; 80053; 83735; 83880; 84484; 85025; 93005; 96372; 99284

== ENCOUNTER 2023-11-12 18:05 | Emergency (ER) | payer BC, SELFPAY ==
[2023-11-12 18:06] VITALS: BP 192/92; PULSE 92; RESP 20; TEMP 36.8; O2SAT 100; BMI 30.1
[2023-11-12 18:15] VITALS: BP 192/92; PULSE 91; O2SAT 100
--- NOTE | 2023-11-12 18:19 | XR_ITS ---
PROCEDURE INFORMATION: Exam: XR Right Foot Exam date and time: 11/12/2023 6:22 PM Age: 63 years old Clinical indication: Injury or trauma; Other: Stepped on something at home; Bleeding/hemorrhage; Foot; Right; Additional info: Laceration third toe, R/O fb TECHNIQUE: Imaging protocol: Radiologic exam of the right foot. Views: 3 or more views. COMPARISON: CR (KNEE LAT, KNEE, KNEE LAT) 11/17/2018 3:43 PM FINDINGS: Bones/joints: Osseous alignment is normal. No acute fracture. Soft tissue swelling of the toes noted. Soft tissues: Tiny radiodensity projects over the 5th toe in the oblique view and could represent a small soft tissue calcification or foreign body. Larger more proximal radiodensity changes position between the frontal and oblique views and is not visualized on the lateral view, suggesting it represents an item external to the patient. IMPRESSION: No significant osseous abnormality. Questionable tiny radiopaque foreign body versus soft tissue calcification in the 5th toe. No suspicious radiodensity in the 3rd toe
[2023-11-12] MEDS: TET/DIPHTH/PERT-ADULT 0.5ML SYRINGE 0.5 ML IM (18:23)
[2023-11-12] MEDS: LIDOCAINE 1% 20ML MDV 20 ML SQ (18:25)
--- NOTE | 2023-11-12 18:26 | ED_ITS ---
Discharge Plan Disposition Patient Disposition: Home, Self-Care Prescriptions Prescriptions: New cephalexin 500 mg capsule 1,000 mg PO BID 7 Days Qty: 28 0RF No Action furosemide 40 mg tablet 40 mg PO DAILY Patient Comments: TAKE ONE TABLET BY MOUTH EVERY DAY atorvastatin 80 mg tablet 80 mg PO HS Patient Comments: TAKE ONE TABLET BY MOUTH EVERY DAY diltiazem HCl 240 mg capsule,extended release 24hr 240 mg PO DAILY Patient Comments: TAKE ONE CAPSULE BY MOUTH EVERY DAY FOR heart rhythm clopidogrel 75 mg tablet 75 mg PO DAILY Patient Comments: TAKE ONE TABLET BY MOUTH EVERY DAY aspirin 81 mg tablet,delayed release (DR/EC) 81 mg PO DAILY Patient Comments: TAKE ONE TABLET BY MOUTH EVERY DAY spironolactone 25 mg tablet 25 mg PO DAILY Patient Comments: TAKE ONE TABLET BY MOUTH EVERY DAY carvedilol 3.125 mg tablet 3.125 mg PO BID Patient Comments: TAKE ONE TABLET BY MOUTH TWICE DAILY WITH FOOD pantoprazole 40 mg tablet,delayed release (DR/EC) 40 mg PO DAILY Patient Comments: TAKE ONE TABLET BY MOUTH EVERY DAY insulin glargine [Lantus Solostar U-100 Insulin] 100 unit/mL (3 mL) insulin pen 50 unit SQ HS Patient Comments: INJECT 50 UNITS SUBCUTANEOUSLY EVERY DAY AT BEDTIME FOR diabetes Xarelto 15 mg tablet 15 mg PO DAILY Patient Comments: TAKE ONE TABLET BY MOUTH EVERY EVENING WITH MEAL Jardiance 10 mg tablet 10 mg PO DAILY Patient Comments: TAKE ONE TABLET BY MOUTH EVERY DAY Entresto 24-26 mg tablet 1 tab PO BID Patient Comments: TAKE ONE TABLET BY MOUTH TWICE DAILY Referrals Follow up/Referrals: Anyi Raymundo PA [Primary Care Provider] - See instructions Anya Brizuela DPM [Staff Physician] - See instructions Activity Restrictions/Add. Instructions Additional Instructions/Restrictions: Follow-up with Dr. Brizuela, podiatry, for further definitive management of your diabetic foot wound. Keflex twice daily for 7 days. Call your family doctor to establish care for this visit to the emergency department and schedule follow-up within 48 hours to ensure improvement. If you have any worsening of your condition or any other concerning signs or symptoms, return to the emergency department or your primary care doctor for further evaluation. Clinical Impressions Clinical Impression: Laceration of foot, right Qualifiers: Encounter type: initial encounter Qualified Code(s): S91.311A - Laceration without foreign body, right foot, initial encounter Instructions Patient Instructions: DI for Skin Abscess Discharge ED Provider: Aneudy Curry General Adult HPI General Chief complaint: Skin/Abscess/Foreign Body Stated complaint: [id number] RT foot lac Time Seen by Provider: 11/12/23 18:09 Mode of Arrival: Wheelchair Source of Information: Patient Limitations: No Limitations Description of Symptoms (Recalled from ER Triage Doc. by RN): 63 F presents from home with c/o right foot laceration. Patient reports taking rivaroxaban and clopidogrel. Patient was barefoot in her home and noticed bleeding, so she is unsure of the circumstances exactly. History of Present Illness HPI narrative: Please note that above description of symptoms, in this electronic medical record under categorization of recalled from ER triage doctor by RN are reflective of an initial nursing assessment, however, is not reflective of my full history and physical exam that was personally taken and clarified. Consequentially, this preceding description of symptoms, which may include the patient's categorized chief complaint in the EMR, do not reflect my personal clinical impression, and the ultimate description of history of present illness and patient stated complaints should be deferred to this section of the note. Unless stated otherwise or congruent with this section of the note, additional signs, symptoms, or incongruence should be interpreted as inaccurate with my clinical impression. Related Data Home Medications Medication Instructions Recorded Confirmed aspirin 81 mg tablet,delayed 81 mg PO DAILY 11/12/23 11/12/23 release atorvastatin 80 mg tablet 80 mg PO HS 11/12/23 11/12/23 carvedilol 3.125 mg tablet 3.125 mg PO BID 11/12/23 11/12/23 clopidogrel 75 mg tablet 75 mg PO DAILY 11/12/23 11/12/23 diltiazem HCl 240 mg 240 mg PO DAILY 11/12/23 11/12/23 capsule,extended release 24 hr empagliflozin 10 mg tablet 10 mg PO DAILY 11/12/23 11/12/23 (Jardiance) furosemide 40 mg tablet 40 mg PO DAILY 11/12/23 11/12/23 insulin glargine 100 unit/mL (3 50 unit SQ HS 11/12/23 11/12/23 mL) subcutaneous pen (Lantus Solostar U-100 Insulin) pantoprazole 40 mg tablet,delayed 40 mg PO DAILY 11/12/23 11/12/23 release rivaroxaban 15 mg tablet (Xarelto) 15 mg PO DAILY 11/12/23 11/12/23 sacubitril 24 mg-valsartan 26 mg 1 tab PO BID 11/12/23 11/12/23 tablet (Entresto) spironolactone 25 mg tablet 25 mg PO DAILY 11/12/23 11/12/23 Previous Rx's Medication Instructions Recorded cephalexin 500 mg capsule 1,000 mg (2 x 500 mg) PO BID 7 11/12/23 days #28 caps Allergies Allergy/AdvReac Type Severity Reaction Status Date / Time latex Allergy Rash Verified 11/06/23 10:10 [facility] Disclaimer: The information contained in this section may have been updated after the patient was seen, as this information can be updated by other users. Medical History Dyspnea Bronchitis Gastritis Renal insufficiency Obesity (BMI 30-39.9) Hematoma, non-traumatic Ventral hernia Hiatal hernia Diabetes mellitus, insulin dependent (IDDM), controlled Left against medical advice Fatigue Tachycardia Dizziness Atrial flutter NSTEMI (non-ST elevated myocardial infarction) Elevated troponin Renal insufficiency Atrial fibrillation Chest pain Obesity Diabetes mellitus Surgical History H/O cardiac radiofrequency ablation 2020 Stented coronary artery Family History Other No significant family history Social History Smoking Status: Never smoker second hand exposure: No alcohol intake: never substance use type: denies use current occupational status: employed Travel in the last 8 weeks: None household members: spouse and family housing: house current occupational exposures/hazards: No caffeine: Yes ROS Obtained: Yes All systems reviewed & no additional complaints except as documented Physical Exam General General appearance: alert and in no apparent distress Head Head exam: atraumatic and normocephalic Eye Eye exam: Present normal appearance, PERRL and EOMI Neck Neck exam: Present normal inspection, full ROM and trachea midline Respiratory Respiratory exam: Absent respiratory distress, wheezes, stridor, accessory muscle use or prolonged expiratory phase Cardiovascular Cardiovascular exam: Present other (Pulses equal symmetric in upper and lower extremities) Abdominal Exam Abdominal exam: Present soft; Absent distention, tenderness or pulsatile mass Extremities Exam Extremities exam: Present other (2 cm laceration extending from base of toe 4 to webspace between toes 2 and 3 on the right. Nearly hemostatic. Patient with flexion and extension of the toes, minimal pain, sensation intact. Not grossly contaminated.); Absent edema Neurological Exam Neurological exam: Present alert, oriented X3 and CN II-XII intact; Absent motor sensory deficit Skin Skin exam: Present warm and dry; Absent diaphoresis or erythema Medical Decision Making Medical Records Medical records reviewed: Yes I reviewed the patient's medical records. James Inquiry Pt receiving controlled substance: No James was queried for this patient: No Vital Signs: 11/12/23 18:06 11/12/23 18:15 11/12/23 18:30 Temperature 98.3 F Temperature Source Oral Pulse Rate 91 H 82 Pulse Rate [Left] 92 H Respiratory Rate 20 Blood Pressure 192/92 H 124/62 Blood Pressure [Right Arm] 192/92 H Blood Pressure Mean [Right Arm] 125 Blood Pressure Source [Right Arm] Automatic Cuff Blood Pressure Position [Right Arm] Sitting 02 Sat by Pulse Oximetry 100 100 98 Oxygen Delivery Method Room Air Room Air Orders (Tests/Meds): ED MEDICATIONS Discontinued Medications Generic Name Dose Route Start Last Admin Trade Name Freq PRN Reason Stop Dose Admin Cephalexin HCl 1,000 mg 11/12/23 18:29 11/12/23 18:41 Cephalexin 500mg Capsule PO 11/12/23 18:30 1,000 mg ONCE ONE Administration Lidocaine HCl 20 ml 11/12/23 18:19 11/12/23 18:25 Lidocaine 1% 20ml Mdv SQ 11/12/23 18:20 20 ml ONCE ONE Administration Tetanus/Reduced Diphtheria/Acell Pertussis 0.5 ml 11/12/23 18:19 11/12/23 18:23 Tet/Diphth/Pert-Adult 0.5ml Syringe IM 11/12/23 18:20 0.5 ml .ONCE ONE Administration ORDERS Category Date Time Status Foot XR right minimum 3 views [XR foot RT min 3V] Stat Exams 11/12/23 18:19 Completed Medical Decision Narrative: 63-year-old female history of tension, hyperlipidemia, CAD, poorly controlled diabetes with neuropathy, CKD paroxysmal A-fib on Xarelto, CAD on aspirin and Plavix status post stenting presenting with laceration on the bottom of her right foot. Does not remember when or how it happened because it did not hurt at the time due to her neuropathy. Somewhere in the house. Not grossly contaminated around the dirt. She was helping her son who is disabled onto the toilet, noticed that there was blood on the floor. Last tetanus shot was greater than 5 years ago. States that the pain is mild, if at all there. Last A1c she states was high, but cannot tell exact number. History was obtained via conversation with patient. On arrival, patient hemodynamically stable, sea rt, [oriented x4, ][appropriate, ]GCS [15], moving all extremities spontaneously, pupils equal and reactive to light. Full physical exam performed and significant for hypertensive, nontachycardic. States that she is having mild pain. She has 2 cm laceration at the base of toe 3 on the right side. Nearly hemostatic. Range of motion intact. Not grossly contaminated. Differential includes foreign body, complicated laceration and poorly controlled diabetic, among others. Patient was given Tdap, initial dose of Keflex, washed out with ample saline. Independent interpretation of imaging demonstrates no acute bony abnormality or foreign body in the foot. Hematologic workup was considered including A1c, CBC, coags, but not deemed necessary given minor trauma, hemostatic with direct pres sure, and overall well-appearing. Laceration closed, see note for further information. [employer] disclaimer Much of this encounter note is an electronic inorganic chemist spoken language to printed text. Electronic inorganic chemist of the spoken language may permit errors. Although I have reviewed the note, some errors may still exist. Procedures Laceration Laceration 1: Site: foot Side (If applicable): right Size (cm): 2 Description: linear Depth: involves muscle layer Local Anesthetic: lidocaine 1% Amount of anesthesia used (mL): 10 Pre-repair: wound explored and irrigated extensively Skin layer closed with: nylon Size (cm): 4-0 Number of sutures: 7 Technique: simple, interrupted Critical Care Critical Care Time Critical Care Time: No
[2023-11-12 18:30] VITALS: BP 124/62; PULSE 82; O2SAT 98
[2023-11-12] MEDS: cephALEXin 500MG CAPSULE 1000 MG PO (18:41)
--- NOTE | 2023-11-12 18:43 | PC.NURSE ---
Attending at bedside suturing
[2023-11-12 19:25] VITALS: BP 144/78; PULSE 81; RESP 18; TEMP 36.3; O2SAT 99
== END 2023-11-12 19:26 | disposition home or self-care (01) ==
PROVIDERS: Emergency Provider Emergency Medicine; PCP Physician Assistant
DX: S91.311A Laceration without foreign body, right foot, initial encounter (principal); X58.XXXA Exposure to other specified factors, initial encounter; E11.40 Type 2 diabetes mellitus with diabetic neuropathy, unspecified; Z79.4 Long term (current) use of insulin; Z79.84 Long term (current) use of oral hypoglycemic drugs; Z23 Encounter for immunization
CPT/HCPCS: 12001; 73630; 90471; 90715; 99283

== ENCOUNTER 2023-11-13 07:29 | Emergency (ER) | payer BC, SELFPAY ==
[2023-11-13 07:36] VITALS: BP 177/88; PULSE 83; RESP 16; TEMP 36.6; O2SAT 98; BMI 31.0
--- NOTE | 2023-11-13 07:36 | HMH.EDGENADL ---
Discharge Plan Disposition Patient Disposition: Home, Self-Care Condition: Good Prescriptions Prescriptions: No Action furosemide 40 mg tablet 40 mg PO DAILY Patient Comments: TAKE ONE TABLET BY MOUTH EVERY DAY atorvastatin 80 mg tablet 80 mg PO HS Patient Comments: TAKE ONE TABLET BY MOUTH EVERY DAY diltiazem HCl 240 mg capsule,extended release 24hr 240 mg PO DAILY Patient Comments: TAKE ONE CAPSULE BY MOUTH EVERY DAY FOR heart rhythm clopidogrel 75 mg tablet 75 mg PO DAILY Patient Comments: TAKE ONE TABLET BY MOUTH EVERY DAY aspirin 81 mg tablet,delayed release (DR/EC) 81 mg PO DAILY Patient Comments: TAKE ONE TABLET BY MOUTH EVERY DAY spironolactone 25 mg tablet 25 mg PO DAILY Patient Comments: TAKE ONE TABLET BY MOUTH EVERY DAY carvedilol 3.125 mg tablet 3.125 mg PO BID Patient Comments: TAKE ONE TABLET BY MOUTH TWICE DAILY WITH FOOD pantoprazole 40 mg tablet,delayed release (DR/EC) 40 mg PO DAILY Patient Comments: TAKE ONE TABLET BY MOUTH EVERY DAY insulin glargine [Lantus Solostar U-100 Insulin] 100 unit/mL (3 mL) insulin pen 50 unit SQ HS Patient Comments: INJECT 50 UNITS SUBCUTANEOUSLY EVERY DAY AT BEDTIME FOR diabetes Xarelto 15 mg tablet 15 mg PO DAILY Patient Comments: TAKE ONE TABLET BY MOUTH EVERY EVENING WITH MEAL Jardiance 10 mg tablet 10 mg PO DAILY Patient Comments: TAKE ONE TABLET BY MOUTH EVERY DAY Entresto 24-26 mg tablet 1 tab PO BID Patient Comments: TAKE ONE TABLET BY MOUTH TWICE DAILY cephalexin 500 mg capsule 1,000 mg PO BID 7 Days Qty: 28 0RF Referrals Follow up/Referrals: Anyi Raymundo PA [Primary Care Provider] - See instructions Activity Restrictions/Add. Instructions Additional Instructions/Restrictions: We have provided some pressure dressings for your foot. Please keep your wound elevated and clean. Please do not apply the pressure dressing too tightly, if you notice your toes are discolored or if you have worsening numbness or tingling in your toes, please remove the dressing. If you have bleeding from your foot, please apply direct pressure. Please return with any new or worsening symptoms. Clinical Impressions Clinical Impression: Bleeding from wound Instructions Patient Instructions: DI for Laceration Repair Discharge ED Provider: Jorge Shaver Adult [facility] General Chief complaint: Wound/Laceration Stated complaint: stitches in R foot and still bleeding Time Seen by Provider: 11/13/23 07:32 History of Present Illness HPI narrative: The patient presents with a chief complaint of continued bleeding from a laceration on her foot sustained the previous night. She reports slipping on a piece of glass and receiving seven stitches for the injury. The patient is unable to visualize the wound well and sought assistance from her , who has limited vision due to a torn retina. The injury occurred at 5:50 PM while she was assisting her handicapped son. The patient has a history of blood clots and is currently taking Xarelto and clopidogrel as blood thinners. She has been on Xarelto for an extended period and takes it at night, while she takes clopidogrel in the morning. She also has a history of heart catheterization, heart ablation, and occasional arrhythmias. The patient denies having significant neuropathy in her foot, stating she can feel the needle and temperature sensations. Please note that above description of symptoms, in this electronic medical record under categorization of recalled from ER triage doctor by RN are reflective of an initial nursing assessment, however, is not reflective of my full history and physical exam that was personally taken and clarified. Consequentially, this preceding description of symptoms, which may include the patient's categorized chief complaint in the EMR, do not reflect my personal clinical impression, and the ultimate description of history of present illness and patient stated complaints should be deferred to this section of the note. Unless stated otherwise or congruent with this section of the note, additional signs, symptoms, or incongruence should be interpreted as inaccurate with my clinical impression. Related Data Home Medications Medication Instructions Recorded Confirmed aspirin 81 mg tablet,delayed 81 mg PO DAILY 11/12/23 11/12/23 release atorvastatin 80 mg tablet 80 mg PO HS 11/12/23 11/12/23 carvedilol 3.125 mg tablet 3.125 mg PO BID 11/12/23 11/12/23 clopidogrel 75 mg tablet 75 mg PO DAILY 11/12/23 11/12/23 diltiazem HCl 240 mg 240 mg PO DAILY 11/12/23 11/12/23 capsule,extended release 24 hr empagliflozin 10 mg tablet 10 mg PO DAILY 11/12/23 11/12/23 (Jardiance) furosemide 40 mg tablet 40 mg PO DAILY 11/12/23 11/12/23 insulin glargine 100 unit/mL (3 50 unit SQ HS 11/12/23 11/12/23 mL) subcutaneous pen (Lantus Solostar U-100 Insulin) pantoprazole 40 mg tablet,delayed 40 mg PO DAILY 11/12/23 11/12/23 release rivaroxaban 15 mg tablet (Xarelto) 15 mg PO DAILY 11/12/23 11/12/23 sacubitril 24 mg-valsartan 26 mg 1 tab PO BID 11/12/23 11/12/23 tablet (Entresto) spironolactone 25 mg tablet 25 mg PO DAILY 11/12/23 11/12/23 Previous Rx's Medication Instructions Recorded cephalexin 500 mg capsule 1,000 mg (2 x 500 mg) PO BID 7 11/12/23 days #28 caps Allergies Allergy/AdvReac Type Severity Reaction Status Date / Time latex Allergy Rash Verified 11/06/23 10:10 [facility] Disclaimer: The information contained in this section may have been updated after the patient was seen, as this information can be updated by other users. Medical History Dyspnea Bronchitis Gastritis Renal insufficiency Obesity (BMI 30-39.9) Hematoma, non-traumatic Ventral hernia Hiatal hernia Diabetes mellitus, insulin dependent (IDDM), controlled Left against medical advice Fatigue Tachycardia Dizziness Atrial flutter NSTEMI (non-ST elevated myocardial infarction) Elevated troponin Renal insufficiency Atrial fibrillation Chest pain Obesity Diabetes mellitus Surgical History H/O cardiac radiofrequency ablation 2020 Stented coronary artery Family History Other No significant family history Social History Smoking Status: Unknown if ever smoked second hand exposure: No alcohol intake: never substance use type: denies use current occupational status: employed Travel in the last 8 weeks: None household members: spouse and family housing: house current occupational exposures/hazards: No caffeine: Yes ROS Obtained: Yes other As per HPI Physical Exam General General appearance: alert and in no apparent distress Head Head exam: atraumatic and normocephalic Eye Eye exam: Present normal appearance Neck Neck exam: Present normal inspection Chest Chest inspection: Present normal inspection and symmetric chest wall rise Respiratory Respiratory exam: Present normal lung sounds bilaterally; Absent respiratory distress Cardiovascular Cardiovascular exam: Present regular rate and normal rhythm Abdominal Exam Abdominal exam: Present soft Neurological Exam Neurological exam: Present alert and oriented X3 Psychiatric Psychiatric exam: Present normal affect and normal mood Skin Skin exam: Present warm and dry Other Other exam information: Hemostatic laceration along bottom of toe on right foot, sutures intact, noncontaminated, controlled upon arrival with pressure dressing. Distal capillary refill within normal limits. No foreign body, no injury appreciable elsewhere. Medical Decision Making Medical Records Medical records reviewed: Yes I reviewed the patient's medical records. James Inquiry Pt receiving controlled substance: No Vital Signs: 11/13/23 07:36 11/13/23 08:02 Temperature 97.9 F 97.8 F Temperature Source Oral Oral Pulse Rate 75 Pulse Rate [Radial] 83 Respiratory Rate 16 16 Blood Pressure 140/89 Blood Pressure [Right Arm] 177/88 H Blood Pressure Mean [Right Arm] 117 Blood Pressure Source Automatic Cuff Blood Pressure Source [Right Arm] Automatic Cuff Blood Pressure Position Sitting Blood Pressure Position [Right Arm] Sitting 02 Sat by Pulse Oximetry 98 Oxygen Delivery Method Room Air Room Air Medical Decision Narrative: Patient with history and exam per above presenting for evaluation of bleeding from laceration repair site. Diagnoses considered include breakthrough bleeding, wound dehiscence, no clinical evidence of foreign body, breakthrough bleeding secondary to anticoagulation, no clinical evidence of contamination, additional injuries outside of those identified yesterday. Wound was cleaned, pressure dressing of applied prior to my evaluation, no clinical evidence of bleeding at this time. My clinical impression at this time is most consistent with breakthrough bleeding secondary to anticoagulation. Patient will use a pressure dressing, and was given strict precautions regarding avoiding any tissue ischemia secondary to overly tightened pressure dressing, and will continue to keep wound clean, elevated as able I discussed my clinical impression with patient and answered all questions. At this time, the evidence for any other entities in the differential is insufficient to warrant any further testing or ED observation. This was explained to the patient. The patient was advised that persistent or worsening symptoms require further evaluation. I confirmed the patient's understanding of this discussion. Critical Care Critical Care Time Critical Care Time: No
[2023-11-13 08:02] VITALS: BP 140/89; PULSE 75; RESP 16; TEMP 36.6; O2SAT 100
== END 2023-11-13 08:03 | disposition home or self-care (01) ==
PROVIDERS: Emergency Provider Emergency Medicine; PCP Physician Assistant
DX: L76.22 Postprocedural hemorrhage of skin and subcutaneous tissue following other procedure (principal); Z86.718 Personal history of other venous thrombosis and embolism; Z79.01 Long term (current) use of anticoagulants
CPT/HCPCS: 99282

== ENCOUNTER 2023-11-21 13:44 | Emergency (ER) | payer BC, SELFPAY ==
[2023-11-21 14:16] VITALS: BP 146/50; PULSE 84; RESP 16; TEMP 36.8; O2SAT 99; BMI 29.1
--- NOTE | 2023-11-21 14:19 | ED_ITS ---
Discharge Plan Disposition Patient Disposition: Home, Self-Care Condition: Good Prescriptions Prescriptions: No Action (DME) Dexcom G6 Sensor Device See Rx Instructions .ROUTE .MEDSUPPLY Qty: 1 Patient Comments: USE DIRECTED TO TEST BLOOD GLUCOSE LEVEL Rx Instructions: As directed furosemide 40 mg tablet 40 mg PO DAILY Patient Comments: TAKE ONE TABLET BY MOUTH EVERY DAY atorvastatin 80 mg tablet 80 mg PO HS Patient Comments: TAKE ONE TABLET BY MOUTH EVERY DAY diltiazem HCl 240 mg capsule,extended release 24hr 240 mg PO DAILY Patient Comments: TAKE ONE CAPSULE BY MOUTH EVERY DAY FOR heart rhythm clopidogrel 75 mg tablet 75 mg PO DAILY Patient Comments: TAKE ONE TABLET BY MOUTH EVERY DAY aspirin 81 mg tablet,delayed release (DR/EC) 81 mg PO DAILY Patient Comments: TAKE ONE TABLET BY MOUTH EVERY DAY spironolactone 25 mg tablet 25 mg PO DAILY Patient Comments: TAKE ONE TABLET BY MOUTH EVERY DAY carvedilol 3.125 mg tablet 3.125 mg PO BID Patient Comments: TAKE ONE TABLET BY MOUTH TWICE DAILY WITH FOOD pantoprazole 40 mg tablet,delayed release (DR/EC) 40 mg PO DAILY Patient Comments: TAKE ONE TABLET BY MOUTH EVERY DAY insulin glargine [Lantus Solostar U-100 Insulin] 100 unit/mL (3 mL) insulin pen 50 unit SQ HS Patient Comments: INJECT 50 UNITS SUBCUTANEOUSLY EVERY DAY AT BEDTIME FOR diabetes Xarelto 15 mg tablet 15 mg PO DAILY Patient Comments: TAKE ONE TABLET BY MOUTH EVERY EVENING WITH MEAL Jardiance 10 mg tablet 10 mg PO DAILY Patient Comments: TAKE ONE TABLET BY MOUTH EVERY DAY Entresto 24-26 mg tablet 1 tab PO BID Patient Comments: TAKE ONE TABLET BY MOUTH TWICE DAILY Referrals Follow up/Referrals: Anyi Raymundo PA [Primary Care Provider] - See instructions Activity Restrictions/Add. Instructions Additional Instructions/Restrictions: GO straight to Podiatry Further treatment and care per Podiatry Clinical Impressions Clinical Impression: Visit for wound check Print Language Print Language: Tanz[place] Discharge ED Provider: Keisha Barriga [facility] General Stated complaint: stitches removed Mode of Arrival: Ambulatory Source of Information: Patient Limitations: No Limitations Time Seen by Provider: 11/21/23 14:19 Description of Symptoms (Recalled from Triage Doc. by RN): Patient here for suture removal from the bottom of her right foot. Laceration looks to be infected. Nurse Practitioner looked at wound and was only able to remove three sutures. HEENT Symptoms (Recalled from RN notes): No Resp Symptoms (Recalled from RN notes): No Skin Symptoms (Recalled from RN notes): Yes MS Symptoms (Recalled from RN notes): No Functional Status (Recalled from RN notes): wnl History of Present Illness Provider Complaint: Patient state that she had laceration to bottom of the foot on 11/11 that she had to have stitches placed to close laceration States she had to come back in the next day due to bleeding States that she has been soaking her foot in epson salt and using peroxide on it States that she has been wearing a sock on it all the time to try to keep it clean Related Data Home Medications ?Medication ?Instructions ?Recorded ?Confirmed aspirin 81 mg tablet,delayed 81 mg PO DAILY 11/12/23 11/21/23 release atorvastatin 80 mg tablet 80 mg PO HS 11/12/23 11/21/23 carvedilol 3.125 mg tablet 3.125 mg PO BID 11/12/23 11/21/23 clopidogrel 75 mg tablet 75 mg PO DAILY 11/12/23 11/21/23 diltiazem HCl 240 mg 240 mg PO DAILY 11/12/23 11/21/23 capsule,extended release 24 hr empagliflozin 10 mg tablet 10 mg PO DAILY 11/12/23 11/21/23 (Jardiance) furosemide 40 mg tablet 40 mg PO DAILY 11/12/23 11/21/23 insulin glargine 100 unit/mL (3 50 unit SQ HS 11/12/23 11/21/23 mL) subcutaneous pen (Lantus Solostar U-100 Insulin) pantoprazole 40 mg tablet,delayed 40 mg PO DAILY 11/12/23 11/21/23 release rivaroxaban 15 mg tablet (Xarelto) 15 mg PO DAILY 11/12/23 11/21/23 sacubitril 24 mg-valsartan 26 mg 1 tab PO BID 11/12/23 11/21/23 tablet (Entresto) spironolactone 25 mg tablet 25 mg PO DAILY 11/12/23 11/21/23 blood-glucose sensor (Dexcom G6 #1 ea 11/21/23 11/21/23 Sensor device) Allergies Allergy/AdvReac Type Severity Reaction Status Date / Time latex Allergy Rash Verified 11/21/23 14:54 Worker's Comp Is this a Worker's Comp case?: No [facility] Disclaimer: The information contained in this section may have been updated after the patient was seen, as this information can be updated by other users. Medical History Dyspnea Bronchitis Gastritis Renal insufficiency Obesity (BMI 30-39.9) Hematoma, non-traumatic Ventral hernia Hiatal hernia Diabetes mellitus, insulin dependent (IDDM), controlled Left against medical advice Fatigue Tachycardia Dizziness Atrial flutter NSTEMI (non-ST elevated myocardial infarction) Elevated troponin Renal insufficiency Atrial fibrillation Chest pain Obesity Diabetes mellitus Surgical History H/O cardiac radiofrequency ablation 2020 Stented coronary artery Family History Other No significant family history Social History Smoking Status: Unknown if ever smoked second hand exposure: No alcohol intake: never substance use type: denies use current occupational status: employed Travel in the last 8 weeks: None household members: spouse and family housing: house current occupational exposures/hazards: No caffeine: Yes ROS Obtained: Yes All systems reviewed & no additional complaints except as documented and Yes Systems reviewed as appropriate & no additional complaints except as documented Constitutional Constitutional: Reports system reviewed and no additional complaints, except as documented and Reports as per HPI ENT Ears, Nose, Mouth, and Throat: Reports system reviewed and no additional complaints, except as documented and Reports as per HPI Cardiovascular Cardiovascular: Reports system reviewed and no additional complaints, except as documented and Reports as per HPI Respiratory Respiratory: Reports system reviewed and no additional complaints, except as documented and Reports as per HPI Integumentary/Breasts Skin/Breast: Reports system reviewed and no additional complaints, except as documented, Reports as per HPI and Reports other Comments: laceration to bottom of right foot at base of toes Physical Exam General General appearance: alert and in no apparent distress Respiratory Respiratory exam: Present normal lung sounds bilaterally; Absent respiratory distress or wheezes Cardiovascular Cardiovascular exam: Present regular rate, normal rhythm and normal heart sounds Expanded Lower Extremity Exam Right: Bottom foot image: 2 1. laceration noted, one stitch was untied and hanging from wound area, and 2 had pulled through the skin and was only connected on one side of the wound and middle appeared open but no bleeding noted, patient is diabetic Neurological Exam Neurological exam: Present alert and oriented X3 Medical Decision Making James Inquiry Pt receiving controlled substance: No James was queried for this patient: No Vital Signs: 11/21/23 14:16 Temperature 98.2 F Temperature Source Oral Pulse Rate [Radial] 84 Respiratory Rate 16 Blood Pressure [Right Arm] 146/50 H Blood Pressure Mean [Right Arm] 82 Blood Pressure Source [Right Arm] Automatic Cuff Blood Pressure Position [Right Arm] Sitting 02 Sat by Pulse Oximetry 99 Oxygen Delivery Method Room Air Medical Decision Narrative: Patient states that ED informed her to follow up with Podiatry but she hasnt done that yet Patient had came into the [facility] to have sutures removed that she had placed in foot on 11/11 however patient has been soaking foot in warm water and epson salt and using hydrogen peroxide on the wound, wound appears to be opening and macerated skin noted, multiple stitches had pulled through one side of skin and was no longer keeping wound closed removed those and several that was untied and hanging from skin, wound appears open but not bleeding, due to hx of diabetes and presentation of wound spoke with Podiatry and patient moved to the Podiatry office for further evaluation
[2023-11-21 14:38] VITALS: BP 146/50; PULSE 84; RESP 16; TEMP 36.8; O2SAT 99
== END 2023-11-21 14:39 | disposition home or self-care (01) ==
PROVIDERS: Emergency Provider Nurse Practitioner; PCP Physician Assistant
DX: T81.30XA Disruption of wound, unspecified, initial encounter (principal)
CPT/HCPCS: 99211; 99212; G0463

== ENCOUNTER 2024-01-15 13:56 | Outpatient (CLI) | payer BC, SELFPAY ==
--- NOTE | 2024-01-15 14:01 | XR_ITS ---
FINAL REPORT CLINICAL HISTORY: Laceration/ foot pain COMPARISON: 11/12/2023 FINDINGS: Right foot Three views were obtained. There is no acute fracture or dislocation. The joint spaces appear normal. There is a moderate plantar spur. Moderate vascular calcification is identified, probably due to underlying diabetes. No foreign body is identified. IMPRESSION: No acute process. Reviewed, Interpreted and Dictated by Shankar Shaver MD Transcribed by Courtney Dos Santos Authenticated and . [facility]
[2024-01-15 14:53] LABS: Basophils # 0.1 K/mm3 (0-0.2); Basophils % 1.2 % (0.1-2.0); Eosinophils # 0.3 K/mm3 (0.0-0.4); Eosinophils % 3.7 % (0.1-12.0); Hematocrit 37.3 % (37.0-47.0); Hemoglobin 12.1 g/dL (12.2-16.2); Lymphocytes # 1.5 K/mm3 (0.7-4.5); Mean Corpuscular HGB Conc 32.5 g/dL (31.8-35.4); Mean Corpuscular Hemoglobin 28.6 pg (27.0-31.2); Mean Corpuscular Volume 87.9 fl (81-99); Mean Platelet Volume 8.2 fl (7.4-10.4); Monocytes # 0.6 K/mm3 (0.1-1.0); Monocytes % 7.6 % (1.7-9.3); Neutrophils # 5.7 K/mm3 (1.8-7.8); Neutrophils % 69.5 % (37.0-80.0); Platelet Count 299 K/mm3 (142-424); Red Blood Count 4.25 M/mm3 (4.20-5.40); Red Cell Distribution Width 14.2 % (11.5-17.5); White Blood Count 8.2 K/mm3 (4.8-10.8)
[2024-01-15 15:00] LABS: Alanine Aminotransferase 39 U/L (12-78); Albumin Level 3.4 g/dl (3.5-5.0); Alkaline Phosphatase 122 U/L (38-126); Aspartate Amino Transferase 33 U/L (14-36); Bilirubin,Total 0.4 mg/dl (0.2-1.3); Blood Urea Nitrogen 44 mg/dl (7-17); Calcium 9.2 mg/dl (8.4-10.2); Carbon Dioxide 23 mmol/L (22.0-30.0); Chloride 104 mmol/L (98-107); Estimated Glomerular Filt Rate 38 ml/min (>60); GFR (African American) 46 ML/MIN (>60); Globulin 3.5 g/dL (1.3-3.2); Glucose 285 mg/dl (74-100); Sodium 134 mmol/L (136-145); Total Protein,Serum 6.9 g/dl (6.3-8.2)
[2024-01-15 15:29] LABS: Anion Gap 11.1 mEq/L (5-15); Potassium 4.1 mmoL/L (3.5-5.1)
[2024-01-15 16:23] LABS: Erythrocyte Sedimentation Rate 81 mm/hr (0-30)
== END 2024-01-15 23:59 | disposition home or self-care (01) ==
PROVIDERS: PCP Physician Assistant; Visit Provider Nurse Practitioner
DX: M79.671 Pain in right foot (principal); M79.672 Pain in left foot; S91.311A Laceration without foreign body, right foot, initial encounter; T14.8XXA Other injury of unspecified body region, initial encounter
CPT/HCPCS: 36415; 73630; 80053; 85025; 85651; 86140; 87070; 87077; 87186; 87205

== ENCOUNTER 2024-08-18 15:08 | Inpatient (IN) | payer MEDICAID, SELFPAY ==
[2024-08-18] VITALS (18 sets, daily range): BP systolic 92–124; BP diastolic 50–71; PULSE 83–121; RESP 11–19; TEMP 36.8–36.9; O2SAT 94–100; BMI 27.4; BMI 27.5
--- NOTE | 2024-08-18 15:16 | ECG_ITS ---
APPROVED REPORT Exam: Resting ECG HR:89 bpm ECG Measurements Heart Rate 89 AXES PA 171 P 73 QRSd 89 QRS 17 QT 402 T 68 QTc 449 Conclusion SINUS RHYTHM WITH OCCASIONAL SUPRAVENTRICULAR PREMATURE COMPLEXES NONSPECIFIC T-WAVE ABNORMALITY BORDERLINE ECG Electronically signed by : TENNILLE FUNEZ, 08/18/2024 22:20:42
[2024-08-18 15:23] LABS: POC Glucose,Bedside 466 (70-110)
--- NOTE | 2024-08-18 15:53 | XR_ITS ---
FINAL REPORT TECHNIQUE: Single view chest CLINICAL HISTORY: Hypoxia COMPARISON: 10/07/2023 FINDINGS: A single view of the chest was obtained. The heart and mediastinum are within normal limits. The lungs are clear. There is no pneumothorax. IMPRESSION: No acute cardiopulmonary process. Reviewed, Interpreted and Dictated by Shankar Shaver MD Transcribed by Rebekah Samuel Authenticated and [facility]
--- NOTE | 2024-08-18 15:59 | ED_ITS ---
Discharge Plan Disposition Patient Disposition: Admitted Chief Complaint: Dizziness Prescriptions Prescriptions: No Action doxycycline hyclate 100 mg capsule 100 mg PO BID 14 Days Qty: 28 0RF doxycycline hyclate 100 mg capsule 100 mg PO BID 14 Days Qty: 28 0RF gentamicin 0.1 % ointment 1 applic topical TID Qty: 30 1RF Xarelto 15 mg tablet PO Patient Comments: TAKE ONE TABLET BY MOUTH EVERY EVENING WITH MEAL atorvastatin 80 mg tablet 80 mg PO HS Qty: 90 3RF pantoprazole 40 mg tablet,delayed release (DR/EC) See Rx Instructions .ROUTE .COMPLEX Qty: 90 3RF Dose Instruction: TAKE ONE TABLET BY MOUTH AT BEDTIME NIGHTLY Rx Instructions: TAKE ONE TABLET BY MOUTH AT BEDTIME NIGHTLY spironolactone 25 mg tablet See Rx Instructions .ROUTE .COMPLEX Qty: 15 12RF Dose Instruction: TAKE 1/2 TABLET BY MOUTH EVERY DAY Rx Instructions: TAKE 1/2 TABLET BY MOUTH EVERY DAY carvedilol 3.125 mg tablet 3.125 mg PO BID 90 Days Qty: 180 3RF Patient Comments: TAKE ONE TABLET BY MOUTH TWICE DAILY WITH FOOD clopidogrel 75 mg tablet 75 mg PO DAILY Qty: 90 3RF insulin glargine [Lantus Solostar U-100 Insulin] 100 unit/mL (3 mL) insulin pen See Rx Instructions .ROUTE .COMPLEX Qty: 15 5RF Dose Instruction: INJECT 50 UNITS SUBCUTANEOUSLY AT BEDTIME Rx Instructions: INJECT 50 UNITS SUBCUTANEOUSLY AT BEDTIME (DME) Dexcom G6 Sensor Device See Rx Instructions .ROUTE .COMPLEX Qty: 3 5RF Dose Instruction: USE DIRECTED TO TEST BLOOD GLUCOSE LEVEL Rx Instructions: USE DIRECTED TO TEST BLOOD GLUCOSE LEVEL furosemide 40 mg tablet 40 mg PO DAILY Patient Comments: TAKE ONE TABLET BY MOUTH EVERY DAY diltiazem HCl 240 mg capsule,extended release 24hr 240 mg PO DAILY Patient Comments: TAKE ONE CAPSULE BY MOUTH EVERY DAY FOR heart rhythm aspirin 81 mg tablet,delayed release (DR/EC) 81 mg PO DAILY Patient Comments: TAKE ONE TABLET BY MOUTH EVERY DAY Jardiance 10 mg tablet 10 mg PO DAILY Patient Comments: TAKE ONE TABLET BY MOUTH EVERY DAY Entresto 24-26 mg tablet 1 tab PO BID Patient Comments: TAKE ONE TABLET BY MOUTH TWICE DAILY Referrals Follow up/Referrals: Anyi Raymundo PA [Primary Care Provider] - See instructions Clinical Impressions Clinical Impression: Sepsis secondary to UTI, Acute hyperglycemia Print Language Print Language: Icelandic Discharge ED Provider: Francesco Fuentes General Adult HPI General Chief complaint: Dizziness Stated complaint: Vomiting,dizziness Time Seen by Provider: 08/18/24 15:26 Mode of Arrival: Ambulatory Source of Information: Patient and Spouse Description of Symptoms (Recalled from ER Triage Doc. by RN): Patient presents today with N/V x24 hours with headache, dizzy, blurred vision. Bedside glucose at 480. History of Present Illness HPI narrative: Patient is 64-year-old female with past medical history of insulin-dependent diabetes on Lantus once daily atrial flutter on anticoagulation who presents emergency department for evaluation of vomiting and dizziness. Dizziness is when she rises from a seated position to exert herself, vomiting has been acute over the last 24 hours nonbloody. Last bowel movement this morning normal, no dysuria, no chest pain or abdominal pain. No other acute complaints at this time. Please note that above description of symptoms, in this electronic medical record under categorization of recalled from ER triage doctor by RN are reflective of an initial nursing assessment, however, is not reflective of my full history and physical exam that was personally taken and clarified. Consequentially, this preceding description of symptoms, which may include the patient's categorized chief complaint in the EMR, do not reflect my personal clinical impression, and the ultimate description of history of present illness and patient stated complaints should be deferred to this section of the note. Unless stated otherwise or congruent with this section of the note, additional signs, symptoms, or incongruence should be interpreted as inaccurate with my clinical impression. Related Data Home Medications ?Medication ?Instructions ?Recorded ?Confirmed aspirin 81 mg tablet,delayed 81 mg PO DAILY 11/12/23 07/07/24 release diltiazem HCl 240 mg 240 mg PO DAILY 11/12/23 07/07/24 capsule,extended release 24 hr empagliflozin 10 mg tablet 10 mg PO DAILY 11/12/23 07/07/24 (Jardiance) furosemide 40 mg tablet 40 mg PO DAILY 11/12/23 07/07/24 sacubitril 24 mg-valsartan 26 mg 1 tab PO BID 11/12/23 07/07/24 tablet (Entresto) rivaroxaban 15 mg tablet (Xarelto) mg PO 01/30/24 07/07/24 Previous Rx's ?Medication ?Instructions ?Recorded doxycycline hyclate 100 mg capsule 100 mg PO BID infection 14 days 11/22/23 #28 caps atorvastatin 80 mg tablet 80 mg PO HS #90 tabs 12/05/23 pantoprazole 40 mg tablet,delayed See Rx Instructions .Route 01/06/24 release .COMPLEX #90 tabs doxycycline hyclate 100 mg capsule 100 mg PO BID infection 14 days 01/15/24 #28 caps gentamicin 0.1 % topical ointment 1 applic topical TID Infection #30 01/15/24 grams spironolactone 25 mg tablet See Rx Instructions .Route 02/03/24 .COMPLEX #15 tabs carvedilol 3.125 mg tablet 3.125 mg PO BID 90 days #180 tabs 02/18/24 clopidogrel 75 mg tablet 75 mg PO DAILY #90 tabs 03/05/24 insulin glargine 100 unit/mL (3 See Rx Instructions .Route 06/25/24 mL) subcutaneous pen (Lantus .COMPLEX #15 mL Solostar U-100 Insulin) blood-glucose sensor (Dexcom G6 #3 ea 07/21/24 Sensor device) Allergies Allergy/AdvReac Type Severity Reaction Status Date / Time latex Allergy Rash Verified 07/07/24 15:40 [facility] Disclaimer: The information contained in this section may have been updated after the patient was seen, as this information can be updated by other users. Medical History Dyspnea Bronchitis Gastritis Renal insufficiency Obesity (BMI 30-39.9) Hematoma, non-traumatic Ventral hernia Hiatal hernia Diabetes mellitus, insulin dependent (IDDM), controlled Left against medical advice Fatigue Tachycardia Dizziness Atrial flutter NSTEMI (non-ST elevated myocardial infarction) Elevated troponin Renal insufficiency Atrial fibrillation Chest pain Obesity Diabetes mellitus Surgical History H/O cardiac radiofrequency ablation 2020 Stented coronary artery Family History Other No significant family history Social History Smoking Status: Never smoker second hand exposure: No alcohol intake: never substance use type: denies use current occupational status: employed Travel in the last 8 weeks: None household members: spouse and family housing: house current occupational exposures/hazards: No caffeine: Yes Have you lived/traveled outside [place] in past 30 days?: No Contact w/someone who lives/traveled outside US past 30 days?: No Exposure to someone with infectious disease in past 14 days?: No Do you have a fever (greater than 100.4 F or 38 C)?: No Have you tested positive for COVID-19: No Exposed to someone with COVID-19 in past 14 days?: No Do you have a sore throat?: No Do you have a cough?: No Do you have any weakness?: No Do you have any diarrhea?: No Are you experiencing any unusual bleeding?: No Do you have any muscle aches/pain?: No Do you have any abdominal pain?: No Are you experiencing loss of taste or smell?: No Other Medical History Have you received the Flu Vaccine for this season: No Have you received the Pneumonia Vaccine: Yes ROS Obtained: Yes Systems reviewed as appropriate & no additional complaints except as documented Physical Exam General General appearance: alert and in no apparent distress Head Head exam: atraumatic and normocephalic Eye Eye exam: Present PERRL and EOMI ENT ENT exam: Present mucous membranes moist Neck Neck exam: Present normal inspection Chest Chest inspection: Present normal inspection and symmetric chest wall rise Respiratory Respiratory exam: Present normal lung sounds bilaterally; Absent respiratory distress Cardiovascular Cardiovascular exam: Present regular rate and normal rhythm Abdominal Exam Abdominal exam: Present soft; Absent tenderness or guarding Extremities Exam Extremities exam: Present normal inspection Neurological Exam Neurological exam: Present alert and CN II-XII intact; Absent motor sensory deficit Psychiatric Psychiatric exam: Present normal affect Skin Skin exam: Present warm and dry Medical Decision Making Medical Records Screening: Per USPSTF and CDC recommendations, given the prevalence of disease in our region, it is our hospital?s policy to screen for HIV and viral Hepatitis for all patients aged 18 and over and those with ongoing risk factors. James Inquiry Pt receiving controlled substance: No Vital Signs: 08/18/24 15:15 08/18/24 15:18 08/18/24 15:30 Temperature 98.2 F Temperature Source Oral Pulse Rate 90 83 Pulse Rate [Right Radial] 90 Respiratory Rate 16 12 Blood Pressure 102/50 L 110/56 L Blood Pressure [Right Arm] 102/50 L Blood Pressure Mean [Right Arm] 67 02 Sat by Pulse Oximetry 100 100 99 Oxygen Delivery Method Room Air 08/18/24 16:00 08/18/24 16:30 08/18/24 17:00 Temperature Temperature Source Pulse Rate 85 86 85 Pulse Rate [Right Radial] Respiratory Rate 11 L 14 14 Blood Pressure 124/61 116/52 L 115/58 L Blood Pressure [Right Arm] Blood Pressure Mean [Right Arm] 02 Sat by Pulse Oximetry 100 96 99 Oxygen Delivery Method Room Air 08/18/24 17:36 08/18/24 18:00 Temperature Temperature Source Pulse Rate 119 H 118 H Pulse Rate [Right Radial] Respiratory Rate 13 14 Blood Pressure 115/59 L Blood Pressure [Right Arm] Blood Pressure Mean [Right Arm] 02 Sat by Pulse Oximetry 100 98 Oxygen Delivery Method Room Air Lab Data Lab Results 08/18/24 15:16: POC Glucose 466 H* 08/18/24 15:21: WBC 21.5 H*, RBC 4.09 L, Hgb 11.5 L, Hct 34.3 L, MCV 83.9, MCH 28.1, MCHC 33.5, RDW 12.7, Plt Count 249, MPV 11.4 H, Neut % (Auto) 91.4 H, L ymph % (Auto) 2.6 L, [place] % (Auto) 4.8, Eos % (Auto) 0.5, Baso % (Auto) 0.2, N eut # (Auto) 19.7 H, Lymph # (Auto) 0.6 L, [place] # (Auto) 1.0, Eos # (Auto) 0.1, Baso # (Auto) 0.1, Sodium 130 L, Potassium 4.1, Chloride 97 L, Carbon Dioxide 19 L, Anion Gap 18.1 H, BUN 45 H, Creatinine 2.00 H, Estimated Creat Clear 35, E stimated GFR 25 L, Est GFR ( Amer) 30 L, Glucose 456 H*, Calcium 8.6, Magnesium 2.0, Total Bilirubin 1.0, AST 39 H, ALT 41, Alkaline Phosphatase 114, Total Protein 6.8, Albumin 3.4 L, Globulin 3.4 H, Albumin/Globulin Ratio 1.0 L, Acetone Level None detected, HCV Ab TK w/Rflx PCR Qn Negative 08/18/24 16:05: SARS-CoV-2 (PCR) Not detected, Influenza A Untype (PCR) Not detected, Influenza Type B (PCR) Not detected 08/18/24 16:08: VBG pH 7.40, VBG pCO2 27.7 L, VBG pO2 47.3 H, VBG HCO3 16.9 L, V BG Total CO2 17.7 L, VBG O2 Saturation 84.7 H, VBG Base Excess -7.9 L, VBG Lactic Acid 1.8 08/18/24 17:27: Urine Color Yellow, Urine Appearance Clear, Urine pH 5.5, Ur Specific [place] 1.015, Urine Protein 2+ A, Urine Glucose (UA) 3+, Urine Ketones Trace, Urine Blood 1+ A, Urine Nitrate Negative, Urine Bilirubin Negative, Urine Urobilinogen 0.2, Ur Leukocyte Esterase Negative, Urine RBC 3-5, Urine WBC 20- 50, Ur Squamous Epith Cells Occasional, Ur Transition Epith Cell Occ, Urine Bacteria 1+, Urine Mucus 3+ 08/18/24 15:21 08/18/24 15:21 Orders (Tests/Meds): ED MEDICATIONS Generic Name Dose Route Start Last Admin Trade Name Freq PRN Reason Stop Dose Admin Acetaminophen 650 mg 08/18/24 20:21 Acetaminophen 325mg Tab PO 09/17/24 20:20 Q4HP PRN Fever or Mild Pain (1-3) Hydrocodone Bitart/Acetaminophen 1 tab 08/18/24 20:21 Hydrocodone/Apap 5/325 Mg Tablet PO 09/17/24 20:20 Q4HP PRN Mild to Moderate Pain (1-6) Heparin Sodium (Porcine) 5,000 unit 08/18/24 21:00 Heparin Sodium 5,000 Unit/Ml Vial SUBCUT 09/17/24 20:59 TID KENN Sodium Chloride 1,000 mls @ 125 mls/hr 08/18/24 20:30 Sod Chlor 0.9% 1000ml Bag IV 09/17/24 20:29 .Q8H KENN Piperacillin Sod/Tazobactam 50 mls @ 100 mls/hr 08/18/24 21:00 Sod 3.375 gm/ Sodium Chloride IV 08/28/24 20:59 Q6H KENN Insulin Glargine 20 unit 08/18/24 21:00 Insulin Glargine 100 Units/Ml 10ml Vial SUBCUT 09/17/24 20:59 HS KENN Insulin Human Lispro 0 unit 08/18/24 21:00 Humalog 100 Units/Ml 10ml Vial (Ssi) SUBCUT 09/17/24 20:59 ACHS [facility] Protocol Miscellaneous 1 each 08/18/24 19:00 08/18/24 19:18 Vancomycin Consult Request NOTAPPLIC 09/17/24 18:59 Not Given CONSULT PHARMACY [facility] Morphine Sulfate 2 mg 08/18/24 20:21 Morphine 2mg/Ml Syringe IV 09/17/24 20:20 Q4HP PRN Severe Pain (7-10) Ondansetron HCl 4 mg 08/18/24 20:21 Ondansetron 4mg/2ml Vial IV 09/17/24 20:20 Q8HP PRN Nausea Discontinued Medications Generic Name Dose Route Start Last Admin Trade Name Freq PRN Reason Stop Dose Admin Lactated Ringer's 500 mls @ 250 mls/hr 08/18/24 16:42 08/18/24 16:49 Lactated Ringer's 500ml IV 08/18/24 18:41 250 mls/hr .Q2H ONE Administration Ceftriaxone Sodium 1 gm/ 50 mls @ 100 mls/hr 08/18/24 19:15 Sodium Chloride IV 08/28/24 19:14 Q24H [facility] Ceftriaxone Sodium 1 gm/ 50 mls @ 100 mls/hr 08/18/24 19:02 08/18/24 19:14 Sodium Chloride IV 08/18/24 19:31 100 mls/hr ONCE ONE Administration Lactated Ringer's 500 mls @ 999 mls/hr 08/18/24 19:06 08/18/24 19:19 Lactated Ringer's 500ml IV 08/18/24 19:36 999 mls/hr .Q31M ONE Administration Insulin Human Regular 5 unit 08/18/24 16:40 08/18/24 16:49 Insulin Human Regular 100 Units/Ml 10ml Vial IVP 08/18/24 16:41 5 unit ONCE ONE Administration Iopamidol 80 ml 08/18/24 17:32 08/18/24 17:33 Iopamidol-370 (76%);100ml Bottle IV 08/18/24 17:33 80 ml ONCE ONE Administration Sodium Chloride 10 ml 08/18/24 17:32 08/18/24 17:33 Sodium Chloride 0.9% 10ml Syr (Rad Only) IV 08/18/24 17:33 10 ml ONCE ONE Administration Sodium Chloride 50 ml 08/18/24 17:32 08/18/24 17:33 0.9 % Sodium Chloride 50 Ml Vial IV 08/18/24 17:33 50 ml ONCE ONE Administration ORDERS Category Date Time Status CT abdomen pelvis wo con Stat Cat Scan 08/18/24 19:[address] angio head Stat Cat Scan 08/18/24 16:[address] angio neck Stat Cat Scan 08/18/24 16:[address] head/brain wo con Stat Cat Scan 08/18/24 15:59 Completed CXR --portable [XR chest portable] Stat Exams 08/18/24 15:53 Completed Acetone, Serum (Rapid) Stat Lab 08/18/24 15:21 Completed Basic Metabolic Panel AMLAB Lab 08/19/24 06:00 Ordered Basic Metabolic Panel AMLAB Lab 08/20/24 06:00 Ordered Basic Metabolic Panel AMLAB Lab 08/21/24 06:00 Ordered Basic Metabolic Panel AMLAB Lab 08/22/24 06:00 Ordered Basic Metabolic Panel AMLAB Lab 08/23/24 06:00 Ordered Basic Metabolic Panel AMLAB Lab 08/24/24 06:00 Ordered Basic Metabolic Panel AMLAB Lab 08/25/24 06:00 Ordered Basic Metabolic Panel AMLAB Lab 08/26/24 06:00 Ordered Basic Metabolic Panel AMLAB Lab 08/27/24 06:00 Ordered Basic Metabolic Panel AMLAB Lab 08/28/24 06:00 Ordered CBC w/Auto Diff [Complete Blood Count Auto Diff] Stat Lab 08/18/24 15:21 Completed CMP [Comprehensive Metabolic Panel] Stat Lab 08/18/24 15:21 Completed Complete Blood Count Auto Diff AMLAB Lab 08/19/24 06:00 Ordered Complete Blood Count Auto Diff AMLAB Lab 08/20/24 06:00 Ordered Complete Blood Count Auto Diff AMLAB Lab 08/21/24 06:00 Ordered Complete Blood Count Auto Diff AMLAB Lab 08/22/24 06:00 Ordered Complete Blood Count Auto Diff AMLAB Lab 08/23/24 06:00 Ordered Complete Blood Count Auto Diff AMLAB Lab 08/24/24 06:00 Ordered Complete Blood Count Auto Diff AMLAB Lab 08/25/24 06:00 Ordered Complete Blood Count Auto Diff AMLAB Lab 08/26/24 06:00 Ordered Complete Blood Count Auto Diff AMLAB Lab 08/27/24 06:00 Ordered Complete Blood Count Auto Diff AMLAB Lab 08/28/24 06:00 Ordered Free T4 (Free Thyroxine) Stat Lab 08/18/24 15:21 Received HIV Combo Stat Lab 08/18/24 15:21 Received Hepatitis C Ab Qual. W/ RFX Stat Lab 08/18/24 15:21 Completed MG [Magnesium] Stat Lab 08/18/24 15:21 Completed POC Glucose,Bedside Routine Lab 08/18/24 15:16 Completed Rapid PCR Covid and Flu A/B Stat Lab 08/18/24 16:05 Completed TSH [Thyroid Stimulating Hormone] Stat Lab 08/18/24 15:21 Received UA [Urinalysis and Microscopic] Stat Lab 08/18/24 17:27 Completed Blood Culture Stat Micro 08/18/24 16:50 Received Urine Culture Stat Micro 08/18/24 17:27 Received VBG [Venous Blood Gas] Stat RT 08/18/24 16:08 Completed ECG Data Tracing #1: Independently interpreted by me rate is 89, rhythm is irregular, sinus arrhythmia, no ST elevation in anatomical contiguous leads, QTc 449. Medical Decision Narrative: In summary patient is a 64-year-old female with past medical history described above who presents emergency department for evaluation of vomiting, dizziness in the setting of insulin-dependent diabetes. Patient is hemodynamically stable and nontoxic-appearing upon arrival, afebrile. [id number] glucose greater than 400. Differential diagnosis includes viral syndrome, DKA, intracranial mass, among others. Patient does not have any chest pain that would warrant ACS workup and she also has a nonfocal neurologic exam with nonspecific dizziness I considered CVA but I think that is unlikely, noncontrasted CT scan of the head will be obtained. Viral swab will be obtained as well as urinalysis. Initial workup reviewed by me, significant leukocytosis of undetermined etiology with left shift, acid-base status has respiratory alkalosis with low bicarb suggesting metabolic acidosis with an anion gap of 18, urinalysis has trace ketones so screening for DKA will be conducted with serum acetone. CTA head and neck will be obtained at this time. 5 units of insulin will be administered and gentle crystalloid bolus will be given given elevated creatinine compared to baseline. CT imaging no acute pathology, viral swab negative. Chest x-ray informally interpreted by me, no acute dense lobar opacities. Formal read shows no acute pathology. Urinalysis interpreted by me and is consistent with infection nitrate negative has significant leukocytosis and does have 1+ bacteria. Given significant leukocytosis and tachycardia antibiotics will be initiated with ceftriaxone. Upon repeat evaluation patient had persistent tachycardia so additional crystalloid will be given however full sepsis bolus fluids will be deferred given that she is borderline euvolemic and takes diuretics at baseline. Acetone negative, patient is not in DKA. Discussion was had with hospitalist, they request noncontrasted CT scan to make sure there is not an infected stone, patient does not have any overt symptoms but does have significant leukocytosis and this is a reasonable request. Noncontrasted CT scan of the abdomen has increased perinephric stranding but does not have any obstructive ureterolithiasis, there is a ventral wall hernia containing portion of the transverse colon however there is no overlying skin changes of her abdomen she is nontender and is having diarrhea so not concern for obstruction at this time. Tissue perfusion assessment performed after second bolus, agree with partial sepsis bolus fluids for reasons listed above. Case was discussed with hospital medicine regarding management and possible broadening of antibiotics and they will admit the patient to their service for continued evaluation at this time. Critical Care Critical Care Time Critical Care Time: Yes Attestation: On 08/18/24, the high probability of a clinically significant, sudden or life threatening deterioration of the following system(s) required my full and direct attention, intervention and personal management. The time I documented below is in addition to time spent performing reported procedures but includes the following listed in this critical care notation. Total Time Total Critical Care Time: 35
--- NOTE | 2024-08-18 15:59 | CT_ITS ---
PROCEDURE INFORMATION: Exam: CT Head Without Contrast Exam date and time: 08/18/2024 4:22 PM Age: 64 years old Clinical indication: Dizziness; Additional info: Nonfocal dizzy TECHNIQUE: Imaging protocol: Computed tomography of the head without contrast. Radiation optimization: All CT scans at this facility use at least one of these dose optimization techniques: automated exposure control; mA and/or kV adjustment per patient size (includes targeted exams where dose is matched to clinical indication); or iterative reconstruction. COMPARISON: CT - HEADWO CT head/brain wo con 11/15/2018 2:49 PM FINDINGS: Brain: No hemorrhage. Unremarkable white matter for the patient's age. No mass effect. No evolving territorial infarct. Cerebral ventricles: No ventriculomegaly. Paranasal sinuses: Visualized sinuses are unremarkable. No fluid levels. Mastoid air cells: Trace, dependent right mastoid fluid. Orbital cavities: Thinning of the lenses of the globes consistent with prior lens surgery. Bones: No acute fracture seen. 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 Soft tissues: Unremarkable. IMPRESSION: No acute intracranial abnormality seen.
[2024-08-18 16:03] LABS: Albumin Level 3.4 g/dl (3.5-5.0); Chloride 97 mmol/L (98-107)
[2024-08-18 16:04] LABS: Potassium 4.1 mmoL/L (3.5-5.1); Sodium 130 mmol/L (136-145)
[2024-08-18 16:06] LABS: Alanine Aminotransferase 41 U/L (12-78); Alkaline Phosphatase 114 U/L (38-126); Anion Gap 18.1 mEq/L (5-15); Aspartate Amino Transferase 39 U/L (14-36); Blood Urea Nitrogen 45 mg/dl (7-17); Carbon Dioxide 19 mmol/L (22.0-30.0); Creatinine Clearance Estimated 35 mL/min (50-200); Estimated Glomerular Filt Rate 25 ml/min (>60); GFR (African American) 30 ML/MIN (>60); Globulin 3.4 g/dL (1.3-3.2); Total Protein,Serum 6.8 g/dl (6.3-8.2)
[2024-08-18 16:07] LABS: Basophils # 0.1 K/mm3 (0-0.2); Basophils % 0.2 % (0.1-2.0); Calcium 8.6 mg/dl (8.4-10.2); Eosinophils # 0.1 Kmm3 (0.0-0.4); Eosinophils % 0.5 % (0.1-12.0); Hematocrit 34.3 % (37.0-47.0); Hemoglobin 11.5 g/dL (12.2-16.2); Lymphocytes # 0.6 K/mm3 (0.7-4.5); Lymphocytes % 2.6 % (10-50); Mean Corpuscular HGB Conc 33.5 g/dL (31.8-35.4); Mean Corpuscular Hemoglobin 28.1 pg (27.0-31.2); Mean Corpuscular Volume 83.9 fl (81-99); Mean Platelet Volume 11.4 fl (7.4-10.4); Monocytes % 4.8 % (1.7-9.3); Neutrophils # 19.7 K/mm3 (1.8-7.8); Neutrophils % 91.4 % (37.0-80.0); Nucleated Red Blood Cells # 0 10^3/uL; Nucleated Red Blood Cells % 0 %; Platelet Count 249 K/mm3 (142-424); Red Blood Count 4.09 M/mm3 (4.20-5.40); Red Cell Distribution Width 12.7 % (11.5-17.5); Red Cell Distribution Width-SD 38.7 fL; White Blood Count 21.5 K/mm3 (4.8-10.8)
[2024-08-18 16:11] LABS: Glucose 456 mg/dl (74-100)
--- NOTE | 2024-08-18 16:11 | PC.NURSE ---
notified of glucose of 456.
[2024-08-18 16:12] LABS: Coronavirus 19, PCR Not Detected (NotDetected); Influenza A, PCR Not Detected (NotDetected); Influenza B, PCR Not Detected (NotDetected)
[2024-08-18 16:16] LABS: Lactate Venous 1.8 mmol/L (0.4-2.0); VBG Base Excess -7.9 mmol/L (-2.4-2.3); VBG HCO3 16.9 mmol/L (23-30); VBG Oxygen Saturation 84.7 % (50-70); VBG PCO2 27.7 mmol/L (35-51); VBG PO2 47.3 mmol/L (28-40); VBG Total CO2 17.7 mmol/L (23-27)
--- NOTE | 2024-08-18 16:20 | PC.NURSE ---
PT GOING TO CT VIA WHEELCHAIR AT THIS TIME
--- NOTE | 2024-08-18 16:24 | PC.NURSE ---
PT ARRIVED BACK TO ROOM FROM CT
--- NOTE | 2024-08-18 16:38 | CT_ITS ---
PROCEDURE INFORMATION: Exam: CTA Head With Contrast, Arteriography Exam date and time: 08/18/2024 5:32 PM Age: 64 years old Clinical indication: Dizziness and giddiness; Additional info: Dizzy TECHNIQUE: Imaging protocol: Computed tomographic angiography of the head with contrast. Exam focused on the arteries. 3D rendering (Not supervised by radiologist): MIP and/or 3D reconstructed images were created by the technologist. Radiation optimization: All CT scans at this facility use at least one of these dose optimization techniques: automated exposure control; mA and/or kV adjustment per patient size (includes targeted exams where dose is matched to clinical indication); or iterative reconstruction. Contrast material: ISO 370; Contrast volume: 80 ml; Contrast route: INTRAVENOUS (IV); COMPARISON: CT HEAD/BRAIN WO CON 08/18/2024 4:22 PM FINDINGS: ANTERIOR CIRCULATION: Right internal carotid artery: The right ICA demonstrates calcified atherosclerosis not contributing to high-grade stenosis. Right middle cerebral artery: No occlusion or significant stenosis. No aneurysm. Right anterior cerebral artery: No occlusion or significant stenosis. No aneurysm. Left internal carotid artery: The left ICA demonstrates calcified atherosclerosis not contributing to high-grade stenosis. Left middle cerebral artery: No occlusion or significant stenosis. No aneurysm. Left anterior cerebral artery: No occlusion or significant stenosis. No significant aneurysm. A fenestration of the distal left A1 may be present. POSTERIOR CIRCULATION: Right vertebral artery: No occlusion or significant stenosis. No aneurysm. Left vertebral artery: No occlusion or significant stenosis. No aneurysm. Basilar artery: No occlusion or significant stenosis. No aneurysm. Right posterior cerebral artery: No occlusion or significant stenosis. No aneurysm. Left posterior cerebral artery: No occlusion or significant stenosis. No aneurysm. Brain: No definite mass, mass effect, or midline shift. Cerebral ventricles: No ventriculomegaly. Bones/joints: Unremarkable. No acute fracture. Soft tissues: Unremarkable. IMPRESSION: No proximal intracranial arterial occlusion seen.
--- NOTE | 2024-08-18 16:38 | CT_ITS ---
PROCEDURE INFORMATION: Exam: CTA Neck With Contrast Exam date and time: 08/18/2024 5:32 PM Age: 64 years old Clinical indication: Dizziness and giddiness; Additional info: Dizzy nonfocal exam TECHNIQUE: Imaging protocol: Computed tomographic angiography of the neck with contrast. Exam focused on the cervical segments of the vasculature. 3D rendering (Not supervised by radiologist): MIP and/or 3D reconstructed images were created by the technologist. Radiation optimization: All CT scans at this facility use at least one of these dose optimization techniques: automated exposure control; mA and/or kV adjustment per patient size (includes targeted exams where dose is matched to clinical indication); or iterative reconstruction. Contrast material: ISOVUE 370; Contrast volume: 80 ml; Contrast route: INTRAVENOUS (IV); COMPARISON: CT HEAD/BRAIN WO CON 08/18/2024 4:22 PM FINDINGS: Right common carotid artery: Mild distal right common carotid artery calcified atherosclerosis not contributing to significant stenosis. Right internal carotid artery: No stenosis of the extracranial segment. No dissection or occlusion. Right external carotid artery: No occlusion or stenosis of the origin. Left common carotid artery: Mild left carotid bulb and proximal left ICA stenosis atherosclerosis not contributing to stenosis. Left internal carotid artery: See Left common carotid artery finding. Left external carotid artery: No occlusion or stenosis of the origin. Right vertebral artery: No stenosis. No dissection or occlusion. Left vertebral artery: No stenosis. No dissection or occlusion. Soft tissues: Normal. No significant soft tissue swelling. Bones/joints: No acute fracture seen. Elbj-dy-wsariqwe cervical degenerative disc disease at C5-C6. At C5-C6, disc osteophyte complex and a calcified left lateral canal disc protrusion. Central spinal canal stenosis is likely moderate in degree. There are foraminal stenoses due to uncovertebral arthropathy. 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 IMPRESSION: 1. No acute vascular findings in the neck. 2. 0% right ICA stenosis. 3. 0% left ICA stenosis. 4. The vertebral arteries are patent without stenoses. REFERENCES: NASCET CRITERIA. The degree of stenosis in the cervical segment of the internal carotid artery is based on NASCET criteria. Normal is no stenosis. Mild is less than 50% stenosis. Moderate is 50-69% stenosis. Severe is 70% to 99% stenosis. Total occlusion is no detectable patent lumen.
[2024-08-18 16:48] LABS: Hepatitis C Ab Qual. W/ RFX NEGATIVE (Negative)
[2024-08-18] MEDS: RINGERS SOLUTION,LACTATED 500 ML 250 ML IV (16:49)
[2024-08-18] MEDS: INSULIN HUMAN REGULAR 100 UNITS/ML 10ML VIAL 5 UNIT IVP (16:49)
--- NOTE | 2024-08-18 16:58 | [facility].ITSTN ---
per Dr. Fuentes proceed with contrast with low GFR on a risk vs benefit situation.
--- NOTE | 2024-08-18 17:29 | PC.NURSE ---
patient gone to CT at this time.
[2024-08-18 17:33] LABS: Microscopic, Urine URINE MICROSCOPIC (MICROSCOPIC)
[2024-08-18] MEDS: 0.9 % SODIUM CHLORIDE 50 ML VIAL IV (17:33)
[2024-08-18] MEDS: IOPAMIDOL-370 (76%);100ML BOTTLE 80 ML IV (17:33)
[2024-08-18] MEDS: SODIUM CHLORIDE 0.9% 10ML SYR (RAD ONLY) 10 ML IV (17:33)
[2024-08-18 17:37] LABS: Appearance,Urine CLEAR (Clear); Bilirubin,Urine Negative (Negative); Blood, Urine 1+ (Negative); Color,Urine YELLOW (Yellow); Glucose,Urine (UA) 3+ (Negative); Ketones,Urine TRACE (Negative); Leukocyte Esterase,Urine Negative (Negative); Nitrate,Urine Negative (Negative); PH,Urine 5.5 (5.0-8.5); Protein,Urine 2+ (Negative); Specific Gravity, Urine 1.015 (1.005-1.030); Urobilinogen,Urine 0.2 EU/dl (0.2)
[2024-08-18 18:53] LABS: Squamous Epithelial Cell,Urine Occasional #/hpf (0-5); Transitional Epi Cells,Urine OCC #/lpf (0-3); WBC,Urine 20-50 #/hpf (0-3)
[2024-08-18 18:54] LABS: Bacteria,Urine 1+ /lpf; Mucus,Urine 3+ /lpf
[2024-08-18 19:02] LABS: Acetone, Serum (Rapid) None Detected (None Detect)
--- NOTE | 2024-08-18 19:12 | CT_ITS ---
PROCEDURE INFORMATION: Exam: CT Abdomen And Pelvis Without Contrast Exam date and time: 08/18/2024 7:19 PM Age: 64 years old Clinical indication: Other: Elevated creatinine, UTI TECHNIQUE: Imaging protocol: Computed tomography of the abdomen and pelvis without contrast. Radiation optimization: All CT scans at this facility use at least one of these dose optimization techniques: automated exposure control; mA and/or kV adjustment per patient size (includes targeted exams where dose is matched to clinical indication); or iterative reconstruction. COMPARISON: 1. CT ABDOMEN PELVIS W CON 12/05/2018 11:[address] ANGIO NECK 08/18/2024 5:32 PM FINDINGS: Lungs: The lung bases demonstrate areas of parenchymal scarring. There are calcified granulomata. Diaphragm: Small hiatal hernia. Liver: Calcified granulomata in the liver. No mass. Gallbladder and biliary ducts: Surgical clips in the gallbladder fossa. Pancreas: Normal. No ductal dilation. Spleen: There are calcified granulomata in the spleen. Adrenal glands: Mild adrenal thickening. Kidneys and ureters: The right kidney demonstrates a 1.5 cm simple cyst. No specific follow-up is indicated. Contrast in the renal collecting systems and bladder from an earlier CTA exam. Increased perinephric stranding compared to the prior study could reflect pyelonephritis and/or or renal failure. No discrete perinephric fluid collection identified. No hydronephrosis. Stomach and bowel: Potentially a duodenal diverticulum. No evidence of bowel obstruction. Colonic diverticulosis without evidence of diverticulitis. Appendix: A normal appendix is seen. Intraperitoneal space: Unremarkable. No free air. No significant fluid collection. Vasculature: Moderate calcified atherosclerosis of the arterial vasculature. Lymph nodes: Unremarkable. No pathologically enlarged lymph nodes. Urinary bladder: Contains contrast from an earlier contrast-enhanced exam. There may be mild wall thickening. Reproductive: Unremarkable as visualized. Bones/joints: No acute fracture. Soft tissues: A fat and bowel containing ventral wall hernia without signs of inflammation or obstruction. Previously, this was a fat containing hernia only. An area of nonspecific stranding in the right abdominal wall subcutaneous fat, image 100 of series 3, mildly more conspicuous compared to the prior study of uncertain etiology. 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 IMPRESSION: 1. Increased perinephric stranding compared to the prior study could reflect pyelonephritis and/or renal failure. 2. A ventral wall hernia now contains a portion of the transverse colon, previously this was fat containing only. COMMENTS: Consistent with the [employer]'s Incidental Findings Committee white paper (J Am Raoul Radiol 2018): Any incidental renal lesion less than 1 cm or classified as too small to characterize, or any incidental cystic renal lesion characterized as simple-appearing, is likely benign. No follow-up imaging is recommended for these lesions per consensus recommendations based on imaging criteria.
[2024-08-18] MEDS: CEFTRIAXONE 1 GM 1 GM in 0.9 % SODIUM CHLORIDE 50 ML IV (19:14)
[2024-08-18] MEDS: RINGERS SOLUTION,LACTATED 500 ML 999 ML IV (19:19)
--- NOTE | 2024-08-18 20:24 | EXP.SEPSISRE ---
[facility] Tissue Perfusion Eval Sepsis Re-Evaluation Performed: Yes Date Performed: 08/18/24 Time Performed: 20:24
--- NOTE | 2024-08-18 20:26 | P.HP_ITS ---
<Statement entered by Govind Guillaume MD - 08/19/24 16:19> Rounded on patient after nurse practitioner. Personally examined and interviewed patient. Agree with exam findings and care plan as documented. History of Present Illness *Admission Date: 08/18/24 *Reason for visit:: Dizziness *History of present illness: This is a 64-year-old female who has a past medical history significant for renal insufficiency, obesity, ventral hernia, hiatal hernia, prabha betes, atrial flutter status post cardiac ablation but still anticoagulation, and NSTEMI who presents with a chief complaint of vomiting and dizziness. Due to patient's symptoms, she presented to the emergency room for evaluation. While in the emergency room, patient had a significantly elevated white blood cell count and urinalysis was consistent with a urinary tract infection. CT scan of the abdomen and pelvis revealed increased perinephritic stranding compared to the prior study possibly due to pyelonephritis versus renal failure and a ventral wall hernia now contains a portion of the transverse colon. Due to these findings, patient is being admitted for further management During my evaluation of the patient, patient states she has been having nonbilious emesis and dizziness that is worse with standing. She reports that her urine has been dark in color and has been having and no abdominal pain. She also reports a subjective fever with chills. She is denying any chest pain, l ightheadedness, headache, blurry vision, diplopia, lateral gaze deficit, upper or lower extremity weakness, bilious emesis, significant abdominal pain, flank pain, or diarrhea. Additional pertinent values obtained include a white blood cell count of 21.5, red blood cell count of 4.09, hemoglobin 0.5, hematocrit 34.3, neutrophils 91.4%, sodium of 130, chloride of 97, bicarbonate 19, BUN of 45, creatinine 2.0, GFR 25, blood glucose of 456, albumin 3.4, and urinalysis revealed 2+ protein/1+ blood/1+ bacteria PFSH PFS Disclaimer: The information contained in this section may have been updated after the patient was seen, as this information can be updated by other users. Medical History Dyspnea Bronchitis Gastritis Renal insufficiency Obesity (BMI 30-39.9) Hematoma, non-traumatic Ventral hernia Hiatal hernia Diabetes mellitus, insulin dependent (IDDM), controlled Left against medical advice Fatigue Tachycardia Dizziness Atrial flutter NSTEMI (non-ST elevated myocardial infarction) Elevated troponin Renal insufficiency Atrial fibrillation Chest pain Obesity Diabetes mellitus Surgical History H/O cardiac radiofrequency ablation 2020 Stented coronary artery Family History Other No significant family history Social History (Updated 08/18/24 @ 21:29 by Hilary Parrish RN) Smoking Status: Never smoker second hand exposure: No alcohol intake: never substance use type: denies use current occupational status: employed Travel in the last 8 weeks: None household members: spouse and family housing: house current occupational exposures/hazards: No caffeine: Yes Have you lived/traveled outside [place] in past 30 days?: No Contact w/someone who lives/traveled outside [place] past 30 days?: No Exposure to someone with infectious disease in past 14 days?: No Do you have a fever (greater than 100.4 F or 38 C)?: No Have you tested positive for COVID-19: No Exposed to someone with COVID-19 in past 14 days?: No Do you have a sore throat?: No Do you have a cough?: No Do you have any weakness?: No Are you experiencing any nausea/vomitting?: No Do you have any diarrhea?: No Are you experiencing any unusual bleeding?: No Do you have any muscle aches/pain?: No Do you have any abdominal pain?: No Are you experiencing loss of taste or smell?: No Other Medical History Have you received the Flu Vaccine for this season: No Have you received the Pneumonia Vaccine: Yes Review of Systems Review of Systems Review of systems:: pertinent systems reviewed and negative unless documented below Constitutional Constitutional: Reports chills and Reports fever(s) Eyes Eyes: Reports system reviewed and no additional complaints, except as documented ENT Ears, Nose, Mouth, and Throat: Reports system reviewed and no additional complaints, except as documented *Cardiovascular Cardiovascular: Reports system reviewed and no additional complaints, except as documented *Respiratory Respiratory: Reports system reviewed and no additional complaints, except as documented *Gastrointestinal Gastrointestinal: Reports system reviewed and no additional complaints, except as documented *Genitourinary Genitourinary: Reports other Comments: Dark-colored urine *Musculoskeletal Musculoskeletal: Reports system reviewed and no additional complaints, except as documented Integumentary/Breasts Skin/Breast: Reports system reviewed and no additional complaints, except as documented *Neurologic Neurologic: Reports system reviewed and no additional complaints, except as documented Psychiatric Psychiatric: Reports system reviewed and no additional complaints, except as documented Endocrine Endocrine: Reports system reviewed and no additional complaints, except as documented Hematologic/Lymphatic Hematologic/Lymphatic: Reports system reviewed and no additional complaints, except as documented Allergic/Immunologic Allergic/Immunologic: Reports system reviewed and no additional complaints, except as documented Meds Home Medications and Allergies Home Medications ?Medication ?Instructions ?Recorded ?Confirmed ?Type aspirin 81 mg tablet,delayed 81 mg PO DAILY 11/12/23 08/19/24 History release empagliflozin 10 mg tablet 10 mg PO DAILY 11/12/23 08/19/24 History (Jardiance) furosemide 40 mg tablet 40 mg PO DAILY 11/12/23 08/19/24 History sacubitril 24 mg-valsartan 26 mg 1 tab PO BID 11/12/23 08/19/24 History tablet (Entresto) atorvastatin 80 mg tablet 80 mg PO HS #90 tabs 12/05/23 08/19/24 Rx rivaroxaban 15 mg tablet (Xarelto) 15 mg PO QPMWITHMEAL 01/30/24 08/19/24 History clopidogrel 75 mg tablet 75 mg PO DAILY #90 tabs 03/05/24 08/19/24 Rx insulin glargine 100 unit/mL (3 30 unit SQ DAILY 08/18/24 History mL) subcutaneous pen (Lantus Solostar U-100 Insulin) pantoprazole 40 mg tablet,delayed 40 mg PO HS 08/18/24 08/19/24 History release spironolactone 25 mg tablet 12.5 mg PO DAILY 08/18/24 08/19/24 History carvedilol 3.125 mg tablet 3.125 mg PO BIDWMEAL 08/19/24 08/19/24 History New Prescriptions to Start Prescriptions: Allergies Allergy/AdvReac Type Severity Reaction Status Date / Time latex Allergy Rash Verified 07/07/24 15:40 Exam Data for Last 24 hours Vital signs and Labs for Last 24 Hours: Temp Pulse Resp BP Pulse Ox O2 Del Method 98.2 F 118 H 14 115/59 L 98 Room Air 08/18/24 15:18 08/18/24 18:00 08/18/24 18:00 08/18/24 18:00 08/18/24 18:00 08/18/24 18:00 Laboratory Results - last 24 hr 08/18/24 15:16: POC Glucose 466 H* 08/18/24 15:21: WBC 21.5 H*, RBC 4.09 L, Hgb 11.5 L, Hct 34.3 L, MCV 83.9, MCH 28.1, MCHC 33.5, RDW 12.7, Plt Count 249, MPV 11.4 H, Neut % (Auto) 91.4 H, Lymph % (Auto) 2.6 L, [place] % (Auto) 4.8, Eos % (Auto) 0.5, Baso % (Auto) 0.2, Neut # (Auto) 19.7 H, Lymph # (Auto) 0.6 L, [place] # (Auto) 1.0, Eos # (Auto) 0.1, Baso # (Auto) 0.1, Sodium 130 L, Potassium 4.1, Chloride 97 L, Carbon Dioxide 19 L, Anion Gap 18.1 H, BUN 45 H, Creatinine 2.00 H, Estimated Creat Clear 35, Estimated GFR 25 L, Est GFR ( Amer) 30 L, Glucose 456 H*, Calcium 8.6, Magnesium 2.0, Total Bilirubin 1.0, AST 39 H, ALT 41, Alkaline Phosphatase 114, Total Protein 6.8, Albumin 3.4 L, Globulin 3.4 H, Albumin/Globulin Ratio 1.0 L, Acetone Level None detected, HCV Ab TK w/Rflx PCR Qn Negative 08/18/24 16:05: SARS-CoV-2 (PCR) Not detected, Influenza A Untype (PCR) Not detected, Influenza Type B (PCR) Not detected 08/18/24 16:08: VBG pH 7.40, VBG pCO2 27.7 L, VBG pO2 47.3 H, VBG HCO3 16.9 L, VBG Total CO2 17.7 L, VBG O2 Saturation 84.7 H, VBG Base Excess -7.9 L, VBG Lactic Acid 1.8 08/18/24 17:27: Urine Color Yellow, Urine Appearance Clear, Urine pH 5.5, Ur Specific [place] 1.015, Urine Protein 2+ A, Urine Glucose (UA) 3+, Urine Ketones Trace, Urine Blood 1+ A, Urine Nitrate Negative, Urine Bilirubin Negative, Urine Urobilinogen 0.2, Ur Leukocyte Esterase Negative, Urine RBC 3-5, Urine WBC 20- 50, Ur Squamous Epith Cells Occasional, Ur Transition Epith Cell Occ, Urine Bact eria 1+, Urine Mucus 3+ I & O for Last 24 hours: Intake & Output 08/15/24 08/16/24 08/17/24 08/18/24 23:59 23:59 23:59 23:59 Weight 77.111 kg Constitutional Constitutional: no acute distress and cooperative *Routine HEENT Exam Head: Present normocephalic and atraumatic Eye: Present EOMI and PERRL ENT: Present mucous membranes moist *Routine Neck Exam Neck: Present supple, full ROM and trachea midline *Routine Respiratory Exam Respiratory: Present CTA bilaterally, normal respiratory effort, able to speak in complete sentences and symmetric chest movement *Routine Cardiovascular Exam Cardiovascular: Present RRR, Normal S1, Normal S2 and tachycardia *Routine Abdominal Exam Abdominal: Present soft, normoactive bowel sounds and other Comments: Left lower quadrant pain during mild palpation *Routine Rectal Exam Rectal:: deferred *Routine Genitalia Exam Genitalia:: deferred *Routine Extremities Exam Extremities: Present full ROM, pulses intact and normal capillary refill Routine Back/Spine/Pelvis Exam Back/Spine: Present full ROM and CVA tenderness Comments: CVA tenderness is noticed on the left *Routine Skin Exam Skin: Present intact, dry and warm *Routine Neurological Exam Neurological: Present alert, oriented X3, CN II-XII intact, moving all extremities and normal speech Routine Psychiatric Exam Psychiatric: Present normal affect, normal thought process, cooperative, good insight and good judgment H&P: Result Impressions 64-year-old female who has presents with fever and chills found to have pyelonephritis and sepsis Assessment and Plan *Assessment and plan (1) Sepsis: Status: Acute Qualifiers: Acute renal failure type: unspecified Sepsis acute organ dysfunction status: with acute organ dysfunction Sepsis type: sepsis due to unspecified organism Severe sepsis acute organ dysfunction type: acute renal failure Severe sepsis shock status: without septic shock Qualified Code(s): A41.9 - Sepsis, unspecified organism; R65.20 - Severe sepsis without septic shock; N17.9 - Acute kidney failure, unspecified Category: Medical Code(s): A41.9 - Sepsis, unspecified organism (2) Pyelonephritis: Status: Acute Category: Medical Code(s): N12 - Tubulo-interstitial nephritis, not specified as acute or chronic (3) Acute kidney injury superimposed on chronic kidney disease: Status: Acute Category: Medical Code(s): N17.9 - Acute kidney failure, unspecified; N18.9 - Chronic kidney disease, unspecified (4) Hyponatremia: Status: Acute Category: Medical Code(s): E87.1 - Hypo-osmolality and hyponatremia (5) Metabolic acidosis: Status: Acute Category: Medical Code(s): E87.20 - Acidosis, unspecified (6) Hyperglycemia due to diabetes mellitus: Status: Acute Category: Medical Code(s): E11.65 - Type 2 diabetes mellitus with hyperglycemia (7) Leukocytosis: Status: Acute Qualifiers: Leukocytosis type: unspecified Qualified Code(s): D72.829 - Elevated white blood cell count, unspecified Category: Medical Code(s): D72.829 - Elevated white blood cell count, unspecified Plan 64-year-old female who presented with sepsis criteria. Discussed case with ER physician, request admission for monitoring of cultures and continued IV antibiotics. Medicine agreed to admit for further care. Patient has an acute unstable condition necessitating close monitoring. Continue inpatient management for her sepsis, DKA, UTI. Problems addressed as follows: Assessment: Sepsis - Patient is currently meeting sepsis criteria - She has stable blood pressure we will hold off on 30 mL/kg of body weight of IV hydration - Blood cultures x 2 - Lactic acid was normal - Urine culture obtained and pending - White count elevated 21,000, repeat CBC, CMP, magnesium ordered for the morning Pyelonephritis - 3.375 g of Zosyn IV every 6 hours Acute on chronic renal impairment: Baseline creatinine is around 1.40 - Most likely prerenal - Will monitor patient's creatinine daily - Normal saline at 125 mL - If renal function he does not improve with IV hydration, will obtain urine studies and renal ultrasound Hyponatremia - Crystalloids as above Metabolic acidosis - May be multifactorial due to longstanding renal impairment and acute illness - Will consider sodium bicarbonate supplementation if no improvement in a.m. Hyperglycemia: Most likely in setting of diabetes - 20 units of Lantus subcu daily - Sliding scale insulin AC and at bedtime with mild scale coverage Leukocytosis - Will obtain blood cultures x 2 Plan: Admit patient to the MedSurg unit Activity as tolerated Orthostatic blood pressures in a.m. Vital signs every 4 hours 1800 ADA/cardiac diet CBC/BMP daily 5000 units of heparin subcu 3 times daily 5 mg [place] p.o. every 4 hours pain moderate pain 2 mg morphine IV push every 4 hours periods of rib pain 4 mg Zofran IV push every 8 hours for nausea from Will monitor patient's urine culture Full code I will discuss this case with attending physician Dr. Gutierrez and I look forward to more input
[2024-08-18 20:44] LABS: POC Glucose,Bedside 362 (70-110)
--- NOTE | 2024-08-18 21:14 | PC.NURSE ---
Patient arrived to floor via wheelchair from ED at 21:12.
[2024-08-18 21:20] LABS: Free T4 (Free Thyroxine) 1.79 ng/dl (0.78-2.19)
[2024-08-18] MEDS: 0.9 % SODIUM CHLORIDE 1000ML 1,000 ML 125 ML IV (21:30)
[2024-08-18 21:50] LABS: POC Glucose,Bedside 341 (70-110)
[2024-08-18] MEDS: HEPARIN SODIUM 5,000 UNIT/ML VIAL 5000 UNIT SUBCUT (21:50)
[2024-08-18] MEDS: INSULIN GLARGINE 100 UNITS/ML 10ML VIAL 20 UNIT SUBCUT (21:50)
[2024-08-18] MEDS: humaLOG 100 UNITS/ML 10ML VIAL (SSI) SUBCUT (21:52)
[2024-08-18] MEDS: PIPERCILLIN/TAZO 3.375 GM in 0.9 % SODIUM CHLORIDE 50 ML IV (21:53)
[2024-08-19] VITALS: BP 101/46; PULSE 84; RESP 16; TEMP 37.4; O2SAT 98
[2024-08-19] MEDS: PIPERCILLIN/TAZO 3.375 GM in 0.9 % SODIUM CHLORIDE 50 ML IV ×4 (03:12→21:02)
[2024-08-19 04:00] VITALS: BP 101/45; PULSE 82; RESP 16; TEMP 36.7; O2SAT 94; BMI 29.0
--- NOTE | 2024-08-19 04:10 | PC.NURSE ---
Ms Christiane Williamson was newly admitted this shift on behalf of the documented admitting diagnoses sepsis, UTI, and dizziness-nonvertigo. Admission assessments and home medication reconciliation were completed by the charge nurse (Gypsy Parrish RN). She is alert and oriented x4. Patient's heart rate was initially tachycardic; heart rate has decreased as the shift went on. Soft blood pressures noted. Auscultation of her heart, lungs, and bowel sounds were within normal findings. Patient has not had any complaints this shift other than feeling quite tired. She was observed to have eyes closed, respirations even and unlabored on room air, and no apparent distress throughout the majority of the night. Antibiotics administered per JUN. Normal saline continues to infuse at 125 mL/hr. Heparin for VTE prophylaxis. Patient ambulates with standby assistance to the bathroom due to previous complaints of dizziness. ACHS glucose checks performed. Dexcom sensor noted to patient's left lower abdominal quadrant. Sugar-free strawberry Jello was given as a bedtime snack. At this time, the patient is resting in bed without any further complaints. No new needs at this time. Call light within reach.
[2024-08-19 05:16] LABS: POC Glucose,Bedside 262 (70-110)
[2024-08-19] MEDS: humaLOG 100 UNITS/ML 10ML VIAL (SSI) SUBCUT ×4 (05:32→21:03)
[2024-08-19 06:25] LABS: Basophils % 0.3 % (0.1-2.0); Eosinophils % 0.1 % (0.1-12.0); Hematocrit 33.6 % (37.0-47.0); Lymphocytes # 0.9 K/mm3 (0.7-4.5); Lymphocytes % 5.7 % (10-50); Mean Corpuscular HGB Conc 32.7 g/dL (31.8-35.4); Mean Corpuscular Hemoglobin 27.5 pg (27.0-31.2); Mean Platelet Volume 11.2 fl (7.4-10.4); Monocytes # 1.3 K/mm3 (0.1-1.0); Monocytes % 8.8 % (1.7-9.3); Neutrophils # 12.8 K/mm3 (1.8-7.8); Neutrophils % 84.6 % (37.0-80.0); Nucleated Red Blood Cells # 0 10^3/uL; Nucleated Red Blood Cells % 0 %; Platelet Count 239 K/mm3 (142-424); Red Cell Distribution Width 12.9 % (11.5-17.5); Red Cell Distribution Width-SD 40.1 fL; White Blood Count 15.2 K/mm3 (4.8-10.8)
[2024-08-19 06:29] LABS: Chloride 99 mmol/L (98-107); Sodium 128 mmol/L (136-145)
[2024-08-19 06:30] LABS: Potassium 3.8 mmoL/L (3.5-5.1)
[2024-08-19 06:32] LABS: Anion Gap 11.8 mEq/L (5-15); Blood Urea Nitrogen 55 mg/dl (7-17); Carbon Dioxide 21 mmol/L (22.0-30.0); Creatinine Clearance Estimated 33 mL/min (50-200); Estimated Glomerular Filt Rate 22 ml/min (>60); GFR (African American) 27 ML/MIN (>60)
[2024-08-19 06:33] LABS: Calcium 7.9 mg/dl (8.4-10.2); Glucose 252 mg/dl (74-100)
[2024-08-19 08:00] VITALS: BP 110/59; BP 110/65; BP 131/59; PULSE 84; PULSE 87; RESP 16; O2SAT 100
--- NOTE | 2024-08-19 08:54 | [facility].PHAINT1 ---
Pharmacy Intervention Comments: MEDICATION RECONCILIATION COMPLETE USING EXTERNAL PHARMACY FILL HISTORY AND PATIENT INTERVIEW (ASKED THE PATIENT'S NURSE TO SEE HOW MUCH INSULIN GLARGINE THE PATIENT USES).
[2024-08-19] MEDS: HEPARIN SODIUM 5,000 UNIT/ML VIAL 5000 UNIT SUBCUT (09:25)
[2024-08-19] MEDS: ACETAMINOPHEN 325MG TAB 650 MG PO ×2 (11:11→21:10)
[2024-08-19 11:37] LABS: POC Glucose,Bedside 228 (70-110)
--- NOTE | 2024-08-19 11:52 | P.PN_ITS ---
Subjective *Date: 08/19/24 *Time: 17:01 Interval history: Complaining of leg pain and cramping. Stable on room air. Afebrile this morning. No nausea or vomiting. Seeing improvement in white count and diabetes management. Denies chest pain or shortness of breath. Still complaining of some flank pain Medical Exam Vital signs and Labs for Last 24 Hours: Vital Signs Temp Pulse Pulse Pulse Pulse Pulse Resp 08/19/24 09:00 08/19/24 08:00 08/19/24 08:00 84 84 87 08/19/24 08:00 84 16 08/19/24 06:50 08/19/24 05:00 08/19/24 04:00 98.1 F 82 16 08/19/24 03:00 08/19/24 01:00 08/19/24 00:00 99.3 F 84 16 08/18/24 23:00 08/18/24 21:15 98.5 F 118 H 16 08/18/24 20:56 98.5 F 118 H 18 08/18/24 20:55 121 H 19 08/18/24 20:46 118 H 17 08/18/24 20:30 119 H 14 08/18/24 20:00 119 H 11 L 08/18/24 19:30 120 H 11 L 08/18/24 19:00 118 H 13 08/18/24 18:37 116 H 16 08/18/24 18:30 116 H 11 L 08/18/24 18:00 118 H 14 08/18/24 17:36 119 H 13 08/18/24 17:00 85 14 08/18/24 16:30 86 14 08/18/24 16:00 85 11 L 08/18/24 15:30 83 12 08/18/24 15:18 98.2 F 90 16 08/18/24 15:15 90 BP BP BP BP BP Pulse Ox O2 Del Method 08/19/24 09:00 Room Air 08/19/24 08:00 Room Air 08/19/24 08:00 131/59 L 110/59 L 110/65 08/19/24 08:00 131/59 L 100 Room Air 08/19/24 06:50 Room Air 08/19/24 05:00 Room Air 08/19/24 04:00 101/45 L 94 L Nasal Cannula 08/19/24 03:00 Room Air 08/19/24 01:00 Room Air 08/19/24 00:00 101/46 L 98 Room Air 08/18/24 23:00 Room Air 08/18/24 21:15 102/55 L 99 Room Air 08/18/24 20:56 105/57 L Room Air 08/18/24 20:55 105/57 L 99 08/18/24 20:46 98 Room Air 08/18/24 20:30 95/51 L 94 L 08/18/24 20:00 124/71 99 08/18/24 19:30 116/64 99 08/18/24 19:00 118/62 97 08/18/24 18:37 92/57 L 97 08/18/24 18:30 96/55 L 100 08/18/24 18:00 115/59 L 98 Room Air 08/18/24 17:36 100 08/18/24 17:00 115/58 L 99 Room Air 08/18/24 16:30 116/52 L 96 08/18/24 16:00 124/61 100 08/18/24 15:30 110/56 L 99 08/18/24 15:18 102/50 L 100 Room Air 08/18/24 15:15 102/50 L 100 Intake and Output 08/18/24 08/19/24 08/19/24 23:59 07:59 15:59 Intake Total 1526 Output Total 0 / 0 0 / 0 Balance 0 / 465 1526 Intake: Intake, Oral Amount 1416 / 1876 460 / 1876 Infusion Intake 111 / 111 0.9 % Sodium Chloride 1000ML 1, 61 / 61 000 ml @ 125 mls/hr IV .Q8H [facility] Rx#:[id number] Pipercillin/Tazo 3.375 gm In 0. 50 / 50 9 % Sodium Chloride 50 ml @ 100 mls/hr IV Q6H [facility] Rx#:[id number] Output: Output, Urine Amount 0 / 0 0 / 0 Other: Number of Unmeasured Voids 1 1 Number of Bowel Movements 1 1 Weight 77.61 kg 81.828 kg Patient Weight 08/19/24 23:59 Weight 81.828 kg Laboratory Results - last 24 hr 08/18/24 15:16: POC Glucose 466 H* 08/18/24 15:21: WBC 21.5 H*, RBC 4.09 L, Hgb 11.5 L, Hct 34.3 L, MCV 83.9, MCH 28.1, MCHC 33.5, RDW 12.7, Plt Count 249, MPV 11.4 H, Neut % (Auto) 91.4 H, Lymph % (Auto) 2.6 L, [place] % (Auto) 4.8, Eos % (Auto) 0.5, Baso % (Auto) 0.2, Neut # (Auto) 19.7 H, Lymph # (Auto) 0.6 L, [place] # (Auto) 1.0, Eos # (Auto) 0.1, Baso # (Auto) 0.1, Sodium 130 L, Potassium 4.1, Chloride 97 L, Carbon Dioxide 19 L, Anion Gap 18.1 H, BUN 45 H, Creatinine 2.00 H, Estimated Creat Clear 35, Estimated GFR 25 L, Est GFR ( Amer) 30 L, Glucose 456 H*, Calcium 8.6, Magnesium 2.0, Total Bilirubin 1.0, AST 39 H, ALT 41, Alkaline Phosphatase 114, Total Protein 6.8, Albumin 3.4 L, Globulin 3.4 H, Albumin/Globulin Ratio 1.0 L, TSH 0.30 L, Free T4 1.79, Acetone Level None detected, HCV Ab TK w/Rflx PCR Qn Negative 08/18/24 16:05: SARS-CoV-2 (PCR) Not detected, Influenza A Untype (PCR) Not detected, Influenza Type B (PCR) Not detected 08/18/24 16:08: VBG pH 7.40, VBG pCO2 27.7 L, VBG pO2 47.3 H, VBG HCO3 16.9 L, VBG Total CO2 17.7 L, VBG O2 Saturation 84.7 H, VBG Base Excess -7.9 L, VBG Lactic Acid 1.8 08/18/24 17:27: Urine Color Yellow, Urine Appearance Clear, Urine pH 5.5, Ur Specific [place] 1.015, Urine Protein 2+ A, Urine Glucose (UA) 3+, Urine Ketones Trace, Urine Blood 1+ A, Urine Nitrate Negative, Urine Bilirubin Negative, Urine Urobilinogen 0.2, Ur Leukocyte Esterase Negative, Urine RBC 3-5, Urine WBC 20- 50, Ur Squamous Epith Cells Occasional, Ur Transition Epith Cell Occ, Urine Bacteria 1+, Urine Mucus 3+ 08/18/24 20:37: POC Glucose 362 H* 08/18/24 21:40: POC Glucose 341 H* 08/19/24 05:08: POC Glucose 262 H 08/19/24 05:47: WBC 15.2 H D, RBC 4.00 L, Hgb 11.0 L, Hct 33.6 L, MCV 84.0, MCH 27.5, MCHC 32.7, RDW 12.9, Plt Count 239, MPV 11.2 H, Neut % (Auto) 84.6 H, Lymph % (Auto) 5.7 L, [place] % (Auto) 8.8, Eos % (Auto) 0.1, Baso % (Auto) 0.3, Neut # (Auto) 12.8 H, Lymph # (Auto) 0.9, [place] # (Auto) 1.3 H, Eos # (Auto) 0.0, Baso # (Auto) 0.0, Sodium 128 L, Potassium 3.8, Chloride 99, Carbon Dioxide 21 L , Anion Gap 11.8, BUN 55 H, Creatinine 2.20 H, Estimated Creat Clear 33, Estima froylan GFR 22 L, Est GFR ( Amer) 27 L, Glucose 252 H D, Calcium 7.9 L 08/19/24 11:31: POC Glucose 228 H I & O for Labs for Last 24 Hours: Intake & Output 08/16/24 08/17/24 08/18/24 08/19/24 23:59 23:59 23:59 23:59 Intake Total 1986 Output Total 0 / 0 0 / 0 Balance 0 / 465 1986 Weight 77.61 kg 81.828 kg Microbiology Reports for the Last 24 Hours: Microbiology 08/18/24 17:27 Urine,Clean Catch Urine Culture - Preliminary Gram Negative Rods Constitutional: Present mild distress, obese, chronically ill appearing and cooperative Head: Present atraumatic and normocephalic ENT: Present normal exam Neck: Present normal inspection Respiratory: Present normal respiratory effort; Absent rhonchi, stridor, wheezes or crackles Cardiac: Present Tachycardia GI: Present soft and normal bowel sounds; Absent distention or tenderness Comments:: Flank pain left side, improved Rectal (female): Present deferred Extremities: Present normal inspection and full ROM Skin: Present intact; Absent erythema Neuro: Present Grossly Intact, alert, awake, oriented x 3 and moves all extremities Assessment and Plan *Assessment and plan (1) Sepsis: Status: Acute Qualifiers: Acute renal failure type: unspecified Sepsis acute organ dysfunction status: with acute organ dysfunction Sepsis type: sepsis due to unspecified organism Severe sepsis acute organ dysfunction type: acute renal failure Severe sepsis shock status: without septic shock Qualified Code(s): A41.9 - Sepsis, unspecified organism; R65.20 - Severe sepsis without septic shock; N17.9 - Acute kidney failure, unspecified Category: Medical Code(s): A41.9 - Sepsis, unspecified organism (2) Pyelonephritis: Status: Acute Category: Medical Code(s): N12 - Tubulo-interstitial nephritis, not specified as acute or chronic (3) Acute kidney injury superimposed on chronic kidney disease: Status: Acute Category: Medical Code(s): N17.9 - Acute kidney failure, unspecified; N18.9 - Chronic kidney disease, unspecified (4) Hyponatremia: Status: Acute Category: Medical Code(s): E87.1 - Hypo-osmolality and hyponatremia (5) Metabolic acidosis: Status: Acute Category: Medical Code(s): E87.20 - Acidosis, unspecified (6) Hyperglycemia due to diabetes mellitus: Status: Acute Category: Medical Code(s): E11.65 - Type 2 diabetes mellitus with hyperglycemia (7) Leukocytosis: Status: Acute Qualifiers: Leukocytosis type: unspecified Qualified Code(s): D72.829 - Elevated white blood cell count, unspecified Category: Medical Code(s): D72.829 - Elevated white blood cell count, unspecified (8) DKA (diabetic ketoacidosis): Status: Acute Category: Medical Code(s): E11.10 - Type 2 diabetes mellitus with ketoacidosis without coma Plan 64-year-old female who presented with sepsis criteria. Discussed case with ER physician, request admission for monitoring of cultures and continued IV antibiotics. Medicine agreed to admit for further care. Patient has an acute unstable condition necessitating close monitoring. Continue inpatient management for her sepsis, DKA, UTI. Problems addressed as follows: Sepsis Urinary tract infection/pyelonephritis -Urine culture growing gram-negative rods - White count improved to 15 from 21. Repeat CBC, CMP, magnesium ordered for the morning - Blood culture still pending - Kidney function elevated with concern for BERNABE on CKD. BUN 55, creatinine 2.2. Improved oral hydration today. Monitor with repeat labs in the morning. - Continue Zosyn 3.375 g every 6 hours pending cultures speciation and sensitivity BERNABE CKD 3 - Prerenal in the setting of DKA and sepsis. Bump in BUN and creatinine today to 55 and 2.2 respectively. - Continue gentle rehydration. Holding nephrotoxic - If renal function he does not improve with IV hydration, will consider urine studies and renal ultrasound - Potassium 3.8. Hyponatremia: In the setting of DKA and sepsis, monitor for improvement. Sodium 128 today. Correct between 8 and 10 mEq every 24 hours. DKA - Continue sliding scale insulin and fingersticks ACHS. Increase glargine to 30 units nightly. Continue sliding scale insulin, increase to high intensity. - A1c ordered and pending, previous from a year ago greater than 12 -Morning glucose 252 Hypertension CAD HFrEF - Hold Entresto in the setting of BERNABE. Hold Lasix/spironolactone in the setting of BERNABE and sepsis. - Resume Plavix 75 mg daily and carvedilol 3.125 mg twice daily. Holding Jardiance in the setting of UTI/sepsis Full code Continue home Xarelto 10 mg daily Diabetic diet
[2024-08-19 12:00] VITALS: BP 99/56; PULSE 85; RESP 14; TEMP 36.6; O2SAT 98
[2024-08-19] MEDS: 0.9 % SODIUM CHLORIDE 1000ML 1,000 ML 125 ML IV (15:08)
[2024-08-19 16:00] VITALS: BP 131/66; PULSE 93; RESP 16; TEMP 36.6; O2SAT 99
[2024-08-19] MEDS: CARVEDILOL 3.125MG TABLET 3.125 MG PO (17:05)
[2024-08-19] MEDS: RIVAROXABAN 15MG TABLET 15 MG PO (17:05)
[2024-08-19 20:00] VITALS: BP 126/51; PULSE 92; RESP 17; TEMP 36.9; O2SAT 98
[2024-08-19 20:30] LABS: POC Glucose,Bedside 366 (70-110)
[2024-08-19] MEDS: ATORVASTATIN 40MG TABLET 80 MG PO (20:57)
[2024-08-19] MEDS: PANTOPRAZOLE 40MG TABLET 40 MG PO (20:57)
[2024-08-19] MEDS: 0.9 % SODIUM CHLORIDE 1000ML 1,000 ML 100 ML IV (21:03)
[2024-08-19] MEDS: INSULIN GLARGINE 100 UNITS/ML 10ML VIAL 30 UNIT SUBCUT (21:05)
[2024-08-20] VITALS: BP 122/65; PULSE 84; RESP 16; TEMP 36.8; O2SAT 99
[2024-08-20] MEDS: PIPERCILLIN/TAZO 3.375 GM in 0.9 % SODIUM CHLORIDE 50 ML IV ×2 (02:49→08:43)
[2024-08-20] MEDS: 0.9 % SODIUM CHLORIDE 1000ML 1,000 ML 100 ML IV (02:57)
[2024-08-20 04:00] VITALS: BP 127/65; PULSE 81; RESP 16; TEMP 36.7; O2SAT 98; BMI 29.0
--- NOTE | 2024-08-20 04:25 | PC.NURSE ---
Pt. is alert and orientated x 4. Pt. is on room air. Pt. stated that she was feeling bett but still tired. Pt. c/o right lower leg pain and some mild swelling. Pt. asked for some compression socks, none available. SCUD's applied below the knee and patient said that they are helping with the pain. Pt. was medicated with Tylenol for the leg pain. Iv fluids infusing, Pt. getting IV antibiotics, Pt. sleeping well this shift. Pt. up to bathroom with steady gait. No needs at this time. Personal items and call mosher in reach.
[2024-08-20] MEDS: humaLOG 100 UNITS/ML 10ML VIAL (SSI) SUBCUT ×4 (05:59→20:41)
[2024-08-20 06:01] LABS: POC Glucose,Bedside 217 (70-110)
[2024-08-20 06:16] LABS: Basophils # 0.1 K/mm3 (0-0.2); Basophils % 0.5 % (0.1-2.0); Eosinophils # 0.2 Kmm3 (0.0-0.4); Eosinophils % 1.5 % (0.1-12.0); Hematocrit 29.6 % (37.0-47.0); Hemoglobin 9.9 g/dL (12.2-16.2); Lymphocytes # 1.1 K/mm3 (0.7-4.5); Lymphocytes % 9.3 % (10-50); Mean Corpuscular HGB Conc 33.4 g/dL (31.8-35.4); Mean Corpuscular Hemoglobin 27.6 pg (27.0-31.2); Mean Corpuscular Volume 82.5 fl (81-99); Mean Platelet Volume 11.3 fl (7.4-10.4); Monocytes # 1.2 K/mm3 (0.1-1.0); Monocytes % 10.3 % (1.7-9.3); Neutrophils # 9.3 K/mm3 (1.8-7.8); Neutrophils % 77.9 % (37.0-80.0); Nucleated Red Blood Cells # 0 10^3/uL; Nucleated Red Blood Cells % 0 %; Platelet Count 221 K/mm3 (142-424); Red Blood Count 3.59 M/mm3 (4.20-5.40); Red Cell Distribution Width 12.6 % (11.5-17.5); Red Cell Distribution Width-SD 38.3 fL; White Blood Count 11.9 K/mm3 (4.8-10.8)
[2024-08-20 06:24] LABS: Chloride 96 mmol/L (98-107)
[2024-08-20 06:25] LABS: Potassium 3.6 mmoL/L (3.5-5.1); Sodium 124 mmol/L (136-145)
[2024-08-20 06:28] LABS: Anion Gap 11.6 mEq/L (5-15); Blood Urea Nitrogen 60 mg/dl (7-17); Calcium 7.8 mg/dl (8.4-10.2); Carbon Dioxide 20 mmol/L (22.0-30.0); Creatinine Clearance Estimated 26 mL/min (50-200); Estimated Glomerular Filt Rate 17 ml/min (>60); GFR (African American) 21 ML/MIN (>60); Glucose 212 mg/dl (74-100)
[2024-08-20 06:52] LABS: Hemoglobin A1C 12.6 % (4.0-6.0)
[2024-08-20 08:00] VITALS: BP 133/71; PULSE 86; RESP 16; TEMP 36.8; O2SAT 99
[2024-08-20] MEDS: CARVEDILOL 3.125MG TABLET 3.125 MG PO (08:43)
[2024-08-20] MEDS: CLOPIDOGREL 75MG TAB 75 MG PO (08:43)
[2024-08-20] MEDS: ASPIRIN EC 81MG TABLET 81 MG PO (08:43)
--- NOTE | 2024-08-20 10:00 | PC.NURSE ---
spoke to md regarding pt lle being reddened and edematous.
--- NOTE | 2024-08-20 10:02 | CA_ITS ---
FINAL REPORT CLINICAL HISTORY: BERNABE, DM, HTN, CAD. LLE is red and swollen x 1 day. She currently takes Xarelto and Plavix for AFIB and CAD COMPARISON: None FINDINGS: DUPLEX VENOUS SONOGRAPHY OF THE LEFT LOWER EXTREMITY Multiple transverse and longitudinal scans were performed of the left femoropopliteal deep venous system, with augmentation and compression maneuvers. HISTORY: Pain FINDINGS: Normal phasic flow was noted in the visualized left lower extremity deep venous system. No intraluminal increased echogenicity is noted to suggest thrombus. There is normal compression and augmentation of the venous structures. No abnormal venous collaterals are seen. IMPRESSION: No evidence of deep venous thrombosis of the left lower extremity. Reviewed, Interpreted and Dictated by Nelly Herrera MD Transcribed by Genesis Lopez Authenticated and [facility]
[2024-08-20 11:01] LABS: HIV Combo NEGATIVE (Negative)
[2024-08-20] MEDS: ONDANSETRON 4MG/2ML VIAL 4 MG IV ×2 (11:04→17:03)
--- NOTE | 2024-08-20 11:23 | P.CONPHA_ITS ---
Pharmacy Consult Date: 08/20/24 Time: 11:23 Referring provider: DR. BOSE Reason for Consult:: VANCOMYCIN DOSING Allergies Allergy/AdvReac Type Severity Reaction Status Date / Time latex Allergy Rash Verified 07/07/24 15:40 Home Medications ?Medication ?Instructions ?Recorded ?Confirmed ?Type aspirin 81 mg tablet,delayed 81 mg PO DAILY 11/12/23 08/19/24 History release empagliflozin 10 mg tablet 10 mg PO DAILY 11/12/23 08/19/24 History (Jardiance) furosemide 40 mg tablet 40 mg PO DAILY 11/12/23 08/19/24 History sacubitril 24 mg-valsartan 26 mg 1 tab PO BID 11/12/23 08/19/24 History tablet (Entresto) atorvastatin 80 mg tablet 80 mg PO HS #90 tabs 12/05/23 08/19/24 Rx rivaroxaban 15 mg tablet (Xarelto) 15 mg PO QPMWITHMEAL 01/30/24 08/19/24 History clopidogrel 75 mg tablet 75 mg PO DAILY #90 tabs 03/05/24 08/19/24 Rx insulin glargine 100 unit/mL (3 30 unit SQ DAILY 08/18/24 08/19/24 History mL) subcutaneous pen (Lantus Solostar U-100 Insulin) pantoprazole 40 mg tablet,delayed 40 mg PO HS 08/18/24 08/19/24 History release spironolactone 25 mg tablet 12.5 mg PO DAILY 08/18/24 08/19/24 History carvedilol 3.125 mg tablet 3.125 mg PO BIDWMEAL 08/19/24 08/19/24 History New Prescriptions to Start Prescriptions: Height: 1.68 m Weight: 81.82 kg Laboratory Results:: Laboratory Results - last 24 hr 08/18/24 15:21: HIV Ag/Ab Combo Qual Negative 08/19/24 11:31: POC Glucose 228 H 08/19/24 20:17: POC Glucose 366 H* 08/20/24 05:31: WBC 11.9 H, RBC 3.59 L, Hgb 9.9 L, Hct 29.6 L, MCV 82.5, MCH 27.6, MCHC 33.4, RDW 12.6, Plt Count 221, MPV 11.3 H, Neut % (Auto) 77.9, Lymph % (Auto) 9.3 L, [place] % (Auto) 10.3 H, Eos % (Auto) 1.5, Baso % (Auto) 0.5, Neut # (Auto) 9.3 H, Lymph # (Auto) 1.1, [place] # (Auto) 1.2 H, Eos # (Auto) 0.2, Baso # (Auto) 0.1, Sodium 124 L, Potassium 3.6, Chloride 96 L, Carbon Dioxide 20 L, Anion Gap 11.6, BUN 60 H, Creatinine 2.80 H D, Estimated Creat Clear 26, Estimated GFR 17 L*, Est GFR ( Amer) 21 L D, Glucose 212 H, Hemoglobin A1c 12.6 H, Calcium 7.8 L 08/20/24 05:49: POC Glucose 217 H Medical History: Medical History (Updated 08/19/24 @ 17:02 by Govind Bose MD) Dyspnea Bronchitis Gastritis Renal insufficiency Obesity (BMI 30-39.9) Hematoma, non-traumatic Ventral hernia Hiatal hernia Diabetes mellitus, insulin dependent (IDDM), controlled Left against medical advice Fatigue Tachycardia Dizziness Atrial flutter NSTEMI (non-ST elevated myocardial infarction) Elevated troponin Renal insufficiency Atrial fibrillation Chest pain Obesity Diabetes mellitus Assessment and Plan Assessment and plan all Dx Assessment and Plan for all problems:: Pharmacokinetic dosing service Objective: Patient: Floor: Age: 64 yo Serum creatinine: 2.80 mg/dL Height: 66.1 Inches Weight (kg): 81.8 Assessment: IBW (kg): 59.53 Dosing wt(kg): 81.8 Estimated Creatinine clearance (ml/min): 19.1 CRCL method: Cockcroft and Gault using ibw(default). Drug selected: Vancomycin Loading dose (mg): Vd (liters): 65.4 (factor used: 0.8 L/kg) Jakub (hr-1): 0.020 Half life (hrs): 34.66 CLvanco=?? 1.308 L/hr Recommended dose: 1500 mg Interval: 48 hrs Infusion time (hrs): 2.0 Predicted peak (mcg/mL): 36.4 Predicted trough (mcg/mL): 14.51 Total body weight is being used for vancomycin dosing. Recommendations: Give Vancomycin 1500 mg q 48 hrs with an expected Cpeak of 36.4 mcg/ml and an expected Ctrough of 14.51 mcg/ml AUC 0-24 /FRANCIE Data: FRANCIE 0.5 mcg/mL:?? AUC/FRANCIE:? 1146.8 FRANCIE 1.0 mcg/mL:?? AUC/FRANCIE:? 573.4 --------- FRANCIE 1.5 mcg/mL:?? AUC/FRANCIE:? 382.3 FRANCIE 2.0 mcg/mL:?? AUC/FRANCIE:? 286.7 Thank you for the consult, will continue to follow. -LIZBETH BALLARD, CELESTINOD
[2024-08-20 11:41] VITALS: BP 147/74; PULSE 90; RESP 16; TEMP 36.9; O2SAT 99
[2024-08-20] MEDS: FLUCONAZOLE 200MG TABLET 200 MG PO (11:45)
[2024-08-20] MEDS: VANCOMYCIN/WATER FOR INJ (PEG) 1.5 GM/300 ML PIGGYBACK IV (11:45)
[2024-08-20] MEDS: POLYETHYLENE GLYCOL 3350 17 GM PACKET PO (12:02)
[2024-08-20 12:11] LABS: POC Glucose,Bedside 182 (70-110)
[2024-08-20 12:43] VITALS: BMI 29.0
[2024-08-20] MEDS: PROMETHAZINE HCL 25MG/ML 1ML VIAL 25 MG IV ×2 (13:53→20:42)
[2024-08-20] MEDS: SODIUM CHLORIDE 0.9% 25ML BAG 25 ML IV ×2 (13:53→20:42)
[2024-08-20 14:29] LABS: Chloride 96 mmol/L (98-107); Sodium 125 mmol/L (136-145)
[2024-08-20 14:30] LABS: Potassium 3.3 mmoL/L (3.5-5.1)
[2024-08-20 14:33] LABS: Anion Gap 13.3 mEq/L (5-15); Blood Urea Nitrogen 56 mg/dl (7-17); Carbon Dioxide 19 mmol/L (22.0-30.0); Creatinine Clearance Estimated 26 mL/min (50-200); Estimated Glomerular Filt Rate 17 ml/min (>60); GFR (African American) 21 ML/MIN (>60); Glucose 157 mg/dl (74-100)
[2024-08-20] MEDS: CEFTRIAXONE SODIUM 1 GM in 0.9 % SODIUM CHLORIDE 50 ML IV (14:49)
--- NOTE | 2024-08-20 15:07 | P.PN_ITS ---
Subjective *Date: 08/20/24 *Time: 21:01 Interval history: Patient developed nausea this morning after rounds. Has had recurrent emesis through the morning. Poor p.o. tolerance. Administering a liter of fluids. Denies fever. Having abdominal soreness from vomiting but remains afebrile, stable on room air. Decreased urine output today, concern for retention. Mary placed this morning. Medical Exam Vital signs and Labs for Last 24 Hours: Vital Signs Temp Pulse Resp BP Pulse Ox O2 Del Method 08/20/24 13:00 Room Air 08/20/24 11:41 98.4 F 90 16 147/74 H 99 Room Air 08/20/24 11:00 Room Air 08/20/24 09:00 Room Air 08/20/24 08:47 Room Air 08/20/24 08:00 98.2 F 86 16 133/71 99 Room Air 08/20/24 06:56 Room Air 08/20/24 05:00 Room Air 08/20/24 04:00 98.1 F 81 16 127/65 98 Room Air 08/20/24 03:00 Room Air 08/20/24 01:00 Room Air 08/20/24 00:00 98.2 F 84 16 122/65 99 Room Air 08/19/24 23:00 Room Air 08/19/24 21:00 Room Air 08/19/24 20:00 Room Air 08/19/24 20:00 98.5 F 92 H 17 126/51 L 98 Room Air 08/19/24 18:49 Room Air 08/19/24 16:59 Room Air 08/19/24 16:00 97.8 F 93 H 16 131/66 99 Room Air Intake and Output 08/19/24 08/20/24 08/20/24 23:59 07:59 15:59 Intake Total 240 / 3282 575 / 755 180 / 755 Output Total 0 / 0 0 / 200 200 / 200 Balance 240 / 3282 575 / 555 -20 / 555 Intake: Intake, Oral Amount 240 / 2596 180 / 180 Intake, Total IV Amount 575 / 575 0.9 % Sodium Chloride 1000ML 1, 525 / 525 000 ml @ 100 mls/hr IV .Q10H [facility] Rx#:[id number] Pipercillin/Tazo 3.375 gm In 0. 50 / 50 9 % Sodium Chloride 50 ml @ 100 mls/hr IV Q6H [facility] Rx#:[id number] Output: Output, Urine Amount 0 / 0 0 / 200 200 / 200 Other: Number of Unmeasured Voids 1 0 0 Number of Bowel Movements 1 Weight 81.82 kg 81.82 kg Patient Weight 08/20/24 23:59 Weight 81.82 kg Laboratory Results - last 24 hr 08/18/24 15:21: HIV Ag/Ab Combo Qual Negative 08/19/24 20:17: POC Glucose 366 H* 08/20/24 05:31: WBC 11.9 H, RBC 3.59 L, Hgb 9.9 L, Hct 29.6 L, MCV 82.5, MCH 27.6, MCHC 33.4, RDW 12.6, Plt Count 221, MPV 11.3 H, Neut % (Auto) 77.9, Lymph % (Auto) 9.3 L, [place] % (Auto) 10.3 H, Eos % (Auto) 1.5, Baso % (Auto) 0.5, Neut # (Auto) 9.3 H, Lymph # (Auto) 1.1, [place] # (Auto) 1.2 H, Eos # (Auto) 0.2, Baso # (Auto) 0.1, Sodium 124 L, Potassium 3.6, Chloride 96 L, Carbon Dioxide 20 L, Anion Gap 11.6, BUN 60 H, Creatinine 2.80 H D, Estimated Creat Clear 26, Estimated GFR 17 L*, Est GFR ( Amer) 21 L D, Glucose 212 H, Hemoglobin A1c 12.6 H, Calcium 7.8 L 08/20/24 05:49: POC Glucose 217 H 08/20/24 11:44: POC Glucose 182 H 08/20/24 14:08: Sodium 125 L, Potassium 3.3 L, Chloride 96 L, Carbon Dioxide 19 L, Anion Gap 13.3, BUN 56 H, Creatinine 2.80 H, Estimated Creat Clear 26, Estim ated GFR 17 L*, Est GFR ( Amer) 21 L, Glucose 157 H D, Calcium 8.0 L I & O for Labs for Last 24 Hours: Intake & Output 08/17/24 08/18/24 08/19/24 08/20/24 23:59 23:59 23:59 23:59 Intake Total 2706 755 / 755 Output Total 0 / 0 0 / 0 200 / 200 Balance 0 / 465 2707 / 3281 555 / 555 Weight 77.61 kg 81.828 kg 81.82 kg Microbiology Reports for the Last 24 Hours: Microbiology 08/18/24 17:27 Urine,Clean Catch Urine Culture - Final Citrobacter freundii 08/18/24 16:50 Blood Blood Culture - Preliminary NO GROWTH AFTER 24 HOURS 08/18/24 16:45 Blood Blood Culture - Preliminary NO GROWTH AFTER 24 HOURS Constitutional: Present mild distress, obese, chronically ill appearing and cooperative Head: Present atraumatic and normocephalic ENT: Present normal exam Neck: Present normal inspection Respiratory: Present normal respiratory effort; Absent rhonchi, stridor, wheezes or crackles Cardiac: Present Tachycardia GI: Present soft, tenderness (Diffuse nonfocal) and normal bowel sounds; Absent distention Comments:: Ventral abdominal hernia reducible with no incarceration Rectal (female): Present deferred Extremities: Present normal inspection and full ROM Skin: Present intact; Absent erythema Neuro: Present Grossly Intact, alert, awake, oriented x 3 and moves all extremities Assessment and Plan *Assessment and plan (1) Sepsis: Status: Acute Qualifiers: Acute renal failure type: unspecified Sepsis acute organ dysfunction status: with acute organ dysfunction Sepsis type: sepsis due to unspecified organism Severe sepsis acute organ dysfunction type: acute renal failure Severe sepsis shock status: without septic shock Qualified Code(s): A41.9 - Sepsis, unspecified organism; R65.20 - Severe sepsis without septic shock; N17.9 - Acute kidney failure, unspecified Category: Medical Code(s): A41.9 - Sepsis, unspecified organism (2) Pyelonephritis: Status: Acute Category: Medical Code(s): N12 - Tubulo-interstitial nephritis, not specified as acute or chronic (3) Intractable nausea and vomiting: Status: Acute Category: Medical Code(s): R11.2 - Nausea with vomiting, unspecified (4) Acute kidney injury superimposed on chronic kidney disease: Status: Acute Category: Medical Code(s): N17.9 - Acute kidney failure, unspecified; N18.9 - Chronic kidney disease, unspecified (5) Hyponatremia: Status: Acute Category: Medical Code(s): E87.1 - Hypo-osmolality and hyponatremia (6) Metabolic acidosis: Status: Acute Category: Medical Code(s): E87.20 - Acidosis, unspecified (7) Hyperglycemia due to diabetes mellitus: Status: Acute Category: Medical Code(s): E11.65 - Type 2 diabetes mellitus with hyperglycemia (8) Leukocytosis: Status: Acute Qualifiers: Leukocytosis type: unspecified Qualified Code(s): D72.829 - Elevated white blood cell count, unspecified Category: Medical Code(s): D72.829 - Elevated white blood cell count, unspecified (9) DKA (diabetic ketoacidosis): Status: Acute Category: Medical Code(s): E11.10 - Type 2 diabetes mellitus with ketoacidosis without coma Plan 64-year-old female who presented with sepsis criteria. Discussed case with ER physician, request admission for monitoring of cultures and continued IV antibiotics. Medicine agreed to admit for further care. Patient has an acute unstable condition necessitating close monitoring. Nausea and vomiting this morning. Minimal responsive to antiemetics. Continues to require inpatient m anagement. Continue treatment for UTI, sepsis, BERNABE, nausea and vomiting. Problems addressed as follows: Sepsis Urinary tract infection/pyelonephritis BERNABE on CKD -Urine culture growing Citrobacter. Transition to ceftriaxone 1 g daily due to initiation of vancomycin for possible cellulitis of left lower leg. - White count improved to 11.9, hemoglobin 9.9. - Repeat CBC, CMP, magnesium ordered for the morning - Blood culture still pending - Kidney function elevated again today, BUN 60, creatinine 2.8. Worsening oral hydration due to nausea and vomiting. Administer 1 L LR over 2 hours. Repeat labs ordered every 8 hours to monitor kidney function and electrolytes. BERNABE CKD 3 - Prerenal in the setting of DKA and sepsis. Bump in BUN and creatinine today to 60 and 2.8 respectively. - holding nephrotoxic - Potassium 3.6 Hyponatremia: Worsening hyponatremia today, sodium 128. Concern for pain induced SIADH along with nausea and vomiting. Serial sodium every 8 hours. Correct between 8 and 10 mEq every 24 hours. DKA - Continue sliding scale insulin and fingersticks ACHS. Increase glargine to 40 units nightly. Continue sliding scale insulin, increase to high intensity. - A1c 12.6; morning glucose 212 Hypertension CAD HFrEF - Hold Entresto in the setting of BERNABE. Hold Lasix/spironolactone in the setting of BERNABE and sepsis. - Resume Plavix 75 mg daily and carvedilol 3.125 mg twice daily. Holding Jardiance in the setting of UTI/sepsis Full code Continue home Xarelto 10 mg daily Diabetic diet
[2024-08-20 16:00] VITALS: BP 162/85; PULSE 100; RESP 18; TEMP 37.1; O2SAT 99
[2024-08-20] MEDS: LACTATED RINGERS 1000ML 1,000 ML 500 ML IV (16:01)
[2024-08-20 16:15] LABS: POC Glucose,Bedside 166 (70-110)
--- NOTE | 2024-08-20 17:14 | PC.NURSE ---
Pt has remained nauseated and has been vomiting this shift. MD aware. Medicated per mar/ MD order. Zofran administered early. OK per MD. Phenergan also administered. Pt ate breakfast but has not been able to tolerate lunch or dinner. Pt placed on clear liquid diet this evening. She has had 3 incontinent loose stools this shift. Not able to obtain specimen at this time. 16 fr F/C placed this AM due to urinary retention and pt c/o not able to urinate. she has had 100 ml urinary output prior to gregorio placement and 350 ml output from catheter. BP is elevated this evening. Pt is not able to take PO medication for BP at this time. Will try after nausea improves. Call light is within reach.
--- NOTE | 2024-08-20 17:37 | XR_ITS ---
PROCEDURE INFORMATION: Exam: XR Abdomen Exam date and time: 08/20/2024 6:03 PM Age: 64 years old Clinical indication: Other: Abdominal hernia TECHNIQUE: Imaging protocol: Radiologic exam of the abdomen. Views: Frontal supine view of the abdomen. 1 View. COMPARISON: CT ABDOMEN PELVIS WO CON 08/18/2024 7:19 PM FINDINGS: Tubes, catheters and devices: Electronic device projects over the left lower quadrant of the abdomen. Heart/Mediastinum: Heart size normal. Lungs: Mild-moderate chronic interstitial fibrosis in the lung bases. Gastrointestinal tract: Nonobstructive bowel gas pattern. No evidence of pneumatosis or portal gas. Intraperitoneal space: Right upper quadrant surgical clips suggest prior cholecystectomy. No free air is evident. Organs: No evidence of organomegaly. Vasculature: Mild-moderate calcific atherosclerosis. Bones/joints: No acute osseous abnormalities. Mild thoracolumbar spondylosis. Soft tissues: No gross soft tissue abnormalities. Other findings: No pathological calcifications. IMPRESSION: 1. No acute intra-abdominal/intrapelvic process is evident radiographically. 2. Nonemergent findings detailed above.
[2024-08-20 18:43] LABS: Microscopic, Urine URINE MICROSCOPIC (MICROSCOPIC)
[2024-08-20 18:59] LABS: Adenovirus F 40/41, stool Not Detected (NotDetected); Astrovirus Not Detected (NotDetected); Campylobacter Not Detected (NotDetected); Clostridium Difficile A/B, PCR Not Detected (NotDetected); Cryptosporidium Not Detected (NotDetected); Cyclospora Cayetanesis Not Detected (NotDetected); Entamoeba histolytica Not Detected (NotDetected); Enteroaggregative E coli Not Detected (NotDetected); Enteropathogenic E coli Not Detected (NotDetected); Enterotoxigenic E coli Not Detected (NotDetected); Giardia lamblia Not Detected (NotDetected); Norovirus Not Detected (NotDetected); Plesimonas Shigalloides, PCR Not Detected (NotDetected); Rotavirus A Not Detected (NotDetected); Salmonella, PCR Not Detected (NotDetected); Sapovirus Not Detected (NotDetected); Shiga-like toxin E coli Not Detected (NotDetected); Shigella Enterovasive E coli Not Detected (NotDetected); Vibrio Cholerae Not Detected (NotDetected); Vibrio, PCR Not Detected (NotDetected); Yersinia Entercolitica, PCR Not Detected (NotDetected)
[2024-08-20 19:31] LABS: Appearance,Urine CLEAR (Clear); Bilirubin,Urine Negative (Negative); Blood, Urine TRACE-I (Negative); Color,Urine YELLOW (Yellow); Glucose,Urine (UA) 1+ (Negative); Ketones,Urine Negative (Negative); Leukocyte Esterase,Urine Negative (Negative); Nitrate,Urine Negative (Negative); PH,Urine 5.5 (5.0-8.5); Protein,Urine 1+ (Negative); Specific Gravity, Urine 1.015 (1.005-1.030); Urobilinogen,Urine 0.2 EU/dl (0.2)
[2024-08-20 20:00] VITALS: BP 146/90; PULSE 103; RESP 18; TEMP 36.7; O2SAT 98
[2024-08-20 20:21] LABS: Bacteria,Urine 3+ /lpf
[2024-08-20] MEDS: INSULIN GLARGINE 100 UNITS/ML 10ML VIAL 40 UNIT SUBCUT (20:43)
[2024-08-20 23:01] LABS: Chloride 95 mmol/L (98-107)
[2024-08-20 23:02] LABS: Potassium 3.3 mmoL/L (3.5-5.1); Sodium 127 mmol/L (136-145)
[2024-08-20 23:04] LABS: Blood Urea Nitrogen 54 mg/dl (7-17); Creatinine Clearance Estimated 28 mL/min (50-200); Estimated Glomerular Filt Rate 19 ml/min (>60); GFR (African American) 22 ML/MIN (>60)
[2024-08-20 23:05] LABS: Anion Gap 17.3 mEq/L (5-15); Calcium 8.4 mg/dl (8.4-10.2); Carbon Dioxide 18 mmol/L (22.0-30.0); Glucose 173 mg/dl (74-100)
[2024-08-21] VITALS: BP 173/80; PULSE 104; RESP 17; TEMP 36.7; O2SAT 99
--- NOTE | 2024-08-21 01:13 | PC.NURSE ---
Pt was actively vomiting while josh Buchanan obtained 0000 vital signs. Nurse notified.
[2024-08-21] MEDS: ONDANSETRON 4MG/2ML VIAL 4 MG IV (01:15)
[2024-08-21 04:00] VITALS: BP 142/88; PULSE 98; RESP 18; TEMP 36.7; O2SAT 97; BMI 31.6
--- NOTE | 2024-08-21 04:30 | PC.NURSE ---
Contacted Michelle Beckham APRN with concerns of pt elevated BP and persistent nausea and vomiting. New orders for Reglan 10MG IV
[2024-08-21] MEDS: METOCLOPRAMIDE HCL 10MG/2ML VIAL 10 MG IVP (05:03)
[2024-08-21] MEDS: PROMETHAZINE HCL 25MG/ML 1ML VIAL 25 MG IV (05:06)
[2024-08-21] MEDS: humaLOG 100 UNITS/ML 10ML VIAL (SSI) SUBCUT ×2 (05:06→20:21)
[2024-08-21] MEDS: SODIUM CHLORIDE 0.9% 25ML BAG 25 ML IV (05:06)
[2024-08-21 05:24] LABS: POC Glucose,Bedside 153 (70-110)
--- NOTE | 2024-08-21 05:26 | PC.NURSE ---
Pt is alert and oriented. Pt c/o nausea, and has vomited small amounts multiple times this shift. Pt was treated per JUN, nausea meds seem to help for a short time. Pt BP has been elevated this shift (provider aware), pt still unable to tolerate PO meds. Pt has had no other acute changes this shift to note.
[2024-08-21 06:22] LABS: Basophils % 0.1 % (0.1-2.0); Eosinophils % 0.1 % (0.1-12.0); Hematocrit 34.7 % (37.0-47.0); Hemoglobin 11.9 g/dL (12.2-16.2); Lymphocytes # 0.6 K/mm3 (0.7-4.5); Lymphocytes % 4.3 % (10-50); Mean Corpuscular HGB Conc 34.3 g/dL (31.8-35.4); Mean Corpuscular Hemoglobin 27.8 pg (27.0-31.2); Mean Corpuscular Volume 81.1 fl (81-99); Mean Platelet Volume 10.8 fl (7.4-10.4); Monocytes # 0.9 K/mm3 (0.1-1.0); Monocytes % 5.9 % (1.7-9.3); Neutrophils # 13.1 K/mm3 (1.8-7.8); Neutrophils % 88.7 % (37.0-80.0); Nucleated Red Blood Cells # 0 10^3/uL; Nucleated Red Blood Cells % 0 %; Platelet Count 301 K/mm3 (142-424); Red Blood Count 4.28 M/mm3 (4.20-5.40); Red Cell Distribution Width 12.4 % (11.5-17.5); White Blood Count 14.8 K/mm3 (4.8-10.8)
[2024-08-21 06:28] LABS: Albumin Level 3.1 g/dl (3.5-5.0); Chloride 98 mmol/L (98-107); Potassium 3.3 mmoL/L (3.5-5.1); Sodium 126 mmol/L (136-145)
[2024-08-21 06:30] LABS: Blood Urea Nitrogen 50 mg/dl (7-17); Creatinine Clearance Estimated 36 mL/min (50-200); Estimated Glomerular Filt Rate 22 ml/min (>60); GFR (African American) 27 ML/MIN (>60)
[2024-08-21 06:31] LABS: Alanine Aminotransferase 46 U/L (12-78); Albumin/Globulin Ratio 0.8 (1.1-1.8); Alkaline Phosphatase 88 U/L (38-126); Anion Gap 13.3 mEq/L (5-15); Aspartate Amino Transferase 54 U/L (14-36); Bilirubin,Total 0.4 mg/dl (0.2-1.3); Calcium 8.5 mg/dl (8.4-10.2); Carbon Dioxide 18 mmol/L (22.0-30.0); Globulin 3.7 g/dL (1.3-3.2); Glucose 148 mg/dl (74-100); Magnesium 2.1 mg/dl (1.6-2.3); Total Protein,Serum 6.8 g/dl (6.3-8.2)
[2024-08-21 08:00] VITALS: BP 158/84; PULSE 101; RESP 18; TEMP 36.9; O2SAT 97
[2024-08-21] MEDS: ASPIRIN EC 81MG TABLET 81 MG PO (09:12)
[2024-08-21] MEDS: CLOPIDOGREL 75MG TAB 75 MG PO (09:12)
--- NOTE | 2024-08-21 10:47 | P.PN_ITS ---
Subjective *Date: 08/21/24 *Time: 15:52 Interval history: Improvement in nausea and vomiting today, still is a sore abdomen. Has had bowel movements overnight. Stable on room air. Afebrile. Kidney function showing some improvement. Anion gap remains closed. Glucose remains controlled . Having improved urine output. Discussed removing Mary today. Medical Exam Vital signs and Labs for Last 24 Hours: Vital Signs Temp Pulse Resp BP Pulse Ox O2 Del Method 08/21/24 09:00 Room Air 08/21/24 08:00 Room Air 08/21/24 08:00 98.4 F 101 H 18 158/84 H 97 Room Air 08/21/24 07:00 Room Air 08/21/24 05:00 Room Air 08/21/24 04:00 98.1 F 98 H 18 142/88 H 97 Room Air 08/21/24 03:00 Room Air 08/21/24 01:00 Room Air 08/21/24 00:00 98.0 F 104 H 17 173/80 H 99 Room Air 08/20/24 23:00 Room Air 08/20/24 21:00 Room Air 08/20/24 20:00 Room Air 08/20/24 20:00 98.1 F 103 H 18 146/90 H 98 Room Air 08/20/24 18:48 Room Air 08/20/24 17:00 Room Air 08/20/24 16:00 98.7 F 100 H 18 162/85 H 99 Room Air 08/20/24 15:00 Room Air 08/20/24 13:00 Room Air 08/20/24 11:41 98.4 F 90 16 147/74 H 99 Room Air 08/20/24 11:00 Room Air Intake and Output 08/20/24 08/21/24 08/21/24 23:59 07:59 15:59 Intake Total 1350 / 2345 240 / 720 480 / 720 Output Total 750 / 950 600 / 600 Balance 600 / 1395 -360 / 120 480 / 120 Intake: Intake, Oral Amount 240 / 720 480 / 720 Intake, Total IV Amount 1350 / 1925 Ceftriaxone Sodium 1 gm In 0.9 50 / 50 % Sodium Chloride 50 ml @ 100 mls/hr IV Q24H FOR[facility]LY [facility], [facility]–1983 Rx#:[id number] Lactated Ringers 1000ML 1,000 1000 / 1000 ml @ 500 mls/hr IV .Q2H ONE Rx# :[id number] Vancomycin/Water For Inj (Peg) 300 / 300 1.5 gm In 300 ml @ 150 mls/hr IV Q48H FOR[facility], [facility]1983 Rx#:[id number] Output: Output, Urine Amount 750 / 950 600 / 600 Other: Number of Unmeasured Voids 0 0 Number of Bowel Movements 1 Weight 89.471 kg Patient Weight 08/21/24 23:59 Weight 89.471 kg Laboratory Results - last 24 hr 08/18/24 15:21: HIV Ag/Ab Combo Qual Negative 08/20/24 11:25: Urine Color Yellow, Urine Appearance Clear, Urine pH 5.5, Ur Specific [place] 1.015, Urine Protein 1+ A, Urine Glucose (UA) 1+, Urine Ketones Negative, Urine Blood Trace-i, Urine Nitrate Negative, Urine Bilirubin Negative, Urine Urobilinogen 0.2, Ur Leukocyte Esterase Negative, Urine RBC None, Urine WBC 5-10, Ur Squamous Epith Cells None, Urine Bacteria 3+ 08/20/24 11:44: POC Glucose 182 H 08/20/24 12:40: Stl Aeromonas (PCR) Not detected, Stl C. cayetanensis PCR Not detected, Stool Rotavirus (PCR) Not detected, Stl Adenov F 40/41 PCR Not detected, Stool Astrovirus (PCR) Not detected, Stool Campylobacter PCR Not detected, Stl C.difficile Tox PCR Not detected, Stool Cryptosporidium PCR Not detected, Stl E.coli Shiga Tox PCR Not detected, Stool E coli O157 PCR Not detected, Stl Enterotoxigenic E PCR Not detected, Stool EPEC (PCR) Not detected, Stool EAEC (PCR) Not detected, Stl E. histolytica PCR Not detected, Stool Giardia Lamblia PCR Not detected, Stool Salmonella PCR Not detected, Stool Sapovirus (PCR) Not detected, Stl P. shigelloides PCR Not detected, Stl Shigella/EIEC PCR Not detected, St Y.enterocolitica PCR Not detected, Stool Vibrio (PCR) Not detected, Stl Vibrio cholerae PCR Not detected, Stl Norovirus GI/GII PCR Not detected 08/20/24 14:08: Sodium 125 L, Potassium 3.3 L, Chloride 96 L, Carbon Dioxide 19 L, Anion Gap 13.3, BUN 56 H, Creatinine 2.80 H, Estimated Creat Clear 26, Estimated GFR 17 L*, Est GFR ( Amer) 21 L, Glucose 157 H D, Calcium 8.0 L 08/20/24 15:59: POC Glucose 166 H 08/20/24 22:25: Sodium 127 L, Potassium 3.3 L, Chloride 95 L, Carbon Dioxide 18 L, Anion Gap 17.3 H, BUN 54 H, Creatinine 2.60 H, Estimated Creat Clear 28, Estimated GFR 19 L*, Est GFR ( Amer) 22 L, Glucose 173 H, Calcium 8.4 08/21/24 04:59: POC Glucose 153 H 08/21/24 05:48: WBC 14.8 H, RBC 4.28, Hgb 11.9 L, Hct 34.7 L, MCV 81.1, MCH 27. 8, MCHC 34.3, RDW 12.4, Plt Count 301 D, MPV 10.8 H, Neut % (Auto) 88.7 H, Lymph % (Auto) 4.3 L, [place] % (Auto) 5.9, Eos % (Auto) 0.1, Baso % (Auto) 0.1, Neut # (Auto) 13.1 H, Lymph # (Auto) 0.6 L, [place] # (Auto) 0.9, Eos # (Auto) 0.0, Baso # (Auto) 0.0, Sodium 126 L, Potassium 3.3 L, Chloride 98, Carbon Dioxide 18 L, Anion Gap 13.3, BUN 50 H, Creatinine 2.20 H, Estimated Creat Clear 36, Estimated GFR 22 L, Est GFR ( Amer) 27 L D, Glucose 148 H, Calcium 8.5, Magnesium 2.1, Total Bilirubin 0.4, AST 54 H D, ALT 46, Alkaline Phosphatase 88, Total Protein 6.8, Albumin 3.1 L, Globulin 3.7 H, Albumin/Globulin Ratio 0.8 L I & O for Labs for Last 24 Hours: Intake & Output 08/18/24 08/19/24 08/20/24 08/21/24 23:59 23:59 23:59 23:59 Intake Total 2707 / 3282 2105 / 2345 720 / 720 Output Total 0 / 0 0 / 0 950 / 950 600 / 600 Balance 0 / 465 2707 / 3282 1155 / 1395 120 / 120 Weight 77.61 kg 81.828 kg 81.82 kg 89.471 kg Microbiology Reports for the Last 24 Hours: Microbiology 08/18/24 16:50 Blood Blood Culture - Preliminary NO GROWTH AFTER 48 HOURS 08/18/24 16:45 Blood Blood Culture - Preliminary NO GROWTH AFTER 48 HOURS 08/18/24 17:27 Urine,Clean Catch Urine Culture - Final Citrobacter freundii Constitutional: Present mild distress, obese, chronically ill appearing and cooperative Head: Present atraumatic and normocephalic ENT: Present normal exam Neck: Present normal inspection Respiratory: Present normal respiratory effort; Absent rhonchi, stridor, wheezes or crackles Cardiac: Present Tachycardia GI: Present soft and normal bowel sounds; Absent distention or tenderness (Resolved) Comments:: Ventral abdominal hernia reducible with no incarceration Rectal (female): Present deferred Extremities: Present normal inspection and full ROM Skin: Present intact and erythema (Left leg with erythema up to the knee, stable with clean margin) Neuro: Present Grossly Intact, alert, awake, oriented x 3 and moves all extremities Assessment and Plan *Assessment and plan (1) Sepsis: Status: Acute Qualifiers: Sepsis type: sepsis due to unspecified organism Sepsis acute organ dysfunction status: with acute organ dysfunction Severe sepsis acute organ dysfunction type: acute renal failure Acute renal failure type: unspecified Severe sepsis shock status: without septic shock Qualified Code(s): A41.9 - Sepsis, unspecified organism; R65.20 - Severe sepsis without septic shock; N17.9 - Acute kidney failure, unspecified Category: Medical Code(s): A41.9 - Sepsis, unspecified organism (2) Pyelonephritis: Status: Acute Category: Medical Code(s): N12 - Tubulo-interstitial nephritis, not specified as acute or chronic (3) Intractable nausea and vomiting: Status: Acute Category: Medical Code(s): R11.2 - Nausea with vomiting, unspecified (4) Acute kidney injury superimposed on chronic kidney disease: Status: Acute Category: Medical Code(s): N17.9 - Acute kidney failure, unspecified; N18.9 - Chronic kidney disease, unspecified (5) Hyponatremia: Status: Acute Category: Medical Code(s): E87.1 - Hypo-osmolality and hyponatremia (6) Metabolic acidosis: Status: Acute Category: Medical Code(s): E87.20 - Acidosis, unspecified (7) Hyperglycemia due to diabetes mellitus: Status: Acute Category: Medical Code(s): E11.65 - Type 2 diabetes mellitus with hyperglycemia (8) Leukocytosis: Status: Acute Qualifiers: Leukocytosis type: unspecified Qualified Code(s): D72.829 - Elevated white blood cell count, unspecified Category: Medical Code(s): D72.829 - Elevated white blood cell count, unspecified (9) DKA (diabetic ketoacidosis): Status: Acute Category: Medical Code(s): E11.10 - Type 2 diabetes mellitus with ketoacidosis without coma Plan 64-year-old female who presented with sepsis criteria. Discussed case with ER physician, request admission for monitoring of cultures and continued IV antibiotics. Medicine agreed to admit for further care. Patient has an acute unstable condition necessitating close monitoring. Nausea and vomiting improved this morning. Feeling better. Will advance diet. Seeing improvement in kidney function. Continues to require inpatient management. Problems addressed as follows: Sepsis Urinary tract infection/pyelonephritis Cellulitis/erysipelas BERNABE on CKD -Urine culture growing Citrobacter. Continue ceftriaxone 1 g daily due to initiation of vancomycin for possible cellulitis of left lower leg. - White count 14.8, still down from presentation at 21. Hemoglobin 11.9. - Repeat CBC, CMP, magnesium ordered for the morning - Blood culture still pending BERNABE CKD 3 - Prerenal in the setting of DKA and sepsis. Slight improvement today, creatinine 2.2, BUN 50. Baseline 1.6. Down from 2.8. Potassium 3.3, replacing per protocol - Caution with nephrotoxins Hyponatremia: Stable at this time, 126 this morning. Concern for pain induced SIADH, nausea and vomiting, fluid shifts from DKA. Monitor closely with replacement. Administer 1 L LR today over 2 hours. Correct between 8 and 10 mEq every 24 hours. Repeat sodium level this afternoon ordered. DKA - Continue sliding scale insulin and fingersticks ACHS. Morning glucose 148, continue insulin glargine 40 units nightly. - A1c 12.6 Hypertension CAD HFrEF - Hold Entresto in the setting of BERNABE. Hold Lasix/spironolactone in the setting of BERNABE and sepsis. - Continue Plavix 75 mg daily and carvedilol 3.125 mg twice daily. Holding Jardiance in the setting of UTI/sepsis Full code Continue home Xarelto 10 mg daily Diabetic diet
[2024-08-21] MEDS: POTASSIUM CHLORIDE 20MEQ TAB 40 MEQ PO ×2 (11:00→14:15)
[2024-08-21] MEDS: LACTATED RINGERS 1000ML 1,000 ML 500 ML IV (11:00)
[2024-08-21 12:00] VITALS: BP 141/78; PULSE 102; RESP 16; TEMP 36.6; O2SAT 99
[2024-08-21] MEDS: CEFTRIAXONE SODIUM 1 GM in 0.9 % SODIUM CHLORIDE 50 ML IV (14:15)
[2024-08-21 16:00] VITALS: BP 167/73; PULSE 102; RESP 16; TEMP 37.2; O2SAT 98
[2024-08-21] MEDS: RIVAROXABAN 15MG TABLET 15 MG PO (16:30)
[2024-08-21] MEDS: CARVEDILOL 3.125MG TABLET 3.125 MG PO (16:30)
[2024-08-21 16:44] LABS: POC Glucose,Bedside 151 (70-110)
[2024-08-21 17:06] LABS: Blood Urea Nitrogen 39 mg/dl (7-17); Calcium 8.4 mg/dl (8.4-10.2); Carbon Dioxide 17 mmol/L (22.0-30.0); Chloride 102 mmol/L (98-107); Creatinine Clearance Estimated 50 mL/min (50-200); Estimated Glomerular Filt Rate 32 ml/min (>60); GFR (African American) 39 ML/MIN (>60); Glucose 159 mg/dl (74-100); Sodium 127 mmol/L (136-145)
[2024-08-21 17:16] LABS: Anion Gap 11.7 mEq/L (5-15); Potassium 3.7 mmoL/L (3.5-5.1)
--- NOTE | 2024-08-21 17:29 | PC.NURSE ---
patient is a/o x4 remains on room air. gregorio D/C this shift, patient has voided since gregorio removal. ambulates independently to bathroom. patient has had some nausea today but no emesis. patient has slept most of the shift. patient is tolerating diet but states she does not feel like eating. tolerated PO meds this shift. call light within reach, no further requests at this time.
[2024-08-21 20:00] VITALS: BP 164/82; PULSE 104; RESP 22; TEMP 36.6; O2SAT 98
[2024-08-21] MEDS: PANTOPRAZOLE 40MG TABLET 40 MG PO (20:20)
[2024-08-21] MEDS: INSULIN GLARGINE 100 UNITS/ML 10ML VIAL 40 UNIT SUBCUT (20:23)
[2024-08-22] VITALS (8 sets, daily range): BP systolic 125–190; BP diastolic 66–112; PULSE 78–106; RESP 16–17; TEMP 36.6–38; O2SAT 94–100; BMI 31.3
--- NOTE | 2024-08-22 02:50 | PC.NURSE ---
Pt stated that she was unable to eat most of her dinner due to some nausea. Pt has had no emesis episodes, but has had some nausea and dry heaving. Pt was able to settle in bed and is currently resting with eyes closed. Respirations even and unlabored. Bed is low, locked, and call light is in reach.
[2024-08-22 05:08] LABS: POC Glucose,Bedside 190 (70-110)
[2024-08-22 05:08] LABS: POC Glucose,Bedside 120 (70-110)
[2024-08-22 05:10] LABS: POC Glucose,Bedside 106 (70-110)
[2024-08-22 08:10] LABS: Basophils # 0.1 K/mm3 (0-0.2); Basophils % 0.5 % (0.1-2.0); Eosinophils # 0.2 Kmm3 (0.0-0.4); Eosinophils % 2.2 % (0.1-12.0); Hematocrit 36.3 % (37.0-47.0); Hemoglobin 11.9 g/dL (12.2-16.2); Lymphocytes # 1.4 K/mm3 (0.7-4.5); Lymphocytes % 12.7 % (10-50); Mean Corpuscular HGB Conc 32.8 g/dL (31.8-35.4); Mean Corpuscular Hemoglobin 27.2 pg (27.0-31.2); Mean Corpuscular Volume 83.1 fl (81-99); Mean Platelet Volume 10.4 fl (7.4-10.4); Monocytes # 1.3 K/mm3 (0.1-1.0); Monocytes % 11.4 % (1.7-9.3); Neutrophils % 72.3 % (37.0-80.0); Nucleated Red Blood Cells # 0 10^3/uL; Nucleated Red Blood Cells % 0 %; Platelet Count 355 K/mm3 (142-424); Red Blood Count 4.37 M/mm3 (4.20-5.40); Red Cell Distribution Width 12.6 % (11.5-17.5); Red Cell Distribution Width-SD 38.8 fL; White Blood Count 11.1 K/mm3 (4.8-10.8)
[2024-08-22 08:23] LABS: Alanine Aminotransferase 56 U/L (12-78); Albumin Level 3.1 g/dl (3.5-5.0); Albumin/Globulin Ratio 0.8 (1.1-1.8); Alkaline Phosphatase 82 U/L (38-126); Anion Gap 9.4 mEq/L (5-15); Aspartate Amino Transferase 50 U/L (14-36); Bilirubin,Total 0.5 mg/dl (0.2-1.3); Blood Urea Nitrogen 35 mg/dl (7-17); Calcium 9.1 mg/dl (8.4-10.2); Carbon Dioxide 24 mmol/L (22.0-30.0); Chloride 105 mmol/L (98-107); Creatinine Clearance Estimated 50 mL/min (50-200); Estimated Glomerular Filt Rate 32 ml/min (>60); GFR (African American) 39 ML/MIN (>60); Globulin 3.8 g/dL (1.3-3.2); Glucose 74 mg/dl (74-100); Potassium 3.4 mmoL/L (3.5-5.1); Sodium 135 mmol/L (136-145); Total Protein,Serum 6.9 g/dl (6.3-8.2)
[2024-08-22] MEDS: CLOPIDOGREL 75MG TAB 75 MG PO (08:36)
[2024-08-22] MEDS: CARVEDILOL 3.125MG TABLET 3.125 MG PO ×2 (08:36→16:36)
[2024-08-22] MEDS: ASPIRIN EC 81MG TABLET 81 MG PO (08:36)
[2024-08-22] MEDS: ONDANSETRON 4MG/2ML VIAL 4 MG IV (09:22)
[2024-08-22] MEDS: POTASSIUM CHLORIDE 20MEQ TAB 40 MEQ PO ×2 (10:22→12:30)
[2024-08-22 10:54] LABS: POC Glucose,Bedside 140 (70-110)
[2024-08-22] MEDS: METOCLOPRAMIDE HCL 10MG/2ML VIAL 10 MG IVP ×3 (11:53→20:27)
[2024-08-22] MEDS: BELLADONNA ALKALOIDS 60 ML ML PO (11:53)
[2024-08-22 12:07] LABS: Vancomycin,Trough 5.5 ug/mL (5.0-10.0)
[2024-08-22] MEDS: CEFTRIAXONE SODIUM 1 GM in 0.9 % SODIUM CHLORIDE 50 ML IV (12:28)
[2024-08-22 13:05] LABS: Adenovirus,PCR Not Detected (NotDetected); Bordetella Pertussis Not Detected (NotDetected); Chlamydophila Pneumoniae, PCR Not Detected (NotDetected); Coronavirus 19, PCR Not Detected (NotDetected); Coronavirus 229E Not Detected (NotDetected); Coronavirus NL63 Not Detected (NotDetected); Coronavirus OC43 Not Detected (NotDetected); Coronovirus HKU1,PCR Not Detected (NotDetected); Human Metapneumovirus Not Detected (NotDetected); Influenza A, PCR Not Detected (NotDetected); Influenza AH1, 2009 Not Detected (NotDetected); Influenza AH1, PCR Not Detected (NotDetected); Influenza AH3,PCR Not Detected (NotDetected); Influenza B, PCR Not Detected (NotDetected); Mycoplasma Pneumoniae, PCR Not Detected (NotDetected); Parainfluenza 1, PCR Not Detected (NotDetected); Parainfluenza 2, PCR Not Detected (NotDetected); Parainfluenza 3, PCR Not Detected (NotDetected); Parainfluenza 4, PCR Not Detected (NotDetected); Respiratory Syncytial Virus Not Detected (NotDetected); Rhinovirus/Enterovirus Not Detected (NotDetected)
[2024-08-22] MEDS: RIVAROXABAN 15MG TABLET 15 MG PO (16:37)
--- NOTE | 2024-08-22 17:28 | PC.NURSE ---
pt resting supine in bed with family at bedside. complained of intermittent nausea and dry heaves this shift. treated with zofran, reglan and gi cocktail per jun. pt has not had an interest in eating this shift, as she says that this increases her nausea. pt refused 1600 insulin since she has not been eating. abx given per jun. no needs at this time. call light within reach.
[2024-08-22] MEDS: PANTOPRAZOLE 40MG TABLET 40 MG PO (20:27)
[2024-08-22] MEDS: humaLOG 100 UNITS/ML 10ML VIAL (SSI) SUBCUT (20:31)
[2024-08-22] MEDS: INSULIN GLARGINE 100 UNITS/ML 10ML VIAL 40 UNIT SUBCUT (20:31)
[2024-08-22 20:34] LABS: POC Glucose,Bedside 177 (70-110)
[2024-08-22 20:34] LABS: POC Glucose,Bedside 167 (70-110)
--- NOTE | 2024-08-22 21:50 | EXP.PN ---
Subjective *Date: 08/22/24 *Time: 21:50 Interval history: Patient is having retching, nausea and decreased tolerance to p.o. intake today. Continue scheduled Reglan, Zofran as needed. High risk for readmission in the setting of DKA. Feeling a little better in the afternoon after GI cocktail. Exam Data for Last 24 hours Vital signs and Labs for Last 24 Hours: Temp Pulse Resp BP Pulse Ox O2 Del Method 98.3 F 93 H 16 125/72 94 L Room Air 08/22/24 21:23 08/22/24 20:00 08/22/24 20:00 08/22/24 20:00 08/22/24 20:00 08/22/24 21:00 Laboratory Results - last 24 hr 08/21/24 11:02: POC Glucose 120 H 08/21/24 19:55: POC Glucose 190 H 08/22/24 05:04: POC Glucose 106 08/22/24 07:05: WBC 11.1 H, RBC 4.37, Hgb 11.9 L, Hct 36.3 L, MCV 83.1, MCH 27.2, MCHC 32.8, RDW 12.6, Plt Count 355, MPV 10.4, Neut % (Auto) 72.3, Lymph % (Auto) 12.7, [place] % (Auto) 11.4 H, Eos % (Auto) 2.2, Baso % (Auto) 0.5, Neut # (Auto) 8.0 H, Lymph # (Auto) 1.4, [place] # (Auto) 1.3 H, Eos # (Auto) 0.2, Baso # (Auto) 0.1, Sodium 135 L, Potassium 3.4 L, Chloride 105, Carbon Dioxide 24, Anion Gap 9.4, BUN 35 H, Creatinine 1.60 H, Estimated Creat Clear 50, Estimated GFR 32 L, Est GFR ( Amer) 39 L, Glucose 74 D, Calcium 9.1, Total Bilirubin 0.5, AST 50 H, ALT 56, Alkaline Phosphatase 82, Total Protein 6.9, Albumin 3.1 L, Globulin 3.8 H, Albumin/Globulin Ratio 0.8 L 08/22/24 10:45: POC Glucose 140 H 08/22/24 11:15: Vancomycin Trough 5.5 08/22/24 11:52: Chlamy pneumoniae PCR Not detected, Adenovirus (PCR) Not detected, B. pertussis DNA (PCR) Not detected, Coronavirus OC43 (PCR) Not detected, Coronavirus HKU1 (PCR) Not detected, Coronavirus 229E (PCR) Not detected, SARS-CoV-2 (PCR) Not detected, Coronavirus NL63 (PCR) Not detected, Human Metapneumovir PCR Not detected, Influenza A (H1) PCR Not detected, Influ A (H1N1/09) PCR Not detected, Influenza A (H3) PCR Not detected, Influenza Type A (PCR) Not detected, Influenza Type B (PCR) Not detected, M. pneumoniae (PCR) Not detected, Parainfluenza 1 (PCR) Not detected, Parainfluenza 2 (PCR) Not detected, Parainfluenza 3 (PCR) Not detected, Parainfluenza 4 (PCR) Not detected, RSV (PCR) Not detected, Entero/Rhino (PCR) Not detected 08/22/24 16:36: POC Glucose 177 H 08/22/24 20:25: POC Glucose 167 H I & O for Last 24 hours: Intake & Output 08/19/24 08/20/24 08/21/24 08/22/24 23:59 23:59 23:59 23:59 Intake Total 2707 / 3282 2105 / 2345 2110 / 2110 360 / 360 Output Total 0 / 0 950 / 950 1375 / 1375 Balance 2707 / 3282 1155 / 1395 735 / 735 360 / 360 Weight 81.828 kg 81.82 kg 89.471 kg 88.479 kg Microbiology Reports for the Last 24 Hours: Microbiology 08/18/24 16:45 Blood Blood Culture - Preliminary NO GROWTH AFTER 4 DAYS 08/18/24 16:50 Blood Blood Culture - Preliminary NO GROWTH AFTER 4 DAYS 08/20/24 11:25 Urine,Clean Catch Urine Culture - Final Constitutional Constitutional: no acute distress *Routine HEENT Exam Head: Present normocephalic Eye: Present EOMI and PERRL ENT: Present mucous membranes moist *Routine Neck Exam Neck: Present supple; Absent lymphadenopathy *Routine Respiratory Exam Respiratory: Present CTA bilaterally *Routine Cardiovascular Exam Cardiovascular: Present RRR *Routine Abdominal Exam Abdominal: Present soft and normoactive bowel sounds; Absent tenderness *Routine Extremities Exam Extremities: Absent cyanosis, clubbing or edema *Routine Skin Exam Skin: Present warm; Absent rash *Routine Neurological Exam Neurological: Present alert and oriented X3 Assessment and Plan *Assessment and plan (1) Sepsis: Status: Acute Qualifiers: Sepsis type: sepsis due to unspecified organism Sepsis acute organ dysfunction status: with acute organ dysfunction Severe sepsis acute organ dysfunction type: acute renal failure Acute renal failure type: unspecified Severe sepsis shock status: without septic shock Qualified Code(s): A41.9 - Sepsis, unspecified organism; R65.20 - Severe sepsis without septic shock; N17.9 - Acute kidney failure, unspecified Category: Medical Code(s): A41.9 - Sepsis, unspecified organism (2) Pyelonephritis: Status: Acute Category: Medical Code(s): N12 - Tubulo-interstitial nephritis, not specified as acute or chronic (3) Intractable nausea and vomiting: Status: Acute Category: Medical Code(s): R11.2 - Nausea with vomiting, unspecified (4) Acute kidney injury superimposed on chronic kidney disease: Status: Acute Category: Medical Code(s): N17.9 - Acute kidney failure, unspecified; N18.9 - Chronic kidney disease, unspecified (5) Hyponatremia: Status: Acute Category: Medical Code(s): E87.1 - Hypo-osmolality and hyponatremia (6) Metabolic acidosis: Status: Acute Category: Medical Code(s): E87.20 - Acidosis, unspecified (7) Hyperglycemia due to diabetes mellitus: Status: Acute Category: Medical Code(s): E11.65 - Type 2 diabetes mellitus with hyperglycemia (8) Leukocytosis: Status: Acute Qualifiers: Leukocytosis type: unspecified Qualified Code(s): D72.829 - Elevated white blood cell count, unspecified Category: Medical Code(s): D72.829 - Elevated white blood cell count, unspecified (9) DKA (diabetic ketoacidosis): Status: Acute Category: Medical Code(s): E11.10 - Type 2 diabetes mellitus with ketoacidosis without coma Plan Christiane Williamson is a 64-year-old female who presented with sepsis criteria. Discussed case with ER physician, request admission for monitoring of cultures and continued IV antibiotics. Medicine agreed to admit for further care. Sepsis Urinary tract infection/pyelonephritis Cellulitis/erysipelas BERNABE on CKD -Urine culture growing Citrobacter. Continue ceftriaxone 1 g daily. Continue vancomycin as patient is having increased nausea/vomiting today - White count 11.1, still down from presentation at 21. - Repeat CBC, CMP, magnesium ordered for the morning - Blood culture NGTD. # Patient is having nausea/intolerance to p.o. intake today. Continue scheduled Reglan, reevaluate in the morning. High risk of readmission in the setting of DKA. BERNABE CKD 3 ? Improving. Creatinine 1.6, GFR 32. Baseline 1.3. Down from 2.8. DKA - Continue sliding scale insulin and fingersticks ACHS. Morning glucose 106, continue insulin glargine 40 units nightly. - A1c 12.6 Hypertension CAD HFrEF - Hold Entresto in the setting of BERNABE. Hold Lasix/spironolactone in the setting of BERNABE and sepsis. - Continue Plavix 75 mg daily and carvedilol 3.125 mg twice daily. Holding Jardiance in the setting of UTI/sepsis Full code Continue home Xarelto 10 mg daily Diabetic diet
[2024-08-23] VITALS: BP 147/82; PULSE 97; RESP 18; TEMP 37; O2SAT 99
--- NOTE | 2024-08-23 03:28 | PC.NURSE ---
Pt alert and oriented. Reported some nausea and had dry heaving towards beginning of shift, but denies emesis episode. Received scheduled reglan and has been able to sleep. Pt currently resting in bed with eyes closed. Respirations appear even and unlabored. Bed is low, locked, and call light is in reach.
[2024-08-23 04:00] VITALS: BP 139/75; PULSE 78; RESP 16; TEMP 36.7; O2SAT 98; BMI 29.9
[2024-08-23] MEDS: METOCLOPRAMIDE HCL 10MG/2ML VIAL 10 MG IVP (05:09)
[2024-08-23 05:13] LABS: POC Glucose,Bedside 83 (70-110)
[2024-08-23] MEDS: CARVEDILOL 3.125MG TABLET 3.125 MG PO (07:00)
[2024-08-23 07:37] LABS: Basophils # 0.1 K/mm3 (0-0.2); Basophils % 0.5 % (0.1-2.0); Eosinophils # 0.3 Kmm3 (0.0-0.4); Eosinophils % 2.7 % (0.1-12.0); Hematocrit 30.8 % (37.0-47.0); Lymphocytes # 1.5 K/mm3 (0.7-4.5); Lymphocytes % 13.4 % (10-50); Mean Corpuscular HGB Conc 33.1 g/dL (31.8-35.4); Mean Corpuscular Hemoglobin 27.3 pg (27.0-31.2); Mean Corpuscular Volume 82.6 fl (81-99); Mean Platelet Volume 9.9 fl (7.4-10.4); Monocytes # 1.4 K/mm3 (0.1-1.0); Monocytes % 12.8 % (1.7-9.3); Neutrophils # 7.6 K/mm3 (1.8-7.8); Neutrophils % 69.6 % (37.0-80.0); Nucleated Red Blood Cells # 0 10^3/uL; Nucleated Red Blood Cells % 0 %; Platelet Count 305 K/mm3 (142-424); Red Blood Count 3.73 M/mm3 (4.20-5.40); Red Cell Distribution Width 12.6 % (11.5-17.5); Red Cell Distribution Width-SD 38.2 fL; White Blood Count 10.9 K/mm3 (4.8-10.8)
[2024-08-23 07:38] LABS: Albumin Level 2.5 g/dl (3.5-5.0); Chloride 105 mmol/L (98-107); Potassium 4.3 mmoL/L (3.5-5.1); Sodium 131 mmol/L (136-145)
[2024-08-23 07:41] LABS: Alanine Aminotransferase 32 U/L (12-78); Albumin/Globulin Ratio 0.8 (1.1-1.8); Alkaline Phosphatase 72 U/L (38-126); Anion Gap 6.3 mEq/L (5-15); Aspartate Amino Transferase 33 U/L (14-36); Bilirubin,Total 0.2 mg/dl (0.2-1.3); Blood Urea Nitrogen 26 mg/dl (7-17); Calcium 8.4 mg/dl (8.4-10.2); Carbon Dioxide 24 mmol/L (22.0-30.0); Creatinine Clearance Estimated 54 mL/min (50-200); Estimated Glomerular Filt Rate 38 ml/min (>60); GFR (African American) 46 ML/MIN (>60); Globulin 3.3 g/dL (1.3-3.2); Glucose 77 mg/dl (74-100); Total Protein,Serum 5.8 g/dl (6.3-8.2)
[2024-08-23 07:52] LABS: Hemoglobin 10.3 g/dL (12.2-16.2)
[2024-08-23 07:53] VITALS: BP 149/75; PULSE 91; RESP 16; TEMP 36.7; O2SAT 98
--- NOTE | 2024-08-23 08:16 | EXP.PHA.PN ---
Subjective *Date: 08/23/24 *Time: 08:16 Medical Exam Vital signs and Labs for Last 24 Hours: Vital Signs Temp Pulse Pulse Pulse Pulse Resp BP 08/23/24 07:53 98.0 F 91 H 16 08/23/24 06:25 08/23/24 05:00 08/23/24 04:00 98.1 F 78 16 08/23/24 03:00 08/23/24 01:00 08/23/24 00:00 98.6 F 97 H 18 08/22/24 23:00 08/22/24 21:23 98.3 F 08/22/24 21:00 08/22/24 20:00 100.4 F H 93 H 16 08/22/24 19:27 08/22/24 19:21 100.4 F H 93 H 16 08/22/24 18:41 08/22/24 17:00 08/22/24 16:00 98.2 F 103 H 16 08/22/24 15:00 08/22/24 13:00 08/22/24 12:00 101 H 105 H 106 H 178/81 H 08/22/24 11:00 08/22/24 09:00 BP BP BP Pulse Ox O2 Del Method 08/23/24 07:53 149/75 H 98 Room Air 08/23/24 06:25 Room Air 08/23/24 05:00 Room Air 08/23/24 04:00 139/75 98 Room Air 08/23/24 03:00 Room Air 08/23/24 01:00 Room Air 08/23/24 00:00 147/82 H 99 08/22/24 23:00 Room Air 08/22/24 21:23 08/22/24 21:00 Room Air 08/22/24 20:00 125/72 94 L 08/22/24 19:27 Room Air 08/22/24 19:21 125/72 Room Air 08/22/24 18:41 Room Air 08/22/24 17:00 Room Air 08/22/24 16:00 190/99 H 99 08/22/24 15:00 Room Air 08/22/24 13:00 Room Air 08/22/24 12:00 167/89 H 168/81 H 08/22/24 11:00 Room Air 08/22/24 09:00 Room Air Intake and Output 08/22/24 08/23/24 08/23/24 23:59 07:59 15:59 Intake Total 240 / 360 570 / 570 Output Total 0 / 0 0 / 0 Balance 240 / 360 0 / 570 570 / 570 Intake: Intake, Oral Amount 240 / 360 570 / 570 Output: Output, Urine Amount 0 / 0 0 / 0 Other: Number of Unmeasured Voids 0 1 Number of Bowel Movements 1 1 Weight 84.686 kg Patient Weight 08/23/24 23:59 Weight 84.686 kg Laboratory Results - last 24 hr 08/22/24 07:05: Sodium 135 L, Potassium 3.4 L, Chloride 105, Carbon Dioxide 24, Anion Gap 9.4, BUN 35 H, Creatinine 1.60 H, Estimated Creat Clear 50, Estimated GFR 32 L, Est GFR ( Amer) 39 L, Glucose 74 D, Calcium 9.1, Total Bilirubin 0.5, AST 50 H, ALT 56, Alkaline Phosphatase 82, Total Protein 6.9, Albumin 3.1 L, Globulin 3.8 H, Albumin/Globulin Ratio 0.8 L 08/22/24 10:45: POC Glucose 140 H 08/22/24 11:15: Vancomycin Trough 5.5 08/22/24 11:52: Chlamy pneumoniae PCR Not detected, Adenovirus (PCR) Not detected, B. pertussis DNA (PCR) Not detected, Coronavirus OC43 (PCR) Not detected, Coronavirus HKU1 (PCR) Not detected, Coronavirus 229E (PCR) Not detected, SARS-CoV-2 (PCR) Not detected, Coronavirus NL63 (PCR) Not detected, Human Metapneumovir PCR Not detected, Influenza A (H1) PCR Not detected, Influ A (H1N1/09) PCR Not detected, Influenza A (H3) PCR Not detected, Influenza Type A (PCR) Not detected, Influenza Type B (PCR) Not detected, M. pneumoniae (PCR) Not detected, Parainfluenza 1 (PCR) Not detected, Parainfluenza 2 (PCR) Not detected, Parainfluenza 3 (PCR) Not detected, Parainfluenza 4 (PCR) Not detected, RSV (PCR) Not detected, Entero/Rhino (PCR) Not detected 08/22/24 16:36: POC Glucose 177 H 08/22/24 20:25: POC Glucose 167 H 08/23/24 05:04: POC Glucose 83 08/23/24 06:50: WBC 10.9 H, RBC 3.73 L, Hgb 10.3 L D, Hct 30.8 L, MCV 82.6, MCH 27.3, MCHC 33.1, RDW 12.6, Plt Count 305, MPV 9.9, Neut % (Auto) 69.6, Lymph % (Auto) 13.4, [place] % (Auto) 12.8 H, Eos % (Auto) 2.7, Baso % (Auto) 0.5, Neut # (Auto) 7.6, Lymph # (Auto) 1.5, [place] # (Auto) 1.4 H, Eos # (Auto) 0.3, Baso # (Auto) 0.1, Sodium 131 L, Potassium 4.3 D, Chloride 105, Carbon Dioxide 24, Anion Gap 6.3, BUN 26 H D, Creatinine 1.40 H, Estimated Creat Clear 54, Estimated GFR 38 L, Est GFR ( Amer) 46 L, Glucose 77, Calcium 8.4, Magnesium 2.0, Total Bilirubin 0.2, AST 33 D, ALT 32 D, Alkaline Phosphatase 72, Total Protein 5.8 L, Albumin 2.5 L D, Globulin 3.3 H, Albumin/Globulin Ratio 0.8 L I & O for Labs for Last 24 Hours: Intake & Output 08/20/24 08/21/24 08/22/24 08/23/24 23:59 23:59 23:59 23:59 Intake Total 2105 / 2345 2110 / 2110 360 / 360 570 / 570 Output Total 950 / 950 1375 / 1375 0 / 0 0 / 0 Balance 1155 / 1395 735 / 735 360 / 360 570 / 570 Weight 81.82 kg 89.471 kg 88.479 kg 84.686 kg Microbiology Reports for the Last 24 Hours: Microbiology 08/18/24 16:45 Blood Blood Culture - Preliminary NO GROWTH AFTER 4 DAYS 08/18/24 16:50 Blood Blood Culture - Preliminary NO GROWTH AFTER 4 DAYS 08/20/24 11:25 Urine,Clean Catch Urine Culture - Final The patient's infection will respond to the chosen ABx?: Yes (URINE CX = CITROBACTER FREUNDII SENSITIVE TO ROCEPHIN, REPEAT CX NO GROWTH) Is the patient receiving the right drug, dose, and route?: Yes Could a more targeted ABx be ordered?: No How long ABx needed (days)?: 7
[2024-08-23] MEDS: ASPIRIN EC 81MG TABLET 81 MG PO (08:34)
[2024-08-23] MEDS: CLOPIDOGREL 75MG TAB 75 MG PO (08:34)
--- NOTE | 2024-08-23 09:37 | P.DS_ITS ---
General Admission date:: 08/18/24 HPI HPI HPI: This is a 64-year-old female who has a past medical history significant for renal insufficiency, obesity, ventral hernia, hiatal hernia, diabetes, atrial flutter status post cardiac ablation but still anticoagulation, and NSTEMI who presents with a chief complaint of vomiting and dizziness. Due to patient's symptoms, she presented to the emergency room for evaluation. While in the emergency room, patient had a significantly elevated white blood cell count and urinalysis was consistent with a urinary tract infection. CT scan of the abdomen and pelvis revealed increased perinephritic stranding compared to the prior study possibly due to pyelonephritis versus renal failure and a ventral wall hernia now contains a portion of the transverse colon. Due to these findings, patient is being admitted for further management During my evaluation of the patient, patient states she has been having nonbilious emesis and dizziness that is worse with standing. She reports that her urine has been dark in color and has been having and no abdominal pain. She also reports a subjective fever with chills. She is denying any chest pain, lightheadedness, headache, blurry vision, diplopia, lateral gaze deficit, upper or lower extremity weakness, bilious emesis, significant abdominal pain, flank pain, or diarrhea. Additional pertinent values obtained include a white blood cell count of 21.5, red blood cell count of 4.09, hemoglobin 0.5, hematocrit 34.3, neutrophils 91.4%, sodium of 130, chloride of 97, bicarbonate 19, BUN of 45, creatinine 2.0, GFR 25, blood glucose of 456, albumin 3.4, and urinalysis revealed 2+ protein/1+ blood/1+ bacteria Hospital Course Hospital Course Hospital Course: Christiane Williamson is a 64-year-old female who presented with nausea/vomiting and was admitted for sepsis secondary to UTI, cellulitis. #Sepsis #Urinary tract infection/pyelonephritis #Left lower extremity cellulitis/erysipelas #BERNABE on CKD ? Patient presented with hyperglycemia, nausea/vomiting in the setting of UTI, left lower extremity cellulitis. ? Gradually improved with vancomycin, ceftriaxone. Cellulitis had significant improvement. ? Patient did have persistent retching/nausea/vomiting throughout hospital course that eventually improved after scheduled Reglan. Doing much better today, tolerating p.o. intake without issues. ? Urine culture growing pansensitive Citrobacter. Blood culture NGTD. Transitioned to cefdinir for 3 more days. ? BERNABE improved, creatinine 1.2 (peaked at 2.8), GFR 45. Stable. ? Discharged with cefdinir for 3 more days, metoclopramide as needed for nausea. ? Advised patient to follow-up with her PCP within 2 weeks. #Type 2 diabetes #Hyperglycemia ? Hemoglobin A1c 12.6%. ? Presented with blood sugar in 400s in the setting of infection. Improved with insulin. Acetone negative, no DKA. ? Increased Lantus to 40 units daily, continue Jardiance 10 mg. #Hypertension #CAD #HFrEF # Paroxysmal A-fib ? Continue Entresto, spironolactone, carvedilol, Lasix, Xarelto, Plavix. Exam Data for Last 24 hours Vital signs and Labs for Last 24 Hours: Temp Pulse Resp BP Pulse Ox O2 Del Method 98.0 F 91 H 16 149/75 H 98 Room Air 08/23/24 07:53 08/23/24 07:53 08/23/24 07:53 08/23/24 07:53 08/23/24 07:53 08/23/24 09:00 Laboratory Results - last 24 hr 08/22/24 10:45: POC Glucose 140 H 08/22/24 11:15: Vancomycin Trough 5.5 08/22/24 11:52: Chlamy pneumoniae PCR Not detected, Adenovirus (PCR) Not detected, B. pertussis DNA (PCR) Not detected, Coronavirus OC43 (PCR) Not detected, Coronavirus HKU1 (PCR) Not detected, Coronavirus 229E (PCR) Not detected, SARS-CoV-2 (PCR) Not detected, Coronavirus NL63 (PCR) Not detected, Human Metapneumovir PCR Not detected, Influenza A (H1) PCR Not detected, Influ A (H1N1/09) PCR Not detected, Influenza A (H3) PCR Not detected, Influenza Type A (PCR) Not detected, Influenza Type B (PCR) Not detected, M. pneumoniae (PCR) Not detected, Parainfluenza 1 (PCR) Not detected, Parainfluenza 2 (PCR) Not detected, Parainfluenza 3 (PCR) Not detected, Parainfluenza 4 (PCR) Not detected, RSV (PCR) Not detected, Entero/Rhino (PCR) Not detected 08/22/24 16:36: POC Glucose 177 H 08/22/24 20:25: POC Glucose 167 H 08/23/24 05:04: POC Glucose 83 08/23/24 06:50: WBC 10.9 H, RBC 3.73 L, Hgb 10.3 L D, Hct 30.8 L, MCV 82.6, MCH 27.3, MCHC 33.1, RDW 12.6, Plt Count 305, MPV 9.9, Neut % (Auto) 69.6, Lymph % (Auto) 13.4, [place] % (Auto) 12.8 H, Eos % (Auto) 2.7, Baso % (Auto) 0.5, Neut # (Auto) 7.6, Lymph # (Auto) 1.5, [place] # (Auto) 1.4 H, Eos # (Auto) 0.3, Baso # (Auto) 0.1, Sodium 131 L, Potassium 4.3 D, Chloride 105, Carbon Dioxide 24, Anion Gap 6.3, BUN 26 H D, Creatinine 1.40 H, Estimated Creat Clear 54, Estimated GFR 38 L, Est GFR ( Amer) 46 L, Glucose 77, Calcium 8.4, Magnesium 2.0, Total Bilirubin 0.2, AST 33 D, ALT 32 D, Alkaline Phosphatase 72, Total Protein 5.8 L, Albumin 2.5 L D, Globulin 3.3 H, Albumin/Globulin Ratio 0.8 L I & O for Last 24 hours: Intake & Output 08/20/24 08/21/24 08/22/24 08/23/24 23:59 23:59 23:59 23:59 Intake Total 2105 / 2345 2110 / 2110 360 / 360 570 / 570 Output Total 950 / 950 1375 / 1375 0 / 0 0 / 0 Balance 1155 / 1395 735 / 735 360 / 360 570 / 570 Weight 81.82 kg 89.471 kg 88.479 kg 84.686 kg Microbiology Reports for the Last 24 Hours: Microbiology 08/18/24 16:45 Blood Blood Culture - Preliminary NO GROWTH AFTER 4 DAYS 08/18/24 16:50 Blood Blood Culture - Preliminary NO GROWTH AFTER 4 DAYS 08/20/24 11:25 Urine,Clean Catch Urine Culture - Final Constitutional Constitutional: no acute distress *Routine HEENT Exam Head: Present normocephalic Eye: Present EOMI and PERRL ENT: Present mucous membranes moist *Routine Neck Exam Neck: Present supple; Absent lymphadenopathy *Routine Respiratory Exam Respiratory: Present CTA bilaterally *Routine Cardiovascular Exam Cardiovascular: Present RRR *Routine Abdominal Exam Abdominal: Present soft and normoactive bowel sounds; Absent tenderness *Routine Extremities Exam Extremities: Absent cyanosis, clubbing or edema *Routine Skin Exam Skin: Present warm; Absent rash *Routine Neurological Exam Neurological: Present alert and oriented X3 Results Data Completed and Pending Labs on day of discharge: Labs from last 24 hours 08/23/24 08/23/24 08/22/24 06:50 05:04 20:25 WBC 10.9 H RBC 3.73 L Hgb 10.3 L D Hct 30.8 L MCV 82.6 MCH 27.3 MCHC 33.1 RDW 12.6 Plt Count 305 MPV 9.9 Neut % (Auto) 69.6 Lymph % (Auto) 13.4 [place] % (Auto) 12.8 H Eos % (Auto) 2.7 Baso % (Auto) 0.5 Neut # (Auto) 7.6 Lymph # (Auto) 1.5 [place] # (Auto) 1.4 H Eos # (Auto) 0.3 Baso # (Auto) 0.1 Sodium 131 L Potassium 4.3 D Chloride 105 Carbon Dioxide 24 Anion Gap 6.3 BUN 26 H D Creatinine 1.40 H Estimated Creat Clear 54 Estimated GFR 38 L Est GFR ( Amer) 46 L Glucose 77 POC Glucose 83 167 H Calcium 8.4 Magnesium 2.0 Total Bilirubin 0.2 AST 33 D ALT 32 D Alkaline Phosphatase 72 Total Protein 5.8 L Albumin 2.5 L D Globulin 3.3 H Albumin/Globulin Ratio 0.8 L Vancomycin Trough Chlamy pneumoniae PCR Adenovirus (PCR) B. pertussis DNA (PCR) Coronavirus OC43 (PCR) Coronavirus HKU1 (PCR) Coronavirus 229E (PCR) SARS-CoV-2 (PCR) Coronavirus NL63 (PCR) Human Metapneumovir PCR Influenza A (H1) PCR Influ A (H1N1/09) PCR Influenza A (H3) PCR Influenza Type A (PCR) Influenza Type B (PCR) M. pneumoniae (PCR) Parainfluenza 1 (PCR) Parainfluenza 2 (PCR) Parainfluenza 3 (PCR) Parainfluenza 4 (PCR) RSV (PCR) Entero/Rhino (PCR) 08/22/24 08/22/24 08/22/24 16:36 11:52 11:15 WBC RBC Hgb Hct MCV MCH MCHC RDW Plt Count MPV Neut % (Auto) Lymph % (Auto) [place] % (Auto) Eos % (Auto) Baso % (Auto) Neut # (Auto) Lymph # (Auto) [place] # (Auto) Eos # (Auto) Baso # (Auto) Sodium Potassium Chloride Carbon Dioxide Anion Gap BUN Creatinine Estimated Creat Clear Estimated GFR Est GFR ( Amer) Glucose POC Glucose 177 H Calcium Magnesium Total Bilirubin AST ALT Alkaline Phosphatase Total Protein Albumin Globulin Albumin/Globulin Ratio Vancomycin Trough 5.5 Chlamy pneumoniae PCR Not detected Adenovirus (PCR) Not detected B. pertussis DNA (PCR) Not detected Coronavirus OC43 (PCR) Not detected Coronavirus HKU1 (PCR) Not detected Coronavirus 229E (PCR) Not detected SARS-CoV-2 (PCR) Not detected Coronavirus NL63 (PCR) Not detected Human Metapneumovir PCR Not detected Influenza A (H1) PCR Not detected Influ A (H1N1/09) PCR Not detected Influenza A (H3) PCR Not detected Influenza Type A (PCR) Not detected Influenza Type B (PCR) Not detected M. pneumoniae (PCR) Not detected Parainfluenza 1 (PCR) Not detected Parainfluenza 2 (PCR) Not detected Parainfluenza 3 (PCR) Not detected Parainfluenza 4 (PCR) Not detected RSV (PCR) Not detected Entero/Rhino (PCR) Not detected 08/22/24 10:45 WBC RBC Hgb Hct MCV MCH MCHC RDW Plt Count MPV Neut % (Auto) Lymph % (Auto) [place] % (Auto) Eos % (Auto) Baso % (Auto) Neut # (Auto) Lymph # (Auto) [place] # (Auto) Eos # (Auto) Baso # (Auto) Sodium Potassium Chloride Carbon Dioxide Anion Gap BUN Creatinine Estimated Creat Clear Estimated GFR Est GFR ( Amer) Glucose POC Glucose 140 H Calcium Magnesium Total Bilirubin AST ALT Alkaline Phosphatase Total Protein Albumin Globulin Albumin/Globulin Ratio Vancomycin Trough Chlamy pneumoniae PCR Adenovirus (PCR) B. pertussis DNA (PCR) Coronavirus OC43 (PCR) Coronavirus HKU1 (PCR) Coronavirus 229E (PCR) SARS-CoV-2 (PCR) Coronavirus NL63 (PCR) Human Metapneumovir PCR Influenza A (H1) PCR Influ A (H1N1/09) PCR Influenza A (H3) PCR Influenza Type A (PCR) Influenza Type B (PCR) M. pneumoniae (PCR) Parainfluenza 1 (PCR) Parainfluenza 2 (PCR) Parainfluenza 3 (PCR) Parainfluenza 4 (PCR) RSV (PCR) Entero/Rhino (PCR) Preliminary micro results at discharge 08/18/24 16:45 Blood Culture - Preliminary Blood NO GROWTH AFTER 4 DAYS 08/18/24 16:50 Blood Culture - Preliminary Blood NO GROWTH AFTER 4 DAYS DS: Diagnosis Discharge Diagnosis (1) Sepsis: Status: Acute Code(s): A41.9 - Sepsis, unspecified organism Qualifiers: Acute renal failure type: unspecified Sepsis acute organ dysfunction status: with acute organ dysfunction Sepsis type: sepsis due to unspecified organism Severe sepsis acute organ dysfunction type: acute renal failure Severe sepsis shock status: without septic shock Qualified Code(s): A41.9 - Sepsis, unspecified organism; R65.20 - Severe sepsis without septic shock; N17.9 - Acute kidney failure, unspecified (2) Pyelonephritis: Status: Acute Code(s): N12 - Tubulo-interstitial nephritis, not specified as acute or chronic (3) Intractable nausea and vomiting: Status: Acute Code(s): R11.2 - Nausea with vomiting, unspecified (4) Acute kidney injury superimposed on chronic kidney disease: Status: Acute Code(s): N17.9 - Acute kidney failure, unspecified; N18.9 - Chronic kidney disease, uns pecified (5) Hyponatremia: Status: Acute Code(s): E87.1 - Hypo-osmolality and hyponatremia (6) Metabolic acidosis: Status: Acute Code(s): E87.20 - Acidosis, unspecified (7) Hyperglycemia due to diabetes mellitus: Status: Acute Code(s): E11.65 - Type 2 diabetes mellitus with hyperglycemia (8) Leukocytosis: Status: Acute Code(s): D72.829 - Elevated white blood cell count, unspecified Qualifiers: Leukocytosis type: unspecified Qualified Code(s): D72.829 - Elevated white blood cell count, unspecified (9) DKA (diabetic ketoacidosis): Status: Acute Code(s): E11.10 - Type 2 diabetes mellitus with ketoacidosis without coma Meds Home Medications and Allergies Home Medications ?Medication ?Instructions ?Recorded ?Confirmed ?Type aspirin 81 mg tablet,delayed 81 mg PO DAILY 11/12/23 08/24/24 History release empagliflozin 10 mg tablet 10 mg PO DAILY 11/12/23 08/24/24 History (Jardiance) furosemide 40 mg tablet 40 mg PO DAILY 11/12/23 08/24/24 History sacubitril 24 mg-valsartan 26 mg 1 tab PO BID 11/12/23 08/24/24 History tablet (Entresto) atorvastatin 80 mg tablet 80 mg PO HS #90 tabs 12/05/23 08/24/24 Rx rivaroxaban 15 mg tablet (Xarelto) 15 mg PO QPMWITHMEAL 01/30/24 08/24/24 History clopidogrel 75 mg tablet 75 mg PO DAILY #90 tabs 03/05/24 08/24/24 Rx pantoprazole 40 mg tablet,delayed 40 mg PO HS 08/18/24 08/24/24 History release spironolactone 25 mg tablet 12.5 mg PO DAILY 08/18/24 08/24/24 History carvedilol 3.125 mg tablet 3.125 mg PO BIDWMEAL 08/19/24 08/24/24 History cefdinir 300 mg capsule 300 mg PO BID 3 days #6 caps 08/23/24 08/24/24 Rx insulin glargine 100 unit/mL (3 40 unit (0.4 mL) SQ DAILY 30 days 08/23/24 08/24/24 Rx mL) subcutaneous pen (Lantus #15 mL Solostar U-100 Insulin) metoclopramide HCl 10 mg tablet 10 mg PO Q6H PRN nausea and 08/23/24 08/24/24 Rx vomiting #10 tabs New Prescriptions to Start Prescriptions: cefdinir Osmin Gutierrez insulin glargine [Lantus Solostar U-100 Insulin] Osmin Gutierrez metoclopramide HCl Osmin Gutierrez Allergies Allergy/AdvReac Type Severity Reaction Status Date / Time latex Allergy Rash Verified 07/07/24 15:40 Discharge Plan Disposition Patient Disposition: Home, Self-Care Condition: Fair Discharge Order Discharge Orders: Discharge Order (Routine); Ordered 08/23/24 Ordered By: Osmin Gutierrez Follow up Plan Follow up with: Anyi Raymundo PA [Primary Care Provider] - 08/25/24 8:00 am Prescriptions/Medication Reconciliation: New cefdinir 300 mg capsule 300 mg PO BID 3 Days Qty: 6 0RF metoclopramide HCl 10 mg tablet 10 mg PO Q6H PRN (Reason: nausea and vomiting) Qty: 10 0RF Continued Xarelto 15 mg tablet 15 mg PO QPMWITHMEAL atorvastatin 80 mg tablet 80 mg PO HS Qty: 90 3RF clopidogrel 75 mg tablet 75 mg PO DAILY Qty: 90 3RF furosemide 40 mg tablet 40 mg PO DAILY Patient Comments: TAKE ONE TABLET BY MOUTH EVERY DAY aspirin 81 mg tablet,delayed release (DR/EC) 81 mg PO DAILY Patient Comments: TAKE ONE TABLET BY MOUTH EVERY DAY Jardiance 10 mg tablet 10 mg PO DAILY Patient Comments: TAKE ONE TABLET BY MOUTH EVERY DAY Entresto 24-26 mg tablet 1 tab PO BID Patient Comments: TAKE ONE TABLET BY MOUTH TWICE DAILY spironolactone 25 mg tablet 12.5 mg PO DAILY pantoprazole 40 mg tablet,delayed release (DR/EC) 40 mg PO HS carvedilol 3.125 mg tablet 3.125 mg PO BIDWMEAL Patient Comments: TAKE ONE TABLET BY MOUTH TWICE DAILY WITH FOOD Changed insulin glargine [Lantus Solostar U-100 Insulin] 100 unit/mL (3 mL) insulin pen 40 unit SQ DAILY 30 Days Qty: 15 0RF Problem Reconciliation Problems Reviewed?: Yes Patient Discharge Instructions Stand Alone Forms: [facility] Work Release Patient Instructions: DI for Urinary Tract Infection (UTI), DI for Hyponatremia, DI for Sepsis -- Adult, DI for Dizziness-Nonvertigo, Stop Light Pneumonia, Stop Light Heart Failure Print Language: Norwegian Providers Primary Care Provider: Anyi Raymundo Admit Provider: Govind Guillaume Attending Provider: Govind Guillaume
--- NOTE | 2024-08-24 13:05 | SW/DCPLANNER ---
Spoke with patient on the phone. Patient stated that she is ok but her legs is still swelling when she gets up and walks around on it. Patient stated that she was able to get her new medicine picked up from [facility]. Patient stated that she is aware of her upcoming appointments. Patient stated that she has no concerns or questions at this time. Burak Quiroz
== END 2024-08-23 10:58 | disposition home or self-care (01) | DRG 871 ==
LOC: ER 20:36 → 2ND 20:59
PROVIDERS: Nurse Practitioner Family; Student in an Organized Health Care Education/Training Program; Admitting Provider Internal Medicine Adolescent Medicine; Emergency Provider Emergency Medicine; PCP Physician Assistant; Visit Provider Internal Medicine Adolescent Medicine
DX: A41.9 Sepsis, unspecified organism (principal); E11.10 Type 2 diabetes mellitus with ketoacidosis without coma; N17.9 Acute kidney failure, unspecified; L03.116 Cellulitis of left lower limb; I13.0 Hypertensive heart and chronic kidney disease with heart failure and stage 1 through stage 4 chronic kidney disease, or unspecified chronic kidney disease; I50.20 Unspecified systolic (congestive) heart failure; N13.6 Pyonephrosis; R65.20 Severe sepsis without septic shock; N18.30 Chronic kidney disease, stage 3 unspecified; I25.2 Old myocardial infarction; Z68.30 Body mass index [BMI] 30.0-30.9, adult; E66.9 Obesity, unspecified; I48.0 Paroxysmal atrial fibrillation; I25.10 Atherosclerotic heart disease of native coronary artery without angina pectoris; Z79.899 Other long term (current) drug therapy; Z79.01 Long term (current) use of anticoagulants; Z95.5 Presence of coronary angioplasty implant and graft; Z91.040 Latex allergy status; Z79.4 Long term (current) use of insulin; B96.89 Other specified bacterial agents as the cause of diseases classified elsewhere; E11.22 Type 2 diabetes mellitus with diabetic chronic kidney disease
CPT/HCPCS: 36415; 70450; 70496; 70498; 71045; 74018; 74176; 80048; 80053; 80202; 81001; 82009; 82803; 82962; 83036; 83735; 84439; 84443; 85025; 86803; 87040; 87086; 87088; 87186; 87389; 87507; 87633; 87636; 93005; 93971; 99291; J0696; J1644; J2405; J2543; J2550; J2765; J3372; J7030; J7120; Q9967

== ENCOUNTER 2024-08-24 15:39 | Observation (INO) | payer MEDICAID, SELFPAY ==
[2024-08-24] VITALS (7 sets, daily range): BP systolic 169–207; BP diastolic 85–104; PULSE 100–111; RESP 16–20; TEMP 36.4–36.9; O2SAT 96–100; BMI 29.3
--- NOTE | 2024-08-24 15:59 | XR_ITS ---
PROCEDURE INFORMATION: Exam: XR Chest Exam date and time: 08/24/2024 4:05 PM Age: 64 years old Clinical indication: Shortness of breath; Additional info: Eval pna TECHNIQUE: Imaging protocol: Radiologic exam of the chest. Views: 1 view. COMPARISON: CR XR CHEST PORTABLE 08/18/2024 3:55 PM FINDINGS: Lungs: Unremarkable. No consolidation. Pleural spaces: Unremarkable. No pleural effusion. No pneumothorax. Heart/Mediastinum: Unremarkable. No cardiomegaly. Bones/joints: No acute bony abnormalities detected. IMPRESSION: Negative chest exam.
--- NOTE | 2024-08-24 16:00 | HMH.EDGENADL ---
Discharge Plan Disposition Patient Disposition: Admitted Prescriptions Prescriptions: No Action Xarelto 15 mg tablet 15 mg PO QPMWITHMEAL atorvastatin 80 mg tablet 80 mg PO HS Qty: 90 3RF clopidogrel 75 mg tablet 75 mg PO DAILY Qty: 90 3RF furosemide 40 mg tablet 40 mg PO DAILY Patient Comments: TAKE ONE TABLET BY MOUTH EVERY DAY aspirin 81 mg tablet,delayed release (DR/EC) 81 mg PO DAILY Patient Comments: TAKE ONE TABLET BY MOUTH EVERY DAY Jardiance 10 mg tablet 10 mg PO DAILY Patient Comments: TAKE ONE TABLET BY MOUTH EVERY DAY Entresto 24-26 mg tablet 1 tab PO BID Patient Comments: TAKE ONE TABLET BY MOUTH TWICE DAILY spironolactone 25 mg tablet 12.5 mg PO DAILY pantoprazole 40 mg tablet,delayed release (DR/EC) 40 mg PO HS carvedilol 3.125 mg tablet 3.125 mg PO BIDWMEAL Patient Comments: TAKE ONE TABLET BY MOUTH TWICE DAILY WITH FOOD cefdinir 300 mg capsule 300 mg PO BID 3 Days Qty: 6 0RF insulin glargine [Lantus Solostar U-100 Insulin] 100 unit/mL (3 mL) insulin pen 40 unit SQ DAILY 30 Days Qty: 15 0RF metoclopramide HCl 10 mg tablet 10 mg PO Q6H PRN (Reason: nausea and vomiting) Qty: 10 0RF Referrals Follow up/Referrals: Anyi Raymundo PA [Primary Care Provider] - See instructions Clinical Impressions Clinical Impression: Nausea vomiting and diarrhea Sepsis Qualifiers: Sepsis type: sepsis due to unspecified organism Sepsis acute organ dysfunction status: without acute organ dysfunction Qualified Code(s): A41.9 - Sepsis, unspecified organism Cellulitis Qualifiers: Site of cellulitis: extremity Site of cellulitis of extremity: lower extremity Laterality: left Qualified Code(s): L03.116 - Cellulitis of left lower limb Instructions Patient Instructions: DI for Diarrhea and Traveler's Diarrhea -- Adult, DI for Diarrhea and Traveler's Diarrhea -- Child, DI for Nausea -- Adult, DI for Nausea -- Child Print Language Print Language: Greenlandic Discharge ED Provider: Dariusz Ferreira General Adult HPI General Chief complaint: Nausea/Vomiting/Diarrhea Stated complaint: Vomiting,left leg swollen Time Seen by Provider: 08/24/24 15:45 Mode of Arrival: Ambulatory Source of Information: Patient Description of Symptoms (Recalled from ER Triage Doc. by RN): Pt presents for evaluation of persistent nausea/vomiting and diarrhea. Pt states she was admitted last week to [facility] and was discharged yesterday. Pt states she is not feeling better and would like to be reevaluated. Pt states she was prescribed an antibiotic for a UTI and nausea meds but it has made the vomiting worse. History of Present Illness HPI narrative: This is a 64-year-old female with a history of renal insufficiency, obesity, ventral hernia, hiatal hernia, diabetes, atrial flutter status post cardiac ablation but still anticoagulation, and NSTEMI who presents with intractable nausea, vomiting, and diarrhea. States that she was admitted to [facility] last week and discharged yesterday for treatment of a UTI. She had possible pyelonephritis however denies any worsening back pain or abdominal pain. She was ultimately discharged with cefdinir and Reglan For nausea and vomiting and treatment of UTI. States she has been taking medications as prescribed however they have not been helping. Also reports worsening redness and swelling of left lower extremity. Reports fever up to 104 Fahrenheit yesterday that resolved while she was inpatient. Denies new fever at home. Related Data Home Medications ?Medication ?Instructions ?Recorded ?Confirmed aspirin 81 mg tablet,delayed 81 mg PO DAILY 11/12/23 08/19/24 release empagliflozin 10 mg tablet 10 mg PO DAILY 11/12/23 08/19/24 (Jardiance) furosemide 40 mg tablet 40 mg PO DAILY 11/12/23 08/19/24 sacubitril 24 mg-valsartan 26 mg 1 tab PO BID 11/12/23 08/19/24 tablet (Entresto) rivaroxaban 15 mg tablet (Xarelto) 15 mg PO QPMWITHMEAL 01/30/24 08/19/24 pantoprazole 40 mg tablet,delayed 40 mg PO HS 08/18/24 08/19/24 release spironolactone 25 mg tablet 12.5 mg PO DAILY 08/18/24 08/19/24 carvedilol 3.125 mg tablet 3.125 mg PO BIDWMEAL 08/19/24 08/19/24 Previous Rx's ?Medication ?Instructions ?Recorded atorvastatin 80 mg tablet 80 mg PO HS #90 tabs 12/05/23 clopidogrel 75 mg tablet 75 mg PO DAILY #90 tabs 03/05/24 cefdinir 300 mg capsule 300 mg PO BID 3 days #6 caps 08/23/24 insulin glargine 100 unit/mL (3 40 unit (0.4 mL) SQ DAILY 30 days 08/23/24 mL) subcutaneous pen (Lantus #15 mL Solostar U-100 Insulin) metoclopramide HCl 10 mg tablet 10 mg PO Q6H PRN nausea and 08/23/24 vomiting #10 tabs Allergies Allergy/AdvReac Type Severity Reaction Status Date / Time latex Allergy Rash Verified 07/07/24 15:40 [facility] Disclaimer: The information contained in this section may have been updated after the patient was seen, as this information can be updated by other users. Medical History Dyspnea Bronchitis Gastritis Renal insufficiency Obesity (BMI 30-39.9) Hematoma, non-traumatic Ventral hernia Hiatal hernia Diabetes mellitus, insulin dependent (IDDM), controlled Left against medical advice Fatigue Tachycardia Dizziness Atrial flutter NSTEMI (non-ST elevated myocardial infarction) Elevated troponin Renal insufficiency Atrial fibrillation Chest pain Obesity Diabetes mellitus Surgical History H/O cardiac radiofrequency ablation 2020 Stented coronary artery Family History Other No significant family history Social History (Updated 08/18/24 @ 21:29 by Hilary Parrish RN) Smoking Status: Never smoker second hand exposure: No alcohol intake: never substance use type: denies use current occupational status: employed Travel in the last 8 weeks?: None household members: spouse and family housing: house current occupational exposures/hazards: No caffeine: Yes Have you lived/traveled outside [place] in past 30 days?: No Contact w/someone who lives/traveled outside [place] past 30 days?: No Exposure to someone with infectious disease in past 14 days?: No Do you have a fever (greater than 100.4 F or 38 C)?: No Have you tested positive for COVID-19?: No Exposed to someone with COVID-19 in past 14 days?: No Do you have a sore throat?: No Do you have a cough?: No Do you have any weakness?: No Do you have any diarrhea?: No Are you experiencing any unusual bleeding?: No Do you have any muscle aches/pain?: No Do you have any abdominal pain?: No Are you experiencing loss of taste or smell?: No Other Medical History Have you received the Flu Vaccine for this season: No Have you received the Pneumonia Vaccine: No ROS Obtained: Yes All systems reviewed & no additional complaints except as documented Physical Exam General General appearance: alert and in no apparent distress Comment: Ill-appearing Head Head exam: atraumatic Eye Eye exam: Present normal appearance, PERRL and EOMI Neck Neck exam: Present normal inspection and full ROM Chest Chest inspection: Present symmetric chest wall rise Respiratory Respiratory exam: Present normal lung sounds bilaterally; Absent respiratory distress Cardiovascular Cardiovascular exam: Present regular rate and normal rhythm Abdominal Exam Abdominal exam: Present soft; Absent distention, tenderness, guarding or rebound Comment: No flank tenderness Extremities Exam Extremities exam: Present other (Left lower extremity: Erythema and edema and tenderness extending up to the pretibial area) Neurological Exam Neurological exam: Present alert and oriented X3 Psychiatric Psychiatric exam: Present normal affect and normal mood Skin Skin exam: Present warm and dry Medical Decision Making Medical Records Medical records reviewed: Yes I reviewed the patient's medical records. Screening: Per USPSTF and CDC recommendations, given the prevalence of disease in our region, it is our hospital?s policy to screen for HIV and viral Hepatitis for all patients aged 18 and over and those with ongoing risk factors. MR Comment: Reviewed hospital medicine discharge summary from yesterday notable for presentation as noted above James Inquiry Pt receiving controlled substance: No Vital Signs: 08/24/24 15:44 08/24/24 16:00 08/24/24 16:31 Temperature 97.6 F Temperature Source Temporal Artery Scan Pulse Rate 104 H 111 H Pulse Rate [Right] 109 H Respiratory Rate 18 Blood Pressure 172/87 H 207/104 H Blood Pressure [Right Arm] 193/100 H Blood Pressure Mean 138 Blood Pressure Mean [Right Arm] 131 Blood Pressure Source [Right Arm] Automatic Cuff Blood Pressure Position [Right Arm] Sitting 02 Sat by Pulse Oximetry 99 100 96 Oxygen Delivery Method Room Air 08/24/24 16:51 08/24/24 17:00 Temperature Temperature Source Pulse Rate 111 H 110 H Pulse Rate [Right] Respiratory Rate Blood Pressure 187/91 H 187/91 H Blood Pressure [Right Arm] Blood Pressure Mean 122 125 Blood Pressure Mean [Right Arm] Blood Pressure Source [Right Arm] Blood Pressure Position [Right Arm] 02 Sat by Pulse Oximetry 96 97 Oxygen Delivery Method Lab Data Lab Results 08/24/24 16:00: WBC 11.2 H, RBC 4.14 L, Hgb 11.5 L, Hct 33.6 L, MCV 81.2, MCH 27.8, MCHC 34.2, RDW 12.5, Plt Count 362, MPV 9.5, Neut % (Auto) 76.5, Lymph % (Auto) 7.4 L, [place] % (Auto) 11.0 H, Eos % (Auto) 3.1, Baso % (Auto) 0.4, Neut # (Auto) 8.6 H, Lymph # (Auto) 0.8, [place] # (Auto) 1.2 H, Eos # (Auto) 0.4, Baso # (Auto) 0.0, Sodium 133 L, Potassium 3.9, Chloride 105, Carbon Dioxide 22, Anion Gap 9.9, BUN 21 H, Creatinine 1.20 H, Estimated Creat Clear 58, Estimated GFR 45 L, Est GFR ( Amer) 55 L, Glucose 185 H, Calcium 8.7, Total Bilirubin 0.6, AST 42 H D, ALT 46 D, Alkaline Phosphatase 102, Total Protein 6.9, Albumin 3.2 L D, Globulin 3.7 H, Albumin/Globulin Ratio 0.9 L, Lipase 111 08/24/24 16:20: Lactate 1.2 08/24/24 16:26: POC Glucose 187 H 08/24/24 16:00 08/24/24 16:00 Orders (Tests/Meds): ED MEDICATIONS Generic Name Dose Route Start Last Admin Trade Name Freq PRN Reason Stop Dose Admin Vancomycin/PEG/NADA/Lysine/Water 1.75 gm in 350 mls @ 175 mls/hr 08/24/24 16:45 Vancomycin 1.75gm/350ml (Peg) Premix IV 08/24/24 18:44 ONCE ONE Miscellaneous 1 each 08/24/24 16:30 08/24/24 17:35 Vancomycin Consult Request NOTAPPLIC 09/23/24 16:29 1 each CONSULT [facility] Administration Discontinued Medications Generic Name Dose Route Start Last Admin Trade Name Freq PRN Reason Stop Dose Admin Droperidol 2.5 mg 08/24/24 16:22 08/24/24 16:24 Droperidol 5mg/2ml Vial IV 08/24/24 16:23 2.5 mg ONCE ONE Administration Lactated Ringer's 500 mls @ 999 mls/hr 08/24/24 15:58 08/24/24 16:30 Lactated Ringer's 500ml IV 08/24/24 16:28 999 mls/hr .Q31M ONE Administration Ceftriaxone Sodium 2 gm/ 100 mls @ 200 mls/hr 08/24/24 16:30 08/24/24 17:17 Sodium Chloride IV 08/24/24 16:59 200 mls/hr ONCE ONE Administration Ondansetron HCl 4 mg 08/24/24 15:58 08/24/24 16:53 Ondansetron 4mg/2ml Vial IV 08/24/24 15:59 4 mg ONCE ONE Administration ORDERS Category Date Time Status Chest XR -- portable [XR chest portable] Stat Exams 08/24/24 15:59 Completed CBC w/Auto Diff [Complete Blood Count Auto Diff] Stat Lab 08/24/24 16:00 Completed CMP [Comprehensive Metabolic Panel] Stat Lab 08/24/24 16:00 Completed Lactic Acid Stat Lab 08/24/24 16:20 Completed Lipase Stat Lab 08/24/24 16:00 Completed POC Glucose,Bedside Routine Lab 08/24/24 16:26 Completed Urinalysis and Microscopic Stat Lab 08/24/24 17:30 Received Blood Culture Stat Micro 08/24/24 16:20 Received CA venous doppler LE LT Stat Y 08/24/24 16:05 Completed ECG Data Tracing #1: I reviewed this ECG and interpreted as documented below: Sinus tachycardia at a rate of 106, QTc 411, normal axis, right bundle branch block, no STEMI Medical Decision Narrative: In summary, this 64-year-old female with a history of renal insufficiency, obesity, ventral hernia, hiatal hernia, diabetes, atrial flutter status post cardiac ablation but still anticoagulation, and NSTEMI presents to the emergency department today with nausea, vomiting, diarrhea. On initial evaluation patient is afebrile, hemodynamically stable, mildly tachycardic to 106, normotensive, nontoxic-appearing. Differential diagnosis includes but is not limited to UTI, pyelonephritis, gastroenteritis, DVT, cellulitis, sepsis, bacteremia. Based on these concerns, I ordered CBC, CMP, lipase, urinalysis, blood cultures, EKG, chest x-ray, venous duplex of left lower extremity. ECG personally interpreted as noted above. Patient received 500 cc of lactated Ringer's and Zofran for initial treatment. Did not administer full sepsis bolus given history of diminished left-sided systolic function. This was the case on echocardiogram from 10/02/2023. Did administer broad-spectrum antibiotics including vancomycin and ceftriaxone based on patient's most recent urine culture data from her last admission. Meets criteria for sepsis and also suspected left lower extremity cellulitis. Labs personally reviewed demonstrate white blood cell count of 11.2 increased from prior, baseline anemia with a hemoglobin of 11.5, baseline renal function with a creatinine of 1.20, hyponatremia similar to prior at 133. XR personally interpreted demonstrates no acute cardiopulmonary pathology. Venous duplex of left lower extremity unremarkable. Patient having persistent nausea and vomiting with inability to tolerate oral intake. Administered droperidol as well. Ultimately consulted hospital medicine for admission with worsening cellulitis, sepsis, and intractable nausea and vomiting/diarrhea. Critical Care Critical Care Time Critical Care Time: No
--- NOTE | 2024-08-24 16:05 | CA_ITS ---
FINAL REPORT TECHNIQUE: Ultrasound images of the deep venous system were obtained from the left groin to the calf veins. CLINICAL HISTORY: Redness, edema LLE. Denies trauma. Recent venous doppler 08/20/24 LLE. FINDINGS: The deep venous system is normally compressible. Normal flow is identified. IMPRESSION: No evidence of left lower extremity DVT. Reviewed, Interpreted and Dictated by Shankar Shaver MD Transcribed by Courtney Dos Santos Authenticated and [facility]
--- NOTE | 2024-08-24 16:07 | PC.NURSE ---
VASCULAR NOTIFIED OF DOPPLER
[2024-08-24 16:09] LABS: Basophils % 0.4 % (0.1-2.0); Eosinophils # 0.4 Kmm3 (0.0-0.4); Eosinophils % 3.1 % (0.1-12.0); Hematocrit 33.6 % (37.0-47.0); Hemoglobin 11.5 g/dL (12.2-16.2); Lymphocytes # 0.8 K/mm3 (0.7-4.5); Lymphocytes % 7.4 % (10-50); Mean Corpuscular HGB Conc 34.2 g/dL (31.8-35.4); Mean Corpuscular Hemoglobin 27.8 pg (27.0-31.2); Mean Corpuscular Volume 81.2 fl (81-99); Mean Platelet Volume 9.5 fl (7.4-10.4); Monocytes # 1.2 K/mm3 (0.1-1.0); Neutrophils # 8.6 K/mm3 (1.8-7.8); Neutrophils % 76.5 % (37.0-80.0); Nucleated Red Blood Cells # 0 10^3/uL; Nucleated Red Blood Cells % 0 %; Platelet Count 362 K/mm3 (142-424); Red Blood Count 4.14 M/mm3 (4.20-5.40); Red Cell Distribution Width 12.5 % (11.5-17.5); Red Cell Distribution Width-SD 37.3 fL; White Blood Count 11.2 K/mm3 (4.8-10.8)
--- NOTE | 2024-08-24 16:12 | ECG_ITS ---
APPROVED REPORT Exam: Resting ECG HR:106 bpm ECG Measurements Heart Rate 106 AXES CO 161 P 72 QRSd 91 QRS 96 QT 349 T 54 QTc 411 Conclusion SINUS TACHYCARDIA BORDERLINE RIGHT AXIS DEVIATION [QRS AXIS > 90] ABNORMAL RHYTHM ECG Right bundle branch block Electronically signed by : Dariusz Ferreira, 08/24/2024 20:46:23
[2024-08-24 16:19] LABS: Alanine Aminotransferase 46 U/L (12-78); Albumin Level 3.2 g/dl (3.5-5.0); Albumin/Globulin Ratio 0.9 (1.1-1.8); Alkaline Phosphatase 102 U/L (38-126); Aspartate Amino Transferase 42 U/L (14-36); Bilirubin,Total 0.6 mg/dl (0.2-1.3); Blood Urea Nitrogen 21 mg/dl (7-17); Calcium 8.7 mg/dl (8.4-10.2); Carbon Dioxide 22 mmol/L (22.0-30.0); Chloride 105 mmol/L (98-107); Creatinine Clearance Estimated 58 mL/min (50-200); Estimated Glomerular Filt Rate 45 ml/min (>60); GFR (African American) 55 ML/MIN (>60); Globulin 3.7 g/dL (1.3-3.2); Glucose 185 mg/dl (74-100); Lipase 111 U/L (23-300); Sodium 133 mmol/L (136-145); Total Protein,Serum 6.9 g/dl (6.3-8.2)
[2024-08-24] MEDS: droPERidol 5MG/2ML VIAL 2.5 MG IV (16:24)
--- NOTE | 2024-08-24 16:29 | INFXCTL.NOTE ---
Blood sugar was 187
[2024-08-24] MEDS: RINGERS SOLUTION,LACTATED 500 ML 999 ML IV (16:30)
[2024-08-24 16:34] LABS: POC Glucose,Bedside 187 (70-110)
[2024-08-24 16:39] LABS: Lactic Acid 1.2 mmol/L (0.7-2.1)
[2024-08-24 16:51] LABS: Anion Gap 9.9 mEq/L (5-15); Potassium 3.9 mmoL/L (3.5-5.1)
[2024-08-24] MEDS: ONDANSETRON 4MG/2ML VIAL 4 MG IV (16:53)
[2024-08-24] MEDS: CEFTRIAXONE SODIUM 2 GM in 0.9 % SODIUM CHLORIDE 100 ML IV (17:17)
[2024-08-24] MEDS: VANCOMYCIN CONSULT REQUEST 1 EACH NOTAPPLIC (17:35)
--- NOTE | 2024-08-24 17:51 | PC.NURSE ---
DR CONNORS AT BEDSIDE
[2024-08-24 17:52] LABS: Microscopic, Urine URINE MICROSCOPIC (MICROSCOPIC)
[2024-08-24 17:55] LABS: Bilirubin,Urine Negative (Negative); Blood, Urine 2+ (Negative); Color,Urine YELLOW (Yellow); Glucose,Urine (UA) 3+ (Negative); Ketones,Urine Negative (Negative); Leukocyte Esterase,Urine Negative (Negative); Nitrate,Urine Negative (Negative); PH,Urine 6.5 (5.0-8.5); Protein,Urine 2+ (Negative); Specific Gravity, Urine 1.015 (1.005-1.030); Urobilinogen,Urine 0.2 EU/dl (0.2)
[2024-08-24] MEDS: VANCOMYCIN/WATER FOR INJ (PEG) 1.75 GM/350 ML PIGGYBACK IV (18:10)
[2024-08-24 18:13] LABS: Appearance,Urine Slightly Cloudy (Clear)
[2024-08-24 18:14] LABS: Bacteria,Urine Trace /lpf; Squamous Epithelial Cell,Urine Occasional #/hpf (0-5); WBC,Urine Occasional #/hpf (0-3); Yeast,Urine 2+ /lpf
--- NOTE | 2024-08-24 18:27 | PC.NURSE ---
Report given to KATHY Lenz.
--- NOTE | 2024-08-24 18:33 | P.HP_ITS ---
History of Present Illness *Admission Date: 08/24/24 *Reason for visit:: Nausea/vomiting *History of present illness: Christiane Williamson is a 64-year-old female with a medical history significant for uncontrolled type 2 diabetes, hypertension, CAD, HFrEF, paroxysmal A-fib who presents with worsening nausea/vomiting after discharge yesterday. Patient was recently admitted for similar symptoms in the setting of UTI and presumed cellulitis. She gradually improved with IV antibiotics and antiemetics, tolerating p.o. intake without issues. She states the the night she got home she again began experiencing nausea/vomiting/diarrhea. Upon further inquiry, patient states her left lower extremity swelling, erythema actually began after she was hospitalized concerning for drug reaction. DVT ruled out in the ED. She states she did not have the swelling before being previously hospitalized. She states the swelling, redness, pain got worse after she got home and now having a hard time walking on her left leg. She is never had issues like this before. CBC, CMP relatively unremarkable. Improvement in kidney function. Patient was treated with antiemetics without improvement in the ED. Case discussed with ED provider and decision was made to admit patient for intractable nausea/vomiting/diarrhea, worsening left leg swelling. [facility] Disclaimer: The information contained in this section may have been updated after the patient was seen, as this information can be updated by other users. Medical History Dyspnea Bronchitis Gastritis Renal insufficiency Obesity (BMI 30-39.9) Hematoma, non-traumatic Ventral hernia Hiatal hernia Diabetes mellitus, insulin dependent (IDDM), controlled Left against medical advice Fatigue Tachycardia Dizziness Atrial flutter NSTEMI (non-ST elevated myocardial infarction) Elevated troponin Renal insufficiency Atrial fibrillation Chest pain Obesity Diabetes mellitus Surgical History H/O cardiac radiofrequency ablation 2020 Stented coronary artery Family History Other No significant family history Social History (Updated 08/24/24 @ 18:55 by Lexi Schreiber RN) Smoking Status: Never smoker second hand exposure: No alcohol intake: never substance use type: denies use current occupational status: employed Travel in the last 8 weeks?: None household members: spouse and family housing: house current occupational exposures/hazards: No caffeine: Yes Have you lived/traveled outside [place] in past 30 days?: No Contact w/someone who lives/traveled outside [place] past 30 days?: No Exposure to someone with infectious disease in past 14 days?: No Do you have a fever (greater than 100.4 F or 38 C)?: No Have you tested positive for COVID-19?: No Exposed to someone with COVID-19 in past 14 days?: No Do you have a sore throat?: No Do you have a cough?: No Do you have any weakness?: No Do you have any diarrhea?: No Are you experiencing any unusual bleeding?: No Do you have any muscle aches/pain?: No Do you have any abdominal pain?: No Are you experiencing loss of taste or smell?: No Other Medical History Have you received the Flu Vaccine for this season: No Have you received the Pneumonia Vaccine: No Meds Home Medications and Allergies Home Medications ?Medication ?Instructions ?Recorded ?Confirmed ?Type aspirin 81 mg tablet,delayed 81 mg PO DAILY 11/12/23 08/24/24 History release empagliflozin 10 mg tablet 10 mg PO DAILY 11/12/23 08/24/24 History (Jardiance) furosemide 40 mg tablet 40 mg PO DAILY 11/12/23 08/24/24 History sacubitril 24 mg-valsartan 26 mg 1 tab PO BID 11/12/23 08/24/24 History tablet (Entresto) atorvastatin 80 mg tablet 80 mg PO HS #90 tabs 12/05/23 08/24/24 Rx rivaroxaban 15 mg tablet (Xarelto) 15 mg PO QPMWITHMEAL 01/30/24 08/24/24 History clopidogrel 75 mg tablet 75 mg PO DAILY #90 tabs 03/05/24 08/24/24 Rx pantoprazole 40 mg tablet,delayed 40 mg PO HS 08/18/24 08/24/24 History release spironolactone 25 mg tablet 12.5 mg PO DAILY 08/18/24 08/24/24 History carvedilol 3.125 mg tablet 3.125 mg PO BIDWMEAL 08/19/24 08/24/24 History cefdinir 300 mg capsule 300 mg PO BID 3 days #6 caps 08/23/24 08/24/24 Rx insulin glargine 100 unit/mL (3 40 unit (0.4 mL) SQ DAILY 30 days 08/23/24 08/24/24 Rx mL) subcutaneous pen (Lantus #15 mL Solostar U-100 Insulin) metoclopramide HCl 10 mg tablet 10 mg PO Q6H PRN nausea and 08/23/24 08/24/24 Rx vomiting #10 tabs New Prescriptions to Start Prescriptions: Allergies Allergy/AdvReac Type Severity Reaction Status Date / Time latex Allergy Rash Verified 07/07/24 15:40 Exam Data for Last 24 hours Vital signs and Labs for Last 24 Hours: Temp Pulse Resp BP Pulse Ox O2 Del Method 97.6 F 110 H 18 187/91 H 97 Room Air 08/24/24 15:44 08/24/24 17:00 08/24/24 15:44 08/24/24 17:00 08/24/24 17:00 08/24/24 15:44 Laboratory Results - last 24 hr 08/24/24 16:00: WBC 11.2 H, RBC 4.14 L, Hgb 11.5 L, Hct 33.6 L, MCV 81.2, MCH 27.8, MCHC 34.2, RDW 12.5, Plt Count 362, MPV 9.5, Neut % (Auto) 76.5, Lymph % (Auto) 7.4 L, [place] % (Auto) 11.0 H, Eos % (Auto) 3.1, Baso % (Auto) 0.4, Neut # (Auto) 8.6 H, Lymph # (Auto) 0.8, [place] # (Auto) 1.2 H, Eos # (Auto) 0.4, Baso # (Auto) 0.0, Sodium 133 L, Potassium 3.9, Chloride 105, Carbon Dioxide 22, Anion Gap 9.9, BUN 21 H, Creatinine 1.20 H, Estimated Creat Clear 58, Estimated GFR 45 L, Est GFR ( Amer) 55 L, Glucose 185 H, Calcium 8.7, Total Bilirubin 0.6, AST 42 H D, ALT 46 D, Alkaline Phosphatase 102, Total Protein 6.9, Albumin 3.2 L D, Globulin 3.7 H, Albumin/Globulin Ratio 0.9 L, Lipase 111 08/24/24 16:20: Lactate 1.2 08/24/24 16:26: POC Glucose 187 H 08/24/24 17:30: Urine Color Yellow, Urine Appearance Slightly cloudy, Urine pH 6.5, Ur Specific [place] 1.015, Urine Protein 2+ A, Urine Glucose (UA) 3+, Urine Ketones Negative, Urine Blood 2+ A, Urine Nitrate Negative, Urine Bilirubin Neg ative, Urine Urobilinogen 0.2, Ur Leukocyte Esterase Negative, Urine RBC 5-10, Urine WBC Occasional, Ur Squamous Epith Cells Occasional, Urine Bacteria Trace, Urine Yeast 2+ I & O for Last 24 hours: Intake & Output 08/21/24 08/22/24 08/23/24 08/24/24 23:59 23:59 23:59 23:59 Weight 77.564 kg Constitutional Constitutional: no acute distress *Routine HEENT Exam Head: Present normocephalic Eye: Present EOMI and PERRL ENT: Present mucous membranes moist *Routine Neck Exam Neck: Present supple; Absent lymphadenopathy *Routine Respiratory Exam Respiratory: Present CTA bilaterally *Routine Cardiovascular Exam Cardiovascular: Present RRR *Routine Abdominal Exam Abdominal: Present soft and normoactive bowel sounds; Absent tenderness *Routine Rectal Exam Rectal:: deferred *Routine Genitalia Exam Genitalia:: deferred *Routine Extremities Exam Extremities: Present tenderness; Absent cyanosis, clubbing or edema Comments: Patchy erythema in left lower distal extremity and foot with swelling but without significant tenderness. *Routine Skin Exam Skin: Present warm; Absent rash *Routine Neurological Exam Neurological: Present alert and oriented X3 Assessment and Plan *Assessment and plan (1) Nausea vomiting and diarrhea: Status: Acute Category: Medical Code(s): R11.2 - Nausea with vomiting, unspecified; R19.7 - Diarrhea, unspecified Plan Christiane Williamson is a 64-year-old female with a medical history significant for uncontrolled type 2 diabetes, hypertension, CAD, HFrEF, paroxysmal A-fib who presents with worsening nausea/vomiting after discharge yesterday. Patient was recently admitted for similar symptoms in the setting of UTI and presumed cellulitis. She gradually improved with IV antibiotics and antiemetics, tolerating p.o. intake without issues. She states the the night she got home she again began experiencing nausea/vomiting/diarrhea. Upon further inquiry, patient states her left lower extremity swelling, erythema actually began after she was hospitalized concerning for drug reaction. DVT ruled out in the ED. She states she did not have the swelling before being previously hospitalized. She states the swelling, redness, pain got worse after she got home and now having a hard time walking on her left leg. She is never had issues like this before. CBC, CMP relatively unremarkable. Improvement in kidney function. Patient was treated with antiemetics without improvement in the ED. Case discussed with ED provider and decision was made to admit patient for intractable nausea/vomiting/diarrhea, worsening left leg swelling. #Nausea/vomiting/diarrhea #Possible acute viral syndrome #Possible gastroparesis #Possible UTI ? Patient has had intractable N/V/D for 7 days that has been waxing and waning. No fever/chills, chest pain, shortness of breath, abdominal pain. ? Previously in the setting of UTI, UA this time continues to show hematuria with yeast and trace bacteria. ? Patient does have uncontrolled diabetes, A1c 12.6%, and patient's nausea/vomiting resolved with scheduled Reglan during last admission. Suspect for gastroparesis. ? CT abdomen/pelvis from previous admission 08/18/2024 suggestive of pyelonephritis versus renal failure, and ventral wall hernia now containing tra nsverse colon without signs of incarceration. ? Started levofloxacin day 1 for possible persistent pyelonephritis/UTI. Avoiding Zosyn, ceftriaxone due to possible rash side effects. See below. ? Follow-up repeat CT abdomen/pelvis to evaluate for perinephric abscess, or other intra-abdominal pathology. ? Consider GI consult, gastric emptying study to evaluate for gastroparesis if CT is not remarkable. ? Follow-up diarrhea, full respiratory panel. ? Follow-up urine culture. Hold Jardiance. ? IV Zofran as needed for nausea. Avoiding metoclopramide in case gastric emptying study is needed. #LLE swelling, erythema #Suspected drug rash versus cellulitis versus fracture ? Patient states the leg symptoms began after she was admitted during previous admission. She did not have any symptoms at home. They did worsen after she got home, patient was discharged on cefdinir. Patient is having a hard time bearing weight on left leg. ? Doppler study negative for DVT. ? It is unclear if this is a drug rash versus fracture versus true cellulitis. She received vancomycin, Zosyn, ceftriaxone during last admission. Also worsened after she got home, discharged with cefdinir. Will avoid these antibiotics for the time being. ? Started levofloxacin, doxycycline for MRSA coverage. Vancomycin, ceftriaxone given in the ED. ? Consider steroid if minimal improvement. ? Follow-up plain left lower extremity films. ? Follow-up ESR, CRP. #Type 2 diabetes ? Hemoglobin A1c 12.6. ? Lantus 40 units daily. ? ACHS glucose checks, LDSSI. #CAD #HFrEF #Hypertension #Paroxysmal A-fib ? Continue home carvedilol, Entresto, spironolactone, Xarelto, Plavix. ? Currently rate controlled. Full code DVT prophylaxis: Lovenox 40 mg
--- NOTE | 2024-08-24 18:37 | PC.NURSE ---
arrived by w/c from ED
[2024-08-24 18:55] LABS: Acetone, Serum (Rapid) None Detected (None Detect)
[2024-08-24 19:51] LABS: Magnesium 1.7 mg/dl (1.6-2.3)
[2024-08-24] MEDS: METOCLOPRAMIDE HCL 10MG/2ML VIAL 10 MG IVP (19:58)
[2024-08-24 20:13] LABS: POC Glucose,Bedside 178 (70-110)
[2024-08-24] MEDS: LACTATED RINGERS 1000ML 1,000 ML 75 ML IV (20:34)
[2024-08-24] MEDS: DOXYCYCLINE HYCLATE 100 MG in 0.9 % SODIUM CHLORIDE 250 ML 166.667 MG IV (20:34)
[2024-08-24] MEDS: humaLOG 100 UNITS/ML 10ML VIAL (SSI) SUBCUT (20:35)
[2024-08-24] MEDS: PANTOPRAZOLE 40MG TABLET 40 MG PO (22:20)
[2024-08-24] MEDS: RIVAROXABAN 15MG TABLET 15 MG PO (22:20)
--- NOTE | 2024-08-24 22:21 | XR_ITS ---
PROCEDURE INFORMATION: Exam: XR Left Foot Exam date and time: 08/25/2024 12:21 AM Age: 64 years old Clinical indication: Swelling, leg or foot; Additional info: Swelling, erythema TECHNIQUE: Imaging protocol: Radiologic exam of the left foot. Views: 1 or 2 views. COMPARISON: CR XR TIBIA FIBULA LT 2V 08/25/2024 12:21 AM FINDINGS: Bones/joints: The foot is normally aligned. No acute fracture. The joint spaces are intact without significant degenerative changes. There is a moderate inferior calcaneal spur. Soft tissues: Dorsal soft tissue swelling is present. Vasculature: Arterial calcifications are noted. IMPRESSION: Dorsal soft tissue swelling.
--- NOTE | 2024-08-24 22:21 | XR_ITS ---
PROCEDURE INFORMATION: Exam: XR Left Tibia and Fibula Exam date and time: 08/25/2024 12:21 AM Age: 64 years old Clinical indication: Swelling, leg or foot; Additional info: Swelling, erythema TECHNIQUE: Imaging protocol: Radiologic exam of the left tibia and fibula. Views: 2 views. COMPARISON: CR XR FOOT LT 2V 08/25/2024 12:21 AM FINDINGS: Bones/joints: The tibia and fibula are intact. There is no fracture, lytic or blastic abnormality. The knee and ankle are normally aligned. Soft tissues: Anterior subcutaneous edema is noted distally. IMPRESSION: Distal anterior subcutaneous edema. No acute osseous abnormality.
--- NOTE | 2024-08-24 22:33 | CT_ITS ---
PROCEDURE INFORMATION: Exam: CT Abdomen And Pelvis With Contrast Exam date and time: 08/25/2024 12:29 AM Age: 64 years old Clinical indication: Nausea and vomiting; Additional info: Intractable n/v/d, perinephric stranding on previo TECHNIQUE: Imaging protocol: Computed tomography of the abdomen and pelvis with contrast. Radiation optimization: All CT scans at this facility use at least one of these dose optimization techniques: automated exposure control; mA and/or kV adjustment per patient size (includes targeted exams where dose is matched to clinical indication); or iterative reconstruction. Contrast material: ISOVUE; Contrast volume: 75 ml; Contrast route: IV; COMPARISON: CT ABDOMEN PELVIS WO CON 08/18/2024 7:19 PM FINDINGS: Lungs: Interstitial prominence at the lung bases having a similar pattern to the prior exam likely representing chronic disease. Pleural spaces: There are new small bilateral pleural effusions. Diaphragm: A small hiatal hernia is present. Liver: Normal. No mass. Gallbladder and biliary ducts: The gallbladder is absent. There is no biliary ductal dilation. Pancreas: Normal. No ductal dilation. Spleen: Normal. No splenomegaly. Adrenal glands: Normal. No mass. Kidneys and ureters: No hydronephrosis. Tiny right intrarenal calculus. Small areas of cortical scarring bilaterally. 15 mm cortical cyst anterior lower pole right kidney. Subcentimeter cortical hypodensity posterior mid right kidney too small to fully characterize. Stomach and bowel: Small proximal duodenal diverticulum. No obstruction. No mucosal thickening. Appendix: No evidence of appendicitis. Intraperitoneal space: Diffuse mild mesenteric edema. There is trace ascites. Vasculature: Mild calcific atherosclerotic disease without aneurysm or dissection. Lymph nodes: Calcified nodule at the esophageal hiatus likely representing a lymph node. Urinary bladder: Unremarkable as visualized. Reproductive: Unremarkable as visualized. Bones/joints: Mild degenerative changes of the spine. No acute fracture. Soft tissues: Midline ventral epigastric hernia predominantly containing fat on today's exam. The abdominal wall defect measures 5.3 cm in transverse dimension. IMPRESSION: 1. New small bilateral pleural effusions, mild mesenteric edema, trace ascites and mild body wall edema. Findings are likely related to fluid overload. 2. Midline ventral epigastric hernia predominantly containing fat on today's exam. 3. Other nonurgent findings as noted. COMMENTS: Consistent with the [employer]'s Incidental Findings Committee white paper (J [employer] Raoul [employer]iol 2018): Any incidental renal lesion less than 1 cm or classified as too small to characterize, or any incidental cystic renal lesion characterized as simple-appearing, is likely benign. No follow-up imaging is recommended for these lesions per consensus recommendations based on imaging criteria.
[2024-08-24 22:56] LABS: Troponin I 0.03 ng/ml (0.00-0.034)
[2024-08-24] MEDS: LEVOFLOXACIN/D5W 750 MG/150 ML 750 MG/150 ML PIGGYBACK 100 MG IV (23:32)
[2024-08-25] VITALS: BP 140/78; PULSE 99; RESP 16; TEMP 36.6; O2SAT 100
[2024-08-25] MEDS: ONDANSETRON 4MG/2ML VIAL 4 MG IV (00:18)
[2024-08-25] MEDS: IOPAMIDOL-370 (76%);100ML BOTTLE 75 ML IV (00:38)
[2024-08-25] MEDS: SODIUM CHLORIDE 0.9% 10ML SYR (RAD ONLY) 10 ML IV (00:39)
[2024-08-25 04:00] VITALS: BP 154/72; PULSE 94; RESP 16; TEMP 37.1; O2SAT 99; BMI 31.4
--- NOTE | 2024-08-25 04:43 | PC.NURSE ---
Pt AOx4. Has had 2 episodes of emesis this shift. Received reglan and zofran IVP. Pt still needs urine sample and is aware to let staff know when she goes. Pt has been resting in bed with eyes closed. Respirations even and unlabored. Bed is low, locked, and call light is in reach.
[2024-08-25 05:45] LABS: Benzodiazepines Screen,Urine Negative ng/ml (<200)
[2024-08-25 05:46] LABS: Amphetamine/Metha Screen,Urine Negative ng/ml (<1000); Barbiturates Screen,Urine Negative ng/ml (<200)
[2024-08-25 05:47] LABS: Adenovirus,PCR Not Detected (NotDetected); Bordetella Pertussis Not Detected (NotDetected); Chlamydophila Pneumoniae, PCR Not Detected (NotDetected); Coronavirus 19, PCR Not Detected (NotDetected); Coronavirus 229E Not Detected (NotDetected); Coronavirus NL63 Not Detected (NotDetected); Coronavirus OC43 Not Detected (NotDetected); Coronovirus HKU1,PCR Not Detected (NotDetected); Human Metapneumovirus Not Detected (NotDetected); Influenza A, PCR Not Detected (NotDetected); Influenza AH1, 2009 Not Detected (NotDetected); Influenza AH1, PCR Not Detected (NotDetected); Influenza AH3,PCR Not Detected (NotDetected); Influenza B, PCR Not Detected (NotDetected); Mycoplasma Pneumoniae, PCR Not Detected (NotDetected); Parainfluenza 1, PCR Not Detected (NotDetected); Parainfluenza 2, PCR Not Detected (NotDetected); Parainfluenza 3, PCR Not Detected (NotDetected); Parainfluenza 4, PCR Not Detected (NotDetected); Respiratory Syncytial Virus Not Detected (NotDetected); Rhinovirus/Enterovirus Not Detected (NotDetected)
[2024-08-25 05:47] LABS: Cannabinoid Screen,Urine Negative ng/ml (<50)
[2024-08-25 05:48] LABS: Cocaine Screen,Urine Negative ng/ml (<300); Methadone Screen,Urine Negative ng/ml (<300)
[2024-08-25 05:49] LABS: Opiate Screen,Urine Negative ng/ml (<300)
[2024-08-25 05:50] LABS: Phencyclidine Screen,Urine Negative ng/ml (<25)
[2024-08-25 05:54] LABS: POC Glucose,Bedside 114 (70-110)
[2024-08-25 06:29] LABS: Albumin Level 2.8 g/dl (3.5-5.0); Chloride 105 mmol/L (98-107)
[2024-08-25 06:30] LABS: Potassium 3.8 mmoL/L (3.5-5.1); Sodium 134 mmol/L (136-145)
[2024-08-25 06:31] LABS: Basophils # 0.1 K/mm3 (0-0.2); Basophils % 0.5 % (0.1-2.0); Eosinophils # 0.2 Kmm3 (0.0-0.4); Eosinophils % 1.8 % (0.1-12.0); Hemoglobin 10.6 g/dL (12.2-16.2); Lymphocytes # 0.9 K/mm3 (0.7-4.5); Lymphocytes % 8.4 % (10-50); Mean Corpuscular HGB Conc 33.1 g/dL (31.8-35.4); Mean Corpuscular Hemoglobin 27.5 pg (27.0-31.2); Mean Corpuscular Volume 82.9 fl (81-99); Mean Platelet Volume 9.6 fl (7.4-10.4); Monocytes # 1.1 K/mm3 (0.1-1.0); Monocytes % 9.7 % (1.7-9.3); Neutrophils # 8.5 K/mm3 (1.8-7.8); Neutrophils % 77.6 % (37.0-80.0); Nucleated Red Blood Cells # 0 10^3/uL; Nucleated Red Blood Cells % 0 %; Platelet Count 393 K/mm3 (142-424); Red Blood Count 3.86 M/mm3 (4.20-5.40); Red Cell Distribution Width 12.7 % (11.5-17.5); Red Cell Distribution Width-SD 38.5 fL; White Blood Count 10.9 K/mm3 (4.8-10.8)
[2024-08-25 06:32] LABS: Alanine Aminotransferase 34 U/L (12-78); Albumin/Globulin Ratio 0.8 (1.1-1.8); Anion Gap 10.8 mEq/L (5-15); Aspartate Amino Transferase 33 U/L (14-36); Blood Urea Nitrogen 17 mg/dl (7-17); Carbon Dioxide 22 mmol/L (22.0-30.0); Creatinine Clearance Estimated 68 mL/min (50-200); Estimated Glomerular Filt Rate 50 ml/min (>60); GFR (African American) 61 ML/MIN (>60); Globulin 3.5 g/dL (1.3-3.2); Total Protein,Serum 6.3 g/dl (6.3-8.2)
[2024-08-25 06:33] LABS: Alkaline Phosphatase 86 U/L (38-126); Calcium 8.5 mg/dl (8.4-10.2); Glucose 112 mg/dl (74-100); Magnesium 1.7 mg/dl (1.6-2.3)
[2024-08-25 06:39] LABS: Bilirubin,Total 0.1 mg/dl (0.2-1.3); C-Reactive Protein 32.8 mg/L (0-4)
[2024-08-25 07:29] LABS: Erythrocyte Sedimentation Rate > 140 mm/hr (0-30)
--- NOTE | 2024-08-25 07:47 | P.PN_ITS ---
Subjective *Date: 08/25/24 *Time: 17:39 Interval history: Remains nauseous this morning but no emesis. Afebrile. Leg less painful. Denies chest pain. Stable on room air. GI evaluating today, planning on swallow study Medical Exam Vital signs and Labs for Last 24 Hours: Vital Signs Temp Pulse Pulse Resp BP BP Pulse Ox 08/25/24 06:27 08/25/24 05:00 08/25/24 04:00 98.8 F 94 H 16 154/72 H 99 08/25/24 03:00 08/25/24 01:00 08/25/24 00:00 97.9 F 99 H 16 140/78 100 08/24/24 23:00 08/24/24 21:00 08/24/24 20:00 98.5 F 109 H 16 169/85 H 99 08/24/24 20:00 08/24/24 19:00 08/24/24 18:59 08/24/24 18:34 98.2 F 100 H 20 181/87 H 08/24/24 17:00 110 H 187/91 H 97 08/24/24 16:51 111 H 187/91 H 96 08/24/24 16:31 111 H 207/104 H 96 08/24/24 16:00 104 H 172/87 H 100 08/24/24 15:44 97.6 F 109 H 18 193/100 H 99 O2 Del Method 08/25/24 06:27 Room Air 08/25/24 05:00 Room Air 08/25/24 04:00 Room Air 08/25/24 03:00 Room Air 08/25/24 01:00 Room Air 08/25/24 00:00 Room Air 08/24/24 23:00 Room Air 08/24/24 21:00 Room Air 08/24/24 20:00 Room Air 08/24/24 20:00 Room Air 08/24/24 19:00 Room Air 08/24/24 18:59 Room Air 08/24/24 18:34 Room Air 08/24/24 17:00 08/24/24 16:51 08/24/24 16:31 08/24/24 16:00 08/24/24 15:44 Room Air Intake and Output 08/24/24 08/24/24 08/25/24 15:59 23:59 07:59 Output Total 0 / 0 0 / 0 Balance 0 / 0 0 / 0 Output: Output, Urine Amount 0 / 0 0 / 0 Other: Number of Unmeasured Voids 1 1 Weight 77.564 kg 83.325 kg Patient Weight 08/25/24 23:59 Weight 83.325 kg Laboratory Results - last 24 hr 08/24/24 16:00: WBC 11.2 H, RBC 4.14 L, Hgb 11.5 L, Hct 33.6 L, MCV 81.2, MCH 27.8, MCHC 34.2, RDW 12.5, Plt Count 362, MPV 9.5, Neut % (Auto) 76.5, Lymph % (Auto) 7.4 L, [place] % (Auto) 11.0 H, Eos % (Auto) 3.1, Baso % (Auto) 0.4, Neut # (Auto) 8.6 H, Lymph # (Auto) 0.8, [place] # (Auto) 1.2 H, Eos # (Auto) 0.4, Baso # (Auto) 0.0, Sodium 133 L, Potassium 3.9, Chloride 105, Carbon Dioxide 22, Anion Gap 9.9, BUN 21 H, Creatinine 1.20 H, Estimated Creat Clear 58, Estimated GFR 45 L, Est GFR ( Amer) 55 L, Glucose 185 H, Calcium 8.7, Total Bilirubin 0.6, AST 42 H D, ALT 46 D, Alkaline Phosphatase 102, Total Protein 6.9, Albumin 3.2 L D, Globulin 3.7 H, Albumin/Globulin Ratio 0.9 L, Lipase 111, Acetone Level None detected 08/24/24 16:20: Lactate 1.2 08/24/24 16:26: POC Glucose 187 H 08/24/24 17:30: Urine Color Yellow, Urine Appearance Slightly cloudy, Urine pH 6.5, Ur Specific [place] 1.015, Urine Protein 2+ A, Urine Glucose (UA) 3+, Urine Ketones Negative, Urine Blood 2+ A, Urine Nitrate Negative, Urine Bilirubin Negative, Urine Urobilinogen 0.2, Ur Leukocyte Esterase Negative, Urine RBC 5- 10, Urine WBC Occasional, Ur Squamous Epith Cells Occasional, Urine Bacteria Trace, Urine Yeast 2+ 08/24/24 19:20: Magnesium 1.7 D, Troponin I 0.03, C-Reactive Protein 36.0 H 08/24/24 20:00: POC Glucose 178 H 08/25/24 00:16: Urine Opiates Screen Negative, Urine Methadone Screen Negative, Ur Barbituates Screen Negative, Ur Phencyclidine Scrn Negative, Ur Amphetamines Screen Negative, U Benzodiazepines Scrn Negative, Urine Cocaine Screen Negative, U Marijuana (THC) Screen Negative 08/25/24 05:24: WBC 10.9 H, RBC 3.86 L, Hgb 10.6 L, Hct 32.0 L, MCV 82.9, MCH 27.5, MCHC 33.1, RDW 12.7, Plt Count 393, MPV 9.6, Neut % (Auto) 77.6, Lymph % (Auto) 8.4 L, [place] % (Auto) 9.7 H, Eos % (Auto) 1.8, Baso % (Auto) 0.5, Neut # (Auto) 8.5 H, Lymph # (Auto) 0.9, [place] # (Auto) 1.1 H, Eos # (Auto) 0.2, Baso # (Auto) 0.1, ESR > 140 H, Sodium 134 L, Potassium 3.8, Chloride 105, Carbon Dioxide 22, Anion Gap 10.8, BUN 17, Creatinine 1.10 H, Estimated Creat Clear 68, Estimated GFR 50 L, Est GFR ( Amer) 61, Glucose 112 H D, Calcium 8.5, Magnesium 1.7, Total Bilirubin 0.1 L, AST 33, ALT 34 D, Alkaline Phosphatase 86, C-Reactive Protein 32.8 H, Total Protein 6.3, Albumin 2.8 L D, Globulin 3.5 H, Albumin/Globulin Ratio 0.8 L 08/25/24 05:38: POC Glucose 114 H I & O for Labs for Last 24 Hours: Intake & Output 08/22/24 08/23/24 08/24/24 08/25/24 23:59 23:59 23:59 23:59 Output Total 0 / 0 0 / 0 Balance 0 / 0 0 / 0 Weight 77.564 kg 83.325 kg Constitutional: Present mild distress, obese, chronically ill appearing and cooperative Head: Present atraumatic and normocephalic ENT: Present normal exam Neck: Present normal inspection Respiratory: Present normal respiratory effort; Absent rhonchi, stridor, wheezes or crackles Cardiac: Present Reg Rate and Rhythm GI: Present soft and normal bowel sounds; Absent distention or tenderness (Resolved) Comments:: Ventral abdominal hernia reducible with no incarceration Rectal (female): Present deferred Extremities: Present normal inspection and full ROM Skin: Present intact and erythema (Left leg with erythema up to the knee, improved, no expansion of margin) Neuro: Present Grossly Intact, alert, awake, oriented x 3 and moves all extremities Assessment and Plan *Assessment and plan (1) Nausea vomiting and diarrhea: Status: Acute Category: Medical Code(s): R11.2 - Nausea with vomiting, unspecified; R19.7 - Diarrhea, unspecified (2) Ventral hernia: Status: Acute Category: Medical Code(s): K43.9 - Ventral hernia without obstruction or gangrene (3) Cellulitis: Status: Acute Qualifiers: Laterality: left Site of cellulitis: extremity Site of cellulitis of extremity: lower extremity Qualified Code(s): L03.116 - Cellulitis of left lower limb Category: Medical Code(s): L03.90 - Cellulitis, unspecified (4) Hypertension, uncontrolled: Status: Acute Category: Medical Code(s): I10 - Essential (primary) hypertension (5) Diabetes type 2, uncontrolled: Problem Comment: Patient's HbA1c has never been less than 9.0 back in 2017. She is usually running anywhere from the mid nines up to 15 in January. Status: Chronic Qualifiers: Glycemic state: with hyperglycemia Qualified Code(s): E11.65 - Type 2 diabetes mellitus with hyperglycemia Category: Medical Plan Christiane Williamson is a 64-year-old female with a medical history significant for uncontrolled type 2 diabetes, hypertension, CAD, HFrEF, paroxysmal A-fib who presents with worsening nausea/vomiting after discharge yesterday. Patient was recently admitted for similar symptoms in the setting of UTI and presumed cellulitis. She gradually improved with IV antibiotics and antiemetics, tolerating p.o. intake without issues. She states the the night she got home she again began experiencing nausea/vomiting/diarrhea. Upon further inquiry, patient states her left lower extremity swelling, erythema actually began after she was hospitalized concerning for drug reaction. DVT ruled out in the ED. She states she did not have the swelling before being previously hospitalized. She states the swelling, redness, pain got worse after she got home and now having a hard time walking on her left leg. She is never had issues like this before. CBC, CMP relatively unremarkable. Improvement in kidney function. Patient was treated with antiemetics without improvement in the ED. Case discussed with ED provider and decision was made to admit patient for intractable nausea/vomiting/diarrhea, worsening left leg swelling. #Nausea/vomiting/diarrhea #Possible acute viral syndrome #Possible gastroparesis #Possible UTI ? Patient has had intractable N/V/D for 7 days that has been waxing and waning. No fever/chills, chest pain, shortness of breath, abdominal pain. - Discussed case with GI, concern for gastroparesis. Sent for gastric emptying study. Will initiate Reglan ACHS. ? Patient does have uncontrolled diabetes, A1c 12.6%, and patient's nausea/vomiting resolved with scheduled Reglan during last admission. Suspect for gastroparesis. ? CT abdomen/pelvis from previous admission 08/18/2024 suggestive of pyelonephritis versus renal failure, and ventral wall hernia now containing transverse colon without signs of incarceration. -CT did not show any abscess. Hernia not incarcerated. -Respiratory panel and diarrhea panel negative. Urine culture still ? IV Zofran as needed for nausea. Initiate Reglan after gastric emptying study #LLE swelling, erythema #Suspected drug rash versus cellulitis versus fracture ? Patient states the leg symptoms began after she was admitted during previous admission. She did not have any symptoms at home. They did worsen after she got home, patient was discharged on cefdinir. Patient is having a hard time bearing weight on left leg. ? Doppler study negative for DVT. ? It is unclear if this is a drug rash versus fracture versus true cellulitis/erysipelas versus superficial fungal infection given her uncontrolled diabetes - Continue doxycycline 100 mg twice daily, Levaquin 750 mg daily, initiate topical ketoconazole 3 times a day - Inflammatory markers elevated with ESR 140, CRP 32. White count normal at 10.9. - Repeat CBC, CMP, magnesium, CRP ordered for the morning #Type 2 diabetes ? Hemoglobin A1c 12.6. ? Lantus 40 units daily. ? ACHS glucose checks, LDSSI. #CAD #HFrEF #Hypertension #Paroxysmal A-fib ? Continue home carvedilol, Entresto, spironolactone, Xarelto, Plavix. ? Currently rate controlled. Full code DVT prophylaxis: Lovenox 40 mg Plan diet
--- NOTE | 2024-08-25 07:56 | EXP.GE.CONS ---
History of Present Illness *Admission Date: 08/24/24 *History of present illness: Mrs. Williamson is a 64-year-old female who was discharged 2 days ago but returned yesterday with nausea and vomiting after discharge. She has had nausea and vomiting for a week. She reports no abdominal pain. She does have a lot of heartburn and takes [id number] Elise-Gaylord and Tums. She also is on pantoprazole and metoclopramide from medication report. She reports no bloating and does have some minor belching. She reports no early satiety or dysphagia. She did have primarily loose stools and diarrhea over the last week as well. Her initial PCR stool panel was negative for microbial pathogens. She does have a history of diabetes and has been on antibiotics. When she came to the ED, she was treated with antiemetics without improvement and was readmitted. She did have emesis of black stuff but she had just had been drinking coffee. She has had no melena or hematochezia. Her hemoglobin hematocrit are stable. She did have a CT scan of the abdomen yesterday showing small bilateral pleural effusions and some mild mesenteric edema with trace ascites. There was a midline ventral hernia predominantly containing fat. Her prior CAT scan from 422 had shown this hernia containing portions of the transverse colon. The patient did have an EGD in 2019 (Dr. Elizabeth) which was essentially normal. [facility] Disclaimer: The information contained in this section may have been updated after the patient was seen, as this information can be updated by other users. Medical History Dyspnea Bronchitis Gastritis Renal insufficiency Obesity (BMI 30-39.9) Hematoma, non-traumatic Ventral hernia Hiatal hernia Diabetes mellitus, insulin dependent (IDDM), controlled Left against medical advice Fatigue Tachycardia Dizziness Atrial flutter NSTEMI (non-ST elevated myocardial infarction) Elevated troponin Renal insufficiency Atrial fibrillation Chest pain Obesity Diabetes mellitus Surgical History H/O cardiac radiofrequency ablation 2020 Stented coronary artery Family History Other No significant family history Social History (Updated 08/24/24 @ 18:55 by Lexi Schreiber RN) Smoking Status: Never smoker second hand exposure: No alcohol intake: never substance use type: denies use current occupational status: employed Travel in the last 8 weeks?: None household members: spouse and family housing: house current occupational exposures/hazards: No caffeine: Yes Have you lived/traveled outside [place] in past 30 days?: No Contact w/someone who lives/traveled outside [place] past 30 days?: No Exposure to someone with infectious disease in past 14 days?: No Do you have a fever (greater than 100.4 F or 38 C)?: No Have you tested positive for COVID-19?: No Exposed to someone with COVID-19 in past 14 days?: No Do you have a sore throat?: No Do you have a cough?: No Do you have any weakness?: No Do you have any diarrhea?: No Are you experiencing any unusual bleeding?: No Do you have any muscle aches/pain?: No Do you have any abdominal pain?: No Are you experiencing loss of taste or smell?: No Meds Home Medications and Allergies Home Medications ?Medication ?Instructions ?Recorded ?Confirmed ?Type aspirin 81 mg tablet,delayed 81 mg PO DAILY 11/12/23 08/24/24 History release empagliflozin 10 mg tablet 10 mg PO DAILY 11/12/23 08/24/24 History (Jardiance) furosemide 40 mg tablet 40 mg PO DAILY 11/12/23 08/24/24 History sacubitril 24 mg-valsartan 26 mg 1 tab PO BID 11/12/23 08/24/24 History tablet (Entresto) atorvastatin 80 mg tablet 80 mg PO HS #90 tabs 12/05/23 08/24/24 Rx rivaroxaban 15 mg tablet (Xarelto) 15 mg PO QPMWITHMEAL 01/30/24 08/24/24 History clopidogrel 75 mg tablet 75 mg PO DAILY #90 tabs 03/05/24 08/24/24 Rx pantoprazole 40 mg tablet,delayed 40 mg PO HS 08/18/24 08/24/24 History release spironolactone 25 mg tablet 12.5 mg PO DAILY 08/18/24 08/24/24 History carvedilol 3.125 mg tablet 3.125 mg PO BIDWMEAL 08/19/24 08/24/24 History cefdinir 300 mg capsule 300 mg PO BID 3 days #6 caps 08/23/24 08/24/24 Rx insulin glargine 100 unit/mL (3 40 unit (0.4 mL) SQ DAILY 30 days 08/23/24 08/24/24 Rx mL) subcutaneous pen (Lantus #15 mL Solostar U-100 Insulin) metoclopramide HCl 10 mg tablet 10 mg PO Q6H PRN nausea and 08/23/24 08/24/24 Rx vomiting #10 tabs New Prescriptions to Start Prescriptions: Allergies Allergy/AdvReac Type Severity Reaction Status Date / Time latex Allergy Rash Verified 07/07/24 15:40 Exam (Inpt) Vital signs and Labs for Last 24 Hours: Temp Pulse Resp BP Pulse Ox O2 Del Method 98.8 F 94 H 16 154/72 H 99 Room Air 08/25/24 04:00 08/25/24 04:00 08/25/24 04:00 08/25/24 04:00 08/25/24 04:00 08/25/24 06:27 Laboratory Results - last 24 hr 08/24/24 16:00: WBC 11.2 H, RBC 4.14 L, Hgb 11.5 L, Hct 33.6 L, MCV 81.2, MCH 27.8, MCHC 34.2, RDW 12.5, Plt Count 362, MPV 9.5, Neut % (Auto) 76.5, Lymph % (Auto) 7.4 L, [place] % (Auto) 11.0 H, Eos % (Auto) 3.1, Baso % (Auto) 0.4, Neut # (Auto) 8.6 H, Lymph # (Auto) 0.8, [place] # (Auto) 1.2 H, Eos # (Auto) 0.4, Baso # (Auto) 0.0, Sodium 133 L, Potassium 3.9, Chloride 105, Carbon Dioxide 22, Anion Gap 9.9, BUN 21 H, Creatinine 1.20 H, Estimated Creat Clear 58, Estimated GFR 45 L, Est GFR ( Amer) 55 L, Glucose 185 H, Calcium 8.7, Total Bilirubin 0.6, AST 42 H D, ALT 46 D, Alkaline Phosphatase 102, Total Protein 6.9, Albumin 3.2 L D, Globulin 3.7 H, Albumin/Globulin Ratio 0.9 L, Lipase 111, Acetone Level None detected 08/24/24 16:20: Lactate 1.2 08/24/24 16:26: POC Glucose 187 H 08/24/24 17:30: Urine Color Yellow, Urine Appearance Slightly cloudy, Urine pH 6.5, Ur Specific [place] 1.015, Urine Protein 2+ A, Urine Glucose (UA) 3+, Urine Ketones Negative, Urine Blood 2+ A, Urine Nitrate Negative, Urine Bilirubin Negative, Urine Urobilinogen 0.2, Ur Leukocyte Esterase Negative, Urine RBC 5-10, Urine WBC Occasional, Ur Squamous Epith Cells Occasional, Urine Bacteria Trace, Urine Yeast 2+ 08/24/24 19:20: Magnesium 1.7 D, Troponin I 0.03, C-Reactive Protein 36.0 H 08/24/24 20:00: POC Glucose 178 H 08/25/24 00:16: Urine Opiates Screen Negative, Urine Methadone Screen Negative, Ur Barbituates Screen Negative, Ur Phencyclidine Scrn Negative, Ur Amphetamines Screen Negative, U Benzodiazepines Scrn Negative, Urine Cocaine Screen Negative, U Marijuana (THC) Screen Negative 08/25/24 05:24: WBC 10.9 H, RBC 3.86 L, Hgb 10.6 L, Hct 32.0 L, MCV 82.9, MCH 27.5, MCHC 33.1, RDW 12.7, Plt Count 393, MPV 9.6, Neut % (Auto) 77.6, Lymph % (Auto) 8.4 L, [place] % (Auto) 9.7 H, Eos % (Auto) 1.8, Baso % (Auto) 0.5, Neut # (Auto) 8.5 H, Lymph # (Auto) 0.9, [place] # (Auto) 1.1 H, Eos # (Auto) 0.2, Baso # (Auto) 0.1, ESR > 140 H, Sodium 134 L, Potassium 3.8, Chloride 105, Carbon Dioxide 22, Anion Gap 10.8, BUN 17, Creatinine 1.10 H, Estimated Creat Clear 68, Estimated GFR 50 L, Est GFR ( Amer) 61, Glucose 112 H D, Calcium 8.5, Magnesium 1.7, Total Bilirubin 0.1 L, AST 33, ALT 34 D, Alkaline Phosphatase 86, C-Reactive Protein 32.8 H, Total Protein 6.3, Albumin 2.8 L D, Globulin 3.5 H, Albumin/Globulin Ratio 0.8 L 08/25/24 05:38: POC Glucose 114 H 08/25/24 05:39: Chlamy pneumoniae PCR Not detected, Adenovirus (PCR) Not detected, B. pertussis DNA (PCR) Not detected, Coronavirus OC43 (PCR) Not detected, Coronavirus HKU1 (PCR) Not detected, Coronavirus 229E (PCR) Not detected, SARS-CoV-2 (PCR) Not detected, Coronavirus NL63 (PCR) Not detected, Human Metapneumovir PCR Not detected, Influenza A (H1) PCR Not detected, Influ A (H1N1/09) PCR Not detected, Influenza A (H3) PCR Not detected, Influenza Type A (PCR) Not detected, Influenza Type B (PCR) Not detected, M. pneumoniae (PCR) Not detected, Parainfluenza 1 (PCR) Not detected, Parainfluenza 2 (PCR) Not detected, Parainfluenza 3 (PCR) Not detected, Parainfluenza 4 (PCR) Not detected, RSV (PCR) Not detected, Entero/Rhino (PCR) Not detected I & O for Labs for Last 24 Hours: Intake & Output 08/22/24 08/23/24 08/24/24 08/25/24 23:59 23:59 23:59 23:59 Output Total 0 / 0 0 / 0 Balance 0 / 0 0 / 0 Weight 171 lb 183 lb 11.2 oz Comments:: Large ventral hernia not incarcerated with normoactive bowel sounds, soft, very minimal tenderness, benign abdomen Results Labs 08/25/24 05:24 08/25/24 05:24 Labs: Laboratory Results - last 24 hr 08/24/24 16:00: WBC 11.2 H, RBC 4.14 L, Hgb 11.5 L, Hct 33.6 L, MCV 81.2, MCH 27.8, MCHC 34.2, RDW 12.5, Plt Count 362, MPV 9.5, Neut % (Auto) 76.5, Lymph % (Auto) 7.4 L, [place] % (Auto) 11.0 H, Eos % (Auto) 3.1, Baso % (Auto) 0.4, Neut # (Auto) 8.6 H, Lymph # (Auto) 0.8, [place] # (Auto) 1.2 H, Eos # (Auto) 0.4, Baso # (Auto) 0.0, Sodium 133 L, Potassium 3.9, Chloride 105, Carbon Dioxide 22, Anion Gap 9.9, BUN 21 H, Creatinine 1.20 H, Estimated Creat Clear 58, Estimated GFR 45 L, Est GFR ( Amer) 55 L, Glucose 185 H, Calcium 8.7, Total Bilirubin 0.6, AST 42 H D, ALT 46 D, Alkaline Phosphatase 102, Total Protein 6.9, Albumin 3.2 L D, Globulin 3.7 H, Albumin/Globulin Ratio 0.9 L, Lipase 111, Acetone Level None detected 08/24/24 16:20: Lactate 1.2 08/24/24 16:26: POC Glucose 187 H 08/24/24 17:30: Urine Color Yellow, Urine Appearance Slightly cloudy, Urine pH 6.5, Ur Specific [place] 1.015, Urine Protein 2+ A, Urine Glucose (UA) 3+, Urine Ketones Negative, Urine Blood 2+ A, Urine Nitrate Negative, Urine Bilirubin Negative, Urine Urobilinogen 0.2, Ur Leukocyte Esterase Negative, Urine RBC 5-10, Urine WBC Occasional, Ur Squamous Epith Cells Occasional, Urine Bacteria Trace, Urine Yeast 2+ 08/24/24 19:20: Magnesium 1.7 D, Troponin I 0.03, C-Reactive Protein 36.0 H 08/24/24 20:00: POC Glucose 178 H 08/25/24 00:16: Urine Opiates Screen Negative, Urine Methadone Screen Negative, Ur Barbituates Screen Negative, Ur Phencyclidine Scrn Negative, Ur Amphetamines Screen Negative, U Benzodiazepines Scrn Negative, Urine Cocaine Screen Negative, U Marijuana (THC) Screen Negative 08/25/24 05:24: WBC 10.9 H, RBC 3.86 L, Hgb 10.6 L, Hct 32.0 L, MCV 82.9, MCH 27.5, MCHC 33.1, RDW 12.7, Plt Count 393, MPV 9.6, Neut % (Auto) 77.6, Lymph % (Auto) 8.4 L, [place] % (Auto) 9.7 H, Eos % (Auto) 1.8, Baso % (Auto) 0.5, Neut # (Auto) 8.5 H, Lymph # (Auto) 0.9, [place] # (Auto) 1.1 H, Eos # (Auto) 0.2, Baso # (Auto) 0.1, ESR > 140 H, Sodium 134 L, Potassium 3.8, Chloride 105, Carbon Dioxide 22, Anion Gap 10.8, BUN 17, Creatinine 1.10 H, Estimated Creat Clear 68, Estimated GFR 50 L, Est GFR ( Amer) 61, Glucose 112 H D, Calcium 8.5, Magnesium 1.7, Total Bilirubin 0.1 L, AST 33, ALT 34 D, Alkaline Phosphatase 86, C-Reactive Protein 32.8 H, Total Protein 6.3, Albumin 2.8 L D, Globulin 3.5 H, Albumin/Globulin Ratio 0.8 L 08/25/24 05:38: POC Glucose 114 H 08/25/24 05:39: Chlamy pneumoniae PCR Not detected, Adenovirus (PCR) Not detected, B. pertussis DNA (PCR) Not detected, Coronavirus OC43 (PCR) Not detected, Coronavirus HKU1 (PCR) Not detected, Coronavirus 229E (PCR) Not detected, SARS-CoV-2 (PCR) Not detected, Coronavirus NL63 (PCR) Not detected, Human Metapneumovir PCR Not detected, Influenza A (H1) PCR Not detected, Influ A (H1N1/09) PCR Not detected, Influenza A (H3) PCR Not detected, Influenza Type A (PCR) Not detected, Influenza Type B (PCR) Not detected, M. pneumoniae (PCR) Not detected, Parainfluenza 1 (PCR) Not detected, Parainfluenza 2 (PCR) Not detected, Parainfluenza 3 (PCR) Not detected, Parainfluenza 4 (PCR) Not detected, RSV (PCR) Not detected, Entero/Rhino (PCR) Not detected Assessment and Plan *Assessment and plan (1) Nausea and vomiting: Status: Acute Category: Medical Code(s): R11.2 - Nausea with vomiting, unspecified (2) Ventral hernia: Status: Acute Category: Medical Code(s): K43.9 - Ventral hernia without obstruction or gangrene Plan 1. Nausea and vomiting. I suspect that this is multifactorial. CT scan shows nothing acute and patient not having any manifestations of GI bleeding. This could be related to diabetes with some gastroparesis. I do suspect that her ventral hernia with intermittent partial entrapment is playing some role. She has been on recent antibiotics and drug-induced nausea is not uncommon. This could still represent acute gastro enteritis and still may repeat PCR panel since it has been 5 days. The patient does not have abdominal pain or abdominal distention and thus obstruction is unlikely. I will have her get scheduled dose of metoclopramide and recommend gastric emptying study.
[2024-08-25 08:00] VITALS: BP 169/99; PULSE 98; RESP 16; TEMP 36.9; O2SAT 100
--- NOTE | 2024-08-25 08:08 | NM_ITS ---
FINAL REPORT TECHNIQUE: Millicuries of technetium 99m sulfur colloid was ingested with eggs. CLINICAL HISTORY: Nausea and vomiting with diabetes 11:10 am 0.52 [facility] sulfur colloid injected into 2 whole egg white toast with butter 6 oz cup of water FINDINGS: GASTRIC EMPTYING SCAN Static images show normal emptying of the stomach into the small bowel. Based on the time activity curve, the estimated half-emptying time is 218 minutes. IMPRESSION: Gastric emptying time is 218 minutes, abnormally prolonged. Findings may represent gastroparesis versus outlet obstruction. Reviewed, Interpreted and Dictated by Shankar Shaver MD Transcribed by Courtney Dos Santos Authenticated and [facility]
[2024-08-25] MEDS: ENOXAPARIN 40MG/0.4ML SYRINGE 40 MG SUBCUT (08:27)
[2024-08-25] MEDS: CARVEDILOL 3.125MG TABLET 3.125 MG PO ×2 (08:27→16:55)
[2024-08-25] MEDS: CLOPIDOGREL 75MG TAB 75 MG PO (08:27)
[2024-08-25] MEDS: ASPIRIN EC 81MG TABLET 81 MG PO (08:27)
[2024-08-25] MEDS: FLUCONAZOLE 200MG TABLET 200 MG PO (08:28)
[2024-08-25] MEDS: MAGNESIUM SULFATE IN WATER 2 GM/50 ML PIGGYBACK IV ×2 (08:28→09:24)
[2024-08-25] MEDS: FUROSEMIDE 40MG/4ML VIAL 40 MG IV (08:28)
[2024-08-25] MEDS: METOCLOPRAMIDE HCL 10MG/2ML VIAL 10 MG IVP ×3 (08:28→20:22)
[2024-08-25] MEDS: INSULIN GLARGINE 100 UNITS/ML 3ML FLEXPEN 40 UNIT SUBCUT (08:29)
[2024-08-25 08:55] LABS: POC Glucose,Bedside 113 (70-110)
[2024-08-25 09:07] LABS: Adenovirus F 40/41, stool Not Detected (NotDetected); Astrovirus Not Detected (NotDetected); Campylobacter Not Detected (NotDetected); Clostridium Difficile A/B, PCR Not Detected (NotDetected); Cryptosporidium Not Detected (NotDetected); Cyclospora Cayetanesis Not Detected (NotDetected); Entamoeba histolytica Not Detected (NotDetected); Enteroaggregative E coli Not Detected (NotDetected); Enteropathogenic E coli Not Detected (NotDetected); Enterotoxigenic E coli Not Detected (NotDetected); Giardia lamblia Not Detected (NotDetected); Norovirus Not Detected (NotDetected); Plesimonas Shigalloides, PCR Not Detected (NotDetected); Rotavirus A Not Detected (NotDetected); Salmonella, PCR Not Detected (NotDetected); Sapovirus Not Detected (NotDetected); Shiga-like toxin E coli Not Detected (NotDetected); Shigella Enterovasive E coli Not Detected (NotDetected); Vibrio Cholerae Not Detected (NotDetected); Vibrio, PCR Not Detected (NotDetected); Yersinia Entercolitica, PCR Not Detected (NotDetected)
[2024-08-25] MEDS: SACUBITRIL/VALSARTAN 24-26MG TABLET 1 EACH PO ×2 (10:19→20:22)
[2024-08-25] MEDS: DOXYCYCLINE HYCLATE 100 MG in 0.9 % SODIUM CHLORIDE 250 ML 166.667 MG IV ×2 (10:19→20:23)
[2024-08-25] MEDS: KETOCONAZOLE 2% TP ×2 (10:20→20:21)
--- NOTE | 2024-08-25 10:43 | HMH.PTEV ---
Physical Therapy Evaluation Rehab PT IP Evaluation Start: 08/25/24 07:15 Freq: ONCE Status: Active Protocol: Document 08/25/24 08:45 CLARENCE (Rec: 08/25/24 10:43 CLARENCE [id number]) Subjective/History History History Christiane Williamson is a 64-year- old female with a medical history significant for uncontrolled type 2 diabetes, hypertension, CAD, HFrEF, paroxysmal A-fib who presents with worsening nausea/vomiting after discharge yesterday. Patient was recently admitted for similar symptoms in the setting of UTI and presumed cellulitis. Patient was admitted for intractable nausea/vomiting/diarrhea, worsening left leg swelling. 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 She does not use an AD and is independent with all mobility at baseline. Subjective Subjective Pt presents resting supine in bed, and is alert and oriented . She states that she is willing to participate with PT this am. Pt does not c/o pain at this time. Pt returned to sitting at EOB with call light in reach. [facility] How much help from another person do you currently need... Turning from your back to your side None while in a flat bed without using bedrails? Moving from lying on back to sitting on None the side of a flat bed without using bedrails? Moving to and from a bed to a chair ( None including a wheelchair)? Standing up from a chair using your arms None ? (e.g., wheelchair, bedside chair) Walking in hospital room? None Climbing 3-5 steps with a railing? None Mobility Score 24 Mobility Level [facility] Mobility Calculator Mobility 8 Walk 250 feet or more Rehab PT IP Eval Objective Appearance Patient Behavior Appropriate,Cooperative Patient Orientation Person,Place,Time Difficulty following instructions none Speech Pattern Clear,Appropriate,Coherent Ambulation Patient Able to Ambulate Yes Ambulation Observation IP General Gait Pattern Observation Wide Based Gait Ambulation Distance (feet) 200 Ambulation Assistive Device None Ambulation Ability Contact Guard/Hand Hold Balance Ability to Arise Able, w/o using arms Sitting Balance Steady, safe Standing Balance Narrow stance w/o support Dynamic Sitting Balance Ability Normal Dynamic Standing Balance Ability Normal Transfers Bed Transfer Ability Independent Sit to Stand Bed Transfer Ability Independent Rehab PT IP prob,goals,plan Problems Date of Evaluation: 08/25/24 Discharge Plan PT Discharge Plan Pt is currently most appropriate to return home once medically stable for d/c. Skilled acute therapy is not currently indicated as pt was able to ambulate independently and is near baseline with all mobility. Eval Complexity Eval Charge Codes 72159 - High Complexity PHYSICIAN CERTIFICATION: I certify the specified therapy services for Christiane Williamson are required, authorized, and reviewed every 30 days.
[2024-08-25 10:48] LABS: POC Glucose,Bedside 118 (70-110)
[2024-08-25] MEDS: TC99M SULF.COLLOID;1 DOSE (UP TO 20 MCI) IV (14:50)
[2024-08-25 16:00] VITALS: BP 157/69; PULSE 90; RESP 18; TEMP 36.9; O2SAT 100
[2024-08-25 16:31] LABS: POC Glucose,Bedside 80 (70-110)
[2024-08-25] MEDS: RIVAROXABAN 15MG TABLET 15 MG PO (16:55)
[2024-08-25 19:53] VITALS: BP 131/75; PULSE 80; RESP 22; TEMP 37.1; O2SAT 99
[2024-08-25 20:18] LABS: POC Glucose,Bedside 187 (70-110)
[2024-08-25] MEDS: humaLOG 100 UNITS/ML 10ML VIAL (SSI) SUBCUT (20:22)
[2024-08-25] MEDS: PANTOPRAZOLE 40MG TABLET 40 MG PO (20:22)
[2024-08-25] MEDS: ATORVASTATIN 40MG TABLET 80 MG PO (20:23)
[2024-08-25] MEDS: LEVOFLOXACIN/D5W 750 MG/150 ML 750 MG/150 ML PIGGYBACK 100 MG IV (22:07)
[2024-08-26] MEDS: METOCLOPRAMIDE HCL 10MG/2ML VIAL 10 MG IVP ×2 (02:09→09:56)
--- NOTE | 2024-08-26 03:11 | PC.NURSE ---
Pt tolerating bland diabetic diet. She states that she has been feeling much better and is eager to go home. Pt is currently resting in bed with eyes closed. Respirations even and unlabored. Bed is low, locked, and call light is in reach.
[2024-08-26 04:00] VITALS: BP 137/69; PULSE 84; RESP 18; TEMP 37.2; O2SAT 100; BMI 31.8
[2024-08-26 05:17] LABS: POC Glucose,Bedside 146 (70-110)
[2024-08-26 06:20] LABS: Basophils # 0.1 K/mm3 (0-0.2); Basophils % 0.7 % (0.1-2.0); Eosinophils # 0.4 Kmm3 (0.0-0.4); Eosinophils % 3.6 % (0.1-12.0); Hematocrit 29.5 % (37.0-47.0); Hemoglobin 9.9 g/dL (12.2-16.2); Lymphocytes # 1.2 K/mm3 (0.7-4.5); Lymphocytes % 12.1 % (10-50); Mean Corpuscular HGB Conc 33.6 g/dL (31.8-35.4); Mean Corpuscular Hemoglobin 27.7 pg (27.0-31.2); Mean Corpuscular Volume 82.4 fl (81-99); Mean Platelet Volume 9.4 fl (7.4-10.4); Monocytes # 1.2 K/mm3 (0.1-1.0); Monocytes % 12.4 % (1.7-9.3); Neutrophils # 6.7 K/mm3 (1.8-7.8); Neutrophils % 69.4 % (37.0-80.0); Nucleated Red Blood Cells # 0 10^3/uL; Nucleated Red Blood Cells % 0 %; Platelet Count 399 K/mm3 (142-424); Red Blood Count 3.58 M/mm3 (4.20-5.40); Red Cell Distribution Width 12.8 % (11.5-17.5); Red Cell Distribution Width-SD 38.7 fL; White Blood Count 9.7 K/mm3 (4.8-10.8)
[2024-08-26 06:22] LABS: Chloride 103 mmol/L (98-107)
[2024-08-26 06:23] LABS: Albumin Level 2.7 g/dl (3.5-5.0); Potassium 3.5 mmoL/L (3.5-5.1); Sodium 130 mmol/L (136-145)
[2024-08-26 06:25] LABS: Blood Urea Nitrogen 21 mg/dl (7-17); Creatinine Clearance Estimated 51 mL/min (50-200); Estimated Glomerular Filt Rate 35 ml/min (>60); GFR (African American) 42 ML/MIN (>60)
[2024-08-26 06:26] LABS: Alanine Aminotransferase 31 U/L (12-78); Albumin/Globulin Ratio 0.8 (1.1-1.8); Alkaline Phosphatase 96 U/L (38-126); Anion Gap 7.5 mEq/L (5-15); Aspartate Amino Transferase 38 U/L (14-36); Calcium 8.2 mg/dl (8.4-10.2); Carbon Dioxide 23 mmol/L (22.0-30.0); Globulin 3.2 g/dL (1.3-3.2); Glucose 143 mg/dl (74-100); Magnesium 2.2 mg/dl (1.6-2.3); Total Protein,Serum 5.9 g/dl (6.3-8.2)
[2024-08-26 06:28] LABS: Bilirubin,Total 0.1 mg/dl (0.2-1.3)
[2024-08-26 06:32] LABS: C-Reactive Protein 21.1 mg/L (0-4)
[2024-08-26] MEDS: CARVEDILOL 3.125MG TABLET 3.125 MG PO (06:38)
[2024-08-26 08:00] VITALS: BP 161/87; PULSE 89; RESP 16; TEMP 36.6; O2SAT 99
--- NOTE | 2024-08-26 08:18 | P.PN_ITS ---
Subjective *Date: 08/26/24 *Time: 08:18 Interval history: Patient is nausea markedly improved. The patient reports no abdominal pain and is tolerating oral intake and getting up out of bed and awake this morning. No adverse reactions from metoclopramide. Exam Data for Last 24 hours Vital signs and Labs for Last 24 Hours: Temp Pulse Resp BP Pulse Ox O2 Del Method 98 F 89 16 161/87 H 99 Room Air 08/26/24 08:00 08/26/24 08:00 08/26/24 08:00 08/26/24 08:00 08/26/24 08:00 08/26/24 08:00 Laboratory Results - last 24 hr 08/24/24 09:00: Stl Aeromonas (PCR) Not detected, Stl C. cayetanensis PCR Not detected, Stool Rotavirus (PCR) Not detected, Stl Adenov F 40/41 PCR Not detected, Stool Astrovirus (PCR) Not detected, Stool Campylobacter PCR Not detected, Stl C.difficile Tox PCR Not detected, Stool Cryptosporidium PCR Not detected, Stl E.coli Shiga Tox PCR Not detected, Stool E coli O157 PCR Not detected, Stl Enterotoxigenic E PCR Not detected, Stool EPEC (PCR) Not detected, Stool EAEC (PCR) Not detected, Stl E. histolytica PCR Not detected, Stool Giardia Lamblia PCR Not detected, Stool Salmonella PCR Not detected, Stool Sapovirus (PCR) Not detected, Stl P. shigelloides PCR Not detected, Stl Shigella/EIEC PCR Not detected, St Y.enterocolitica PCR Not detected, Stool Vibrio (PCR) Not detected, Stl Vibrio cholerae PCR Not detected, Stl Norovirus GI/GII PCR Not detected 08/25/24 08:26: POC Glucose 113 H 08/25/24 10:28: POC Glucose 118 H 08/25/24 16:23: POC Glucose 80 08/25/24 20:11: POC Glucose 187 H 08/26/24 05:11: POC Glucose 146 H 08/26/24 05:30: WBC 9.7, RBC 3.58 L, Hgb 9.9 L, Hct 29.5 L, MCV 82.4, MCH 27.7, MCHC 33.6, RDW 12.8, Plt Count 399, MPV 9.4, Neut % (Auto) 69.4, Lymph % (Auto) 12.1, [place] % (Auto) 12.4 H, Eos % (Auto) 3.6, Baso % (Auto) 0.7, Neut # (Auto) 6.7, Lymph # (Auto) 1.2, [place] # (Auto) 1.2 H, Eos # (Auto) 0.4, Baso # (Auto) 0.1, Sodium 130 L, Potassium 3.5, Chloride 103, Carbon Dioxide 23, Anion Gap 7. 5, BUN 21 H, Creatinine 1.50 H D, Estimated Creat Clear 51, Estimated GFR 35 L, Est GFR ( Amer) 42 L D, Glucose 143 H, Calcium 8.2 L, Magnesium 2.2 D, Total Bilirubin 0.1 L, AST 38 H, ALT 31, Alkaline Phosphatase 96, C-Reactive Protein 21.1 H D, Total Protein 5.9 L, Albumin 2.7 L, Globulin 3.2, Albumin/ Globulin Ratio 0.8 L I & O for Last 24 hours: Intake & Output 08/23/24 08/24/24 08/25/24 08/26/24 23:59 23:59 23:59 23:59 Intake Total 380 / 380 Output Total 0 / 0 0 / 0 Balance 0 / 0 380 / 380 Weight 171 lb 183 lb 11.2 oz 186 lb 9.6 oz Microbiology Reports for the Last 24 Hours: Microbiology 08/24/24 16:20 Blood Blood Culture - Preliminary NO GROWTH AFTER 24 HOURS 08/24/24 16:19 Blood Blood Culture - Preliminary NO GROWTH AFTER 24 HOURS *Routine Abdominal Exam Abdominal: Present soft Comments: Normoactive bowel sounds, soft, benign abdomen, mild distention Assessment and Plan *Assessment and plan (1) Gastroparesis diabeticorum: Status: Acute Category: Medical Code(s): E11.43 - Type 2 diabetes mellitus with diabetic autonomic (poly)neuropathy; K31.84 - Gastroparesis Plan 1. Nausea and vomiting in setting of diabetes. Gastric emptying study yesterday shows gastric half emptying time of 218 minutes. This would be consistent with gastroparesis. The patient has responded to metoclopramide. As long as the patient is improving today, she may go home with oral metoclopramide. I would also recommend outpatient upper endoscopy but there is nothing clear on CAT scan that would suggest any gastric outlet obstruction.
[2024-08-26] MEDS: ENOXAPARIN 40MG/0.4ML SYRINGE 40 MG SUBCUT (09:56)
[2024-08-26] MEDS: FLUCONAZOLE 200MG TABLET 200 MG PO (09:56)
[2024-08-26] MEDS: KETOCONAZOLE 2% TP (09:56)
[2024-08-26] MEDS: ASPIRIN EC 81MG TABLET 81 MG PO (09:56)
[2024-08-26] MEDS: SACUBITRIL/VALSARTAN 24-26MG TABLET 1 EACH PO (09:56)
[2024-08-26] MEDS: FUROSEMIDE 40MG/4ML VIAL 40 MG IV (09:56)
[2024-08-26] MEDS: CLOPIDOGREL 75MG TAB 75 MG PO (09:56)
[2024-08-26] MEDS: DOXYCYCLINE HYCLATE 100 MG in 0.9 % SODIUM CHLORIDE 250 ML 166.667 MG IV (09:56)
[2024-08-26] MEDS: INSULIN GLARGINE 100 UNITS/ML 3ML FLEXPEN 40 UNIT SUBCUT (09:57)
--- NOTE | 2024-08-26 12:46 | P.DS_ITS ---
General Admission date:: 08/24/24 Discharge date: 08/26/24 HPI HPI HPI: Mrs. Williamson is a 64-year-old female who was discharged 2 days ago but returned yesterday with nausea and vomiting after discharge. She has had nausea and vomiting for a week. She reports no abdominal pain. She does have a lot of heartburn and takes [id number] [place] and Tums. She also is on pantoprazole and metoclopramide from medication report. She reports no bloating and does have some minor belching. She reports no early satiety or dysphagia. She did have primarily loose stools and diarrhea over the last week as well. Her initial PCR stool panel was negative for microbial pathogens. She does have a history of diabetes and has been on antibiotics. When she came to the ED, she was treated with antiemetics without improvement and was readmitted. She did have emesis of black stuff but she had just had been drinking coffee. She has had no melena or hematochezia. Her hemoglobin hematocrit are stable. She did have a CT scan of the abdomen yesterday showing small bilateral pleural effusions and some mild mesenteric edema with trace ascites. There was a midline ventral hernia predominantly containing fat. Her prior CAT scan from 422 had shown this hernia containing portions of the transverse colon. The patient did have an EGD in 2019 (Dr. Elizabeth) which was essentially normal. Hospital Course Hospital Course Hospital Course: Christiane Williamson is a 64-year-old female with a medical history significant for uncontrolled type 2 diabetes, hypertension, CAD, HFrEF, paroxysmal A-fib who presents with worsening nausea/vomiting after discharge yesterday. Patient was recently admitted for similar symptoms in the setting of UTI and presumed cellulitis. She gradually improved with IV antibiotics and antiemetics, tolerating p.o. intake without issues. She states the the night she got home she again began experiencing nausea/vomiting/diarrhea. Upon further inquiry, patient states her left lower extremity swelling, erythema actually began after she was hospitalized concerning for drug reaction. DVT ruled out in the ED. She states she did not have the swelling before being previously hospitalized. She states the swelling, redness, pain got worse after she got home and now having a hard time walking on her left leg. She is never had issues like this before. CBC, CMP relatively unremarkable. Improvement in kidney function. Patient was treated with antiemetics without improvement in the ED. Case discussed with ED provider and decision was made to admit patient for intractable nausea/vomiting/diarrhea, worsening left leg swelling. #Nausea/vomiting/diarrhea #Possible acute viral syndrome #Possible gastroparesis #Possible UTI ? Patient has had intractable N/V/D for 7 days that has been waxing and waning. No fever/chills, chest pain, shortness of breath, abdominal pain. Discussed case with GI, concern for gastroparesis. Sent for gastric emptying study. Emptying time of 218 minutes, consistent with gastroparesis. Initiated on Reglan ACHS. Will continue Reglan AC at discharge as a promotility. Likely has gastroparesis as a mononeuropathy from her uncontrolled diabetes. Will follow- up with GI as an outpatient. Overall doing well. Tolerating p.o. intake on day of discharge. CT abdomen/pelvis from previous admission 08/18/2024 suggestive of pyelonephritis versus renal failure, and ventral wall hernia now containing transverse colon without signs of incarceration. CT did not show any abscess. Hernia not incarcerated. Will have further discussion as an outpatient with GI about possible EGD. Findings not consistent with gastric outlet obstruction. Respiratory and diarrhea panels were negative. - Repeat urine culture from the was negative. On appropriate antibiotics when discharged from last visit. Blood cultures and urine cultures from this visit remain negative. #LLE swelling, erythema #Suspected drug rash versus cellulitis versus fracture ? Patient states the leg symptoms began after she was admitted during previous admission. She did not have any symptoms at home. They did worsen after she got home, patient was discharged on cefdinir. Patient is having a hard time bearing weight on left leg. Doppler study negative for DVT. It is unclear if this is a drug rash versus fracture versus true cellulitis/erysipelas versus superficial fungal infection given her uncontrolled diabetes initiate her on doxycycline and Levaquin along with topical ketoconazole. Redness completely resolved by morning of discharge. Has been on numerous antibiotics for over a week at this point with broad coverage. No further antibiotics at discharge. Continue ketoconazole twice daily topically for rash component. Inflammatory markers significantly improved, CRP 21 on morning of discharge. White count normal at 9.7. #Type 2 diabetes ? Hemoglobin A1c 12.6. Increase Lantus to 45 units daily. Required very little sliding scale during admission. Stop Jardiance due to UTIs. Close follow-up with PCP for further management. #CAD #HFrEF #Hypertension #Paroxysmal A-fib ? Continue home carvedilol, Entresto, spironolactone, Xarelto, Plavix. Currently rate controlled. Total time spent on discharge 32 minutes in counseling, documentation, chart review, and direct care with patient. Exam Data for Last 24 hours Vital signs and Labs for Last 24 Hours: Temp Pulse Resp BP Pulse Ox O2 Del Method 98 F 89 16 161/87 H 99 Room Air 08/26/24 08:00 08/26/24 08:00 08/26/24 08:00 08/26/24 08:00 08/26/24 08:00 08/26/24 08:00 Laboratory Results - last 24 hr 08/25/24 16:23: POC Glucose 80 08/25/24 20:11: POC Glucose 187 H 08/26/24 05:11: POC Glucose 146 H 08/26/24 05:30: WBC 9.7, RBC 3.58 L, Hgb 9.9 L, Hct 29.5 L, MCV 82.4, MCH 27.7, MCHC 33.6, RDW 12.8, Plt Count 399, MPV 9.4, Neut % (Auto) 69.4, Lymph % (Auto) 12.1, [place] % (Auto) 12.4 H, Eos % (Auto) 3.6, Baso % (Auto) 0.7, Neut # (Auto) 6.7, Lymph # (Auto) 1.2, [place] # (Auto) 1.2 H, Eos # (Auto) 0.4, Baso # (Auto) 0.1, Sodium 130 L, Potassium 3.5, Chloride 103, Carbon Dioxide 23, Anion Gap 7.5, BUN 21 H, Creatinine 1.50 H D, Estimated Creat Clear 51, Estimated GFR 35 L , Est GFR ( Amer) 42 L D, Glucose 143 H, Calcium 8.2 L, Magnesium 2.2 D, Total Bilirubin 0.1 L, AST 38 H, ALT 31, Alkaline Phosphatase 96, C-Reactive Protein 21.1 H D, Total Protein 5.9 L, Albumin 2.7 L, Globulin 3.2, Albumin/Globulin Ratio 0.8 L I & O for Last 24 hours: Intake & Output 04/27/25 04/28/25 04/29/25 04/30/25 23:59 23:59 23:59 23:59 Intake Total 380 / 380 360 / 360 Output Total 0 / 0 0 / 0 Balance 0 / 0 380 / 380 360 / 360 Weight 77.564 kg 83.325 kg 84.64 kg Microbiology Reports for the Last 24 Hours: Microbiology 08/24/24 16:20 Blood Blood Culture - Preliminary NO GROWTH AFTER 24 HOURS 08/24/24 16:19 Blood Blood Culture - Preliminary NO GROWTH AFTER 24 HOURS Results Data Completed and Pending Labs on day of discharge: Labs from last 24 hours 08/26/24 08/26/24 08/25/24 05:30 05:11 20:11 WBC 9.7 RBC 3.58 L Hgb 9.9 L Hct 29.5 L MCV 82.4 MCH 27.7 MCHC 33.6 RDW 12.8 Plt Count 399 MPV 9.4 Neut % (Auto) 69.4 Lymph % (Auto) 12.1 [place] % (Auto) 12.4 H Eos % (Auto) 3.6 Baso % (Auto) 0.7 Neut # (Auto) 6.7 Lymph # (Auto) 1.2 [place] # (Auto) 1.2 H Eos # (Auto) 0.4 Baso # (Auto) 0.1 Sodium 130 L Potassium 3.5 Chloride 103 Carbon Dioxide 23 Anion Gap 7.5 BUN 21 H Creatinine 1.50 H D Estimated Creat Clear 51 Estimated GFR 35 L Est GFR ( Amer) 42 L D Glucose 143 H POC Glucose 146 H 187 H Calcium 8.2 L Magnesium 2.2 D Total Bilirubin 0.1 L AST 38 H ALT 31 Alkaline Phosphatase 96 C-Reactive Protein 21.1 H D Total Protein 5.9 L Albumin 2.7 L Globulin 3.2 Albumin/Globulin Ratio 0.8 L 08/25/24 16:23 WBC RBC Hgb Hct MCV MCH MCHC RDW Plt Count MPV Neut % (Auto) Lymph % (Auto) [place] % (Auto) Eos % (Auto) Baso % (Auto) Neut # (Auto) Lymph # (Auto) [place] # (Auto) Eos # (Auto) Baso # (Auto) Sodium Potassium Chloride Carbon Dioxide Anion Gap BUN Creatinine Estimated Creat Clear Estimated GFR Est GFR ( Amer) Glucose POC Glucose 80 Calcium Magnesium Total Bilirubin AST ALT Alkaline Phosphatase C-Reactive Protein Total Protein Albumin Globulin Albumin/Globulin Ratio Preliminary micro results at discharge 08/24/24 16:20 Blood Culture - Preliminary Blood NO GROWTH AFTER 24 HOURS 08/24/24 16:19 Blood Culture - Preliminary Blood NO GROWTH AFTER 24 HOURS DS: Diagnosis Discharge Diagnosis (1) Gastroparesis diabeticorum: Status: Acute Code(s): E11.43 - Type 2 diabetes mellitus with diabetic autonomic (poly)neuropathy; K3 1.84 - Gastroparesis Meds Home Medications and Allergies Home Medications ?Medication ?Instructions ?Recorded ?Confirmed ?Type aspirin 81 mg tablet,delayed 81 mg PO DAILY 11/12/23 08/24/24 History release furosemide 40 mg tablet 40 mg PO DAILY 11/12/23 08/24/24 History sacubitril 24 mg-valsartan 26 mg 1 tab PO BID 11/12/23 08/24/24 History tablet (Entresto) atorvastatin 80 mg tablet 80 mg PO HS #90 tabs 12/05/23 08/24/24 Rx rivaroxaban 15 mg tablet (Xarelto) 15 mg PO QPMWITHMEAL 01/30/24 08/24/24 History clopidogrel 75 mg tablet 75 mg PO DAILY #90 tabs 03/05/24 08/24/24 Rx pantoprazole 40 mg tablet,delayed 40 mg PO HS 08/18/24 08/24/24 History release spironolactone 25 mg tablet 12.5 mg PO DAILY 08/18/24 08/24/24 History carvedilol 3.125 mg tablet 3.125 mg PO BIDWMEAL 08/19/24 08/24/24 History insulin glargine 100 unit/mL (3 45 unit (0.45 mL) SQ DAILY 30 days 08/26/2407/29 Rx mL) subcutaneous pen (Lantus #15 mL Solostar U-100 Insulin) ketoconazole 2 % topical cream 1 applic topical BID 10 days #60 08/26/24 Rx grams metoclopramide HCl 10 mg tablet 10 mg PO AC 30 days #90 tabs 08/26/24 Rx New Prescriptions to Start Prescriptions: Govind Wooten metoclopramide HCl Govind Guillaume Allergies Allergy/AdvReac Type Severity Reaction Status Date / Time latex Allergy Rash Verified 07/07/24 15:40 Discharge Plan Disposition Patient Disposition: Home, Self-Care Condition: Fair Follow up Plan Follow up with: Anyi Raymundo PA [Primary Care Provider] - 09/17/24 3:30 pm Sheldon Langston II, MD [Staff Physician] - Enter time for follow up Prescriptions/Medication Reconciliation: New ketoconazole 2 % Cream 1 applic topical BID 10 Days Qty: 60 0RF Continued Xarelto 15 mg tablet 15 mg PO QPMWITHMEAL atorvastatin 80 mg tablet 80 mg PO HS Qty: 90 3RF clopidogrel 75 mg tablet 75 mg PO DAILY Qty: 90 3RF furosemide 40 mg tablet 40 mg PO DAILY Patient Comments: TAKE ONE TABLET BY MOUTH EVERY DAY aspirin 81 mg tablet,delayed release (DR/EC) 81 mg PO DAILY Patient Comments: TAKE ONE TABLET BY MOUTH EVERY DAY Entresto 24-26 mg tablet 1 tab PO BID Patient Comments: TAKE ONE TABLET BY MOUTH TWICE DAILY spironolactone 25 mg tablet 12.5 mg PO DAILY pantoprazole 40 mg tablet,delayed release (DR/EC) 40 mg PO HS carvedilol 3.125 mg tablet 3.125 mg PO BIDWMEAL Patient Comments: TAKE ONE TABLET BY MOUTH TWICE DAILY WITH FOOD Changed metoclopramide HCl 10 mg tablet 10 mg PO AC 30 Days Qty: 90 0RF insulin glargine [Lantus Solostar U-100 Insulin] 100 unit/mL (3 mL) insulin pen 45 unit SQ DAILY 30 Days Qty: 15 0RF Discontinued Jardiance 10 mg tablet 10 mg PO DAILY Patient Comments: TAKE ONE TABLET BY MOUTH EVERY DAY cefdinir 300 mg capsule 300 mg PO BID 3 Days Qty: 6 0RF Problem Reconciliation Problems Reviewed?: Yes Patient Discharge Instructions ACTIVITY: Continue current activity DIET: continue same diet, advance to your usual diet and diabetic diet Patient Instructions: Diarrhea, Sepsis, Nausea and Vomiting-Adult, Stop Light Infection Print Language: Italian Providers Primary Care Provider: Anyi Raymundo Admit Provider: Osmin Gutierrez Attending Provider: Osmin Gutierrez
[2024-08-26 12:54] LABS: POC Glucose,Bedside 279 (70-110)
[2024-08-26] MEDS: humaLOG 100 UNITS/ML 10ML VIAL (SSI) SUBCUT (12:58)
== END 2024-08-26 14:19 | disposition home or self-care (01) ==
LOC: ER 18:00 → 2ND 18:23
PROVIDERS: Admitting Provider Student in an Organized Health Care Education/Training Program; Emergency Provider Student in an Organized Health Care Education/Training Program; PCP Physician Assistant; Visit Provider Student in an Organized Health Care Education/Training Program
DX: E11.43 Type 2 diabetes mellitus with diabetic autonomic (poly)neuropathy (principal); K31.84 Gastroparesis; R11.2 Nausea with vomiting, unspecified; I25.2 Old myocardial infarction; I11.0 Hypertensive heart disease with heart failure; I50.20 Unspecified systolic (congestive) heart failure; I48.0 Paroxysmal atrial fibrillation; I25.10 Atherosclerotic heart disease of native coronary artery without angina pectoris; L03.116 Cellulitis of left lower limb; E11.65 Type 2 diabetes mellitus with hyperglycemia; N39.0 Urinary tract infection, site not specified; E66.9 Obesity, unspecified; Z68.31 Body mass index [BMI] 31.0-31.9, adult; Z95.5 Presence of coronary angioplasty implant and graft; Z79.01 Long term (current) use of anticoagulants; Z79.899 Other long term (current) drug therapy; Z79.4 Long term (current) use of insulin; L27.1 Localized skin eruption due to drugs and medicaments taken internally
CPT/HCPCS: 36415; 71045; 73590; 73620; 74177; 78264; 80053; 80307; 81001; 82009; 82962; 83605; 83690; 83735; 84484; 85025; 85651; 86140; 87040; 87086; 87507; 87633; 93005; 93971; 97163; 99285; A9541; G0378; J0696; J1650; J1790; J1938; J1956; J2405; J2765; J3372; J3475; J7120; Q9967

== ENCOUNTER 2024-09-15 15:33 | Observation (INO) | payer MEDICAID, SELFPAY ==
--- NOTE | 2024-09-15 16:45 | XR_ITS ---
PROCEDURE INFORMATION: Exam: XR Chest Exam date and time: 09/15/2024 5:43 PM Age: 64 years old Clinical indication: Shortness of breath; Additional info: Shortness of air TECHNIQUE: Imaging protocol: Radiologic exam of the chest. Views: 1 view. COMPARISON: CR XR CHEST PORTABLE 08/24/2024 4:05 PM FINDINGS: Lungs: Bibasilar opacities partially silhouette the diaphragm are favored to represent combination of atelectasis/pleural effusion/consolidation. Pleural spaces: See Lungs finding. Heart/Mediastinum: Unremarkable. No cardiomegaly. Bones/joints: Unremarkable. IMPRESSION: Bibasilar opacities partially silhouette the diaphragm are favored to represent combination of atelectasis/pleural effusion/consolidation.
--- NOTE | 2024-09-15 16:47 | CT_ITS ---
PROCEDURE INFORMATION: Exam: CTA Chest With Contrast Exam date and time: 09/15/2024 5:42 PM Age: 64 years old Clinical indication: Shortness of breath; Additional info: Shortness of air TECHNIQUE: Imaging protocol: Computed tomographic angiography of the chest with contrast. Exam focused on the arteries. 3D rendering (Not supervised by radiologist): MIP and/or 3D reconstructed images were created by the technologist. Radiation optimization: All CT scans at this facility use at least one of these dose optimization techniques: automated exposure control; mA and/or kV adjustment per patient size (includes targeted exams where dose is matched to clinical indication); or iterative reconstruction. Contrast material: ISO 370; Contrast volume: 70 ml; Contrast route: INTRAVENOUS (IV); COMPARISON: CT ANGIO CHEST PE PROTOCOL 10/01/2023 6:19 PM FINDINGS: Pulmonary arteries: No CT angiography evidence of pulmonary embolism. Aorta: Unremarkable. No aortic aneurysm. No aortic dissection. Lungs: Compressive atelectasis of the lungs. Right upper lobe airspace opacities favoring pneumonia in the setting of infection. Pleural spaces: Moderate bilateral pleural effusions are present. Heart: Unremarkable. No cardiomegaly. No pericardial effusion. Coronary arteries: Moderate three-vessel calcific atherosclerotic disease of the coronary arteries. Lymph nodes: Prominent mediastinal and hilar lymph nodes are likely reactive. Gallbladder and biliary ducts: There are surgical clips within the gallbladder fossa. Bones/joints: Unremarkable. No acute fracture. Soft tissues: Unremarkable. IMPRESSION: 1. Moderate bilateral pleural effusions with compressive atelectasis. 2. Right upper lobe airspace opacities favoring pneumonia in the setting of infection. Recommend continued follow-up imaging to document resolution after treatment. 3. No CT angiography evidence of pulmonary embolism.
--- NOTE | 2024-09-15 16:48 | ED_ITS ---
<Statement entered by Ike Michaud MD - 09/15/24 19:13> I was consulted by the JOSÉ, and we discussed the complexity of problems being addressed. I approved the treatment and management plan for this patient's care in the emergency department, thus performing a substantial portion of the medical decision making. Ike Michaud MD Discharge Plan Disposition Patient Disposition: Admitted Condition: Fair Prescriptions Prescriptions: No Action Xarelto 15 mg tablet 15 mg PO QPMWITHMEAL atorvastatin 80 mg tablet 80 mg PO HS Qty: 90 3RF clopidogrel 75 mg tablet 75 mg PO DAILY Qty: 90 3RF furosemide 40 mg tablet 40 mg PO DAILY Patient Comments: TAKE ONE TABLET BY MOUTH EVERY DAY aspirin 81 mg tablet,delayed release (DR/EC) 81 mg PO DAILY Patient Comments: TAKE ONE TABLET BY MOUTH EVERY DAY Entresto 24-26 mg tablet 1 tab PO BID Patient Comments: TAKE ONE TABLET BY MOUTH TWICE DAILY spironolactone 25 mg tablet 12.5 mg PO DAILY pantoprazole 40 mg tablet,delayed release (DR/EC) 40 mg PO HS carvedilol 3.125 mg tablet 3.125 mg PO BIDWMEAL Patient Comments: TAKE ONE TABLET BY MOUTH TWICE DAILY WITH FOOD ketoconazole 2 % Cream 1 applic topical BID 10 Days Qty: 60 0RF metoclopramide HCl 10 mg tablet 10 mg PO AC 30 Days Qty: 90 0RF insulin glargine [Lantus Solostar U-100 Insulin] 100 unit/mL (3 mL) insulin pen 45 unit SQ DAILY 30 Days Qty: 15 0RF Referrals Follow up/Referrals: Provider,ReferralMD [Referring] - See instructions Clinical Impressions Clinical Impression: Bilateral pleural effusion, Pneumonia Print Language Print Language: Occitan Discharge ED Provider: Ike Michaud General Adult HPI <KIRILL Stubbs - Last Filed: 09/15/24 18:53> General Chief complaint: Shortness of Breath/Dyspnea Stated complaint: L Leg Swelling and Trouble Breathing Time Seen by Provider: 09/15/24 16:33 Mode of Arrival: Ambulatory Source of Information: Patient Limitations: No Limitations History of Present Illness HPI narrative: 64-year-old female presents to the emergency department with a 1 to 2-day history of shortness of breath, orthopnea, worsening left lower extremity pain. Patient was recently admitted to hospitalist service on 08/24/2024, discharged on 08/26/2024, for intractable nausea vomiting and left lower extremity cellulitis, treated with p.o. ABX, suspected drug rash versus cellulitis versus ongoing fracture, she has completed her p.o. antibiotics and topical antifungal regimen, she states the pain initially improved, but has worsened/returned over the last several days. However, the patient's shortness of breath is new, it is not positional, it is not improved with rest, patient states that she was lying in bed last night and due to the pain and shortness of breath that she was unable to get much rest thus prompted her emergency department visit. She denies any fever chills denies any overt chest pain, denies any abdominal pain nausea vomiting constipation diarrhea no urinary type symptomatology, no numbness or tingling, no back pain or radicular type symptomatology. Other past medical history consistent with hyperlipidemia, coronary artery disease on dual antiplatelet therapy with Plavix and aspirin, atrial fibrillation on anticoagulation therapy with Xarelto, hypertension, poorly controlled type 2 diabetes, GERD, HFpEF, diabetic gastroparesis. Initial triage vitals are unremarkable. Patient denies any alcohol tobacco or drug use. Also of note, patient did have a fall out of bed , couple days ago, which may have worsened her knee/leg pain. Onset (ago): day(s) Related Data Home Medications ?Medication ?Instructions ?Recorded ?Confirmed aspirin 81 mg tablet,delayed 81 mg PO DAILY 11/12/23 09/15/24 release furosemide 40 mg tablet 40 mg PO DAILY 11/12/23 09/15/24 sacubitril 24 mg-valsartan 26 mg 1 tab PO BID 11/12/23 09/15/24 tablet (Entresto) rivaroxaban 15 mg tablet (Xarelto) 15 mg PO QPMWITHMEAL 01/30/24 09/15/24 pantoprazole 40 mg tablet,delayed 40 mg PO HS 08/18/24 09/15/24 release spironolactone 25 mg tablet 12.5 mg PO DAILY 08/18/24 09/15/24 carvedilol 3.125 mg tablet 3.125 mg PO BIDWMEAL 08/19/24 09/15/24 Previous Rx's ?Medication ?Instructions ?Recorded atorvastatin 80 mg tablet 80 mg PO HS #90 tabs 12/05/23 clopidogrel 75 mg tablet 75 mg PO DAILY #90 tabs 03/05/24 insulin glargine 100 unit/mL (3 45 unit (0.45 mL) SQ DAILY 30 days 08/26/24 mL) subcutaneous pen (Lantus #15 mL Solostar U-100 Insulin) ketoconazole 2 % topical cream 1 applic topical BID 10 days #60 08/26/24 grams metoclopramide HCl 10 mg tablet 10 mg PO AC 30 days #90 tabs 08/26/24 Allergies Allergy/AdvReac Type Severity Reaction Status Date / Time latex Allergy Rash Verified 07/07/24 15:40 [facility] <KIRILL Stubbs - Last Filed: 09/15/24 18:53> [facility] Disclaimer: The information contained in this section may have been updated after the patient was seen, as this information can be updated by other users. Medical History Dyspnea Bronchitis Gastritis Renal insufficiency Obesity (BMI 30-39.9) Hematoma, non-traumatic Ventral hernia Hiatal hernia Diabetes mellitus, insulin dependent (IDDM), controlled Left against medical advice Fatigue Tachycardia Dizziness Atrial flutter NSTEMI (non-ST elevated myocardial infarction) Elevated troponin Renal insufficiency Atrial fibrillation Chest pain Obesity Diabetes mellitus Surgical History H/O cardiac radiofrequency ablation 2020 Stented coronary artery Family History Other No significant family history Social History (Updated 08/24/24 @ 18:55 by Lexi Schreiber RN) Smoking Status: Never smoker second hand exposure: No alcohol intake: never substance use type: denies use current occupational status: employed Travel in the last 8 weeks?: None household members: spouse and family housing: house current occupational exposures/hazards: No caffeine: Yes Have you lived/traveled outside [place] in past 30 days?: No Contact w/someone who lives/traveled outside [place] past 30 days?: No Exposure to someone with infectious disease in past 14 days?: No Do you have a fever (greater than 100.4 F or 38 C)?: No Have you tested positive for COVID-19?: No Exposed to someone with COVID-19 in past 14 days?: No Do you have a sore throat?: No Do you have a cough?: No Do you have any weakness?: No Do you have any diarrhea?: No Are you experiencing any unusual bleeding?: No Do you have any muscle aches/pain?: No Do you have any abdominal pain?: No Are you experiencing loss of taste or smell?: No Other Medical History Have you received the Flu Vaccine for this season: No Have you received the Pneumonia Vaccine: No <KIRILL Stubbs - Last Filed: 09/15/24 18:53> ROS Obtained: Yes All systems reviewed & no additional complaints except as documented Physical Exam <KIRILL Stubbs - Last Filed: 09/15/24 18:53> General General appearance: alert and in no apparent distress Head Head exam: atraumatic and normocephalic Eye Eye exam: Present PERRL and EOMI ENT ENT exam: Present mucous membranes moist Neck Neck exam: Present normal inspection Chest Chest inspection: Present normal inspection and symmetric chest wall rise Respiratory Respiratory exam: Present normal lung sounds bilaterally; Absent respiratory distress Cardiovascular Cardiovascular exam: Present regular rate and normal rhythm Abdominal Exam Abdominal exam: Present soft and distention; Absent tenderness, guarding or rebound Extremities Exam Extremities exam: Present tenderness, edema and other (Some maceration, no overt erythema, some warmth to touch around the left lower extremity and dependent edema/1+ pitting edema, otherwise neurovascular intact. Patient moves extremity to command.) Neurological Exam Neurological exam: Present alert and oriented X3 Psychiatric Psychiatric exam: Present normal affect Skin Skin exam: Present warm and dry Medical Decision Making <KIRILL Stubbs - Last Filed: 09/15/24 18:53> Medical Records Medical records reviewed: Yes I reviewed the patient's medical records. Screening: Per USPSTF and CDC recommendations, given the prevalence of disease in our region, it is our hospital?s policy to screen for HIV and viral Hepatitis for all patients aged 18 and over and those with ongoing risk factors. James Inquiry Pt receiving controlled substance: No James was queried for this patient: No Vital Signs: 09/15/24 16:53 Temperature 97.9 F Temperature Source Oral Pulse Rate [Right Brachial] 91 H Respiratory Rate 22 Blood Pressure [Right Arm] 137/79 Blood Pressure Mean [Right Arm] 98 02 Sat by Pulse Oximetry 87 L Oxygen Delivery Method Room Air Lab Data Lab Results 09/15/24 16:49: WBC 8.0, RBC 3.80 L, Hgb 10.4 L, Hct 32.5 L, MCV 85.5, MCH 27.4, MCHC 32.0, RDW 13.6, Plt Count 320, MPV 9.8, Neut % (Auto) 71.6, Lymph % (Auto) 15.3, Collier % (Auto) 8.6, Eos % (Auto) 3.6, Baso % (Auto) 0.7, Neut # (Auto) 5.8, Lymph # (Auto) 1.2, Collier # (Auto) 0.7, Eos # (Auto) 0.3, Baso # (Auto) 0.1, PT 12.9 H, INR 1.18 H, Sodium 133 L, Potassium 3.6, Chloride 102, Carbon Dioxide 27, Anion Gap 7.6, BUN 19 H, Creatinine 1.20 H, Estimated Creat Clear 58, E stimated GFR 45 L, Est GFR ( Amer) 55 L, Glucose 172 H, Lactate 0.8, Calcium 8.9, Magnesium 1.6, Total Bilirubin 0.4, AST 28, ALT 20, Alkaline Phosphatase 126, Troponin I 0.02, NT-Pro-B Natriuret Pep 3920 H, Total Protein 7.2, Albumin 3.4 L, Globulin 3.8 H, Albumin/Globulin Ratio 0.9 L 09/15/24 18:29: Urine Color Yellow, Urine Appearance Clear, Urine pH 6.5, Ur Specific [place] 1.010, Urine Protein 3+ A, Urine Glucose (UA) Negative, Urine Ketones Negative, Urine Blood 1+ A, Urine Nitrate Negative, Urine Bilirubin Negative, Urine Urobilinogen 0.2, Ur Leukocyte Esterase Negative 09/15/24 16:49 09/15/24 16:49 Orders (Tests/Meds): ED MEDICATIONS Generic Name Dose Route Start Last Admin Trade Name Freq PRN Reason Stop Dose Admin Sodium Chloride 10 ml 09/15/24 17:42 09/15/24 17:43 Sodium Chloride 0.9% 10ml Syr (Rad Only) IV 10/15/24 17:41 10 ml NEEDED PRN Administration Maintain IV Site Discontinued Medications Generic Name Dose Route Start Last Admin Trade Name Freq PRN Reason Stop Dose Admin Ceftriaxone Sodium 1 gm/ 50 mls @ 100 mls/hr 09/15/24 17:09 09/15/24 17:30 Sodium Chloride IV 09/15/24 17:38 100 mls/hr ONCE ONE Administration Azithromycin 500 mg/ Sodium 250 mls @ 250 mls/hr 09/15/24 18:36 Chloride IV 09/15/24 18:37 ONCE ONE Iopamidol 70 ml 09/15/24 17:42 09/15/24 17:43 Iopamidol-370 (76%);100ml Bottle IV 09/15/24 17:43 70 ml ONCE ONE Administration Sodium Chloride 50 ml 09/15/24 17:42 09/15/24 17:43 0.9 % Sodium Chloride 50 Ml Vial IV 09/15/24 17:43 50 ml ONCE ONE Administration ORDERS Category Date Time Status CT angio chest PE protocol Stat Cat Scan 09/15/24 16:47 Completed POCUS Point of Care (ER Only) Stat Exams 09/15/24 16:47 Completed XR chest portable Stat Exams 09/15/24 16:45 Completed XR knee LT 3V Stat Exams 09/15/24 17:32 Completed Complete Blood Count Auto Diff Stat Lab 09/15/24 16:49 Completed Comprehensive Metabolic Panel Stat Lab 09/15/24 16:49 Completed Lactic Acid Stat Lab 09/15/24 16:49 Completed Magnesium Stat Lab 09/15/24 16:49 Completed NT Pro Brain Natriuretic Pep. Stat Lab 09/15/24 16:49 Completed PT INR [Prothrombin Time INR] Stat Lab 09/15/24 16:49 Completed Troponin I Q3H Lab 09/15/24 20:00 Ordered Troponin I Q3H Lab 09/15/24 23:00 Ordered Troponin I Stat Lab 09/15/24 16:49 Completed Urinalysis and Microscopic Stat Lab 09/15/24 18:29 Results Blood Culture Stat Micro 09/15/24 17:19 Received Medical Decision Narrative: 64-year-old female presents the emergency department with shortness of air and left lower extremity pain and swelling, differential diagnose include but not limited to, cellulitis, PE, DVT, dependent edema, lymphedema, acute CHF saturation, pulmonary edema, pneumonia, chronic venous stasis dermatitis, among others. I discussed the patient's case with the attending physician Dr. Michaud. Will obtain basic laboratory studies, lactic acid level, magnesium level proBNP ED PT/INR troponin urinalysis EKG, CTA chest, x-ray and POCUS of the left lower extremity, and left knee x-ray for further evaluate/characterization. Patient had some transient hypoxia, will place 2 L nasal cannula, patient triggering sepsis criteria with recent infection tachycardia and hypoxia, will give 1 g IV ceftriaxone, obtain blood cultures, however, will hold off on sepsis fluid bolus at this time due to history of HFpEF, orthopnea shortness of breath with hypoxia and concern for potential pulmonary edema/rural effusions that may be contributing to the hypoxia at this time. Limited DVT ultrasound Indication: Limited compression ultrasonography of the left lower extremity was performed to evaluate for non-compressibility of the deep veins in the patient. The ultrasound was performed with the following indications, as noted in the H&P: Left leg swelling Identified structures: Left [common femoral vein, femoral vein, popliteal vein were examined.] Findings: Left CFV: Good compressibility Left FV good compressibility Left Popliteal vein: Good compressibility Impression: Normal left lower extremity DVT ultrasound study without evidence of DVT Images were saved to permanent archive The study was technically adequate CPT: 86631-16-MB [id number] [id number] (complete bilateral study) This study was performed by me, and I personally interpreted all images/videos. Based on my clinical judgement, these images were adequate and did not necessitate further imaging. -Ike Michaud MD EKG demonstrates normal sinus rhythm with right bundle branch block no acute ischemic ST changes and intervals within normal limits. CBC is notable for erythrocyte opinion at 3.8, hemoglobin is decreased to 10.4, hematocrit decreased 32.5, which appears to be in line with the patient's baseline anemia CMP is notable for mild hyponatremia at 133, BUN is minimally elevated at 19, creatinine is minimally elevated at 1.2, otherwise unremarkable CMP. PT minimally elevated 12.9, INR minimally elevated at 1.18 Troponin is 0.02, proBNP is minimally elevated at 3920, no lactic acidosis I reviewed the patient's left knee x-ray along with corresponding radiologic report, small marginal osteophytes and generative changes all in the 3 compartments of the left knee, moderate prepatellar soft tissue swelling without acute osseous abnormality. I reviewed the patient's chest x-ray along the corresponding radiologic report, bibasilar opacities partially silhouette the diaphragm are favored to represent commendation of atelectasis/pleural effusion/consolidation. I reviewed the patient's CTA chest with and without contrast along the corresponding radiologic report, moderate bilateral pleural effusion with compressive atelectasis, right upper lobe airspace opacities favoring pneumonia in the setting of infection, recommend continued follow-up imaging to document resolution after treatment no CT angiographic evidence of pulmonary embolism. Will add additional dose of azithromycin 500 mg IV to cover for immunity acquired pneumonia, will also add 80 mg of IV Lasix for compressive pleural effusions. Will continue to withhold fluids bolus meeting sepsis criteria, in the setting of moderate bilateral pleural effusions with compressive atelectasis. I discussed patient case with Dr. Guillaume the on-call hospitalist at approximately 6:38 PM, he is in agreement with current admission plan/treatment plan for pneumonia and acute CHF exacerbation, requiring supplemental oxygen. Patient will be admitted to [facility]. I discussed need for admission with the patient and at the bedside patient famine agreement with current treatment plan/admission plan. Urinalysis notable for 3+ proteinuria, 1+ hematuria, negative nitrites negative leukocyte esterase. <Ike Michaud MD - Last Filed: 09/15/24 17:28> Vital Signs: 09/15/24 16:53 Temperature 97.9 F Temperature Source Oral Pulse Rate [Right Brachial] 91 H Respiratory Rate 22 Blood Pressure [Right Arm] 137/79 Blood Pressure Mean [Right Arm] 98 02 Sat by Pulse Oximetry 87 L Oxygen Delivery Method Room Air Lab Data Lab Results 09/15/24 16:49: WBC 8.0, RBC 3.80 L, Hgb 10.4 L, Hct 32.5 L, MCV 85.5, MCH 27.4, MCHC 32.0, RDW 13.6, Plt Count 320, MPV 9.8, Neut % (Auto) 71.6, Lymph % (Auto) 15.3, Collier % (Auto) 8.6, Eos % (Auto) 3.6, Baso % (Auto) 0.7, Neut # (Auto) 5.8, Lymph # (Auto) 1.2, Collier # (Auto) 0.7, Eos # (Auto) 0.3, Baso # (Auto) 0.1, PT 12.9 H, INR 1.18 H, Sodium 133 L, Potassium 3.6, Chloride 102, Carbon Dioxide 27, Anion Gap 7.6, BUN 19 H, Creatinine 1.20 H, Estimated Creat Clear 58, E stimated GFR 45 L, Est GFR ( Amer) 55 L, Glucose 172 H, Lactate 0.8, Calcium 8.9, Magnesium 1.6, Total Bilirubin 0.4, AST 28, ALT 20, Alkaline Phosphatase 126, Troponin I 0.02, NT-Pro-B Natriuret Pep 3920 H, Total Protein 7.2, Albumin 3.4 L, Globulin 3.8 H, Albumin/Globulin Ratio 0.9 L 09/15/24 18:29: Urine Color Yellow, Urine Appearance Clear, Urine pH 6.5, Ur Specific [place] 1.010, Urine Protein 3+ A, Urine Glucose (UA) Negative, Urine Ketones Negative, Urine Blood 1+ A, Urine Nitrate Negative, Urine Bilirubin Negative, Urine Urobilinogen 0.2, Ur Leukocyte Esterase Negative Orders (Tests/Meds): ED MEDICATIONS Generic Name Dose Route Start Last Admin Trade Name Freq PRN Reason Stop Dose Admin Sodium Chloride 10 ml 09/15/24 17:42 09/15/24 17:43 Sodium Chloride 0.9% 10ml Syr (Rad Only) IV 10/15/24 17:41 10 ml NEEDED PRN Administration Maintain IV Site Discontinued Medications Generic Name Dose Route Start Last Admin Trade Name Freq PRN Reason Stop Dose Admin Ceftriaxone Sodium 1 gm/ 50 mls @ 100 mls/hr 09/15/24 17:09 09/15/24 17:30 Sodium Chloride IV 09/15/24 17:38 100 mls/hr ONCE ONE Administration Azithromycin 500 mg/ Sodium 250 mls @ 250 mls/hr 09/15/24 18:36 Chloride IV 09/15/24 18:37 ONCE ONE Iopamidol 70 ml 09/15/24 17:42 09/15/24 17:43 Iopamidol-370 (76%);100ml Bottle IV 09/15/24 17:43 70 ml ONCE ONE Administration Sodium Chloride 50 ml 09/15/24 17:42 09/15/24 17:43 0.9 % Sodium Chloride 50 Ml Vial IV 09/15/24 17:43 50 ml ONCE ONE Administration ORDERS Category Date Time Status CT angio chest PE protocol Stat Cat Scan 09/15/24 16:47 Completed POCUS Point of Care (ER Only) Stat Exams 09/15/24 16:47 Completed XR chest portable Stat Exams 09/15/24 16:45 Completed XR knee LT 3V Stat Exams 09/15/24 17:32 Completed Complete Blood Count Auto Diff Stat Lab 09/15/24 16:49 Completed Comprehensive Metabolic Panel Stat Lab 09/15/24 16:49 Completed Lactic Acid Stat Lab 09/15/24 16:49 Completed Magnesium Stat Lab 09/15/24 16:49 Completed NT Pro Brain Natriuretic Pep. Stat Lab 09/15/24 16:49 Completed PT INR [Prothrombin Time INR] Stat Lab 09/15/24 16:49 Completed Troponin I Q3H Lab 09/15/24 20:00 Ordered Troponin I Q3H Lab 09/15/24 23:00 Ordered Troponin I Stat Lab 09/15/24 16:49 Completed Urinalysis and Microscopic Stat Lab 09/15/24 18:29 Results Blood Culture Stat Micro 09/15/24 17:19 Received Medical Decision Narrative: 64-year-old female presents the emergency department with shortness of air and left lower extremity pain and swelling, differential diagnose include but not limited to, cellulitis, PE, DVT, dependent edema, lymphedema, acute CHF saturation, pulmonary edema, pneumonia, chronic venous stasis dermatitis, among others. I discussed the patient's case with the attending physician Dr. Michaud. Will obtain basic laboratory studies, lactic acid level, magnesium level proBNP ED PT/INR troponin urinalysis EKG, CTA chest, x-ray and POCUS of the left lower extremity. Patient had some transient hypoxia, will place 2 L nasal cannula, patient triggering sepsis criteria with recent infection tachycardia and hypoxia, will give 1 g IV ceftriaxone, obtain blood cultures, however, will hold off on sepsis fluid bolus at this time due to history of HFpEF, orthopnea shortness of breath with hypoxia and concern for potential pulmonary edema/rural effusions that may be contributing to the hypoxia at this time. Limited DVT ultrasound Indication: Limited compression ultrasonography of the left lower extremity was performed to evaluate for non-compressibility of the deep veins in the patient. The ultrasound was performed with the following indications, as noted in the H&P: Left leg swelling Identified structures: Left [common femoral vein, femoral vein, popliteal vein were examined.] Findings: Left CFV: Good compressibility Left FV good compressibility Left Popliteal vein: Good compressibility Impression: Normal left lower extremity DVT ultrasound study without evidence of DVT Images were saved to permanent archive The study was technically adequate CPT: [id number] (complete bilateral study) This study was performed by me, and I personally interpreted all images/videos. Based on my clinical judgement, these images were adequate and did not necessitate further imaging. -Ike Michaud MD EKG demonstrates normal sinus rhythm with right bundle branch block no acute ischemic ST changes and intervals within normal limits. Critical Care <KIRILL Stubbs - Last Filed: 09/15/24 18:53> Critical Care Time Critical Care Time: No
[2024-09-15 16:53] VITALS: BP 137/79; PULSE 91; RESP 22; TEMP 36.6; O2SAT 87; BMI 29.2
--- NOTE | 2024-09-15 16:56 | ECG_ITS ---
APPROVED REPORT Exam: Resting ECG HR:88 bpm ECG Measurements Heart Rate 88 AXES PA 187 P 81 QRSd 83 QRS 97 QT 389 T 31 QTc 435 Conclusion SINUS RHYTHM BORDERLINE RIGHT AXIS DEVIATION [QRS AXIS > 90] LOW QRS VOLTAGE IN PRECORDIAL LEADS [QRS DEFLECTION < 1.0 mV IN CHEST LEADS] NONSPECIFIC T-WAVE ABNORMALITY No STEMI Electronically signed by : GERONIMO GRIGGS, 09/16/2024 02:52:54
[2024-09-15 16:59] LABS: Basophils # 0.1 K/mm3 (0-0.2); Basophils % 0.7 % (0.1-2.0); Eosinophils # 0.3 Kmm3 (0.0-0.4); Eosinophils % 3.6 % (0.1-12.0); Hematocrit 32.5 % (37.0-47.0); Hemoglobin 10.4 g/dL (12.2-16.2); Immature Granulocytes # 0.02 10^3uL; Immature Granulocytes % 0.2 %; Lymphocytes # 1.2 K/mm3 (0.7-4.5); Lymphocytes % 15.3 % (10-50); Mean Corpuscular Hemoglobin 27.4 pg (27.0-31.2); Mean Corpuscular Volume 85.5 fl (81-99); Mean Platelet Volume 9.8 fl (7.4-10.4); Monocytes # 0.7 K/mm3 (0.1-1.0); Monocytes % 8.6 % (1.7-9.3); Neutrophils # 5.8 K/mm3 (1.8-7.8); Neutrophils % 71.6 % (37.0-80.0); Nucleated Red Blood Cells # 0 10^3/uL; Nucleated Red Blood Cells % 0 %; Platelet Count 320 K/mm3 (142-424); Red Cell Distribution Width 13.6 % (11.5-17.5); Red Cell Distribution Width-SD 42.2 fL
[2024-09-15 17:01] VITALS: BP 164/85; PULSE 89; O2SAT 96
[2024-09-15 17:08] LABS: Albumin Level 3.4 g/dl (3.5-5.0); Chloride 102 mmol/L (98-107); Potassium 3.6 mmoL/L (3.5-5.1); Sodium 133 mmol/L (136-145)
[2024-09-15 17:11] LABS: Alanine Aminotransferase 20 U/L (12-78); Albumin/Globulin Ratio 0.9 (1.1-1.8); Alkaline Phosphatase 126 U/L (38-126); Anion Gap 7.6 mEq/L (5-15); Aspartate Amino Transferase 28 U/L (14-36); Bilirubin,Total 0.4 mg/dl (0.2-1.3); Blood Urea Nitrogen 19 mg/dl (7-17); Carbon Dioxide 27 mmol/L (22.0-30.0); Creatinine Clearance Estimated 58 mL/min (50-200); Estimated Glomerular Filt Rate 45 ml/min (>60); GFR (African American) 55 ML/MIN (>60); Globulin 3.8 g/dL (1.3-3.2); Glucose 172 mg/dl (74-100); Total Protein,Serum 7.2 g/dl (6.3-8.2)
[2024-09-15 17:12] LABS: Calcium 8.9 mg/dl (8.4-10.2)
[2024-09-15 17:13] LABS: INR 1.18 (0.9-1.1); Prothrombin Time 12.9 seconds (10.1-12.5)
[2024-09-15 17:20] LABS: Lactic Acid 0.8 mmol/L (0.7-2.1)
[2024-09-15 17:21] LABS: Magnesium 1.6 mg/dl (1.6-2.3)
[2024-09-15 17:23] LABS: Troponin I 0.02 ng/ml (0.00-0.034)
[2024-09-15 17:30] LABS: NT Pro Brain Natriuretic Pep. 3920 pg/mL (0-125)
[2024-09-15] MEDS: CEFTRIAXONE SODIUM 1 GM in 0.9 % SODIUM CHLORIDE 50 ML IV (17:30)
--- NOTE | 2024-09-15 17:32 | XR_ITS ---
PROCEDURE INFORMATION: Exam: XR Left Knee Exam date and time: 09/15/2024 5:43 PM Age: 64 years old Clinical indication: Pain; Knee; Left; Additional info: Left knee pain after fall TECHNIQUE: Imaging protocol: Radiologic exam of the left knee. Views: 3 views. COMPARISON: CR (KNEE LAT, KNEE, KNEE LAT) 11/17/2018 3:43 PM FINDINGS: Bones/joints: Small marginal osteophytes and degenerative changes involving the 3 compartments of the left knee. Soft tissues: Moderate prepatellar soft tissue swelling without acute osseous abnormality. IMPRESSION: 1. Small marginal osteophytes and degenerative changes involving the 3 compartments of the left knee. 2. Moderate prepatellar soft tissue swelling without acute osseous abnormality.
[2024-09-15] MEDS: 0.9 % SODIUM CHLORIDE 50 ML VIAL IV (17:43)
[2024-09-15] MEDS: SODIUM CHLORIDE 0.9% 10ML SYR (RAD ONLY) 10 ML IV (17:43)
[2024-09-15] MEDS: IOPAMIDOL-370 (76%);100ML BOTTLE 70 ML IV (17:43)
[2024-09-15 18:37] LABS: Microscopic, Urine URINE MICROSCOPIC (MICROSCOPIC)
[2024-09-15 18:41] LABS: Appearance,Urine CLEAR (Clear); Bilirubin,Urine Negative (Negative); Blood, Urine 1+ (Negative); Color,Urine YELLOW (Yellow); Glucose,Urine (UA) Negative (Negative); Ketones,Urine Negative (Negative); Leukocyte Esterase,Urine Negative (Negative); Nitrate,Urine Negative (Negative); PH,Urine 6.5 (5.0-8.5); Protein,Urine 3+ (Negative); Urobilinogen,Urine 0.2 EU/dl (0.2)
[2024-09-15 19:02] LABS: Bacteria,Urine Trace /lpf; Yeast,Urine 1+ /lpf
[2024-09-15] MEDS: AZITHROMYCIN 500 MG in 0.9 % SODIUM CHLORIDE 250 ML 250 MG IV (19:30)
[2024-09-15 19:49] VITALS: PULSE 90; RESP 19; O2SAT 96
--- NOTE | 2024-09-15 19:53 | P.HP_ITS ---
<Statement entered by Osmin Gutierrez MD - 09/21/24 16:59> Personally evaluated the patient and agree with the plan of care as outlined by the ELECTRIC CONTAINER TESTER. History of Present Illness *Admission Date: 09/15/24 *Reason for visit:: Shortness of breath *History of present illness: This is a 64-year-old female who is well-known to our service line and has a past medical history significant for ventral hernia, diabetes, atrial flutter, NSTEMI, and chronic kidney disease, gastroparesis, congestive heart failure with diastolic dysfunction, coronary artery disease, and peripheral neuropathy who presents with a chief complaint of shortness of breath. Due to patient's symptoms, she presented to the emergency room for evaluation. While in the emergency room, CTA of the chest revealed moderate bilateral pleural effusion with compressive atelectasis, right upper lobe airspace favoring pneumonia, and was negative for any pulmonary embolism. Patient was acutely hypoxic with oxygen saturations in the upper 80s requiring supplemental oxygen. As a result of these findings, hospital medicine was contacted for further management. During my evaluation of the patient, patient reports she has had a 1 to 2-day history of shortness of air, difficulty laying flat, and worsening swelling to her bilateral lower extremities. She reports having a productive cough with phlegm. Since being in the emergency room, patient states her shortness of breath has improved; however, she still is experiencing shortness of breath with exertion. It is worth mentioning that patient was recently admitted for cellulitis and DKA. She voices being compliant with her medication regimen to include Lasix, antidiabetic medication, and Xarelto. She is currently denying any chest pain, lightheadedness, dizziness, fever, chills, rigors, nausea, vomiting, or diarrhea. Additional pertinent vitals obtained include a red blood cell count of 3.80, hemoglobin of 10.4, hematocrit 32.5, INR 1.18, sodium 133, BUN 19, creatinine 1.20, GFR 45, blood glucose 172, BNP of 3920, and albumin 3.4. [facility] Disclaimer: The information contained in this section may have been updated after the patient was seen, as this information can be updated by other users. Medical History Dyspnea Bronchitis Gastritis Renal insufficiency Obesity (BMI 30-39.9) Hematoma, non-traumatic Ventral hernia Hiatal hernia Diabetes mellitus, insulin dependent (IDDM), controlled Left against medical advice Fatigue Tachycardia Dizziness Atrial flutter NSTEMI (non-ST elevated myocardial infarction) Elevated troponin Renal insufficiency Atrial fibrillation Chest pain Obesity Diabetes mellitus Surgical History H/O cardiac radiofrequency ablation 2020 Stented coronary artery Family History Other No significant family history Social History (Updated 08/24/24 @ 18:55 by Lexi Schreiber RN) Smoking Status: Never smoker second hand exposure: No alcohol intake: never substance use type: denies use current occupational status: employed Travel in the last 8 weeks?: None household members: spouse and family housing: house current occupational exposures/hazards: No caffeine: Yes Have you lived/traveled outside [place] in past 30 days?: No Contact w/someone who lives/traveled outside US past 30 days?: No Exposure to someone with infectious disease in past 14 days?: No Do you have a fever (greater than 100.4 F or 38 C)?: No Have you tested positive for COVID-19?: No Exposed to someone with COVID-19 in past 14 days?: No Do you have a sore throat?: No Do you have a cough?: No Do you have any weakness?: No Do you have any diarrhea?: No Are you experiencing any unusual bleeding?: No Do you have any muscle aches/pain?: No Do you have any abdominal pain?: No Are you experiencing loss of taste or smell?: No Other Medical History Have you received the Flu Vaccine for this season: No Have you received the Pneumonia Vaccine: No Review of Systems Review of Systems Review of systems:: pertinent systems reviewed and negative unless documented below Constitutional Constitutional: Reports system reviewed and no additional complaints, except as documented Eyes Eyes: Reports system reviewed and no additional complaints, except as documented ENT Ears, Nose, Mouth, and Throat: Reports system reviewed and no additional complaints, except as documented *Cardiovascular Cardiovascular: Reports dyspnea, Reports dyspnea on exertion and Reports edema *Respiratory Respiratory: Reports cough, Reports dyspnea and Reports dyspnea on exertion *Gastrointestinal Gastrointestinal: Reports system reviewed and no additional complaints, except as documented *Genitourinary Genitourinary: Reports system reviewed and no additional complaints, except as documented *Musculoskeletal Musculoskeletal: Reports system reviewed and no additional complaints, except as documented Integumentary/Breasts Skin/Breast: Reports system reviewed and no additional complaints, except as documented *Neurologic Neurologic: Reports system reviewed and no additional complaints, except as documented Psychiatric Psychiatric: Reports system reviewed and no additional complaints, except as documented Endocrine Endocrine: Reports system reviewed and no additional complaints, except as documented Hematologic/Lymphatic Hematologic/Lymphatic: Reports system reviewed and no additional complaints, except as documented Allergic/Immunologic Allergic/Immunologic: Reports system reviewed and no additional complaints, except as documented Meds Home Medications and Allergies Home Medications ?Medication ?Instructions ?Recorded ?Confirmed ?Type aspirin 81 mg tablet,delayed 81 mg PO DAILY 11/12/23 09/15/24 History release furosemide 40 mg tablet 40 mg PO DAILY 11/12/23 09/15/24 History sacubitril 24 mg-valsartan 26 mg 1 tab PO BID 11/12/23 09/15/24 History tablet (Entresto) atorvastatin 80 mg tablet 80 mg PO HS #90 tabs 12/05/23 09/15/24 Rx rivaroxaban 15 mg tablet (Xarelto) 15 mg PO QPMWITHMEAL 01/30/24 09/15/24 History clopidogrel 75 mg tablet 75 mg PO DAILY #90 tabs 03/05/24 09/15/24 Rx pantoprazole 40 mg tablet,delayed 40 mg PO HS 08/18/24 09/15/24 History release spironolactone 25 mg tablet 12.5 mg PO DAILY 08/18/24 09/15/24 History carvedilol 3.125 mg tablet 3.125 mg PO BIDWMEAL 08/19/24 09/15/24 History insulin glargine 100 unit/mL (3 45 unit (0.45 mL) SQ DAILY 30 days 08/26/24 09/15/24 Rx mL) subcutaneous pen (Lantus #15 mL Solostar U-100 Insulin) ketoconazole 2 % topical cream 1 applic topical BID 10 days #60 08/26/24 09/15/24 Rx grams metoclopramide HCl 10 mg tablet 10 mg PO AC 30 days #90 tabs 08/26/24 09/15/24 Rx New Prescriptions to Start Prescriptions: Allergies Allergy/AdvReac Type Severity Reaction Status Date / Time latex Allergy Rash Verified 07/07/24 15:40 Exam Data for Last 24 hours Vital signs and Labs for Last 24 Hours: Temp Pulse Resp BP Pulse Ox O2 Del Method 97.9 F 89 22 164/85 H 96 Room Air 09/15/24 16:53 09/15/24 17:01 09/15/24 16:53 09/15/24 17:01 09/15/24 17:01 09/15/24 16:53 Laboratory Results - last 24 hr 09/15/24 16:49: WBC 8.0, RBC 3.80 L, Hgb 10.4 L, Hct 32.5 L, MCV 85.5, MCH 27.4, MCHC 32.0, RDW 13.6, Plt Count 320, MPV 9.8, Neut % (Auto) 71.6, Lymph % (Auto) 15.3, Walsh % (Auto) 8.6, Eos % (Auto) 3.6, Baso % (Auto) 0.7, Neut # (Auto) 5.8, Lymph # (Auto) 1.2, Walsh # (Auto) 0.7, Eos # (Auto) 0.3, Baso # (Auto) 0.1, PT 12.9 H, INR 1.18 H, Sodium 133 L, Potassium 3.6, Chloride 102, Carbon Dioxide 27, Anion Gap 7.6, BUN 19 H, Creatinine 1.20 H, Estimated Creat Clear 58, Estimated GFR 45 L, Est GFR ( Amer) 55 L, Glucose 172 H, Lactate 0.8, Calcium 8.9, Magnesium 1.6, Total Bilirubin 0.4, AST 28, ALT 20, Alkaline Phosphatase 126, Troponin I 0.02, NT-Pro-B Natriuret Pep 3920 H, Total Protein 7.2, Albumin 3.4 L, Globulin 3.8 H, Albumin/Globulin Ratio 0.9 L 09/15/24 18:29: Urine Color Yellow, Urine Appearance Clear, Urine pH 6.5, Ur Specific [place] 1.010, Urine Protein 3+ A, Urine Glucose (UA) Negative, Urine Ketones Negative, Urine Blood 1+ A, Urine Nitrate Negative, Urine Bilirubin Negative, Urine Urobilinogen 0.2, Ur Leukocyte Esterase Negative, Urine RBC 5- 10, Urine WBC 10-20, Ur Squamous Epith Cells 5-10, Urine Bacteria Trace, Urine Yeast 1+ I & O for Last 24 hours: Intake & Output 09/12/24 09/13/24 09/14/24 09/15/24 23:59 23:59 23:59 23:59 Weight 77.111 kg Constitutional Constitutional: no acute distress, obese and cooperative *Routine HEENT Exam Head: Present normocephalic and atraumatic Eye: Present EOMI ENT: Present mucous membranes moist *Routine Neck Exam Neck: Present supple, full ROM and trachea midline *Routine Respiratory Exam Respiratory: Present decreased breath sounds, crackles, diminished air movement, able to speak in complete sentences and symmetric chest movement *Routine Cardiovascular Exam Cardiovascular: Present Normal S1 and Normal S2 *Routine Abdominal Exam Abdominal: Present soft and obese *Routine Rectal Exam Rectal:: deferred *Routine Genitalia Exam Genitalia:: deferred *Routine Extremities Exam Extremities: Present edema, full ROM, pulses intact and normal capillary refill Routine Back/Spine/Pelvis Exam Back/Spine: Present full ROM *Routine Skin Exam Skin: Present intact and dry *Routine Neurological Exam Neurological: Present alert, oriented X3, CN II-XII intact and moving all extremities Routine Psychiatric Exam Psychiatric: Present normal affect, normal thought process, cooperative, good insight and good judgment H&P: Result Impressions 64-year-old female who presents with a chief complaint of a 1-2-day history of worsening shortness of breath notably hypervolemic. Patient was recently treated for diabetic ketoacidosis with IV hydration. Currently, high suspicion for decompensation of known heart failure. Assessment and Plan *Assessment and plan (1) Acute on chronic diastolic (congestive) heart failure: Status: Acute Category: Medical Code(s): I50.33 - Acute on chronic diastolic (congestive) heart failure (2) Bilateral pleural effusion: Status: Acute Category: Medical Code(s): J90 - Pleural effusion, not elsewhere classified (3) Pneumonia: Status: Acute Qualifiers: Pneumonia type: due to unspecified organism Laterality: unspecified laterality Lung location: unspecified part of lung Qualified Code(s): J18.9 - Pneumonia, unspecified organism Category: Medical Code(s): J18.9 - Pneumonia, unspecified organism (4) Acute hypoxic respiratory failure: Status: Acute Category: Medical Code(s): J96.01 - Acute respiratory failure with hypoxia (5) CKD (chronic kidney disease): Status: Acute Qualifiers: Chronic kidney disease stage: unspecified stage Qualified Code(s): N18.9 - Chronic kidney disease, unspecified Category: Medical Code(s): N18.9 - Chronic kidney disease, unspecified Plan Assessment: Acute on chronic diastolic congestive heart failure: HFpEF -Last 2D echo showed a decrease in patient's EF of 40-45% - Will obtain echocardiogram in a.m. - 1 mg of Bumex IV twice daily - Will consider motion picture operator consultation -1500 mL fluid restriction Bilateral pleural effusions - Will obtain decubitus of the chest - Will diurese as above Pneumonia: Most likely community-acquired and bacterial - Will continue azithromycin 250 mg daily - Continue Rocephin IV daily - Will obtain blood cultures x 2 - Obtain procalcitonin Acute hypoxic respiratory failure - Will provide supplemental oxygen to maintain oxygen saturation greater than 94% - Goal will be to liberate patient from supplemental oxygen while in hospital - In the event we cannot wean patient off supplemental oxygen, will establish h ome O2 for patient at discharge Chronic kidney disease -Patient is at baseline creatinine Plan: Admit patient to the MedSurg unit on telemetry SCD to bilateral lower extremity Once patient's med rec is updated we will continue patient's Xarelto Saline lock 1800 ADA/cardiac diet CBC/BMP daily Sliding scale insulin ACH S with mild scale coverage 5 mg Hagerman p.o. every 4 hours for moderate pain 4 mg Zofran IV push every 8 hours. Nausea mom Full code I will discussed this case with attending physician Dr. caldera and I look forward to more input
[2024-09-15 20:00] VITALS: BP 169/88; PULSE 86; RESP 14; TEMP 36.6; O2SAT 96
--- NOTE | 2024-09-15 20:11 | PC.NURSE ---
Report called to [facility] for hospital admission
[2024-09-15 20:37] VITALS: BP 164/78; PULSE 67; RESP 20; TEMP 36.6; O2SAT 97
[2024-09-15 20:51] VITALS: PULSE 90
[2024-09-15 21:03] LABS: Troponin I 0.02 ng/ml (0.00-0.034)
[2024-09-15] MEDS: BUMETANIDE 1MG/4ML VIAL 1 MG IV (21:44)
[2024-09-15 22:10] LABS: POC Glucose,Bedside 146 (70-110)
[2024-09-15 23:20] LABS: Troponin I 0.02 ng/ml (0.00-0.034)
[2024-09-16] VITALS (9 sets, daily range): BP systolic 136–177; BP diastolic 66–82; PULSE 80–92; RESP 14–18; TEMP 36.4–36.9; O2SAT 90–99; BMI 32.1
--- NOTE | 2024-09-16 03:25 | PC.NURSE ---
Ms Christiane Williamson was admitted this shift on behalf of the documented diagnoses pleural effusion, pneumonia, and respiratory failure. Admission assessments were completed by me. Patient is alert and oriented. She was observed to have eyes closed, respirations even and unlabored on 2 L of oxygen via nasal cannula, and no apparent distress throughout the majority of this night. Oxygen saturations have remained > 90%. Patient's head of bed has remained positioned to at least a Semi-Davey's incline to avoid any further feelings of smothering. The patient stated that she feels smothered particularly when lying flat; she feels short of breath during ambulation and exertion activities. Thus far, she has not had any further complaints of worsening shortness of breath since her arrival to the second floor. Upon auscultation of her lungs, crackles were heard in both bases, with diminished lung sounds heard throughout. Heart and bowel sounds were within normal findings. No complaints of nausea/vomiting or dizziness. Her lower legs were assessed; both legs have moderate swelling and are shiny and without hair in appearance. The left leg has redness localized on the escamilla. A small abrasion was noted on her right knee. Patient has been ambulating independently with supervision to the bathroom. Bumex was administered per JUN to initiate diuresis this shift. Strict intake/output implemented and documented accordingly. Patient is currently on a fluid restriction diet of 1500 mL. ACHS glucose checks performed. At this time, the patient is resting in bed without any further complaints. No new needs at this time. Call light within reach.
[2024-09-16] MEDS: humaLOG 100 UNITS/ML 10ML VIAL (SSI) SUBCUT ×4 (05:15→21:08)
[2024-09-16 05:19] LABS: POC Glucose,Bedside 246 (70-110)
[2024-09-16] MEDS: METOCLOPRAMIDE 10MG TABLET 10 MG PO ×3 (05:20→16:33)
[2024-09-16 06:47] LABS: Basophils # 0.1 K/mm3 (0-0.2); Basophils % 0.8 % (0.1-2.0); Eosinophils # 0.2 Kmm3 (0.0-0.4); Eosinophils % 3.7 % (0.1-12.0); Hematocrit 27.4 % (37.0-47.0); Immature Granulocytes # 0.02 10^3uL; Immature Granulocytes % 0.3 %; Lymphocytes # 1.1 K/mm3 (0.7-4.5); Mean Corpuscular HGB Conc 30.7 g/dL (31.8-35.4); Mean Corpuscular Hemoglobin 26.6 pg (27.0-31.2); Mean Corpuscular Volume 86.7 fl (81-99); Mean Platelet Volume 10.1 fl (7.4-10.4); Monocytes # 0.7 K/mm3 (0.1-1.0); Monocytes % 11.2 % (1.7-9.3); Neutrophils # 4.3 K/mm3 (1.8-7.8); Nucleated Red Blood Cells # 0 10^3/uL; Nucleated Red Blood Cells % 0 %; Platelet Count 272 K/mm3 (142-424); Red Blood Count 3.16 M/mm3 (4.20-5.40); Red Cell Distribution Width 13.5 % (11.5-17.5); Red Cell Distribution Width-SD 42.5 fL; White Blood Count 6.4 K/mm3 (4.8-10.8)
[2024-09-16 07:04] LABS: Anion Gap 9.6 mEq/L (5-15); Blood Urea Nitrogen 18 mg/dl (7-17); Calcium 8.5 mg/dl (8.4-10.2); Carbon Dioxide 26 mmol/L (22.0-30.0); Chloride 102 mmol/L (98-107); Creatinine Clearance Estimated 64 mL/min (50-200); Estimated Glomerular Filt Rate 45 ml/min (>60); GFR (African American) 55 ML/MIN (>60); Glucose 224 mg/dl (74-100); Potassium 3.6 mmoL/L (3.5-5.1); Sodium 134 mmol/L (136-145)
--- NOTE | 2024-09-16 07:08 | P.PN_ITS ---
<Statement entered by Osmin Gutierrez MD - 09/21/24 17:00> Personally evaluated the patient and agree with the plan of care as outlined by the PANEL RAISER OPERATOR. Subjective *Date: 09/16/24 *Time: 07:08 Exam Data for Last 24 hours Vital signs and Labs for Last 24 Hours: Temp Pulse Resp BP Pulse Ox O2 Del Method O2 Flow Rate 98.4 F 89 14 145/68 H 99 Nasal Cannula 2 09/16/24 04:00 09/16/24 04:00 09/16/24 04:00 09/16/24 04:00 09/16/24 04:00 09/16/24 05:00 09/16/24 05:00 Laboratory Results - last 24 hr 09/15/24 16:49: WBC 8.0, RBC 3.80 L, Hgb 10.4 L, Hct 32.5 L, MCV 85.5, MCH 27.4, MCHC 32.0, RDW 13.6, Plt Count 320, MPV 9.8, Neut % (Auto) 71.6, Lymph % (Auto) 15.3, [place] % (Auto) 8.6, Eos % (Auto) 3.6, Baso % (Auto) 0.7, Neut # (Auto) 5.8, Lymph # (Auto) 1.2, [place] # (Auto) 0.7, Eos # (Auto) 0.3, Baso # (Auto) 0.1, PT 12.9 H, INR 1.18 H, Sodium 133 L, Potassium 3.6, Chloride 102, Carbon Dioxide 27, Anion Gap 7.6, BUN 19 H, Creatinine 1.20 H, Estimated Creat Clear 58, Estimated GFR 45 L, Est GFR ( Amer) 55 L, Glucose 172 H, Lactate 0.8, Calcium 8.9, Magnesium 1.6, Total Bilirubin 0.4, AST 28, ALT 20, Alkaline Phosphatase 126, Troponin I 0.02, NT-Pro-B Natriuret Pep 3920 H, Total Protein 7.2, Albumin 3.4 L, Globulin 3.8 H, Albumin/Globulin Ratio 0.9 L 09/15/24 18:29: Urine Color Yellow, Urine Appearance Clear, Urine pH 6.5, Ur Specific [place] 1.010, Urine Protein 3+ A, Urine Glucose (UA) Negative, Urine Ketones Negative, Urine Blood 1+ A, Urine Nitrate Negative, Urine Bilirubin Negative, Urine Urobilinogen 0.2, Ur Leukocyte Esterase Negative, Urine RBC 5- 10, Urine WBC 10-20, Ur Squamous Epith Cells 5-10, Urine Bacteria Trace, Urine Yeast 1+ 09/15/24 20:26: Troponin I 0.02 09/15/24 21:48: POC Glucose 146 H 09/15/24 22:51: Troponin I 0.02 09/16/24 05:10: POC Glucose 246 H I & O for Last 24 hours: Intake & Output 09/13/24 09/14/24 09/15/24 09/16/24 23:59 23:59 23:59 23:59 Intake Total 531 / 531 Output Total 0 / 600 800 / 800 Balance 0 / -246 -269 / -269 Weight 77.111 kg 85.502 kg Constitutional Constitutional: no acute distress *Routine HEENT Exam Head: Present normocephalic Eye: Present EOMI and PERRL *Routine Neck Exam Neck: Present supple, full ROM and trachea midline *Routine Respiratory Exam Respiratory: Present crackles, able to speak in complete sentences and symmetric chest movement *Routine Cardiovascular Exam Cardiovascular: Present Normal S1 and Normal S2 *Routine Abdominal Exam Abdominal: Present soft and normoactive bowel sounds *Routine Rectal Exam Patient deferred: visual exam *Routine Extremities Exam Extremities: Present edema, full ROM and pulses intact Routine Back/Spine/Pelvis Exam Back/Spine: Present full ROM *Routine Skin Exam Skin: Present intact and warm *Routine Neurological Exam Neurological: Present alert, oriented X3 and moving all extremities Routine Psychiatric Exam Psychiatric: Present normal affect and normal thought process Assessment and Plan *Assessment and plan (1) Acute hypoxic respiratory failure: Status: Acute Category: Medical Code(s): J96.01 - Acute respiratory failure with hypoxia (2) CKD (chronic kidney disease): Status: Acute Qualifiers: Chronic kidney disease stage: unspecified stage Qualified Code(s): N18.9 - Chronic kidney disease, unspecified Category: Medical Code(s): N18.9 - Chronic kidney disease, unspecified (3) Acute on chronic diastolic (congestive) heart failure: Status: Acute Category: Medical Code(s): I50.33 - Acute on chronic diastolic (congestive) heart failure (4) Pneumonia: Status: Acute Qualifiers: Laterality: unspecified laterality Lung location: unspecified part of lung Pneumonia type: due to unspecified organism Qualified Code(s): J18.9 - Pneumonia, unspecified organism Category: Medical Code(s): J18.9 - Pneumonia, unspecified organism (5) Bilateral pleural effusion: Status: Acute Category: Medical Code(s): J90 - Pleural effusion, not elsewhere classified Plan This is a 64-year-old female who is well-known to our service line and has a past medical history significant for ventral hernia, diabetes, atrial flutter, NSTEMI, and chronic kidney disease, gastroparesis, congestive heart failure with diastolic dysfunction, coronary artery disease, and peripheral neuropathy who presents with a chief complaint of shortness of breath. Due to patient's symptoms, she presented to the emergency room for evaluation. While in the emergency room, CTA of the chest revealed moderate bilateral pleural effusion with compressive atelectasis, right upper lobe airspace favoring pneumonia, and was negative for any pulmonary embolism. Patient was acutely hypoxic with oxygen saturations in the upper 80s requiring supplemental oxygen. As a result of these findings, hospital medicine was contacted for further management. Assessment: Acute on chronic diastolic congestive heart failure: HFpEF - 2D echo was being performed during my evaluation - Will obtain echocardiogram in a.m. - 1 mg of Bumex IV twice daily - Will consider line crewman consultation -1500 mL fluid restriction -Patient is net -269 Bilateral pleural effusions - Will obtain decubitus of the chest - Will diurese as above Pneumonia: Most likely community-acquired and bacterial - Will continue azithromycin 250 mg daily - Continue Rocephin IV daily - Will obtain blood cultures x 2 - Obtain procalcitonin Acute hypoxic respiratory failure - Will provide supplemental oxygen to maintain oxygen saturation greater than 94% - Goal will be to liberate patient from supplemental oxygen while in hospital - In the event we cannot wean patient off supplemental oxygen, will establish home O2 for patient at discharge Chronic kidney disease -Patient is at baseline creatinine Plan: Unfortunately, patient's labs are still pending we will recheck this evening Patient states she feels a lot better. She reports a decrease in her shortness of breath and inability to lay flat Due to patient's improvement, she may be stable for discharge within the next 24 to 48 hours Will continue diuresis Bilateral decubitus is depending
[2024-09-16 07:23] LABS: Procalcitonin 0.052 ng/mL (0.0-2.0)
--- NOTE | 2024-09-16 07:47 | HMH.PHAINT1 ---
Pharmacy Intervention Comments: HOME MEDICATION LIST COMPLETED USING LIST FROM OUTPATIENT PHARMACY AND PT INTERVIEW
[2024-09-16 07:50] LABS: Hemoglobin 8.7 g/dL (12.2-16.2)
--- NOTE | 2024-09-16 08:00 | XR_ITS ---
FINAL REPORT CLINICAL HISTORY: Effusion COMPARISON: 09/15/2024 FINDINGS: CHEST SPECIAL VIEWS/DECUB/LORDOTIC Portable view with bilateral decubitus views of the chest were obtained. There is mild atelectasis. Bilateral pleural effusions are present. On the decubitus views, the pleural effusions were noted to layer in the dependent portions. Mild cardiomegaly is noted. IMPRESSION: Stable moderate size layering bilateral pleural effusions. Reviewed, Interpreted and Dictated by Rene Lester MD Transcribed by Susannah Henson Authenticated and [facility]
--- NOTE | 2024-09-16 08:00 | CA_ITS ---
APPROVED REPORT EXAM: Comprehensive 2D, Doppler, and color-flow Echocardiogram Command Center Officer: Leeann Mcadams CRT Ht: 5 ft 4 in Wt: 188lbs BSA: 1.91 BP: 165/85 mmHg Indications: Congestive Heart Failure, Atrial Fibrillation, Diabetes, Pleural Effusion, ablation, stent EF 40-45% 6-8-24 2D Dimensions LA Volume 78.40 mL LA Volume Index 40.20 mL/m2 (M/F) 16-34 M-Mode Dimensions RVDd 2.98 cm (0.9-2.6) LA Diam 5.11 cm (1.9-4.0) LVDd 4.72 cm (3.5-5.7) LVDs 3.52 cm (3.5-5.7) IVSd 1.31 cm (0.6-1.1) PWd 0.50 cm (0.6-1.1) EF (Teich) 50.10% FS 25.40% EDV (Teich) 103.40 mL TAPSE 1.97 (<1.7) ESV (Teich) 51.60 mL LV Diastology E Decel Time 150 (160-240 msec) E/A Ratio 2.82 MED A' 5.70 cm/s LAT A' 6.00 cm/s Aortic Valve AO Peak GR. 9.00 mmHg Mitral Valve MV E Max Duong. 148.0 (40-130 cm/s) MV A Velocity 53.0 (40-130 cm/s) E/A Ratio 2.82 MV PHT 44.0 ms Pulmonary Valve PV Peak Velocity 197.0 (50-150 cm/s) Tricuspid Valve TR P. Velocity 252.00 cm/s RAP Estimate 10.00 mmHg RVSP 35.40 mmHg Left Ventricle The left ventricle is normal size. Left ventricular systolic function is mildly decreased. There is increased LV wall thickness. There is mild global hypokinesis present. Grade 2 diastolic dysfunction is present. LVEF is 40-45%. Right Ventricle Right ventricle is mildly dilated. Right ventricle is mildly hypokinetic. Atria Left atrium is moderately dilated. Right atrium is mildly dilated. There is no Doppler evidence of interatrial shunt. Aortic Valve The aortic valve is mildly thickened. There is no aortic valvular stenosis. Trace aortic regurgitation. Mitral Valve The mitral valve is normal in structure. No evidence of mitral valve stenosis. Mild mitral regurgitation. Tricuspid Valve Tricuspid valve is grossly normal in structure and function. Mild tricuspid regurgitation. RVSP 25 to 30 mmHg. Pulmonic Valve The pulmonary valve is normal in structure. Mild pulmonic regurgitation. Great Vessels The aortic root is normal in size. Pericardium There is small-sized, posterior pericardial effusion present. The largest pocket measures 0.8 cm in diastole. No echo indications of tamponade. There is no pleural effusion. Other Information Study Quality: Fair Conclusion Mildly reduced LV systolic function (LVEF 40-45%). Grade 2 diastolic dysfunction. Mild RV dilation with mild reduction in RV function. Biatrial dilation. Mild MR, mild TR, mild PI. Small-sized, posterior pericardial effusion present. The largest pocket measures 0.8 cm in diastole. No echo indications of tamponade. Pleural effusion. Electronically signed by : Zita Calabrese MD 09/17/2024 12:19:22
[2024-09-16] MEDS: BUMETANIDE 1MG/4ML VIAL 1 MG IV (09:44)
[2024-09-16] MEDS: SPIRONOLACTONE 25MG TABLET 12.5 MG PO (09:44)
[2024-09-16] MEDS: ASPIRIN EC 81MG TABLET 81 MG PO (09:44)
[2024-09-16] MEDS: AZITHROMYCIN 250MG TABLET 250 MG PO (09:44)
[2024-09-16] MEDS: CLOPIDOGREL 75MG TAB 75 MG PO (09:44)
[2024-09-16] MEDS: SACUBITRIL/VALSARTAN 24-26MG TABLET 1 EACH PO ×2 (09:44→21:00)
[2024-09-16] MEDS: CARVEDILOL 3.125MG TABLET 3.125 MG PO ×2 (09:44→21:00)
[2024-09-16] MEDS: INSULIN GLARGINE 100 UNITS/ML 3ML FLEXPEN 45 UNIT SUBCUT (09:45)
[2024-09-16] MEDS: KETOCONAZOLE 2% TP ×2 (09:47→21:01)
[2024-09-16 10:04] LABS: POC Glucose,Bedside 252 (70-110)
[2024-09-16] MEDS: SODIUM CHLORIDE 3% 15ML NEB 3 ML IH (11:03)
[2024-09-16] MEDS: RIVAROXABAN 15MG TABLET 15 MG PO (16:33)
[2024-09-16] MEDS: BUMETANIDE 1MG/4ML VIAL 2 MG IV (16:33)
[2024-09-16] MEDS: CEFTRIAXONE SODIUM 1 GM in 0.9 % SODIUM CHLORIDE 50 ML IV (16:33)
--- NOTE | 2024-09-16 17:26 | PC.NURSE ---
patient O2 RA saturation after walking around room is 92%. no c/o of SOB.
--- NOTE | 2024-09-16 17:53 | PC.NURSE ---
allowed for use of patients dexcom for ACHS
[2024-09-16] MEDS: ACETAMINOPHEN 325MG TAB 650 MG PO (19:34)
[2024-09-16] MEDS: PANTOPRAZOLE 40MG TABLET 40 MG PO (21:00)
[2024-09-16] MEDS: ATORVASTATIN 40MG TABLET 80 MG PO (21:00)
[2024-09-17] VITALS: PULSE 90
[2024-09-17] MEDS: ACETAMINOPHEN 325MG TAB 650 MG PO (03:47)
[2024-09-17 04:00] VITALS: BP 156/76; PULSE 80; PULSE 88; RESP 18; TEMP 36.9; O2SAT 97; BMI 31.8
--- NOTE | 2024-09-17 04:53 | PC.NURSE ---
Pt is alert and oriented x 4. Pt has c/o pain in left leg this shift and has been treated per MAR. Pt remains NSR on telemetry. Pt denies needs and has had no other acute changes to note this shift.
[2024-09-17] MEDS: METOCLOPRAMIDE 10MG TABLET 10 MG PO ×2 (05:41→12:13)
[2024-09-17] MEDS: humaLOG 100 UNITS/ML 10ML VIAL (SSI) SUBCUT ×2 (05:41→12:13)
[2024-09-17 06:49] LABS: Basophils # 0.1 K/mm3 (0-0.2); Basophils % 0.7 % (0.1-2.0); Eosinophils # 0.3 Kmm3 (0.0-0.4); Eosinophils % 3.8 % (0.1-12.0); Hemoglobin 8.5 g/dL (12.2-16.2); Immature Granulocytes # 0.02 10^3uL; Immature Granulocytes % 0.3 %; Lymphocytes # 1.3 K/mm3 (0.7-4.5); Lymphocytes % 18.1 % (10-50); Mean Corpuscular HGB Conc 31.5 g/dL (31.8-35.4); Mean Corpuscular Hemoglobin 27.1 pg (27.0-31.2); Mean Platelet Volume 10.1 fl (7.4-10.4); Monocytes # 0.8 K/mm3 (0.1-1.0); Monocytes % 11.3 % (1.7-9.3); Neutrophils # 4.7 K/mm3 (1.8-7.8); Neutrophils % 65.8 % (37.0-80.0); Nucleated Red Blood Cells # 0 10^3/uL; Nucleated Red Blood Cells % 0 %; Platelet Count 304 K/mm3 (142-424); Red Blood Count 3.14 M/mm3 (4.20-5.40); Red Cell Distribution Width 13.7 % (11.5-17.5); Red Cell Distribution Width-SD 42.5 fL; White Blood Count 7.1 K/mm3 (4.8-10.8)
[2024-09-17 06:55] LABS: Anion Gap 7.7 mEq/L (5-15); Blood Urea Nitrogen 25 mg/dl (7-17); Calcium 8.4 mg/dl (8.4-10.2); Carbon Dioxide 29 mmol/L (22.0-30.0); Chloride 102 mmol/L (98-107); Creatinine Clearance Estimated 54 mL/min (50-200); Estimated Glomerular Filt Rate 38 ml/min (>60); GFR (African American) 46 ML/MIN (>60); Glucose 132 mg/dl (74-100); Potassium 3.7 mmoL/L (3.5-5.1); Sodium 135 mmol/L (136-145)
[2024-09-17 08:00] VITALS: BP 160/83; PULSE 100; PULSE 99; RESP 16; TEMP 36.6; O2SAT 92
[2024-09-17] MEDS: SACUBITRIL/VALSARTAN 24-26MG TABLET 1 EACH PO (08:30)
[2024-09-17] MEDS: ASPIRIN EC 81MG TABLET 81 MG PO (08:30)
[2024-09-17] MEDS: CARVEDILOL 3.125MG TABLET 3.125 MG PO (08:31)
[2024-09-17] MEDS: BUMETANIDE 1MG/4ML VIAL 2 MG IV (08:31)
[2024-09-17] MEDS: SPIRONOLACTONE 25MG TABLET 12.5 MG PO (08:31)
[2024-09-17] MEDS: CLOPIDOGREL 75MG TAB 75 MG PO (08:31)
[2024-09-17] MEDS: AZITHROMYCIN 250MG TABLET 250 MG PO (08:31)
[2024-09-17] MEDS: INSULIN GLARGINE 100 UNITS/ML 3ML FLEXPEN 45 UNIT SUBCUT (08:32)
--- NOTE | 2024-09-17 08:47 | EXP.DC.SUM ---
General Admission date:: 09/15/24 Discharge date: 09/17/24 HPI HPI HPI: This is a 64-year-old female who is well-known to our service line and has a past medical history significant for ventral hernia, diabetes, atrial flutter, NSTEMI, and chronic kidney disease, gastroparesis, congestive heart failure with diastolic dysfunction, coronary artery disease, and peripheral neuropathy who presents with a chief complaint of shortness of breath. Due to patient's symptoms, she presented to the emergency room for evaluation. While in the emergency room, CTA of the chest revealed moderate bilateral pleural effusion with compressive atelectasis, right upper lobe airspace favoring pneumonia, and was negative for any pulmonary embolism. Patient was acutely hypoxic with oxygen saturations in the upper 80s requiring supplemental oxygen. As a result of these findings, hospital medicine was contacted for further management. During my evaluation of the patient, patient reports she has had a 1 to 2-day history of shortness of air, difficulty laying flat, and worsening swelling to her bilateral lower extremities. She reports having a productive cough with phlegm. Since being in the emergency room, patient states her shortness of breath has improved; however, she still is experiencing shortness of breath with exertion. It is worth mentioning that patient was recently admitted for cellulitis and DKA. She voices being compliant with her medication regimen to include Lasix, antidiabetic medication, and Xarelto. She is currently denying any chest pain, lightheadedness, dizziness, fever, chills, rigors, nausea, vomiting, or diarrhea. Additional pertinent vitals obtained include a red blood cell count of 3.80, hemoglobin of 10.4, hematocrit 32.5, INR 1.18, sodium 133, BUN 19, creatinine 1.20, GFR 45, blood glucose 172, BNP of 3920, and albumin 3.4. Hospital Course Hospital Course Hospital Course: This is a 64-year-old female who is well-known to our service line and has a past medical history significant for ventral hernia, diabetes, atrial flutter, NSTEMI, and chronic kidney disease, gastroparesis, congestive heart failure with diastolic dysfunction, coronary artery disease, and peripheral neuropathy who presents with a chief complaint of shortness of breath. Due to patient's symptoms, she presented to the emergency room for evaluation. While in the emergency room, CTA of the chest revealed moderate bilateral pleural effusion with compressive atelectasis, right upper lobe airspace favoring pneumonia, and was negative for any pulmonary embolism. Patient was acutely hypoxic with oxygen saturations in the upper 80s requiring supplemental oxygen. As a result of these findings, hospital medicine was contacted for further management. Responded well to diuresis. Weaned to room air for 24 hours. Seeing slight improvement in edema. Needs to continue to diurese but tolerating p.o. intake, on room air, stable to discharge home with further management as an outpatient. Has follow-up with PCP in the next 1 to 2 days. Discharged on increased diuretic regimen. Problems addressed as follows: #Acute on chronic diastolic congestive heart failure: HFpEF #Acute hypoxemic respiratory failure #Pneumonia #Bilateral pleural effusions -Initially needed oxygen on admission. Improved with diuresis. See plan from below. -Did have imaging findings concerning for pneumonia. Will complete 5 days of azithromycin and cefdinir. - Cultures obtained and pending. Negative at time of discharge. #Chronic kidney disease 3: Patient is at baseline creatinine of 1.4 #Type 2 diabetes: Hemoglobin A1c 12.6 last month. Lantus increased to 45 units daily. Stopped Jardiance due to UTIs. Close follow-up with PCP for further management. #CAD #HFmrEF #Hypertension #Paroxysmal A-fib ? Continue home carvedilol, Entresto, Xarelto, Plavix. Currently rate controlled. Increased diuretics. Tolerating Bumex 2 mg IV twice daily with negative fluid status during admission. Weaned off nasal cannula oxygen. Stable on room air. Still has edema in legs but improving. Continue Bumex 1 mg twice daily for the next 4 days, decrease to 1 mg daily thereafter. Increase spironolactone to 25 mg daily. Encouraged her to take steroids together once a day after she wakes up. 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 Says she responds to diuretics at home. Anticipate gradual improvement over the next week with her edema if she complies with diuretic regimen. - Echo from 09/2023: Mildly reduced LV systolic function (LVEF 40-45%). Grade 3 diastolic dysfunction. Mildly dilated RV with mild reduction in RV function. Biatrial dilation. - Echo from 09/16/2024: In general, appears stable: Mildly reduced LV systolic function (LVEF 40-45%). Grade 2 diastolic dysfunction. Mild RV dilation with mild reduction in RV function. Biatrial dilation. Mild MR, mild TR, mild PI. Small-sized, posterior pericardial effusion present. The largest pocket measures 0.8 cm in diastole. No echo indications of tamponade. (This finding was seen on echo from 1 year ago). Total time spent on discharge 32 minutes in counseling, documentation, chart review, and direct care with patient. Exam Data for Last 24 hours Vital signs and Labs for Last 24 Hours: Temp Pulse Resp BP Pulse Ox O2 Del Method O2 Flow Rate 97.9 F 99 H 16 160/83 H 92 L Room Air 2 09/17/24 08:00 09/17/24 08:00 09/17/24 08:00 09/17/24 08:00 09/17/24 08:00 09/17/24 08:00 09/16/24 11:00 Laboratory Results - last 24 hr 09/16/24 09:46: POC Glucose 252 H 09/17/24 05:40: WBC 7.1, RBC 3.14 L, Hgb 8.5 L, Hct 27.0 L, MCV 86.0, MCH 27.1, MCHC 31.5 L, RDW 13.7, Plt Count 304, MPV 10.1, Neut % (Auto) 65.8, Lymph % (Auto) 18.1, [place] % (Auto) 11.3 H, Eos % (Auto) 3.8, Baso % (Auto) 0.7, Neut # (Auto) 4.7, Lymph # (Auto) 1.3, [place] # (Auto) 0.8, Eos # (Auto) 0.3, Baso # (Auto) 0.1, Sodium 135 L, Potassium 3.7, Chloride 102, Carbon Dioxide 29, Anion Gap 7.7, BUN 25 H D, Creatinine 1.40 H, Estimated Creat Clear 54, Estimated GFR 38 L, Est GFR ( Amer) 46 L, Glucose 132 H D, Calcium 8.4 I & O for Last 24 hours: Intake & Output 09/14/24 09/15/24 09/16/24 09/17/24 23:59 23:59 23:59 23:59 Intake Total 1491 / 1731 240 / 240 Output Total 0 / 600 2800 / 2800 Balance 0 / -246 -1309 / -1069 240 / 240 Weight 77.111 kg 85.502 kg 84.55 kg Microbiology Reports for the Last 24 Hours: Microbiology 09/15/24 17:19 Blood Blood Culture - Preliminary NO GROWTH AFTER 24 HOURS 09/15/24 17:15 Blood Blood Culture - Preliminary NO GROWTH AFTER 24 HOURS Constitutional Constitutional: no acute distress, obese, chronically ill appearing and cooperative *Routine HEENT Exam Head: Present normocephalic Eye: Present EOMI and PERRL ENT: Present mucous membranes moist *Routine Neck Exam Neck: Present supple; Absent lymphadenopathy *Routine Respiratory Exam Respiratory: Present prolonged expiratory phase, crackles (fine in bases) and normal respiratory effort; Absent rhonchi or wheezes *Routine Cardiovascular Exam Cardiovascular: Present RRR *Routine Abdominal Exam Abdominal: Present soft and normoactive bowel sounds; Absent tenderness *Routine Rectal Exam Patient deferred: visual exam *Routine Exam Patient deferred: external exam *Routine Extremities Exam Extremities: Present edema (2+ to knees); Absent cyanosis or clubbing *Routine Skin Exam Skin: Present warm; Absent rash *Routine Neurological Exam Neurological: Present alert, oriented X3 and moving all extremities; Absent altered mental status Results Data Completed and Pending Labs on day of discharge: Labs from last 24 hours 09/17/24 09/16/24 05:40 09:46 WBC 7.1 RBC 3.14 L Hgb 8.5 L Hct 27.0 L MCV 86.0 MCH 27.1 MCHC 31.5 L RDW 13.7 Plt Count 304 MPV 10.1 Neut % (Auto) 65.8 Lymph % (Auto) 18.1 [place] % (Auto) 11.3 H Eos % (Auto) 3.8 Baso % (Auto) 0.7 Neut # (Auto) 4.7 Lymph # (Auto) 1.3 [place] # (Auto) 0.8 Eos # (Auto) 0.3 Baso # (Auto) 0.1 Sodium 135 L Potassium 3.7 Chloride 102 Carbon Dioxide 29 Anion Gap 7.7 BUN 25 H D Creatinine 1.40 H Estimated Creat Clear 54 Estimated GFR 38 L Est GFR ( Amer) 46 L Glucose 132 H D POC Glucose 252 H Calcium 8.4 Preliminary micro results at discharge 09/15/24 17:19 Blood Culture - Preliminary Blood NO GROWTH AFTER 24 HOURS 09/15/24 17:15 Blood Culture - Preliminary Blood NO GROWTH AFTER 24 HOURS DS: Diagnosis Discharge Diagnosis (1) Acute hypoxic respiratory failure: Status: Acute Code(s): J96.01 - Acute respiratory failure with hypoxia (2) CKD (chronic kidney disease): Status: Acute Code(s): N18.9 - Chronic kidney disease, unspecified Qualifiers: Chronic kidney disease stage: unspecified stage Qualified Code(s): N18.9 - Chronic kidney disease, unspecified (3) Acute on chronic diastolic (congestive) heart failure: Status: Acute Code(s): I50.33 - Acute on chronic diastolic (congestive) heart failure (4) Pneumonia: Status: Acute Code(s): J18.9 - Pneumonia, unspecified organism Qualifiers: Laterality: unspecified laterality Lung location: unspecified part of lung Pneumonia type: due to unspecified organism Qualified Code(s): J18.9 - Pneumonia, unspecified organism (5) Bilateral pleural effusion: Status: Acute Code(s): J90 - Pleural effusion, not elsewhere classified Meds Home Medications and Allergies Home Medications ?Medication ?Instructions ?Recorded ?Confirmed ?Type aspirin 81 mg tablet,delayed 81 mg PO DAILY 11/12/23 09/15/24 History release sacubitril 24 mg-valsartan 26 mg 1 tab PO BID 11/12/23 09/15/24 History tablet (Entresto) atorvastatin 80 mg tablet 80 mg PO HS #90 tabs 12/05/23 09/15/24 Rx rivaroxaban 15 mg tablet (Xarelto) 15 mg PO QPMWITHMEAL 01/30/24 09/15/24 History clopidogrel 75 mg tablet 75 mg PO DAILY #90 tabs 03/05/24 09/15/24 Rx pantoprazole 40 mg tablet,delayed 40 mg PO HS 08/18/24 09/15/24 History release carvedilol 3.125 mg tablet 3.125 mg PO BIDWMEAL 08/19/24 09/15/24 History insulin glargine 100 unit/mL (3 45 unit (0.45 mL) SQ DAILY 30 days 08/26/24 09/15/24 Rx mL) subcutaneous pen (Lantus #15 mL Solostar U-100 Insulin) ketoconazole 2 % topical cream 1 applic topical BID 10 days #60 08/26/24 09/15/24 Rx grams metoclopramide HCl 10 mg tablet 10 mg PO AC 30 days #90 tabs 08/26/24 09/15/24 Rx azithromycin 250 mg tablet 250 mg PO DAILY 3 days #3 tabs 09/17/24 Rx bumetanide 1 mg tablet 1 mg PO DAILY #30 tabs 09/17/24 Rx cefdinir 300 mg capsule 300 mg PO BID #6 caps 09/17/24 Rx spironolactone 25 mg tablet 25 mg PO DAILY 30 days #30 tabs 09/17/24 Rx New Prescriptions to Start Prescriptions: giorgio Guillaume,Govind bumetanide Markell,Govind cefdinir Markell,Govind spironolactone Markell,Govind Allergies Allergy/AdvReac Type Severity Reaction Status Date / Time latex Allergy Rash Verified 07/07/24 15:40 Discharge Plan Disposition Patient Disposition: Home, Self-Care Condition: Fair Follow up Plan Follow up with: Faisal Carpenter MD [Primary Care Provider] - 09/24/24 11:40 am Prescriptions/Medication Reconciliation: New azithromycin 250 mg Tablet 250 mg PO DAILY 3 Days Qty: 3 0RF bumetanide 1 mg tablet 1 mg PO DAILY Qty: 30 0RF Rx Instructions: take 1 tab BID for the next 4 days, then once a day thereafter cefdinir 300 mg capsule 300 mg PO BID Qty: 6 0RF spironolactone 25 mg Tablet 25 mg PO DAILY 30 Days Qty: 30 0RF Continued Xarelto 15 mg tablet 15 mg PO QPMWITHMEAL atorvastatin 80 mg tablet 80 mg PO HS Qty: 90 3RF clopidogrel 75 mg tablet 75 mg PO DAILY Qty: 90 3RF aspirin 81 mg tablet,delayed release (DR/EC) 81 mg PO DAILY Patient Comments: TAKE ONE TABLET BY MOUTH EVERY DAY Entresto 24-26 mg tablet 1 tab PO BID Patient Comments: TAKE ONE TABLET BY MOUTH TWICE DAILY pantoprazole 40 mg tablet,delayed release (DR/EC) 40 mg PO HS carvedilol 3.125 mg tablet 3.125 mg PO BIDWMEAL Patient Comments: TAKE ONE TABLET BY MOUTH TWICE DAILY WITH FOOD ketoconazole 2 % Cream 1 applic topical BID 10 Days Qty: 60 0RF metoclopramide HCl 10 mg tablet 10 mg PO AC 30 Days Qty: 90 0RF insulin glargine [Lantus Solostar U-100 Insulin] 100 unit/mL (3 mL) insulin pen 45 unit SQ DAILY 30 Days Qty: 15 0RF Discontinued furosemide 40 mg tablet 40 mg PO DAILY Patient Comments: TAKE ONE TABLET BY MOUTH EVERY DAY spironolactone 25 mg tablet 12.5 mg PO DAILY Problem Reconciliation Problems Reviewed?: Yes Patient Discharge Instructions ACTIVITY: Continue current activity DIET: continue same diet Patient Instructions: DI for Pneumonia -- Adult, DI for Respiratory Failure Print Language: Faroese Providers Primary Care Provider: Faisal Carpenter Admit Provider: Osmin Gutierrez Attending Provider: Osmin Gutierrez
[2024-09-17] MEDS: KETOCONAZOLE 2% TP (10:03)
[2024-09-17 12:00] VITALS: PULSE 80
--- NOTE | 2024-09-18 10:51 | SW/DCPLANNER ---
Spoke with patient on the phone. Patient stated that she is doing okay. Patient stated that she is aware of her upcoming appointment. Patient stated that clinic pharmacy brought her medicine to her room. Patient stated that she has no concerns or questions at this time. Burak Quiroz
== END 2024-09-17 15:32 | disposition home or self-care (01) ==
LOC: ER 18:41 → 2ND 19:47
PROVIDERS: Nurse Practitioner Family; Physician Assistant; Admitting Provider Student in an Organized Health Care Education/Training Program; Emergency Provider Emergency Medicine; PCP Family Medicine; Visit Provider Student in an Organized Health Care Education/Training Program
DX: J90 Pleural effusion, not elsewhere classified (principal); I13.0 Hypertensive heart and chronic kidney disease with heart failure and stage 1 through stage 4 chronic kidney disease, or unspecified chronic kidney disease; I50.33 Acute on chronic diastolic (congestive) heart failure; J96.01 Acute respiratory failure with hypoxia; N18.30 Chronic kidney disease, stage 3 unspecified; E11.42 Type 2 diabetes mellitus with diabetic polyneuropathy; E11.22 Type 2 diabetes mellitus with diabetic chronic kidney disease; E66.9 Obesity, unspecified; I25.2 Old myocardial infarction; I48.0 Paroxysmal atrial fibrillation; I25.10 Atherosclerotic heart disease of native coronary artery without angina pectoris; J18.9 Pneumonia, unspecified organism; E78.5 Hyperlipidemia, unspecified; K43.9 Ventral hernia without obstruction or gangrene; Z79.899 Other long term (current) drug therapy; Z68.31 Body mass index [BMI] 31.0-31.9, adult; Z95.5 Presence of coronary angioplasty implant and graft; Z79.82 Long term (current) use of aspirin; Z79.4 Long term (current) use of insulin; Z79.01 Long term (current) use of anticoagulants; Z79.02 Long term (current) use of antithrombotics/antiplatelets; Z91.040 Latex allergy status; Z91.81 History of falling; Z87.19 Personal history of other diseases of the digestive system
CPT/HCPCS: 36415; 71045; 71275; 73562; 80048; 80053; 81001; 82962; 83605; 83735; 83880; 84145; 84484; 85025; 85610; 87040; 87086; 93005; 93306; 99285; G0378; J0456; J0696; J1939; J7050; Q9967

== ENCOUNTER 2024-09-24 12:27 | Outpatient (CLI) | payer MEDICAID, SELFPAY ==
[2024-09-24 18:55] LABS: Basophils # 0.1 K/mm3 (0-0.2); Basophils % 0.7 % (0.1-2.0); Eosinophils # 0.2 Kmm3 (0.0-0.4); Eosinophils % 2.3 % (0.1-12.0); Hematocrit 31.5 % (37.0-47.0); Hemoglobin 9.5 g/dL (12.2-16.2); Immature Granulocytes # 0.02 10^3uL; Immature Granulocytes % 0.2 %; Lymphocytes # 1.1 K/mm3 (0.7-4.5); Lymphocytes % 12.6 % (10-50); Mean Corpuscular HGB Conc 30.2 g/dL (31.8-35.4); Mean Corpuscular Hemoglobin 26.5 pg (27.0-31.2); Mean Platelet Volume 10.2 fl (7.4-10.4); Monocytes # 0.8 K/mm3 (0.1-1.0); Monocytes % 9.2 % (1.7-9.3); Neutrophils # 6.3 K/mm3 (1.8-7.8); Nucleated Red Blood Cells # 0 10^3/uL; Nucleated Red Blood Cells % 0 %; Platelet Count 355 K/mm3 (142-424); Red Blood Count 3.58 M/mm3 (4.20-5.40); Red Cell Distribution Width 13.6 % (11.5-17.5); Red Cell Distribution Width-SD 44.4 fL; White Blood Count 8.4 K/mm3 (4.8-10.8)
[2024-09-24 19:48] LABS: Alanine Aminotransferase 21 U/L (12-78); Albumin Level 3.1 g/dl (3.5-5.0); Albumin/Globulin Ratio 0.9 (1.1-1.8); Alkaline Phosphatase 126 U/L (38-126); Anion Gap 12.7 mEq/L (5-15); Aspartate Amino Transferase 21 U/L (14-36); Bilirubin,Total 0.4 mg/dl (0.2-1.3); Blood Urea Nitrogen 25 mg/dl (7-17); Calcium 8.5 mg/dl (8.4-10.2); Carbon Dioxide 24 mmol/L (22.0-30.0); Chloride 103 mmol/L (98-107); Estimated Glomerular Filt Rate 41 ml/min (>60); GFR (African American) 50 ML/MIN (>60); Globulin 3.5 g/dL (1.3-3.2); Glucose 177 mg/dl (74-100); Potassium 4.7 mmoL/L (3.5-5.1); Sodium 135 mmol/L (136-145); Total Protein,Serum 6.6 g/dl (6.3-8.2)
[2024-09-24 20:26] LABS: Iron 44 ug/dL (37-170)
[2024-09-24 20:44] LABS: Total Iron Binding Capacity 278 ug/dL (265-497)
== END 2024-09-24 23:59 | disposition home or self-care (01) ==
LOC: LAB.DROPOF 09-25 13:40
PROVIDERS: PCP Family Medicine; Visit Provider Family Medicine
DX: N18.9 Chronic kidney disease, unspecified (principal); D63.1 Anemia in chronic kidney disease
CPT/HCPCS: 80053; 82728; 83540; 83550; 85025

== ENCOUNTER 2024-10-09 14:17 | Outpatient (CLI) | payer MEDICAID, SELFPAY ==
[2024-10-09 18:34] LABS: Anion Gap 7.5 mEq/L (5-15); Blood Urea Nitrogen 37 mg/dl (7-17); Calcium 10.2 mg/dl (8.4-10.2); Carbon Dioxide 26 mmol/L (22.0-30.0); Chloride 101 mmol/L (98-107); Estimated Glomerular Filt Rate 41 ml/min (>60); GFR (African American) 50 ML/MIN (>60); Glucose 232 mg/dl (74-100); Potassium 4.5 mmoL/L (3.5-5.1); Sodium 130 mmol/L (136-145)
--- OUTSIDE RECORDS SUMMARY | 2024-10-09 22:53 | XMS_ITS | Clinical Summary ---
Author Organization [facility] Address [address] [place] [address] Phone Care Team Providers Care Adaptive Physical Educator Name Role Phone Unavailable Primary Care Provider Unavailabl e Allergies No known active allergies Medications metoprolol succinate ER (TOPROL-XL) 100 mg Oral Tablet Sustained Release 24 hr Take 100 mg by mouth daily. Active nitroGLYCERIN (NITROSTAT) 0.4 mg SL Tablet, Sublingual Place under the tongue every 5 minutes as needed for Chest pain. Active rivaroxaban (XARELTO) 20 mg Oral Tablet Take 20 mg by mouth daily. Active diltiazem (DILACOR XR) 240 mg Oral Capsule,Degrada ble Cnt Release Take 240 mg by mouth daily. Active aspirin 81 mg Oral Tablet, Chewable Take 81 mg by mouth daily. Active clopidogrel (PLAVIX) 75 mg Oral Tablet Take by mouth daily. Active atorvastatin (LIPITOR) 80 mg Oral Tablet Take 80 mg by mouth daily. Active spironolactone (ALDACTONE) 25 mg Oral Tablet Take 25 mg by mouth daily. Active insulin NPH (HUMULIN N;NOVOLIN N) 100 unit/mL (3 mL) SubQ Insulin Pen Subcutaneous (Inject under the skin) daily (with breakfast). Active lisinopril (PRINIVIL;ZESTR IL) 10 mg Oral Tablet Take 10 mg by mouth nightly. Active fUROsemide (LASIX) 20 mg Oral Tablet Take by mouth every 12 hours. Active Omeprazole 20 mg Oral Tablet, Delayed Release (E.C.) Take 20 mg by mouth 2 times daily. Active Active Problems Problem Noted Date Diagnosed Date PAF (paroxysmal atrial fibrillation) 12/16/2017 Atrial flutter 12/16/2017 Social History Tobacco Use Types Packs/Day Years Used Date Smoking Tobacco: Never Assessed Comments Unknown Sex and Gender Information Value Date Recorded Sex Assigned at Not on file Legal Sex Female 9:17 AM EDT Gender Identity Not on file Sexual Orientation Not on file Plan of Treatment Health Maintenance Due Date Last Done Comments Annual Wellness Exam 06/30/1963 Hepatitis C Screening 1978 DTaP/TDaP/Td (1 - Tdap) 06/30/1979 Cervical Cancer Screening 1981 Pap Smear 1981 HPV/Pap Cotest 1990 Breast Cancer Screening 2000 Cologuard 2005 Colon Cancer Screening 2005 Colonoscopy 2005 FIT 2005 Sigmoidoscopy 2005 Virtual Colonography 2005 Pneumococcal Vaccine 50+ (1 of 1 - PCV) 2010 Zoster (1 of 2) 2010 COVID-19 Vaccine ( - 2023-2 5 season) 2023 Influenza Vaccine (Season Ended) 2024 Hepatitis B Vaccine Aged Out No longe r eligible based on patient's age to complete this topic Meningococcal B Vaccine Aged Out No l onger eligible based on patient's age to complete this topic Insurance [employer] PPO
--- OUTSIDE RECORDS SUMMARY | 2024-10-09 22:53 | XMS_ITS | Clinical Summary ---
Author Organization [facility] Address [address] [place] [address] Care Team Providers Care Airport Screener Name Role Phone Ness Ann APRN Primary Care Provider [phone] Allergies Active Allergy Reactions Criticality Noted Date Comments Latex Rash Low 05/24/2019 Medications Brimonidine Tartrate 0.025 % solution 07/18/2020 Active dilTIAZem 100 MG injection 07/18/2020 Active pantoprazole (ProtoNix) 20 MG EC tablet 07/18/2020 Active Glucose Blood (TRUE METRIX BLOOD GLUCOSE TEST ) 04/19/2020 Active ascorbic acid (Vitamin C Gummies) 125 mg chewable tablet 07/18/2020 Act rubin TRUEplus Lancets 33G misc 04/19/2020 Active ATORVASTATIN CALCIUM PO 07/18/2020 Active cholecalciferol (Vitamin D-3) 25 MCG (1000 UT) tablet 07/18/2020 Active clopidogrel (Plavix) 75 MG tablet 07/18/2020 Active dilTIAZem ER (Tiazac) 240 MG 24 hr capsule 06/08/2020 Activ e insulin glargine (Lantus) 100 UNIT/ML injection Active insulin NPH-insulin regular (NovoLIN 70/30) (70-30) 100 UNIT/ML injection 06/13/2020 Active latanoprost (Xalatan) 0.005 % ophthalmic solution 07/18/2020 Active LISINOPRIL PO 07/18/2020 Activ e rivaroxaban (Xarelto) 20 MG tablet 05/26/2020 Active SPIRONOLACTONE PO Active timolol (Timoptic) 0.5 % ophthalmic solution 08/15/2020 Active Alcohol Swabs (Alcohol Prep) pads USE 3 times a DAY DIRECTED 04/19/2020 Active aspirin 81 MG chewable tablet Acti ve Continuous Blood Gluc Beef Boner (Dexcom G6 catering operations manager) device 05/12/2020 Active Continuous Blood Gluc Sensor (Dexcom G6 Sensor) misc USE DIRECTED TO TEST BLOOD GLUCOSE LEVEL 09/16/2020 Active Continuous Blood Gluc Transmit (Dexcom G6 transmitter) misc USE DIRECTED TO TEST BLOOD GLUCOSE LEVEL 09/16/2020 Active dilTIAZem CD (Cardizem CD) 240 MG 24 hr capsule 09/08/2020 Active ergocalciferol (Vitamin D-2) 1.25 MG (35873 UT) capsule 06/04/2019 Active furosemide (Lasix) 20 MG tablet Active insulin NPH, Isophane, (HumuLIN N,NovoLIN N) 100 UNIT/ML injection Active BD Insulin Syringe U/F 31G X 09/11 1 ML misc 09/21/2020 Active metoprolol succinate XL (Toprol-XL) 100 MG 24 hr tablet Acti ve nitroglycerin (Nitrostat) 0.4 MG SL tablet Active omeprazole OTC (PriLOSEC OTC) 20 MG EC tablet Acti ve prednisoLONE acetate (Pred-Forte) 1 % ophthalmic suspension INSTILL 1 DROP INTO LEFT EYE FOUR TIMES DAILY 07/18/2020 Active ATORVASTATIN CALCIUM PO 07/18/2020 Active rivaroxaban (Xarelto) 20 MG tablet 05/26/2020 Active insulin glargine (Lantus) 100 UNIT/ML injection 06/13/2020 Active LISINOPRIL PO 07/18/2020 Activ e insulin NPH-insulin regular (NovoLIN 70/30) (70-30) 100 UNIT/ML injection 06/13/2020 Active SPIRONOLACTONE PO 07/18/2020 Active PANTOPRAZOLE SODIUM PO 07/18/2020 Active DILTIAZEM HCL PO 07/18/2020 Active glucose blood (True Metrix Blood Glucose Test) test strip USE THREE TIMES DAILY 04/19/2020 Active BRIMONIDINE TARTRATE-TIMOLO L OP INSTILL 1 DROP 3 times daily into OS 07/18/2020 Active TRUEplus Lancets 33G misc USE THREE TIMES DAILY 04/19/2020 Active Ascorbic Acid (VITAMIN C GUMMIES PO) 07/18/2020 Active Active Problems Problem Noted Date Diagnosed Date Type 2 diabetes mellitus without complication After cataract not obscuring vision, bilateral 0 08/09/2020 Glaucoma associated with lens disorder 1 Microalbuminuria 08/13/2019 Essential hypertension 08/27/2018 Persistent atrial fibrillation 08/27/2018 Sleep disturbance 08/27/2018 Atrial flutter 12/16/2017 Family History Medical History Relation Name Comments Diabetes Brother Conversions - Other Father Macular degeneration, wet Diabetes Father Hypertension Father Vision loss Father Diabetes Other 1 Hypertension Other 2 Diabetes Sister Muscular dystrophy Son Relation Name Status Comments Brother Father Other 1 Other 2 Sister Son Social History Tobacco Use Types Packs/Day Years Used Date Smoking Tobacco: Never Smokeless Tobacco: Never Alcohol Use Standard Drinks/Week Comments No 0 (1 standard drink = 0.6 oz pur e alcohol) Comments Unknown Sex and Gender Information Value Date Recorded Sex Assigned at Not on file Legal Sex Female 7:04 PM EDT Gender Identity Not on file Sexual Orientation Not on file Plan of Treatment Health Maintenance Due Date Last Done Comments [facility]-Depression Screening 1960 [facility]-Infant/Child/Adol SDOH Screenings 1960 [facility]- SDOH Screenings 1978 [facility]-Adult SDOH Screenings 1978 [facility]-DTaP,Tdap,and Td Vaccine s (1 - Tdap) 06/30/1979 [facility]-Pap Smear 1981 [facility]-Cervical Cancer Screening 1990 [facility]-HPV/Cotest 1990 CT Colonography 2005 Colonoscopy 2005 FIT-DNA 2005 FIT 2005 FOBT 2005 Sigmoidoscopy 2005 [facility]-Colorectal Cancer Screening 2005 [facility]-Pneumococcal Vaccine: 50 + Years (1 of 1 - PCV) 2010 [facility]-Zoster Vaccines (1 of 2) 2010 [id number] Vaccine (1 - 20 24-25 season) 2023 [facility]-Influenza Vaccine ([place] Ended) 2024 [facility]-RSV Vaccine: 60+ Years o r (1 - 1-dose 75+ series) 06/30/2035 [facility]-Diabetes: Hemoglobin A1C Discontinued 05/24/2019 HPV Vaccines Aged Out No longer eligi ble based on patient's age to complete this topic [facility]-HIB Vaccines Aged Out No longer e ligible based on patient's age to complete this topic [facility]-Hepatitis A Vaccines Aged Out No longer eligible based on patient's age to complete this topic [facility]-IPV Vaccines Aged Out No longer e ligible based on patient's age to complete this topic [facility]-Rotavirus Vaccines Aged Out No lo nger eligible based on patient's age to complete this topic Care Teams Airport Screener Relationship Specialty Start Date End Date Ness Ann, MAKENZIE [address] [place] [id number] PCP - General 09/09/20
== END 2024-10-09 23:59 | disposition home or self-care (01) ==
LOC: LAB.DROPOF 22:51
PROVIDERS: PCP Family Medicine; Visit Provider Family Medicine
DX: N18.9 Chronic kidney disease, unspecified (principal)
CPT/HCPCS: 80048

== ENCOUNTER 2025-01-18 13:13 | Outpatient (CLI) | payer MEDICAID, SELFPAY ==
[2025-01-18 19:38] LABS: Hematocrit 31.4 % (37.0-47.0); Hemoglobin 10.5 g/dL (12.2-16.2); Immature Granulocytes % 0.3 %; Mean Corpuscular HGB Conc 33.4 g/dL (31.8-35.4); Mean Corpuscular Hemoglobin 27.6 pg (27.0-31.2); Mean Corpuscular Volume 82.4 fl (81-99); Nucleated Red Blood Cells % 0 %; Platelet Count 269 K/mm3 (142-424); Red Blood Count 3.81 M/mm3 (4.20-5.40); Red Cell Distribution Width-SD 39.1 fL; White Blood Count 7.6 K/mm3 (4.8-10.8)
[2025-01-18 20:14] LABS: Chloride 99 mmol/L (98-107); Potassium 4.6 mmoL/L (3.5-5.1); Sodium 132 mmol/L (136-145)
[2025-01-18 20:17] LABS: Anion Gap 14.6 mEq/L (5-15); Blood Urea Nitrogen 37 mg/dl (7-17); Carbon Dioxide 23 mmol/L (22.0-30.0); Creatinine,Serum 1.30 mg/dl (0.52-1.04); Estimated Glomerular Filt Rate 41 ml/min (>60); GFR (African American) 50 ML/MIN (>60)
[2025-01-18 20:18] LABS: Calcium 9.0 mg/dl (8.4-10.2); Glucose 240 mg/dl (74-100)
--- OUTSIDE RECORDS SUMMARY | 2025-01-19 14:27 | XMS_ITS | Clinical Summary ---
Author Organization [facility] Address [address] [place] [address] Care Team Providers Care Nursing Teacher Name Role Phone Ness Ann APRN Primary Care Provider [phone]- [phone] Allergies Active Allergy Reactions Criticality Noted Date [...] chewable tablet Acti ve Continuous Blood Gluc Diplomatic Interpreter (Dexcom G6 electric motor controls assembler) device 05/12/2020 Active Continuous Blood Gluc Sensor (Dexcom G6 Sensor) misc USE DIRECTED TO TEST BLOOD GLUCOSE LEVEL 09/16/2020 Active Continuous Blood Gluc Transmit (Dexcom G6 transmitter) misc USE DIRECTED TO TEST BLOOD GLUCOSE LEVEL 09/16/2020 Active dilTIAZem CD (Cardizem CD) 240 MG 24 hr capsule 09/08/2020 Active ergocalciferol (Vitamin D-2) 1.25 MG (24232 UT) capsule 06/04/2019 Active furosemide (Lasix) 20 MG tablet Active insulin NPH, Isophane, (HumuLIN N,NovoLIN N) 100 UNIT/ML injection Active BD Insulin Syringe U/F 31G X 5/16 1 ML misc 09/21/2020 Active metoprolol succinate [...] 0 08/09/2020 Glaucoma associated with lens disorder Microalbuminuria 08/13/2019 Essential hypertension 08/27/2018 Persistent atrial [...] 2010 [facility]-Zoster Vaccines (1 of 2) 2010 [id number] Vaccine (1 - 20 24-25 season) 2024 [facility]-Influenza Vaccine (#1) 2024 [facility]-RSV Vaccine: 60+ Years o r [...] patient's age to complete this topic Insurance [facility] MEDICAID Care Teams Nursing Teacher Relationship Specialty Start Date End Date Ness Ann APRN [address] [place] [address] PCP - General 09/09/20
--- OUTSIDE RECORDS SUMMARY | 2025-01-19 14:27 | XMS_ITS | Clinical Summary ---
Author Organization [facility] Address [address] [place] [address] Care Team Providers Care Traffic Ii Manager Name Role Phone Anyi Raymundo Primary Care Provider [phone] Allergies Active Allergy Reactions Criticality Noted Date Comments Latex Rash Low 05/24/2019 Medications rivaroxaban (XARELTO) 20 MG tablet Take 20 mg by mouth Daily. Stop 05/23/[address] Nava Active diltiaZEM CD (CARDIZEM CD) 240 MG 24 hr capsule Take 240 mg by mouth Daily. Active atorvastatin (LIPITOR) 80 MG tablet Take 40 mg by mouth Every Night. Active clopidogrel (PLAVIX) 75 MG tablet Take 75 mg by mouth Daily. Active lisinopril (PRINIVIL,ZESTR IL) 10 MG tablet Take 10 mg by mouth Every Night. Active spironolactone (ALDACTONE) 25 MG tablet Take 25 mg by mouth Daily. Active pantoprazole (PROTONIX) 40 MG EC tablet Take 40 mg by mouth Daily. Active vitamin D (ERGOCALCIFEROL ) 1.25 MG (43767 UT) capsule capsule Take 50,000 Units by mouth 1 (One) Time Per Week. 0 Active Active Problems Problem Noted Date Diagnosed Date Persistent atrial fibrillation 08/27/2018 Essential hypertension 08/27/2018 Sleep disturbance 08/27/2018 Family History Medical History Relation Name Comments Hypertension Brother Diabetes Father Cystic fibrosis Mother Diabetes Sister Relation Name Status Comments Brother Alive Father Mother Alive Sister Alive Social History Tobacco Use Types Packs/Day Years Used Date Smoking Tobacco: Never Smokeless Tobacco: Never Alcohol Use Standard Drinks/Week Comments No 0 (1 standard drink = 0.6 oz pur e alcohol) AUDIT-C Answer Date Recorded Frequency of Alcohol Consumption Never 08/27/2018 Average Number of Drinks Not on file 019 Frequency of Binge Drinking Not on file 04/2018 Abuse Screen Answer Date Recorded Unsafe at Home or Work/School Not on file Feels Threatened by Someone? Not on file 12/2022 Does Anyone Keep You from Co ntacting Others or Doint Things Outside the Home? Not on file 02/04/2023 Physical Sign of Abuse Present Not on file 1 Housing Stability Answer Date Recorded Current Living Arrangements Not on file 12/2022 Potentially Unsafe Housing Conditions Not on yassine e 02/04/2023 Family and Community Support Answer John e Recorded Help with Day-to-Day Activities Not on file 02/04/2023 Lonely or Isolated Not on file 02/04/2023 Employment Answer Date Recorded Do you want help finding or keeping work or a sameer b? Not on file 02/04/2023 Disabilities Answer Date Recorded Concentrating, Remembering, or Making Decisions Difficulty Not on file 02/04/2023 Doing Errands Independently Difficulty Not on fi le 02/04/2023 Education Answer Date Recorded Help with school or training? Not on file Preferred Language Not on file 02/04/2023 Comments No Sex and Gender Information Value Date Recorded Sex Assigned at Not on file Legal Sex Female 12:09 PM EDT Gender Identity Not on file Sexual Orientation Not on file Last Filed Vital Signs Vital Sign Reading Time Taken Comments Blood Pressure 145/82 06/26/2019 11:07 AM EST Pulse 87 06/26/2019 11:07 AM EST regu lar Temperature 36.1 C (96.9 F) 06/26/2019 11:07 AM EST Respiratory Rate 18 06/26/2019 11:07 AM EST Oxygen Saturation 99% 06/26/2019 11:07 AM EST room air Inhaled Oxygen Concentration - - Weight 94.8 kg (209 lb) 06/26/2019 11:07 AM EST Height 162.6 cm (5' 4 ) 06/26/2019 11:07 AM EST Body Mass Index 35.87 06/26/2019 11:07 AM EST Plan of Treatment Health Maintenance Due Date Last Done Comments Annual Gynecologic Pelvic and Breast Exam 1960 TDAP/TD VACCINES (1 - Tdap) 06/30/1979 MAMMOGRAM 2000 COLOGUARD 2005 COLON CANCER SCREENING 5 YEAR SIGMOIDOSCOPY 2005 COLONOSCOPY [address] CANCER SCREENING 2005 CT COLONOGRAPHY 2005 FECAL OCCULT BLOOD TEST 2005 FIT Testing (1 year) 2005 Pneumococcal Vaccine 50+ (1 of 1 - PCV) 2010 ZOSTER VACCINE (1 of 2) 2010 ANNUAL PHYSICAL 08/27/2018 HEPATITIS C SCREENING 08/27/2018 INFLUENZA VACCINE 11/27/2024 HEMOGLOBIN A1C Discontinued 05/24/2019 Procedures Procedure Name Priority Date/Time Associated Diagnosis Comments HEMOGLOBIN A1C STAT 05/24/2019 3:24 PM EST from Last 3 Months or Most Recently Relevant to Health Maintenance Results * (ABNORMAL) Hemoglobin A1c (05/24/2019 3:24 PM EST) Hemoglobin A1C 10.30(H) 4.80 - 5.60 % 05/24/2019 4:22 PM EST [facility] Blood Venipuncture / Unknown 05/24/2019 3:24 PM EST 05/24/2019 3:36 PM EST Narrative [facility] - 05/24/2019 4:22 PM EST Hemoglobin A1C Ranges: Increased Risk for Diabetes 5.7% to 6.4% Diabetes >= 6.5% Diabetic Goal < 7.0% us Allison [facility] BLOOD ORDERABLES Final Res ult [facility]
[address] [place] [address], from Last 3 Months or Most Recently Relevant to Health Maintenance Care Teams Traffic Ii Manager Relationship Specialty Start Date End Date Anyi Raymundo PA PCP - General Physician Thread Spinner 08/27/18
--- OUTSIDE RECORDS SUMMARY | 2025-01-19 14:27 | XMS_ITS | Clinical Summary ---
Author Organization [facility] Address [address] [place] [address] Phone Care Team Providers Care Kennel Manager Dog Track Name Role Phone Unavailable Primary Care Provider [...] PCV) 2010 Zoster (1 of 2) 2010 RSV or 60+ (1 - Ris k 60-74 years 1-dose series) 2020 COVID-19 Vaccine (1 - 2023-2 5 season) 2024 Influenza Vaccine (#1) 2024 Hepatitis B Vaccine Aged Out No longe r eligible based on patient's age to complete this topic Meningococcal B Vaccine Aged Out No l onger eligible based on patient's age to complete this topic Insurance [employer] PPO
== END 2025-01-18 23:59 | disposition home or self-care (01) ==
LOC: LAB.DROPOF 01-19 14:24
PROVIDERS: PCP Student in an Organized Health Care Education/Training Program; Visit Provider Student in an Organized Health Care Education/Training Program
DX: R30.0 Dysuria (principal); E11.65 Type 2 diabetes mellitus with hyperglycemia; E11.22 Type 2 diabetes mellitus with diabetic chronic kidney disease; N18.30 Chronic kidney disease, stage 3 unspecified; D50.9 Iron deficiency anemia, unspecified
CPT/HCPCS: 80048; 82043; 82570; 85025; 87086; 87088; 87186

== ENCOUNTER 2025-02-27 16:14 | Emergency (ER) | payer MEDICAID, SELFPAY ==
[2025-02-27 16:15] VITALS: BP 188/91; PULSE 85; RESP 20; TEMP 36.7; O2SAT 97; BMI 27.4
[2025-02-27 16:21] VITALS: BP 188/91; PULSE 85; O2SAT 99
--- OUTSIDE RECORDS SUMMARY | 2025-02-27 16:26 | XMS_ITS | Clinical Summary ---
Author Organization [facility] Address [address] [place] [address] Phone Care Team Providers Care Rubber Heel And Sole Press Tender Name Role Phone Unavailable Unavailable Conditions or Problems No information available. Medications No information available. Medications Administered No information available. Allergies, Adverse Reactions, Alerts No information available. Results No information available. Plan of Care No information available. Procedures No information available. Vital Signs No information available. Immunizations No information available. Advance Directives No information available.
--- NOTE | 2025-02-27 16:27 | ED_ITS ---
<Statement entered by Francesco Fuentes MD - 02/27/25 17:39> Francesco Fuentes MD: I was consulted by the JOSÉ, and we discussed the complexity of the problems being addressed. I approved the treatment and management plan for this patient's care in the emergency department, thus performing a substantive portion of the medical decision making. Discharge Plan Disposition Patient Disposition: Home, Self-Care Condition: Good Prescriptions Prescriptions: No Action ferrous sulfate 325 mg (65 mg iron) tablet 325 mg PO BID Qty: 60 5RF Ozempic 0.25 mg or 0.5 mg (2 mg/3 mL) pen injector 0.25 mg SQ WEEKLY Rx Instructions: for 4 weeks insulin glargine [Lantus Solostar U-100 Insulin] 100 unit/mL (3 mL) insulin pen 40 unit SQ .COMPLEX Rx Instructions: 40 units subcutaneously; bumetanide 1 mg tablet 1 mg PO DAILY Qty: 90 3RF (DME) Dexcom G6 Transmitter Device See Rx Instructions .Route Qty: 1 3RF Rx Instructions: As directed atorvastatin 80 mg tablet 80 mg PO HS Qty: 90 3RF aspirin 81 mg tablet,delayed release (DR/EC) See Rx Instructions .ROUTE .COMPLEX Qty: 100 3RF Dose Instruction: TAKE ONE TABLET BY MOUTH EVERY DAY Rx Instructions: TAKE ONE TABLET BY MOUTH EVERY DAY Entresto 24-26 mg tablet See Rx Instructions .ROUTE .COMPLEX Qty: 180 3RF Dose Instruction: TAKE ONE TABLET BY MOUTH TWICE DAILY Rx Instructions: TAKE ONE TABLET BY MOUTH TWICE DAILY spironolactone 25 mg tablet See Rx Instructions .ROUTE .COMPLEX Qty: 30 11RF Dose Instruction: TAKE ONE TABLET BY MOUTH EVERY DAY Rx Instructions: TAKE ONE TABLET BY MOUTH EVERY DAY pantoprazole 40 mg tablet,delayed release (DR/EC) See Rx Instructions .ROUTE .COMPLEX Qty: 90 3RF Dose Instruction: TAKE ONE TABLET BY MOUTH AT BEDTIME NIGHTLY Rx Instructions: TAKE ONE TABLET BY MOUTH AT BEDTIME NIGHTLY (DME) pen needle, diabetic [Comfort EZ Pen Christmas] 32 gauge x 1/4 needle See Rx Instructions .Route Qty: 100 3RF Rx Instructions: As directed (DME) Dexcom G6 Sensor Device See Rx Instructions .Route Qty: 3 12RF Rx Instructions: As directed Xarelto 15 mg tablet See Rx Instructions .ROUTE .COMPLEX Qty: 90 3RF Dose Instruction: TAKE ONE TABLET BY MOUTH EVERY EVENING WITH MEAL Rx Instructions: TAKE ONE TABLET BY MOUTH EVERY EVENING WITH MEAL clopidogrel 75 mg tablet 75 mg PO DAILY Qty: 90 3RF cephalexin 750 mg capsule 750 mg PO Q6H 5 Days Qty: 20 0RF carvedilol 3.125 mg tablet 3.125 mg PO BIDWMEAL 30 Days Qty: 60 6RF Patient Comments: TAKE ONE TABLET BY MOUTH TWICE DAILY WITH FOOD metoclopramide HCl 10 mg tablet 10 mg PO AC 30 Days Qty: 90 0RF Referrals Follow up/Referrals: Faisal Carpenter MD [Primary Care Provider, Family Practice] - See instructions Activity Restrictions/Add. Instructions Additional Instructions/Restrictions: Please return to the emergency department with any worsening bleeding, please keep the area clean dry and dressed with pressure dressing over the next 24 hours. Please follow-up with your primary care doctor in the upcoming days/weeks. Clinical Impressions Clinical Impression: Puncture wound of abdomen Print Language Print Language: Japanese Discharge ED Provider: Francesco Fuentes General Adult HPI General Chief complaint: Skin/Abscess/Foreign Body Stated complaint: bleeding on stomach from her dexicon Time Seen by Provider: 02/27/25 16:21 Mode of Arrival: Ambulatory Source of Information: Patient and Medical Record Limitations: No Limitations History of Present Illness HPI narrative: 64-year-old female presents the emergency department with a left abdominal puncture wound that is bleeding, patient states that she changed her Dexcom at around 2 PM, and around 2:30 PM she noticed some bleeding, attempt to control bleeding with a Band-Aid , but still having profuse bleeding, this prompted emergency department visit. Patient denies any fever chills lightheadedness shortness of breath, no real abdominal pain, no other acute send pathology, patient is on anticoagulant therapy and antiplatelet therapy with Xarelto aspirin and Plavix, other past medical history is consistent with hyperlipidemia, hypertension, T2DM, stage III CKD, paroxysmal atrial fibrillation, CHF, diabetic polyneuropathy, diabetic gastroparesis, initial triage vitals grossly unremarkable Please note that above description of symptoms, in this electronic medical record under categorization of recalled from ER triage doctor by RN are reflective of an initial nursing assessment, however, is not reflective of my full history and physical exam that was personally taken and clarified. Consequentially, this preceding description of symptoms, which may include the patient's categorized chief complaint in the EMR, do not reflect my personal clinical impression, and the ultimate description of history of present illness and patient stated complaints should be deferred to this section of the note. Unless stated otherwise or congruent with this section of the note, additional signs, symptoms, or incongruence should be interpreted as inaccurate with my clinical impression. Onset (ago): hour(s) Related Data Home Medications ?Medication ?Instructions ?Recorded ?Confirmed semaglutide 0.25 mg or 0.5 mg (2 0.25 mg SQ WEEKLY 01/18/25 mg/3 mL) subcutaneous pen injector (Ozempic) insulin glargine 100 unit/mL (3 40 unit SQ .COMPLEX mL) subcutaneous pen (Lantus Solostar U-100 Insulin) Previous Rx's ?Medication ?Instructions ?Recorded bumetanide 1 mg tablet 1 mg PO DAILY #90 tabs 10/08 ferrous sulfate 325 mg (65 mg 325 mg PO BID #60 tabs 0 10/09/24 iron) tablet blood-glucose transmitter (Dexcom #1 ea 10/12/24 G6 Transmitter device) aspirin 81 mg tablet,delayed See Rx Instructions .Rout e 11/10/24 release .COMPLEX #100 tabs atorvastatin 80 mg tablet 80 mg PO HS #90 tabs 5 sacubitril 24 mg-valsartan 26 mg See Rx Instructions . Route 11/10/24 tablet (Entresto) .COMPLEX #180 tabs spironolactone 25 mg tablet See Rx Instructions .Route 11/10/24 .COMPLEX #30 tabs pantoprazole 40 mg tablet,delayed See Rx Instructions .Route 12/07/24 release .COMPLEX #90 tabs pen needle, diabetic 32 gauge x #100 ea 12/31/2405/02 (Comfort EZ Pen Christmas) blood-glucose sensor (Dexcom G6 #3 ea 01/05/25 Sensor device) clopidogrel 75 mg tablet 75 mg PO DAILY #90 tabs 12/28 12/21 rivaroxaban 15 mg tablet (Xarelto) See Rx Instructions .Route 01/14/25 .COMPLEX #90 tabs cephalexin 750 mg capsule 750 mg PO Q6H 5 days #20 cap s 01/20/25 carvedilol 3.125 mg tablet 3.125 mg PO BIDWMEAL 30 day s #60 02/02/25 tabs metoclopramide HCl 10 mg tablet 10 mg PO AC 30 days #9 0 tabs 02/14/25 Allergies Allergy/AdvReac Type Severity Reaction Status Date / Time latex Allergy Rash Verified 01/18/25 13:07 [facility] Disclaimer: The information contained in this section may have been updated after the patient was seen, as this information can be updated by other users. Medical History Dyspnea Bronchitis Gastritis Renal insufficiency Obesity (BMI 30-39.9) Hematoma, non-traumatic Ventral hernia Hiatal hernia Diabetes mellitus, insulin dependent (IDDM), controlled Left against medical advice Fatigue Tachycardia Dizziness Atrial flutter NSTEMI (non-ST elevated myocardial infarction) Elevated troponin Renal insufficiency Atrial fibrillation Chest pain Obesity Diabetes mellitus Surgical History H/O cardiac radiofrequency ablation Stented coronary artery Family History Other No significant family history Social History Smoking Status: Never smoker second hand exposure: No alcohol intake: never substance use type: denies use current occupational status: employed Travel in the last 8 weeks?: None household members: spouse and family housing: house current occupational exposures/hazards: No caffeine: Yes Have you lived/traveled outside US in past 30 days?: No Contact w/someone who lives/traveled outside US past 30 days?: No Exposure to someone with infectious disease in past 14 days?: No Do you have a fever (greater than 100.4 F or 38 C)?: No Have you tested positive for COVID-19?: No Exposed to someone with COVID-19 in past 14 days?: No Do you have a sore throat?: No Do you have a cough?: No Do you have any weakness?: No Do you have any diarrhea?: No Are you experiencing any unusual bleeding?: No Do you have any muscle aches/pain?: No Do you have any abdominal pain?: No Are you experiencing loss of taste or smell?: No Other Medical History Have you received the Flu Vaccine for this season: No Have you received the Pneumonia Vaccine: Yes ROS Obtained: Yes All systems reviewed & no additional complaints except as documented Physical Exam General General appearance: alert and in no apparent distress Head Head exam: atraumatic and normocephalic Eye Eye exam: Present PERRL and EOMI ENT ENT exam: Present mucous membranes moist Neck Neck exam: Present normal inspection Chest Chest inspection: Present normal inspection and symmetric chest wall rise Respiratory Respiratory exam: Present normal lung sounds bilaterally; Absent respiratory distress Cardiovascular Cardiovascular exam: Present regular rate and normal rhythm Abdominal Exam Abdominal exam: Present soft; Absent tenderness, guarding, rebound or rigidity Comment: Small area that is oozing some blood no obvious laceration or puncture wound Extremities Exam Extremities exam: Present normal inspection Neurological Exam Neurological exam: Present alert and oriented X3 Psychiatric Psychiatric exam: Present normal affect Skin Skin exam: Present warm and dry Medical Decision Making Medical Records Medical records reviewed: Yes I reviewed the patient's medical records. Screening: Per USPSTF and CDC recommendations, given the prevalence of disease in our region, it is our hospital?s policy to screen for HIV and viral Hepatitis for all patients aged 18 and over and those with ongoing risk factors. James Inquiry Pt receiving controlled substance: No James was queried for this patient: No Vital Signs: 02/27/25 16:15 02/27/25 16:21 02/27/25 16:30 Temperature 98.1 F Temperature Source Oral Pulse Rate 85 83 Pulse Rate [Left Radial] 85 Respiratory Rate 20 Blood Pressure 188/91 H 176/96 H Blood Pressure [Right Arm] 188/91 H Blood Pressure Mean [Right Arm] 123 02 Sat by Pulse Oximetry 97 99 95 Oxygen Delivery Method Room Air Room Air Room Air Orders (Tests/Meds): ED MEDICATIONS Generic Name Dose Route Start Last Admin Trade Name Freq PRN Reason Stop Dose Admin Tranexamic Acid 1,000 mg/ 260 mls @ 32.5 mls/hr 02/27/25 17:01 Sodium Chloride IV 02/27/25 17:02 ONCE ONE Lidocaine/Epinephrine 20 ml 02/27/25 17:00 Lidocaine 1% W/Epi 1:100,000 20ml Vial IJ 02/27/25 17:01 ONCE ONE Medical Decision Narrative: 64-year-old female presents the emergency department for a bleeding wound from Dexcom placement, differential diagnose include but not limited to, puncture wound, uncontrolled bleeding, among others I discussed this patient case with attending Dr. Fuentes Patient is hemodynamically stable, no other acute signs or symptoms, slow oozing nonvisualized puncture wound from Dexcom on her right lower abdomen, nursing staff placed Surgicel as well as pressure dressing on the patient's wound. Will monitor the patient in the emergency department for any worsening bleeding/decrease in bleeding. Reexamination of the patient approximately 4:45 PM, patient having some brisk bleeding that was enough to soak through the patient Surgicel and pressure dressing. Will hold the patient hold direct pressure. Utilizing 10 mL of 1% lidocaine with epinephrine and a 27-gauge needle I locally injected the patient's wound performed a variation of a ring block around the patient's punctate wound, to help stop the bleeding, also utilize some topical TXA as well as pressure gauze and Surgicel for a second attempt to stop the patient's active bleeding. Patient tolerated procedure well no apparent complications. Reexamination of the patient at approximately 5:09 PM, patient bleeding looks to be more controlled, will give the patient wound care supplies and send the patient home, patient was given strict ED return precautions. Bleeding precautions. Patient voiced understanding and agreed with current treatment plan/discharge plan. Patient follow-up PCP in the upcoming days/weeks. Critical Care Critical Care Time Critical Care Time: No
--- OUTSIDE RECORDS SUMMARY | 2025-02-27 16:27 | XMS_ITS | Clinical Summary ---
Author Organization [facility] Address [address] [place] [address] Phone Care Team Providers Care Professor Of Environmental Engineering Name Role Phone Unavailable Primary Care Provider [...] 50+ (1 of 1 - PCV) 2010 RSV or 60+ (1 - Ris k 50-74 years 1-dose series) 2010 Zoster (1 of 2) 2010 COVID-19 Vaccine (1 - 2024-2 6 season) 2024 Influenza Vaccine (#1) 2024 Hepatitis B Vaccine Aged Out No longe r eligible based on patient's age to complete this topic Meningococcal B Vaccine Aged Out No l onger eligible based on patient's age to complete this topic Insurance [employer] PPO
--- OUTSIDE RECORDS SUMMARY | 2025-02-27 16:27 | XMS_ITS | Clinical Summary ---
Author Organization [facility] Address [address] [place] [address] Care Team Providers Care Server Manager Name Role Phone Anyi Raymundo Primary Care Provider [phone] Allergies Active Allergy Reactions Criticality Noted Date [...] Active vitamin D (ERGOCALCIFEROL ) 1.25 MG (78233 UT) capsule capsule Take 50,000 Units by [...] - 5.60 % 05/24/2019 4:22 PM EST [facility] Blood Venipuncture / Unknown 05/24/2019 3:24 PM EST 05/24/2019 3:36 PM EST Narrative [facility] - 05/24/2019 4:22 PM EST Hemoglobin A1C Ranges: Increased Risk for Diabetes 5.7% to 6.4% Diabetes >= 6.5% Diabetic Goal < 7.0% us Allison [facility] BLOOD ORDERABLES Final Res ult [facility]
[address] [place] [address], from Last 3 Months or Most Recently Relevant to Health Maintenance Care Teams Server Manager Relationship Specialty Start Date End Date Anyi Raymundo PA PCP - General Physician Liquor Bridge Operator 08/27/18
[2025-02-27 16:30] VITALS: BP 176/96; PULSE 83; O2SAT 95
[2025-02-27] MEDS: LIDOCAINE 1% W/EPI 1:100,000 20ML VIAL 20 ML IJ (17:07)
[2025-02-27 17:14] VITALS: BP 141/77; PULSE 75; RESP 15; TEMP 36.8; O2SAT 98
== END 2025-02-27 17:19 | disposition home or self-care (01) ==
PROVIDERS: Emergency Provider Emergency Medicine; PCP Family Medicine
DX: S31.139A Puncture wound of abdominal wall without foreign body, unspecified quadrant without penetration into peritoneal cavity, initial encounter (principal); E11.9 Type 2 diabetes mellitus without complications; I11.0 Hypertensive heart disease with heart failure; I50.33 Acute on chronic diastolic (congestive) heart failure; I48.0 Paroxysmal atrial fibrillation; Z86.79 Personal history of other diseases of the circulatory system; Z95.5 Presence of coronary angioplasty implant and graft; Z79.01 Long term (current) use of anticoagulants; Z96.41 Presence of insulin pump (external) (internal); Z79.4 Long term (current) use of insulin
CPT/HCPCS: 99283; 99284; J7050